=== PATIENT | female | born 1970 | race Caucasian/White ===

== ENCOUNTER → 2016-12-22 | Emergency (ER) | payer MEDICAID ==
[~2016-12-22] VITALS: Ht 165.1 cm; Wt 140.6 kg
[~2016-12-22] MED LIST: ACYC800T PO; ADDERALL; ALBU2.5V52 INH; AMOX-358 PO; AMPH30TA2 PO; ATRV10T PO; BLAC80CA PO; CETI10CA PO; CYCL10TA45 PO; DIAZ10TA PO; ESCT10T PO; FLUC100T PO; FURO40TA4 PO; HYDR-3583 PO; IBP600T1 PO; KCL; LAMO100T69; LAMO100T69 PO; LEVE500T PO; LEVE500T6; LEVO500T2 PO; LNS30CCR; MNTL10T; MULT-974 PO; NITR-65 PO; NRT25C PO; NYST1000 PO; ONDAN4ODT PO; ONDANSETRON 4 MG/2 ML (SDV) Z0FRAN IVP ONE; POLY17PO6 PO; POTA10TA PO; QTP25T; SIMV40TA2; TIAG4TAB; TOPI50TA20; TRAM-21 PO; ZLP10T PO; fentaNYL INJECTION 100 MCG/2 ML AMP IVP STA
--- NOTE | 2016-12-22 15:17 | ED GI ---
General Stated Complaint: STOMACH PAIN Source of Information: Patient, Family Exam Limitations: No Limitations History of Present Illness Time Seen By Provider: 15:17 Initial Comments The patient presents with her boyfriend to the ER with a one week progressive intermittent history of pain in her right upper quadrant that has now traveled more to be in her left upper quadrant coinciding with obstipation and occasional sharp chest pains, shortness of breath mildly above baseline for her COPD and nausea without vomiting. The patient has only had a small bowel movement yesterday and one small one this morning. She took a Dulcolax that she was afraid she was constipated the past week but has had no results. Her appetite as been okay. She denies fever or chills or recent sick contacts or travel outside the [facility]. Patient takes her meds on time. Her meds include Reading prescribed by her PCP for osteoarthritis of her back. She is not on a routine bowel regimenq Allergies and Home Medications Allergies Coded Allergies: Sulfa (Sulfonamide Antibiotics) (Unverified Allergy, Unknown, RASH, ) esomeprazole mag (Unverified Adverse Reaction, Intermediate, 06/10/13) Diarrhea Home Medications Acyclovir 800 Mg Tablet, 800 MG PO Q6H for 7 Days Prescribed by: RUY EVANS on 06/11/13 0055 Albuterol Sulfate 2.5 Mg/3 Ml Nebu, 2.5 MG INH Q6H PRN, (Reported) Amphet Asp/Amphet/D-Amphet 30 Mg Tablet, 30 MG PO BID, (Reported) Atorvastatin Calcium 10 Mg Tablet, 10 MG PO HS, (Reported) Black Cohosh Root Extract 80 Mg Capsule, 80 MG PO DAILY, (Reported) Cetirizine Hcl 10 Mg Capsule, 10 MG PO DAILY, (Reported) Cyclobenzaprine Hcl 10 Mg Tablet, 10 MG PO TID PRN, (Reported) Diazepam 10 Mg Tablet, 10 MG PO Q8H PRN, (Reported) Escitalopram Oxalate 10 Mg Tablet, 10 MG PO DAILY, (Reported) Furosemide 40 Mg Tablet, 40 MG PO BID, (Reported) Hydrocodone Bit/Acetaminophen 1 Tab Tab, 1 EA PO Q4HR PRN, (Reported) Ibuprofen 600 Mg Tab, 600 MG PO Q6H PRN, (Reported) Lamotrigine 100 Mg Tablet, 50 MG PO BID, (Reported) Levetiracetam 500 Mg Tab, 500 MG PO BID, (Reported) Multivitamin 1 Each Tablet, 1 TAB PO DAILY, (Reported) Nortriptyline Hcl 25 Mg Cap, 25 MG PO HS, (Reported) Ondansetron Hcl 4 Mg Tab, 4 MG PO Q8H PRN, (Reported) Potassium Chloride 10 Meq Tablet.sa, 20 MEQ PO BID, (Reported) Zolpidem Tartrate 10 Mg Tab, 10 MG PO HS, (Reported) Review of Systems Constitutional: No chills, No diaphoresis, No dizziness, No fever, malaise, No weight gain, No weight loss EENTM: No Ear Pain, No Nose Congestion, No Throat Pain Respiratory: Denies Cough, SOA With Exertion, Denies SOA at Rest Cardiovascular: See HPI, Chest Pain, Denies Edema, Denies Palpitations Gastrointestinal: Abdomen Distended, Abdominal Pain, Constipated, Denies Diarrhea, Denies Difficulty Swallowing, Nausea, Denies Poor Appetite, Denies Poor Fluid Intake, Denies Vomiting Genitourinary: Denies Burning, Denies Discharge, Denies Incontinence, Denies Pain Musculoskeletal: back pain, joint pain, No joint swelling Skin: No pruritus, No rash Psychiatric/Neurological: Denies Headache, Denies Numbness Hematologic/Lymphatic: Denies Easy Bleeding, Denies Easy Bruising Past Lpsupoe-Drfqub-Ylmouv Hx Patient Social History Alcohol Use: Denies Use Recreational Drug Use: No Smoking Status: Current Everyday Smoker Type Used: Cigarettes Recent Foreign Travel: No Contact w/Someone Who Travel: No Immunizations Up To Date Tetanus Booster (TDap): Unknown Date of Pneumonia Vaccine: Dec 14, 2012 Seasonal Allergies Seasonal Allergies: No Surgeries HX Surgeries: Yes (carpal tunnel sx) Surgeries: Hysterectomy Respiratory Hx Respiratory Disorders: Yes Respiratory Disorders: Chronic Bronchitis Cardiovascular Hx Cardiac Disorders: No Neurological Hx Neurological Disorders: Yes Neurological Disorders: Seizure Disorder 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 System Hx 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 Disorders: No Sexually Transmitted Disease: No HIV/AIDS: No 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 History: Hysterectomy Genitourinary Hx Genitourinary Disorders: No Gastrointestinal Hx Gastrointestinal Disorders: Yes Gastrointestinal Disorders: Gastroesophageal Reflux Musculoskeletal Hx Musculoskeletal Disorders: Yes Musculoskeletal Disorders: Arthritis, Fibromyalgia Endocrine Hx Endocrine Disorders: No HEENT HX ENT Disorders: No Cancer Hx Cancer: No Psychosocial Hx Psychiatric Problems: Yes Behavioral Health Disorders: ADD/ADHD, Anxiety, PTSD, Depression Integumentary HX Skin/Integumentary Disorder: No Blood Transfusions Hx Blood Disorders: No Family Medical History Significant Family History: No Pertinent Family Hx Physical Exam Vital Signs VS - Last 72 Hours, by Label 12/22/16 12/22/16 15:15 15:42 Temp 98.1 98.1 Pulse 72 Resp 30 B/P (MAP) 132/84 Pulse Ox 95 O2 Delivery Room Air Capillary Refill : General Appearance: WD/WN, no apparent distress, obese HEENT: PERRL/EOMI, pharynx normal Neck: non-tender, full range of motion, supple, normal inspection Respiratory: chest non-tender, lungs clear, normal breath sounds, no respiratory distress, no accessory muscle use Cardiovascular: normal peripheral pulses, regular rate, rhythm, no JVD Peripheral Pulses: 3+ Radial Pulses (R), 3+ Radial Pulses (L) Gastrointestinal: normal bowel sounds, no organomegaly, distended, tenderness ( RUQ, LUQ and LLQ) Extremities: non-tender, normal inspection Back: normal inspection, no CVA tenderness Neurologic/Psychiatric: alert, oriented x 3 Skin: normal color, warm/dry Progress/Results/Core Measures Results/Orders Lab Results Laboratory Tests Test 12/22/16 15:35 Range/Units White Blood Count 13.6 H 4.3-11.0 10^3/uL Red Blood Count 4.33 L 4.35-5.85 10^6/uL Hemoglobin 13.2 11.5-16.0 G/DL Hematocrit 40 35-52 % Mean Corpuscular Volume 91 80-99 FL Mean Corpuscular Hemoglobin 31 25-34 PG Mean Corpuscular Hemoglobin Concent 33 32-36 G/DL Red Cell Distribution Width 12.7 10.0-14.5 % Platelet Count 232 130-400 10^3/uL Mean Platelet Volume 11.1 H 7.4-10.4 FL Neutrophils (%) (Auto) 68 42-75 % Lymphocytes (%) (Auto) 23 12-44 % Monocytes (%) (Auto) 8 0-12 % Eosinophils (%) (Auto) 1 0-10 % Basophils (%) (Auto) 0 0-10 % Neutrophils # (Auto) 9.3 H 1.8-7.8 X 10^3 Lymphocytes # (Auto) 3.2 1.0-4.0 X 10^3 Monocytes # (Auto) 1.1 H 0.0-1.0 X 10^3 Eosinophils # (Auto) 0.1 0.0-0.3 10^3/uL Basophils # (Auto) 0.0 0.0-0.1 10^3/uL Sodium Level 141 135-145 MMOL/L Potassium Level 3.8 3.6-5.0 MMOL/L Chloride Level 112 H 98-107 MMOL/L Carbon Dioxide Level 20 L 21-32 MMOL/L Anion Gap 9 5-14 MMOL/L Blood Urea Nitrogen 20 H 7-18 MG/DL Creatinine 0.85 0.60-1.30 MG/DL Estimat Glomerular Filtration Rate > 60 BUN/Creatinine Ratio 24 Glucose Level 103 70-105 MG/DL Calcium Level 8.8 8.5-10.1 MG/DL Total Bilirubin 0.2 0.1-1.0 MG/DL Aspartate Amino Transf (AST/SGOT) 11 5-34 U/L Alanine Aminotransferase (ALT/SGPT) 12 0-55 U/L Alkaline Phosphatase 68 40-136 U/L Troponin I < 0.30 <0.30 NG/ML Total Protein 5.9 L 6.4-8.2 G/DL Albumin 3.5 3.2-4.5 G/DL Amylase Level 82 25-125 U/L Thyroid Stimulating Hormone (TSH) 1.06 0.35-4.94 UIU/ML My Orders Orders - ZAHRA ORNELAS Saline Lock/Iv-Start (12/22/16 15:28) Ekg Tracing (12/22/16 15:28) Amylase (12/22/16 15:28) Cbc With Automated Diff (12/22/16 15:28) Comprehensive Metabolic Panel (12/22/16 15:28) Thyroid Stimulating Hormone (12/22/16 15:28) Troponin I (12/22/16 15:28) Chest Pa/Lat (2 View) (12/22/16 15:28) Abdomen/Kub 1view (12/22/16 15:28) Fentanyl Injection (Sublimaze Injection (12/22/16 15:28) Ondansetron Injection (Zofran Injectio (12/22/16 15:45) Medications Given in ED Current Medications Medications Dose Ordered Sig/Daysi Route Start Time Stop Time Status Last Admin Dose Admin Ondansetron HCl 4 mg ONCE ONCE IVP 12/22/16 15:45 12/22/16 15:46 DC 12/22/16 15:42 4 MG Vital Signs/I&O Vital Sign - Last 12Hours 12/22/16 12/22/16 15:15 15:42 Temp 98.1 98.1 Pulse 72 Resp 30 B/P (MAP) 132/84 Pulse Ox 95 O2 Delivery Room Air Progress Note : Time: 15:39 Progress Note Patient is with a nonacute appearance but a long history of opiates and now constipation and abdominal pain tracking along the length of the colon. She is aleady had her appendix and gallbladder out as well as hysterectomy. Her Chest pain will be worked up with Trop and Normal EKg and CXR. No SOB or hypoxia on RA despite Hx of COPD so PE less likely. No GERD, but distended colon might explain her discomfort. Imaging lab reviewed and appears patient is constipated secondary to her chronic opiate use. She is been counseled on how to use MiraLAX daily. For Jose her home on a twice a day or 3 times a day cleanout as well as given enema. Patient states she does not take anything for her constipation routinely. She should follow-up with her primary care in the next few weeks. She states she's had 2 small bowel movements since getting here secondary to the Dulcolax she took this afternoon and is already feeling better. ECG EKG : EKG Time: 15:26 Rate: 63 Rhythm: Normal Sinus Intervals: Normal, QT (410) ECG Comparisson: No Previous ECG Available ECG Impression: Normal Diagnostic Imaging Diagonstic Imaging: Xray Plain Films/CT/US/NM/MRI: chest Comments No acute cardio occult pulmonary abnormalities. Calcified granuloma left lung VIA [facility]. [place], [place] NAME: LANETTE CARO [facility] REC#: [id number] PT STATUS: REG ER : 1970 PHYSICIAN: ZAHRA ORNELAS MD ADMIT DATE: 12/22/16/ER Draft Date of Exam:12/22/16 CHEST PA/LAT (2 VIEW) INDICATION: Chest pain. FINDINGS: There is no focal pulmonary infiltrate or consolidation. There is no effusion or evidence of pneumothorax. There is a stable density demonstrated within the left chest most compatible with a granuloma. This has been present dating back to at least the office associate tomogram of a CT abdomen/pelvis from July 2015. The heart size is normal. There is no evidence of failure. There is no acute osseous abnormality. IMPRESSION: No radiographic evidence of an acute cardiopulmonary process. Dictated on workstation # [id number] Dict: 12/22/16 1603 Trans: 12/22/16 1618 [facility] [id number] Interpreted by: MARIA WHITE MD Electronically signed by: Reviewed: Reviewed by Me Diagonstic Imaging: Xray Plain Films/CT/US/NM/MRI: other (KUB) Comments Distended bowel gas transverse and ascending colon descending and sigmoid and rectum not seen. [facility]. [place], [place] NAME: LANETTE CARO [facility] REC#: [id number] PT STATUS: REG ER : 1970 PHYSICIAN: ZAHRA ORNELAS MD ADMIT DATE: 12/22/16/ER Draft Date of Exam:12/22/16 ABDOMEN/KUB 1VIEW INDICATION: Constipation and abdominal pain. FINDINGS: There is gas demonstrated within the ascending colon and within the transverse colon. There does appear to be some stool within the region of the rectum. There is no colonic dilatation. There is no abnormal small bowel dilatation. There are surgical clips in the right upper quadrant. Lung bases clear. No acute osseous abnormality demonstrated. IMPRESSION: 1. There are no obstructive features demonstrated. There is formed stool demonstrated within the rectum but no significant stool evident within the transverse colon or right colon. There is no small bowel dilation. Dictated on workstation # [id number] Dict: 12/22/16 1607 Trans: 12/22/16 1612 [facility] [id number] Interpreted by: MARIA WHITE MD Electronically signed by: Reviewed: Reviewed by Me Departure Impression Impression: Primary Impression: Constipation due to pain medication Disposition: HOME, SELF-CARE Condition: Stable Departure-Patient Inst. Decision time for Depature: 17:01 Referrals: KUSHAL FLOR MD (PCP/Family) Primary Care Physician Patient Instructions: Constipation, Adult (DC) Add. Discharge Instructions: You have constipation secondary to your opiate pain medicine. Every daily to take pain medicine he should take at least 1 dose of MiraLAX. For now would like to take 2-3 times a day MiraLAX as well as an enema a day until you have frequent loose watery stools and fever cleaned out. If you're having abdominal pain and take pain medicine may take away the pain temporarily but it is only further worsening the constipation and the root of your problem. Follow up with your primary care physician to reassess her medicines in the next 2-3 weeks. If you're not getting better or having new symptoms such as fever or nausea and vomiting and you should return to the ER or your primary care physician as appropriate. Scripts Polyethylene Glycol 3350 (Miralax) 17 Gm Powd.pack 17 GM PO BID PRN for Constipation for 7 Days, #1 EACH 0 Refills Prov: ZAHRA ORNELAS 12/22/16 Copy Copies To 1: KUSHAL FLOR MD, TITUS J Dec 22, 2016 15:17
[2016-12-22 15:43] LABS: BASOPHILS % (AUTO) 0 % (0-10); EOSINOPHILS # (AUTO) 0.1 10^3/uL (0.0-0.3); EOSINOPHILS % (AUTO) 1 % (0-10); LYMPHOCYTES # (AUTO) 3.2 X 10^3 (1.0-4.0); LYMPHOCYTES % (AUTO) 23 % (12-44); MEAN CORPUSCULAR HEMOGLOBIN 31 PG (25-34); MEAN CORPUSCULAR HGB CONC 33 G/DL (32-36); MEAN CORPUSCULAR VOLUME 91 FL (80-99); MEAN PLATELET VOLUME 11.1 FL (7.4-10.4); MONOCYTES # (AUTO) 1.1 X 10^3 (0.0-1.0); MONOCYTES % (AUTO) 8 % (0-12); NEUTROPHILS # (AUTO) 9.3 X 10^3 (1.8-7.8); NEUTROPHILS % (AUTO) 68 % (42-75); PLATELET COUNT 232 10^3/uL (130-400); RED BLOOD COUNT 4.33 10^6/uL (4.35-5.85); RED CELL DISTRIBUTION WIDTH 12.7 % (10.0-14.5); WHITE BLOOD COUNT 13.6 10^3/uL (4.3-11.0)
[2016-12-22 16:09] LABS: ALANINE AMINOTRANSFERASE 12 U/L (0-55); ALBUMIN 3.5 G/DL (3.2-4.5); AMYLASE 82 U/L (25-125); ANION GAP 9 MMOL/L (5-14); ASPARTATE AMINO TRANSFERASE 11 U/L (5-34); BILIRUBIN,TOTAL 0.2 MG/DL (0.1-1.0); BLOOD UREA NITROGEN 20 MG/DL (7-18); BUN/CREATININE RATIO 24; CALCIUM 8.8 MG/DL (8.5-10.1); CARBON DIOXIDE 20 MMOL/L (21-32); CHLORIDE 112 MMOL/L (98-107); CREATININE SERUM 0.85 MG/DL (0.60-1.30); GFR ESTIMATED > 60; GLUCOSE 103 MG/DL (70-105); POTASSIUM 3.8 MMOL/L (3.6-5.0); SODIUM 141 MMOL/L (135-145); TOTAL PROTEIN 5.9 G/DL (6.4-8.2)
--- NOTE | 2016-12-22 16:13 | Diagnostic Imaging Report ---
INDICATION: Constipation and abdominal pain. FINDINGS: There is gas demonstrated within the ascending colon and within the transverse colon. There does appear to be some stool within the region of the rectum. There is no colonic dilatation. There is no abnormal small bowel dilatation. There are surgical clips in the right upper quadrant. Lung bases clear. No acute osseous abnormality demonstrated. IMPRESSION: 1. There are no obstructive features demonstrated. There is formed stool demonstrated within the rectum but no significant stool evident within the transverse colon or right colon. There is no small bowel dilation. Dictated by: Dictated on workstation # [id number]
--- NOTE | 2016-12-22 16:19 | Diagnostic Imaging Report ---
INDICATION: Chest pain. FINDINGS: There is no focal pulmonary infiltrate or consolidation. There is no effusion or evidence of pneumothorax. There is a stable density demonstrated within the left chest most compatible with a granuloma. This has been present dating back to at least the ear specialist tomogram of a CT abdomen/pelvis from July 2015. The heart size is normal. There is no evidence of failure. There is no acute osseous abnormality. IMPRESSION: No radiographic evidence of an acute cardiopulmonary process. Dictated by: Dictated on workstation # [id number]
[2016-12-22 16:28] LABS: THYROID STIMULATING HORMONE 1.06 UIU/ML (0.35-4.94); TROPONIN I < 0.30 NG/ML (<0.30)
[2016-12-22 17:27] VITALS: BP 120/75
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
--- OUTSIDE RECORDS SUMMARY | 2017-01-26 06:01 | XMS REPORT | Continuity of Care Document ---
Author Author [facility] Organization [facility] Address Unknown Phone Unavailable Care Team Providers Care Scientific Recruiter Name Role Phone OLY MCMULLEN MD PP Insurance Providers Payer Name Policy Number Subscriber Name Relationship [facility] [id number] [place] Caro 01 Self / Same As Patient Advance Directives Directive Response Recorded Date Advance Directives N 06/10/13 10:46pm Problems No Known Problems or Medical conditions. Social History History Response Recorded Date/Time Alcohol Use Denies Use 06/10/13 10:46pm Recreational Drug Use N 06/10/13 10:46pm Hospitalization with Isolation Denies 10:46pm Sexually Transmitted Disease N 06/10/13 10:46pm HIV/AIDS N 06/10/13 10:46pm Allergies, Adverse Reactions, Alerts Allergen Type Severity Reaction Last Updated esomeprazole mag Adverse Reaction Intermediate 06/10/13 [id number] (SULFA (SULFONAMIDE ANTIBIOTICS)) Allergy Mild 08/06/09 Medications Medication Dose Units Route Sig Qty Days Acyclovir 800 Mg PO Q6H 7 Lamotrigine (Lamictal) 50 Mg PO BID Zolpidem Tartrate (Ambien 10 Mg) 10 Mg PO HS Amphet Asp/Amphet/D-Amphet (Adderall 30 Mg Tablet) 30 Mg PO BID Levetiracetam (Keppra Tab) 500 Mg PO BID Diazepam (Valium 10 Mg Tab) 10 Mg PO Q8H PRN Albuterol Sulfate (Proventil Pre-Mix Nebs (Rt)) 2.5 Mg INH Q6H PRN Ibuprofen (Motrin) 600 Mg PO Q6H PRN Black Cohosh Root Extract (Black Cohosh Extract) 80 Mg PO DAILY Potassium Chloride (K-Tab) 20 Meq PO BID Cetirizine Hcl (Zyrtec) 10 Mg PO DAILY Atorvastatin Calcium (Lipitor 10 Mg) 10 Mg PO HS Nortriptyline HCl (Pamelor) 25 Mg PO HS Acetaminophen/Hydrocodone Bitart (Lortab 5 Mg) 1 Ea PO Q4HR PRN Ondansetron HCl (Zofran Oral Dissolve) 4 Mg PO Q8H PRN Escitalopram Oxalate (Lexapro) 10 Mg PO DAILY Cyclobenzaprine Hcl (Flexeril Tablet) 10 Mg PO TID PRN Multivitamin (Multi Vitamin Daily) 1 Tab PO DAILY Furosemide 40 Mg PO BID Tramadol Hcl (Ultram) 50 Mg PO Q4H PRN 20 [Adderall] Quetiapine Fumarate (Seroquel) Simvastatin (Zocor) Montelukast Sodium (Singulair) Lamotrigine (Lamictal) Lansoprazole (Prevacid) [Kcl] Tiagabine Hcl (Gabitril) Topiramate (Topamax) Levetiracetam Immunizations Name Given Type Date of Pneumonia Vaccine 12/14/12 H Response Recorded Date/Time Status not known Unknown Results No Known Relevant Diagnostic Tests, Laboratory Data and/or Discharge Summary. Encounters Encounter Location Date/Time Departed Emergency Room [facility] 10:01pm
--- OUTSIDE RECORDS SUMMARY | 2017-01-26 06:01 | XMS REPORT | Continuity of Care Document ---
Author Author [facility] Organization [facility] Address Unknown Phone Unavailable Allergies Active Description Code Type Severity Reaction Onset Reported/Identified Relationship to Patient Clinical Status Yes [id number] (SULFA (SULFONAMIDE ANTIBIOTICS)) [id number] (SULFA (SULFONAMIDE ANTIBIOTICS)) Mild N/A 08/06/2009 Yes esomeprazole mag [id number] Drug Allergy Moderate N/A 06/10/2013 Yes Sulfa (Sulfonamide Antibiotics) [id number] Drug Allergy Unknown RASH 07/30/2015 Medications Problems Date Dx Coded Attending Type Code Diagnosis Diagnosed By 06/11/2013 SVITLANA BORGES, RUY Rushing Ot 053.9 HERPES ZOSTER NOS 06/11/2013 RUY SHANE MD Ot 300.00 ANXIETY STATE NOS 06/11/2013 RUY SHANE MD Ot 305.1 TOBACCO USE DISORDER 06/11/2013 RUY SHANE MD Ot 311 DEPRESSIVE DISORDER NEC 06/11/2013 RUY SHANE MD Ot 314.01 ATTN DEFICIT W HYPERACT 06/11/2013 RUY SHANE MD Ot 345.90 EPILEPSY UNSPEC W/O MENTION INTRACTABLE 06/11/2013 RUY SHANE MD Ot 530.81 ESOPHAGEAL REFLUX 06/11/2013 RUY SHANE MD Ot 535.50 UNSP GASTRITIS GASTRODUODENITIS W/ O ME 06/11/2013 RUY SHANE MD Ot 553.3 DIAPHRAGMATIC HERNIA 06/11/2013 RUY SHANE MD Ot 729.1 MYALGIA AND MYOSITIS NOS 07/31/2015 GEETA CASTELLON Ot B37.0 CANDIDAL STOMATITIS 07/31/2015 GEETA CASTELLON Ot F17.210 NICOTINE DEPENDENCE, CIGARETTES, UNCOMPL 07/31/2015 GEETA CASTELLON Ot K76.0 FATTY (CHANGE OF) LIVER, NOT ELSEWHERE C 07/31/2015 GEETA CASTELLON Ot N39.0 URINARY TRACT INFECTION, SITE NOT SPECIF 07/31/2015 GEETA CASTELLON Ot R19.7 DIARRHEA, UNSPECIFIED 07/31/2015 GEETA CASTELLON Ot Z79.899 OTHER STRUCTURES ASSEMBLER (CURRENT) DRUG THERAPY 02/11/2016 KHAI JOAQUIN APRN Ot F17.210 NICOTINE DEPENDENCE, CIGARETTES, UNCOMPL 02/11/2016 KHAI JOAQUIN APRN Ot H66.93 OTITIS MEDIA, UNSPECIFIED, BILATERAL 02/11/2016 KHAI JOAQUIN APRN Ot J06.9 ACUTE UPPER RESPIRATORY INFECTION, UNSPE 02/11/2016 KHAI JOAQUIN APRN Ot R91.1 SOLITARY PULMONARY NODULE 02/13/2016 KHAI JOAQUIN APRN Ot F17.210 NICOTINE DEPENDENCE, CIGARETTES, UNCOMPL 02/13/2016 KHAI JOAQUIN APRN Ot H66.93 OTITIS MEDIA, UNSPECIFIED, BILATERAL 02/13/2016 KHAI JOAQUIN APRN Ot J06.9 ACUTE UPPER RESPIRATORY INFECTION, UNSPE 02/13/2016 KHAI JOAQUIN APRN Ot R91.1 SOLITARY PULMONARY NODULE 12/24/2016 ZAHRA ORNELAS MD Ot F17.210 NICOTINE DEPENDENCE, CIGARETTES, UNCOMPL 12/24/2016 ZAHRA ORNELAS MD Ot J44.9 CHRONIC OBSTRUCTIVE PULMONARY DISEASE, U 12/24/2016 ZAHRA ORNELAS MD Ot K59.03 DRUG INDUCED CONSTIPATION 12/24/2016 ZAHRA ORNELAS MD Ot R10.11 RIGHT UPPER QUADRANT PAIN 12/24/2016 ZAHRA ORNELAS MD Ot Z79.891 SNF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 OPIATE ANALGE 12/24/2016 ZAHRA ORNELAS MD Ot Z79.899 OTHER SNF (CURRENT) DRUG THERAPY 12/24/2016 ZAHRA ORNELAS MD Ot Z90.49 ACQUIRED ABSENCE OF OTHER SPECIFIED PART 12/24/2016 ZAHRA ORNELAS MD Ot Z90.710 ACQUIRED ABSENCE OF BOTH CERVIX AND UTER 12/27/2016 ZAHRA ORNELAS MD Ot F17.210 NICOTINE DEPENDENCE, CIGARETTES, UNCOMPL 12/27/2016 ZAHRA ORNELAS MD Ot J44.9 CHRONIC OBSTRUCTIVE PULMONARY DISEASE, U 12/27/2016 ZAHRA ORNELAS MD Ot K59.03 DRUG INDUCED CONSTIPATION 12/27/2016 ZAHRA ORNELAS MD Ot R10.11 RIGHT UPPER QUADRANT PAIN 12/27/2016 ZAHRA ORNELAS MD Ot Z79.891 SNF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 OPIATE ANALGE 12/27/2016 ZAHRA ORNELAS MD Ot Z79.899 OTHER SNF (CURRENT) DRUG THERAPY 12/27/2016 ZAHRA ORNELAS MD Ot Z90.49 ACQUIRED ABSENCE OF OTHER SPECIFIED PART 12/27/2016 ZAHRA ORNELAS MD Ot Z90.710 ACQUIRED ABSENCE OF BOTH CERVIX AND UTER 01/03/2017 ZAHRA ORNELAS MD Ot F17.210 NICOTINE DEPENDENCE, CIGARETTES, UNCOMPL 01/03/2017 ZAHRA ORNELAS MD Ot J44.9 CHRONIC OBSTRUCTIVE PULMONARY DISEASE, U 01/03/2017 ZAHRA ORNELAS MD Ot K59.03 DRUG INDUCED CONSTIPATION 01/03/2017 ZAHRA ORNELAS MD Ot R10.11 RIGHT UPPER QUADRANT PAIN 01/03/2017 ZAHRA ORNELAS MD Ot Z79.891 STRUCTURES ASSEMBLER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 OPIATE ANALGE 01/03/2017 ZAHRA ORNELAS MD Ot Z79.899 OTHER STRUCTURES ASSEMBLER (CURRENT) DRUG THERAPY 01/03/2017 ZAHRA ORNELAS MD Ot Z90.49 ACQUIRED ABSENCE OF OTHER SPECIFIED PART 01/03/2017 ZAHRA ORNELAS MD Ot Z90.710 ACQUIRED ABSENCE OF BOTH CERVIX AND UTER Procedures Results Test Result Range Complete blood count (CBC) with automated white blood cell (WBC) differential - 12/22/16 15:35 Blood leukocytes automated count (number/volume) 13.6 10*3/ uL 4.3-11.0 Blood erythrocytes automated count (number/volume) 4.33 10*6 /uL 4.35-5.85 Venous blood hemoglobin measurement (mass/volume) 13.2 g/dL 11.5-16.0 Blood hematocrit (volume fraction) 40 % 35-52 Automated erythrocyte mean corpuscular volume 91 [foz_us] 80-99 Automated erythrocyte mean corpuscular hemoglobin (mass per erythrocyte) 31 pg 25-34 Automated erythrocyte mean corpuscular hemoglobin concentration measurement ( mass/volume) 33 g/dL 32-36 Automated erythrocyte distribution width ratio 12.7 % 10.0-14.5 Automated blood platelet count (count/volume) 232 10*3/uL 130-400 Automated blood platelet mean volume measurement 11.1 [foz_ us] 7.4-10.4 Automated blood neutrophils/100 leukocytes 68 % 42-75 Automated blood lymphocytes/100 leukocytes 23 % 12-44 Blood monocytes/100 leukocytes 8 % 0-12 Automated blood eosinophils/100 leukocytes 1 % 0-10 Automated blood basophils/100 leukocytes 0 % 0-10 Blood neutrophils automated count (number/volume) 9.3 10*3 1.8-7.8 Blood lymphocytes automated count (number/volume) 3.2 10*3 1.0-4.0 Blood monocytes automated count (number/volume) 1.1 10*3 0.0-1.0 Automated eosinophil count 0.1 10*3/uL 0.0-0.3 Automated blood basophil count (count/volume) 0.0 10*3/uL 0.0-0.1 Comprehensive metabolic panel - 12/22/16 15:35 Serum or plasma sodium measurement (moles/volume) 141 mmol/ L 135-145 Serum or plasma potassium measurement (moles/volume) 3.8 mmol/L 3.6-5.0 Serum or plasma chloride measurement (moles/volume) 112 mmol /L 98-107 Carbon dioxide 20 mmol/L 21-32 Serum or plasma anion gap determination (moles/volume) 9 mmol/L 5-14 Serum or plasma urea nitrogen measurement (mass/volume) 20 mg/dL 7-18 Serum or plasma creatinine measurement (mass/volume) 0.85 mg /dL 0.60-1.30 Serum or plasma urea nitrogen/creatinine mass ratio 24 NRG Serum or plasma creatinine measurement with calculation of estimated glomerular filtration rate > NRG Serum or plasma glucose measurement (mass/volume) 103 mg/dL 70-105 Serum or plasma calcium measurement (mass/volume) 8.8 mg/dL 8.5-10.1 Serum or plasma total bilirubin measurement (mass/volume) 0.2 mg/dL 0.1-1.0 Serum or plasma alkaline phosphatase measurement (enzymatic activity/volume) 68 U/L 40-136 Serum or plasma aspartate aminotransferase measurement (enzymatic activity/ volume) 11 U/L 5-34 Serum or plasma alanine aminotransferase measurement (enzymatic activity/volume ) 12 U/L 0-55 Serum or plasma protein measurement (mass/volume) 5.9 g/dL 6.4-8.2 Serum or plasma albumin measurement (mass/volume) 3.5 g/dL 3.2-4.5 Serum or plasma troponin i.cardiac measurement (mass/volume) - 12/22/16 15:35 Serum or plasma troponin i.cardiac measurement (mass/volume) < ng/mL <0.30 Serum or plasma amylase measurement (enzymatic activity/volume) - 12/22/16 15: 35 Serum or plasma amylase measurement (enzymatic activity/volume) 82 U/L 25-125 THYROID STIMULATING HORMONE - 12/22/16 15:35 THYROID STIMULATING HORMONE 1.06 u[iU]/mL 0.35-4.94 Encounters ACCT No. Visit Date/Time Discharge Status Pt. Type Provider Facility Loc./Unit Complaint [id number] 02/11/2016 17:46:00 2015 19:12:00 DIS Emergency KHAI JOAQUIN APRN [facility] ER EAR INFECTION/CONGESTION/COUGH [id number] 07/30/2015 21:33:00 2014 00:30:00 DIS Emergency GEETA CASTELLON [facility] ER DIARRHEA/NAUSEATED [id number] 07/28/2014 14:09:00 2013 23:59:59 CLS Outpatient RIDINGS DONNAMARA Vidal APRN [facility] QUICK [id number] 06/10/2013 22:01:00 2012 01:10:00 DIS Emergency RUY SHANE MD [facility] ER RASH [id number] 05/01/2013 11:18:00 2012 23:59:59 CLS Outpatient [id number] 12/22/2016 15:10:00 ACT Emergency ZAHRA ORNELAS MD [facility] ER STOMACH PAIN
== END | disposition home or self-care (01) ==
LOC: EDUNIT# 15:09 → ER 15:10
DX: K59.03 Drug induced constipation (principal); Z79.891 Long term (current) use of opiate analgesic; J44.9 Chronic obstructive pulmonary disease, unspecified; F17.210 Nicotine dependence, cigarettes, uncomplicated; Z79.899 Other long term (current) drug therapy; Z90.49 Acquired absence of other specified parts of digestive tract; Z90.710 Acquired absence of both cervix and uterus
CPT/HCPCS: 36415; 71020; 74000; 80053; 82150; 84443; 84484; 85025; 93005; 96374; 96375

== ENCOUNTER 2017-03-23 09:47 | Emergency (ER) | payer MEDICAID ==
[~2017-03-23] VITALS: Ht 160 cm; Wt 139.3 kg
[~2017-03-23 09:47] MED LIST changes: -ONDANSETRON 4 MG/2 ML (SDV) Z0FRAN IVP ONE; -fentaNYL INJECTION 100 MCG/2 ML AMP IVP STA
[2017-03-23] MEDS ORDERED: HYDROcodone/APAP 10 MG/325 MG (LORTAB) TAB PO STA (10:12)
--- NOTE | 2017-03-23 10:19 | ED Back Pain ---
General Chief Complaint: Back Problems Stated Complaint: BACK PAIN/POSS SINUS INFECTION Nursing Triage Note: ARRIVED VIA AMB TO ROOM 06 WITHOUT DIFFICULTY. COMPLAINS OF LOW BACK PAIN STARTING YESTERDAY WITH NO INURY. STATES SHE HAS BEEN TAKING "HYDROS" WHICH DOES NOT HELP. ALSO COMPLAINS OF SINUS PROBLMES. Nursing Sepsis Screen: No Definite Risk Source of Information: Patient Exam Limitations: No Limitations History of Present Illness Time Seen by Provider: 10:05 Initial Comments Here with report of low back pain that started yesterday and is worse despite taking her hydrocodone and doing her back exercises. She actually has chronic back pain and is prescribed pain medicines for this but states it's worse today. She is also complaining of sore throat, runny nose and sinus tenderness and congestion. That has been going on for a few days and is not getting better as well. Timing/Duration: 1-2 Days Severity: Moderate Pain/Injury Location: Back Radiation: Buttocks Method of Injury: Unknown Associated Symptoms: muscle spasms, No fever, No numbness in legs/feet, No tingling in legs/feet, No sensory/motor loss, lower back pain, No loss of bladder control, No loss of bowel control Allergies and Home Medications Allergies Coded Allergies: Sulfa (Sulfonamide Antibiotics) (Unverified Allergy, Unknown, RASH, ) esomeprazole mag (Unverified Adverse Reaction, Intermediate, 06/10/13) Diarrhea Home Medications Acyclovir 800 Mg Tablet, 800 MG PO Q6H for 7 Days Prescribed by: RUY EVANS on 06/11/13 0055 Albuterol Sulfate 2.5 Mg/3 Ml Nebu, 2.5 MG INH Q6H PRN, (Reported) Amphet Asp/Amphet/D-Amphet 30 Mg Tablet, 30 MG PO BID, (Reported) Atorvastatin Calcium 10 Mg Tablet, 10 MG PO HS, (Reported) Black Cohosh Root Extract 80 Mg Capsule, 80 MG PO DAILY, (Reported) Cetirizine Hcl 10 Mg Capsule, 10 MG PO DAILY, (Reported) Cyclobenzaprine Hcl 10 Mg Tablet, 10 MG PO TID PRN, (Reported) Diazepam 10 Mg Tablet, 10 MG PO Q8H PRN, (Reported) Escitalopram Oxalate 10 Mg Tablet, 10 MG PO DAILY, (Reported) Furosemide 40 Mg Tablet, 40 MG PO BID, (Reported) Hydrocodone Bit/Acetaminophen 1 Tab Tab, 1 EA PO Q4HR PRN, (Reported) Ibuprofen 600 Mg Tab, 600 MG PO Q6H PRN, (Reported) Lamotrigine 100 Mg Tablet, 50 MG PO BID, (Reported) Levetiracetam 500 Mg Tab, 500 MG PO BID, (Reported) Multivitamin 1 Each Tablet, 1 TAB PO DAILY, (Reported) Nortriptyline Hcl 25 Mg Cap, 25 MG PO HS, (Reported) Ondansetron Hcl 4 Mg Tab, 4 MG PO Q8H PRN, (Reported) Polyethylene Glycol 3350 17 Gm Powd.pack, 17 GM PO BID PRN for 7 Days, #1 Ref 0 Prescribed by: ZAHRA ORNELAS on 12/22/16 1704 Potassium Chloride 10 Meq Tablet.sa, 20 MEQ PO BID, (Reported) Zolpidem Tartrate 10 Mg Tab, 10 MG PO HS, (Reported) Constitutional: see HPI, No chills, No fever EENTM: nose congestion, see HPI, throat pain Respiratory: no symptoms reported Cardiovascular: no symptoms reported Gastrointestinal: no symptoms reported Genitourinary: no symptoms reported Musculoskeletal: see HPI, back pain Skin: no symptoms reported Psychiatric/Neurological: No Symptoms Reported Past Hpmoicv-Vodreu-Wwpzwh Hx Patient Social History Alcohol Use: Denies Use Recreational Drug Use: No Smoking Status: Current Everyday Smoker Type Used: Cigarettes 2nd Hand Smoke Exposure: No Recent Foreign Travel: No Contact w/Someone Who Travel: No Recent Infectious Disease Expo: No Recent Hopitalizations: No Immunizations Up To Date Tetanus Booster (TDap): Unknown Date of Pneumonia Vaccine: Dec 14, 2012 Seasonal Allergies Seasonal Allergies: No Surgeries HX Surgeries: Yes (carpal tunnel sx) Surgeries: Hysterectomy Respiratory Hx Respiratory Disorders: Yes Respiratory Disorders: Chronic Bronchitis Cardiovascular Hx Cardiac Disorders: No Neurological Hx Neurological Disorders: Yes Neurological Disorders: Seizure Disorder 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 System Hx 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 Disorders: No Sexually Transmitted Disease: No HIV/AIDS: No 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 READER 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: Hysterectomy Genitourinary Hx Genitourinary Disorders: No Gastrointestinal Hx Gastrointestinal Disorders: Yes Gastrointestinal Disorders: Gastroesophageal Reflux Musculoskeletal Hx Musculoskeletal Disorders: Yes Musculoskeletal Disorders: Arthritis, Fibromyalgia Endocrine Hx Endocrine Disorders: No HEENT HX ENT Disorders: No Cancer Hx Cancer: No Psychosocial Hx Psychiatric Problems: Yes Behavioral Health Disorders: ADD/ADHD, Anxiety, PTSD, Depression Integumentary HX Skin/Integumentary Disorder: No Blood Transfusions Hx Blood Disorders: No Reviewed Nursing Assessment Reviewed/Agree w Nursing PMH: Yes Family Medical History Significant Family History: No Pertinent Family Hx Physical Exam Vital Signs Vital Sign - Last 12Hours 03/23/17 09:58 Temp 98.0 Pulse 83 Resp 16 B/P (MAP) 132/81 Pulse Ox 98 Capillary Refill : Less Than 3 Seconds General Appearance: No Apparent Distress, WD/WN HEENT: PERRL/EOMI, Pharyngeal Erythema, Other (moderate bilateral frontal sinus tenderness to palpation.) Neck: Normal Inspection, Non Tender Cardiovascular: Regular Rate, Rhythm, No Murmur Respiratory: Lungs Clear, Normal Breath Sounds Gastrointestinal: Non Tender, Soft Back: Normal Inspection, No CVA Tenderness, No Vertebral Tenderness, Muscle Spasm, Other (bilateral lower back tenderness with left greater than right.) Extremity: Non Tender, No Calf Tenderness Neurologic/Psychiatric: Alert, Oriented x3 Skin: Normal Color, Warm/Dry Progress/Results/Core Measures Results/Orders My Orders Orders - JOHNSON REESE MD Hydrocodone/Apap 10/325 Tablet (Lortab 1 (03/23/17 10:12) Vital Signs/I&O Vital Sign - Last 12Hours 03/23/17 09:58 Temp 98.0 Pulse 83 Resp 16 B/P (MAP) 132/81 Pulse Ox 98 Blood Pressure Mean: 98 Progress Note : Progress Note Seen and evaluated. Hydrocodone 10/325 one tab by mouth given. Discharged home with return precautions. Patient verbalize understanding instructions and agreement with plan. Departure Impression Impression: Primary Impression: Back pain Qualified Codes: M54.5 - Low back pain Additional Impression: Acute sinusitis Qualified Codes: J01.10 - Acute frontal sinusitis, unspecified Disposition: HOME, SELF-CARE Condition: Improved Departure-Patient Inst. Decision time for Depature: 10:18 Referrals: KUSHAL FLOR MD (PCP/Family) Primary Care Physician Patient Instructions: Low Back Pain (DC), Sinusitis, Adult (DC) Add. Discharge Instructions: All discharge instructions reviewed with patient and/or family. Voiced understanding. Take medications as directed. Follow-up with your doctor for recheck and further evaluation. Return for worse pain, fever, vomiting, weakness, breathing problems or other concerns as needed. Drink plenty of fluids. Scripts Prednisone (Prednisone) 20 Mg Tab 40 MG PO DAILY, #14 TAB 0 Refills Prov: JOHNSON REESE MD 03/23/17 Amoxicillin/Potassium Clav (Augmentin 875-125 Tablet) 1 Each Tablet 1 EACH PO BID, #14 TAB 0 Refills Prov: JOHNSON REESE MD 03/23/17 JOHNSON REESE MD Mar 23, 2017 10:19
[2017-03-23] MEDS ORDERED: AMOX-358 PO (10:20)
[2017-03-23] MEDS ORDERED: PRD20T PO (10:20)
[2017-03-23 10:37] VITALS: BP 130/83
--- OUTSIDE RECORDS SUMMARY | 2017-03-25 11:06 | XMS REPORT | Continuity of Care Document ---
Author Author [facility] Organization [facility] Address Unknown Phone Unavailable Care Team Providers Care Polyethylene Combiner Name Role Phone Jeremy Geovani Grissom PCP [phone] Source Comments Some departments are not documenting in the electronic medical record. If you do not see the information that you expected, contact Release of Information in the Health Information Management department at [phone] for further assistance in locating additional records.[facility] Active Allergies and Adverse Reactions Allergen Noted [...] Reiterated need to get back on CPAP. [facility] pays for CPAP. She will check with [...] 11/29/2012 Overview: 11/27/2012: Requesting a referral to drill sharpener for shots: Has been getting shots for 1 yr and has had notiecable improvement in her sx of runny, itchy nose and eyes. Referral placed for Allergy. Anxiety and depression 11/29/2012 Overview: 11/27/2012: concerned about polypharmacy: Insomnia - Ambien and doxepin. Depression/anxiety - Participating in therapy at [facility] and [facility]. Treated with adderall, lamotrigine, oxcarbazepine and [...] Smoking cessation and wt loss encouraged. Epilepsy ([facility]) 10/26/2007 Overview: 11/27/2012: Since childhood. First seizure [...] Plan: Transient alteration of awareness 05/07/2010 11/29/2012 Immunizations Name Dates Previously Given Next Due [...] Taken Blood Pressure 113/73 11/16/2015 11:53 AM FACTORY HAND Pulse 71 11/16/2015 11:44 AM FA[facility]ORY [facility] Temperature 36.9 C (98.4 F) 12/21/2012 8:52 AM CDT Respiratory Rate 22 11/10/2013 12:54 PM FA[facility]ORY HAND Height 0.71 m (2' 3.95") 11/16/2015 11:44 AM FACTORY HAND Weight 146.421 kg (322 lb 12.8 11/16/2015 11:44 AM FACTORY HAND oz) Body Mass Index 290.46 11/16/2015 11:44 AM FACTORY HAND Oxygen Saturation 99% 05/07/2010 4:14 PM CDT Plan of Care Health Maintenance Due Date Last Done Comments Physical (Comprehensive) 02/25/1976 Exam Pertussis Vaccine 02/25/1980 Cervical Cancer Screening 1990 Breast Cancer Screening 2009 Tetanus Vaccine 09/15/2009 09/15/1999 Influenza Vaccine 05/16/2017 07/27/2008 Results from Last 3 Months Not on file
--- OUTSIDE RECORDS SUMMARY | 2017-03-25 11:07 | XMS REPORT | Continuity of Care Document ---
Author Author [facility] Organization [facility] Address Unknown Phone Unavailable Allergies Active Description Code Type Severity Reaction Onset Reported/Identified Relationship to Patient Clinical Status Yes [id number] (SULFA (SULFONAMIDE ANTIBIOTICS)) [id number] (SULFA (SULFONAMIDE ANTIBIOTICS)) Mild N/A 08/06/2009 Yes esomeprazole mag [id number] Drug Allergy Moderate N/A 06/10/2013 Yes Sulfa (Sulfonamide Antibiotics) [id number] Drug Allergy Unknown RASH 07/30/2015 Medications Problems [...] UNSPECIFIED 07/31/2015 GEETA CASTELLON Ot Z79.899 OTHER BOAT CAPTAIN (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) DRUG THERAPY 02/11/2016 KHAI JOAQUIN APRN [...] PAIN 12/24/2016 ZAHRA ORNELAS MD Ot Z79.891 ASSISTED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 OPIATE ANALGE 12/24/2016 ZAHRA ORNELAS MD Ot Z79.899 OTHER ASSISTED (CURRENT) DRUG THERAPY 12/24/2016 ZAHRA ORNELAS MD [...] PAIN 12/27/2016 ZAHRA ORNELAS MD Ot Z79.891 ASSISTED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 OPIATE ANALGE 12/27/2016 ZAHRA ORNELAS MD Ot Z79.899 OTHER ASSISTED (CURRENT) DRUG THERAPY 12/27/2016 ZAHRA ORNELAS MD [...] PAIN 01/03/2017 ZAHRA ORNELAS MD Ot Z79.891 BOAT CAPTAIN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 OPIATE ANALGE 01/03/2017 ZAHRA ORNELAS MD Ot Z79.899 OTHER BOAT CAPTAIN (CURRENT) DRUG THERAPY 01/03/2017 ZAHRA ORNELAS MD [...] Status Pt. Type Provider Facility Loc./Unit Complaint [id number] 02/11/2016 17:46:00 2015 19:12:00 DIS Emergency KHAI JOAQUIN APRN [facility] ER EAR INFECTION/CONGESTION/COUGH [id number] 07/30/2015 21:33:00 2014 00:30:00 DIS Emergency GEETA CASTELLON [facility] ER DIARRHEA/NAUSEATED [id number] 07/28/2014 14:09:00 2013 23:59:59 CLS Outpatient RIDINGS DONNAMARA Vidal APRN [facility] QUICK [id number] 06/10/2013 22:01:00 2012 01:10:00 DIS Emergency RUY SHANE MD [facility] ER RASH [id number] 05/01/2013 11:18:00 2012 23:59:59 CLS Outpatient [id number] 12/22/2016 15:10:00 ACT Emergency ZAHRA ORNELAS MD [facility] ER STOMACH PAIN
== END 2017-03-23 10:37 | disposition home or self-care (01) ==
LOC: EDUNIT# 09:47 → ER 09:49
DX: K21.9 Gastro-esophageal reflux disease without esophagitis; F91.9 Conduct disorder, unspecified; F41.9 Anxiety disorder, unspecified; G40.909 Epilepsy, unspecified, not intractable, without status epilepticus; F90.9 Attention-deficit hyperactivity disorder, unspecified type; M19.90 Unspecified osteoarthritis, unspecified site; J42 Unspecified chronic bronchitis; J01.90 Acute sinusitis, unspecified; M54.5 Low back pain; F43.10 Post-traumatic stress disorder, unspecified; F32.9 Major depressive disorder, single episode, unspecified; F17.210 Nicotine dependence, cigarettes, uncomplicated; Z90.711 Acquired absence of uterus with remaining cervical stump
CPT/HCPCS: 99283

== ENCOUNTER 2017-06-10 15:14 | Outpatient (RCR) | payer MEDICAID ==
[~2017-06-10 15:14] MED LIST changes: +PRD20T PO
[2017-06-15] MEDS ORDERED: DEXL60CA PO (02:50)
[2017-06-15] MEDS ORDERED: NALO25TA PO (02:50)
== END 2017-06-14 | disposition home or self-care (01) ==
PROVIDERS: ATTEND Nurse Practitioner
DX: M25.531 Pain in right wrist; Z47.89 Encounter for other orthopedic aftercare

== ENCOUNTER 2017-06-15 02:26 | Emergency (ER) | payer MEDICAID ==
[~2017-06-15] VITALS: Ht 165.1 cm; Wt 139.3 kg
[2017-06-15] MEDS ORDERED: RT-ALBUTEROL/IPRATROPIUM 3 ML (DUONEB) VIAL INH ONE (02:45)
[2017-06-15] MEDS ORDERED: NALO25TA PO (02:50)
[2017-06-15] MEDS ORDERED: DEXL60CA PO (02:50)
--- NOTE | 2017-06-15 03:32 | ED General ---
General Chief Complaint: Respiratory Problems Stated Complaint: SOA,LIGHTHEADED Nursing Triage Note: PT TO ED W/ C/O SOB ONSET UPON WAKING THIS AM. PT REPORTS SHE FELL ASLEEP LAST NOC W/O HER CPAP ON. DOES HAVE A HX OF COPD ET ALSO SMOKES 1PPD. NO AUDIBLE WHEEZES NOTED Nursing Sepsis Screen: No Definite Risk Source of Information: Patient Exam Limitations: No Limitations History of Present Illness Time Seen by Provider: 02:33 Initial Comments This 47-year-old woman presents to the emergency room stating that she woke feeling very short of breath. The shortness of breath improved but she now feels a little lightheaded. She also describes a heavy dyspnea without any chest pain. She reports accidentally falling asleep without her CPAP on. She also has history of COPD has not taken any breathing treatments recently. She has wheezing and delayed expiration on exam. She reports increased cough above baseline recently. Allergies and Home Medications Allergies Coded Allergies: Sulfa (Sulfonamide Antibiotics) (Unverified Allergy, Unknown, RASH, ) esomeprazole mag (Unverified Adverse Reaction, Intermediate, 06/10/13) Diarrhea Home Medications Albuterol Sulfate 2.5 Mg/3 Ml Nebu, 2.5 MG INH Q6H PRN, (Reported) Amoxicillin/Potassium Clav 1 Each Tablet, 1 EACH PO BID, #14 Ref 0 Prescribed by: JOHNSON REESE on 03/23/17 1020 Amphet Asp/Amphet/D-Amphet 30 Mg Tablet, 30 MG PO BID, (Reported) Atorvastatin Calcium 10 Mg Tablet, 10 MG PO HS, (Reported) Black Cohosh Root Extract 80 Mg Capsule, 80 MG PO DAILY, (Reported) Cetirizine Hcl 10 Mg Capsule, 10 MG PO DAILY, (Reported) Cyclobenzaprine Hcl 10 Mg Tablet, 10 MG PO TID PRN, (Reported) Dexlansoprazole 60 Mg , 60 MG PO, (Reported) Diazepam 10 Mg Tablet, 10 MG PO Q8H PRN, (Reported) Escitalopram Oxalate 10 Mg Tablet, 10 MG PO DAILY, (Reported) Furosemide 40 Mg Tablet, 40 MG PO BID, (Reported) Hydrocodone Bit/Acetaminophen 1 Tab Tab, 1 EA PO Q4HR PRN, (Reported) Ibuprofen 600 Mg Tab, 600 MG PO Q6H PRN, (Reported) Lamotrigine 100 Mg Tablet, 50 MG PO BID, (Reported) Levetiracetam 500 Mg Tab, 500 MG PO BID, (Reported) Multivitamin 1 Each Tablet, 1 TAB PO DAILY, (Reported) Naloxegol Oxalate 25 Mg Tablet, 25 MG PO, (Reported) Nortriptyline Hcl 25 Mg Cap, 25 MG PO HS, (Reported) Ondansetron Hcl 4 Mg Tab, 4 MG PO Q8H PRN, (Reported) Polyethylene Glycol 3350 17 Gm Powd.pack, 17 GM PO BID PRN for 7 Days, #1 Ref 0 Prescribed by: ZAHRA ORNELAS on 12/22/16 1704 Potassium Chloride 10 Meq Tablet.sa, 20 MEQ PO BID, (Reported) Prednisone 20 Mg Tab, 40 MG PO DAILY, #14 Ref 0 Prescribed by: JOHNSON REESE on 03/23/17 1020 Zolpidem Tartrate 10 Mg Tab, 10 MG PO HS, (Reported) Constitutional: no symptoms reported EENTM: no symptoms reported Respiratory: see HPI Cardiovascular: no symptoms reported Gastrointestinal: no symptoms reported Genitourinary: no symptoms reported Musculoskeletal: no symptoms reported Skin: no symptoms reported Psychiatric/Neurological: No Symptoms Reported Hematologic/Lymphatic: No Symptoms Reported Immunological/Allergic: no symptoms reported Past Pafsifl-Tefahh-Buneuf Hx Patient Social History Alcohol Use: Denies Use Recreational Drug Use: No Type Used: Cigarettes 2nd Hand Smoke Exposure: No Recent Foreign Travel: No Contact w/Someone Who Travel: No Recent Infectious Disease Expo: No Recent Hopitalizations: No Physical Abuse: No Sexual Abuse: No Mistreated: No Fear: No Immunizations Up To Date Tetanus Booster (TDap): Unknown Date of Pneumonia Vaccine: Dec 14, 2012 Seasonal Allergies Seasonal Allergies: No Surgeries History of Surgeries: Yes (carpal tunnel sx) Surgeries: Hysterectomy Respiratory History of Respiratory Disorde: Yes Respiratory Disorders: Chronic Bronchitis, Sleep Apnea, COPD Cardiovascular History of Cardiac Disorders: No Neurological History of Neurological Disord: Yes Neurological Disorders: Seizure Disorder 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 System Hx 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 Disorders: No Sexually Transmitted Disease: No HIV/AIDS: No [employer]ING [employer]ER History: Hysterectomy Genitourinary History of Genitourinary Disor: No Gastrointestinal History of Gastrointestinal Di: Yes Gastrointestinal Disorders: Gastroesophageal Reflux Musculoskeletal History of Musculoskeletal Dis: Yes Musculoskeletal Disorders: Arthritis, Fibromyalgia Endocrine History of Endocrine Disorders: Yes (morbid obesity) HEENT History of HEENT Disorders: No Cancer History of Cancer: No Psychosocial History of Psychiatric Problem: Yes Behavioral Health Disorders: ADD/ADHD, Anxiety, PTSD, Depression Suicide Risk Score: 0 Integumentary History of Skin or Integumenta: No Blood Transfusions History of Blood Disorders: No Family Medical History Significant Family History: No Pertinent Family Hx Physical Exam Vital Signs Vital Sign - Last 12Hours 06/15/17 02:29 Temp 96.8 Pulse 102 Resp 24 B/P (MAP) 122/89 Pulse Ox 96 O2 Delivery Room Air Capillary Refill : Less Than 3 Seconds General Appearance: No Apparent Distress, WD/WN, Obese HEENT: PERRL/EOMI, Normal ENT Inspection, Pharynx Normal Neck: Normal Inspection Respiratory: No Accessory Muscle Use, No Respiratory Distress, Wheezing (with delayed expiratory phase) Cardiovascular: Regular Rate, Rhythm, No Murmur Neurologic/Psychiatric: Alert, Oriented x3, No Motor/Sensory Deficits, Normal Mood/Affect, professional services consultant II-XII Norm as Tested Skin: Normal Color, Warm/Dry Progress/Results/Core Measures Results/Orders My Orders Orders - RUY SHANE MD Chest Pa/Lat (2 View) (06/15/17 02:37) Albuterol/Ipra Inhalation Soln (Duoneb I (06/15/17 02:45) Svn Sm Volume Nebulizer Rt-Rfs (06/15/17 02:37) Medications Given in ED Current Medications Medications Dose Ordered Sig/Daysi Route Start Time Stop Time Status Last Admin Dose Admin Albuterol/ Ipratropium 3 ml ONCE ONCE INH 06/15/17 02:45 06/15/17 02:46 DC 06/15/17 02:47 3 ML Vital Signs/I&O Vital Sign - Last 12Hours 06/15/17 06/15/17 06/15/17 02:29 02:47 03:34 Temp 96.8 Pulse 102 98 Resp 24 20 B/P (MAP) 122/89 Pulse Ox 96 97 96 O2 Delivery Room Air Room Air Room Air Blood Pressure Mean: 100 Progress Note : Progress Note Patient received a DuoNeb treatment which resolved her symptoms. Chest x-ray was obtained which showed no acute abnormalities. She was dismissed home and encouraged to use her CPAP when asleep and her nebulizer treatments when feeling short of breath. Diagnostic Imaging Diagonstic Imaging: Xray Plain Films/CT/US/NM/MRI: chest Comments Two-view chest x-ray viewed by me. Report not available. Compared with prior. No acute abnormalities appreciated. Departure Impression Impression: Primary Impression: COPD exacerbation Additional Impression: Sleep apnea Qualified Codes: G47.33 - Obstructive sleep apnea (adult) (pediatric) Disposition: HOME, SELF-CARE Condition: Improved Departure-Patient Inst. Decision time for Depature: 03:30 Referrals: KUSHAL FLOR MD (PCP/Family) Primary Care Physician Patient Instructions: Chronic Obstructive Pulmonary Disease (COPD), Including Emphysema Add. Discharge Instructions: Be careful to always wear your CPAP machine when sleeping. Use your nebulizer machine as prescribed. Return to care if symptoms worsen. Otherwise follow-up with your primary care provider in the near future. Work toward quitting smoking. Seek assistance from your doctor if needed. All discharge instructions reviewed with patient and/or family. Voiced understanding. RUY SHANE MD Jun 15, 2017 03:32
[2017-06-15 03:34] VITALS: BP 131/82
--- NOTE | 2017-06-15 07:05 | Diagnostic Imaging Report ---
Clinical indication: Patient with shortness air onset yesterday morning. Exam: Chest x-ray PA and lateral views. Comparisons: Chest x-ray dated 12/22/2016. Findings: Lungs/pleura: Stable calcified granuloma in the left upper lobe. Otherwise, lungs are clear. There is no pneumothorax. There is no pleural effusion. Mediastinum: Unremarkable. Pulmonary vasculature: Unremarkable. Heart: Unremarkable. Bones/extrathoracic soft tissue: There are degenerative spurs involving the thoracic spine. Impression: 1: Stable chest x-ray exam with no interval radiographic evidence of acute cardiopulmonary process. 2: Stable left upper lobe calcified granuloma. Dictated by: Dictated on workstation # [id number]
== END 2017-06-15 03:34 | disposition home or self-care (01) ==
LOC: EDUNIT# 02:26 → ER 02:28
DX: J44.1 Chronic obstructive pulmonary disease with (acute) exacerbation (principal); G47.30 Sleep apnea, unspecified; G40.909 Epilepsy, unspecified, not intractable, without status epilepticus; K21.9 Gastro-esophageal reflux disease without esophagitis; E66.01 Morbid (severe) obesity due to excess calories; F90.9 Attention-deficit hyperactivity disorder, unspecified type; F41.9 Anxiety disorder, unspecified; F32.9 Major depressive disorder, single episode, unspecified; F43.10 Post-traumatic stress disorder, unspecified; M19.90 Unspecified osteoarthritis, unspecified site; Z90.710 Acquired absence of both cervix and uterus; Z68.43 Body mass index [BMI] 50.0-59.9, adult
CPT/HCPCS: 71020; 94640; 99282

== ENCOUNTER 2017-06-18 12:45 | Outpatient (RCR) | payer MEDICAID ==
[~2017-06-18 12:45] MED LIST changes: +DEXL60CA PO; +NALO25TA PO
[2017-06-20] MEDS ORDERED: HYDR-3812 PO (14:28)
[2017-06-20] MEDS ORDERED: CYCL10TA9 PO (14:28)
== END 2017-07-16 12:50 | disposition home or self-care (01) ==
PROVIDERS: ATTEND Nurse Practitioner
DX: Z47.89 Encounter for other orthopedic aftercare (principal); M25.531 Pain in right wrist

== ENCOUNTER 2017-06-20 13:38 | Emergency (ER) | payer MEDICAID ==
[~2017-06-20] VITALS: Ht 165.1 cm; Wt 113.4 kg
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
--- OUTSIDE RECORDS SUMMARY | 2017-06-20 13:44 | XMS REPORT | Encounter Summary ---
Author Author [facility] Organization [facility] Address Unknown Phone Unavailable Care Team Providers Care Shadow Graph Weight Operator Name Role Phone PCP Unavailable Reason for Visit * Reason Comments Medication Refill Encounter Details Date Type Department Care Team Description 05/16/2017 Refill [facility] Carolina Cross MD Physicians - Neurology [address] [facility] [address] [place] [address] [place], [place] [phone] [id number] [phone] Social History Tobacco Use Types Packs/Day Years Used Date Light Tobacco Smoker Cigarettes 1 Smokeless Tobacco: Former Quit: User 06/16/2012 Comments: in process of quitting Alcohol Use Drinks/Week oz/Week Comments Yes 1 Shots of 0.6 Social liquor Sex Assigned at Date Recorded Not on file as of this encounter Functional Status Functional Status Response Date of Assessment Does the patient have a hearing impairment: No 11/16/2015 Does the patient have a visual impairment: Yes 11/16/2015 Does the patient have impaired ambulation: Yes 11/16/2015 Does the patient have an activity of daily living No 11/16/2015 (ADL) impairment: Does the patient have an instrumental activity of No 11/16/2015 daily living (IADL) impairment: Cognitive Status Response Date of Assessment Does the patient have a cognitive impairment: No 11/16/2015 as of this encounter Miscellaneous Notes * Telephone Encounter - Saadia Hartamn LINUS - 05/28/2017 3:05 PM CDT Recieved Keppra refill request for Liberty. NORMAN 05/26/17, medication included in plan of care set forth by Dr. Cross. Ziggy escribed to pharmacy. Dr. Cross to cosign. * Telephone Encounter - Saadia Hartman, LINUS - 05/21/2017 4:20 PM CDT Patient not established in epilepsy clinic at this time. NORMAN with Dr. Cross on 11/16/2015. Next office visit with Dr. Cross scheduled for 05/26/2017. KEPPRA refill routed to Dr. Cross for approval/denial. in this encounter Plan of Treatment Not on fileas of this encounter Visit Diagnoses Not on filein this encounter
--- OUTSIDE RECORDS SUMMARY | 2017-06-20 13:44 | XMS REPORT | Continuity of Care Document ---
Author Author [facility] Address Unknown Phone Unavailable Care Team Providers Care Servomechanism Designer Name Role Phone [employer] Unavailable Unavailable Problems Medications Allergies, Adverse Reactions, Alerts Immunizations Results Vital Signs Encounters Location Location Details Encounter Type Encounter Number Reason For Visit Attending Provider ADM Date DC Date Status Source OUTPATIENT [id number] ARIANE MARQUEZ 03/11/2016 03/11/[address] [facility] OUTPATIENT [id number] JAZMIN VALENTINE 06/09/[address] [facility] O JAZMIN VALENTINE 06/27/[address] [facility] Procedures Plan of Care Social History Assessment and Plan Family History Value Date Source Advance Directives Order Name Results Value Date Source
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
--- OUTSIDE RECORDS SUMMARY | 2017-06-20 13:44 | XMS REPORT | Encounter Summary ---
Author Author [facility] Organization [facility] Address Unknown Phone Unavailable Care Team Providers Care Natural Fabricator Name Role Phone PCP Unavailable Reason for Visit * Reason Comments Medication Refill Encounter Details Date Type Department Care Team Description 04/14/2017 [facility]ill [facility] Carolina Cross MD - Neurology [address] [facility] [address] [place] [address] [place] [address] [phone] Social History Tobacco Use Types Packs/Day Years [...] Miscellaneous Notes * Telephone Encounter - Saadia Hartman LPN - 04/16/2017 10:45 AM CDT Received Keppra refill request for [place]. Medication not included in plan of care set forth by Dr. Cross during [place] on 11/16/15. Next appointment scheduled 05/26/2017. Scheduled with Epilepsy for first visit on 05/06/2017. Request pended to Dr. Cross for approval/ denial. in this encounter Plan of Treatment Not on fileas of this encounter Visit Diagnoses Not on filein this encounter
--- OUTSIDE RECORDS SUMMARY | 2017-06-20 13:44 | XMS REPORT | Encounter Summary ---
Author Author [facility] Organization [facility] Address Unknown Phone Unavailable Care Team Providers Care Creative Intern Name Role Phone PCP Unavailable Reason for Visit * Reason Comments Medication Refill Encounter Details Date Type Department Care Team Description 04/02/2017 Refill [facility] Carolina Cross MD - Neurology [address] [facility] [address] [facility] [address] [place] [address] [place] [address] [phone] Social History Tobacco Use Types Packs/Day Years [...] Telephone Encounter - Saadia Hartman LPN - 04/03/2017 12:48 PM CDT Topamax refill request pended to Dr. Cross for approval. Patient not seen since 11/16/2015. Next office visit scheduled with Dr. Cross on 05/26/2017. in this encounter Plan of Treatment Not on fileas of this encounter Visit Diagnoses Not on filein this encounter
--- OUTSIDE RECORDS SUMMARY | 2017-06-20 13:44 | XMS REPORT | Clinical Summary ---
Author Author [facility] Organization [facility] Address Unknown Phone Unavailable Care Team Providers Care Acid Changer Name Role Phone PCP Unavailable Source Comments Some departments are not documenting in the electronic medical record. If you do not see the information that you expected, contact Release of Information in the Health Information Management department at [phone] for further assistance in locating additional records.[facility] Allergies Active Allergy Reactions Severity Noted Date Comments Esomeprazole Magnesium DIARRHEA 11/10/2013 Sulfa (Sulfonamide RASH 03/23/2008 Antibiotics) Current Medications Prescription Sig. Disp. Refills [...] RINSE) Pack as directed twice daily. 13 kitIndications: Acute sinusitis other Compression stockings 1 Each 6 11/28/19 Active medicationIndications: 30-40 mm HgKnee high 13 Peripheral edema other BP machine 1 Each 0 11/28/19 Active medicationIndications: 13 HTN (hypertension) atorvastatin (LIPITOR) 20 Take 20 mg by mouth Active mg tablet daily. other medication 1 Dose. Allergy shot Active HYDROcodone/acetaminophen Take 1 Tab by mouth daily 30 Tab 0 01/19/20 Active (NORCO; VICODIN) 5-325 mg as needed. 13 tabletIndications: Fibromyalgia, OA (osteoarthritis) cetirizine (ZYRTEC) 10 mg Take 10 mg by mouth Active tablet daily. albuterol 0.5% Inhale 2.5 mg solution as Active (PROVENTIL; VENTOLIN) 2.5 directed every 6 hours as mg/0.5 mL Nebu nebulizer needed. solution ranitidine(+) (ZANTAC) Take 150 mg by mouth Active 150 mg tablet twice daily. ARIPiprazole (ABILIFY) 10 Take 10 mg by mouth Active mg tablet daily. PRAZOSIN HCL (PRAZOSIN Take by mouth. Active PO) PHENTERMINE HCL Take by mouth. Active (PHENTERMINE PO) HYDROXYZINE HCL PO Take by mouth. Active TIOTROPIUM BROMIDE Inhale by mouth. Active (SPIRIVA RESPIMAT IN) topiramate (TOPAMAX) 50 TAKE 3 TABLETS BY MOUTH 180 Tab 3 04/03/20 Active mg tablet TWICE A DAY 17 levETIRAcetam (KEPPRA) Take 2 tabs PO in the 150 tablet 4 05/28/20 Active 500 mg tablet morning and take 3 tabs 17 PO at bedtime daily diclofenac sodium DR Take 75 mg by mouth twice Active (VOLTAREN) 75 mg tablet daily. Take with food. dexlansoprazole (+) Take 60 mg by mouth Active (DEXILANT) 60 mg capsule daily. estradiol (ESTRACE) 0.01 Insert or Apply to Active % (0.1 mg/g) vaginal vaginal area at bedtime cream daily. naloxegol (MOVANTIK) 25 Take by mouth once. Active mg tablet mirabegron(+) ER Take 25 mg by mouth Active (MYRBETRIQ) 25 mg tablet daily. desvenlafaxine(+) Take 50 mg by mouth Active (PRISTIQ) 50 mg tablet daily. clotrimazole-betamethason Apply to affected area 05/26/20 Discontin e (LOTRISONE) 1-0.05 % twice daily. 17 ued topical cream ibuprofen (MOTRIN) 800 mg Take 800 mg by mouth 05/26/20 Discontin tablet every 6 hours as needed. 17 ued sucralfate (CARAFATE) 1 Take 1 g by mouth four 05/26/20 Discontin gram tablet times daily. 17 ued PANTOPRAZOLE SODIUM Take by mouth. 05/26/20 Discontin (PANTOPRAZOLE PO) [address] (CYMBALTA) Take 30 mg by mouth twice 05/26/20 Discontin 30 mg capsule daily. 30mg in the am, 17 ued 60mg pm prochlorperazine TAKE ONE TABLET BY MOUTH 30 Tab 1 02/16/20 Discontin (COMPAZINE) 10 mg tablet EVERY 6 HOURS NEEDED 16 17 ued Active Problems Problem Noted Date Back pain 07/18/2014 Smoker 12/21/2012 Overview: 12/21/2012: Rxed nicoderm 21 mg patch. Abnormal thyroid blood test 12/08/2012 Overview: 12/21/2012: repeat in 4-6 weeks. MICHELLE (obstructive sleep apnea) 11/29/2012 Overview: 11/27/2012: Reiterated need to get back on CPAP. [employer] pays for CPAP. She will check with [...] 11/29/2012 Overview: 11/27/2012: Requesting a referral to tugger operator for shots: Has been getting shots for 1 yr and has had notiecable improvement in her sx of runny, itchy nose and eyes. Referral placed for Allergy. Anxiety and depression 11/29/2012 Overview: 11/27/2012: concerned about polypharmacy: Insomnia - Ambien and doxepin. Depression/anxiety - Participating in therapy at [facility] and [facility]. Treated with adderall, lamotrigine, oxcarbazepine and valium [...] Smoking cessation and wt loss encouraged. Epilepsy (HCC) 10/26/2007 Overview: 11/27/2012: Since childhood. First seizure [...] Plan: Transient alteration of awareness 05/07/2010 11/29/2012 Encounters Date Type Specialty Care Team Description 06/09/2017 Office Visit Anesthesia Pain Carolina Cross MD Bilateral occipital ShravanMohan MD neuralgia (Primary Dx);Chronic nonintractable headache, unspecified headache type;Neck pain;Myofascial pain;Spasm of muscle;Myalgia 05/26/2017 Office Visit Neurology Carolina Cross MD Bilateral occipital neuralgia (Primary Dx) 05/16/2017 Refill Neurology Carolina Cross MD 04/14/2017 Refill Neurology Carolina Cross MD 04/02/2017 Refill Neurology Carolina Cross MD from Last 3 Months Immunizations Name Dates Previously Given Next Due FLU VACCINE >3YO 07/27/2008 Pneumococcal Vaccine 12/21/2012 (23-Emily Adult) Td Vaccine 09/15/1999 Family History Medical History Relation Name Comments Alcohol abuse Mother Alcohol abuse Other siblings Relation Name Status Comments Father ALCOHOLIC; LUNG CANCER Mother Alive ALCOHOLIC Other Sister Alive ULCERS Sister Alive Social History Tobacco Use Types Packs/Day Years Used Date Light Tobacco Smoker Cigarettes 1 Smokeless Tobacco: Former Quit: User 06/16/2012 Tobacco Cessation: Ready to Quit: Yes; Counseling Given: Yes Comments: in process of quitting Alcohol Use Drinks/Week oz/Week Comments Yes 1 Shots of 0.6 Social liquor Sex Assigned at Date Recorded Not on file Last Filed Vital Signs Vital Sign Reading Time Taken Blood Pressure 128/89 06/09/2017 8:16 AM CDT Pulse 77 06/09/2017 8:16 AM CDT Temperature 36.9 C (98.4 F) 12/21/2012 8:52 AM CDT Respiratory Rate 20 06/09/2017 8:16 AM CDT Oxygen Saturation 98% 06/09/2017 8:16 AM CDT Inhaled Oxygen - - Concentration Weight 140.6 kg (310 lb) 06/09/2017 8:16 AM CDT Height 165.1 cm (5' 5") 06/09/2017 8:16 AM CDT Body Mass Index 51.59 06/09/2017 8:16 AM CDT Plan of Treatment Health Maintenance Due Date Last Done Comments PHYSICAL (COMPREHENSIVE) 02/25/1976 EXAM PERTUSSIS VACCINE 02/25/1980 CERVICAL CANCER SCREENING 1999 BREAST CANCER SCREENING 2009 TETANUS VACCINE 09/15/2009 09/15/1999 INFLUENZA VACCINE 06/15/2017 07/27/2008 Results Not on filefrom Last 3 Months
[2017-06-20 13:54] LABS: BILIRUBIN,URINE NEGATIVE (NEGATIVE); KETONES,URINE NEGATIVE (NEGATIVE); LEUKOCYTE ESTERASE ,URINE NEGATIVE (NEGATIVE); NITRITE,URINE NEGATIVE (NEGATIVE); PH,URINE 7 (5-9); PROTEIN,URINE NEGATIVE (NEGATIVE); UROBILINOGEN,URINE NORMAL (NORMAL)
[2017-06-20] MEDS ORDERED: CYCL10TA9 PO (14:28)
[2017-06-20] MEDS ORDERED: HYDR-3812 PO (14:28)
--- NOTE | 2017-06-20 14:28 | ED Back Pain ---
General Chief Complaint: Back Problems Stated Complaint: BACK PAIN,FREQ URINATION Nursing Triage Note: TO ROOM 07 VIA AMB FROM HOME. STATES FOR THE PAST WEEK HER LOWER BACK HAS HURT AFTER SHE PEES. Nursing Sepsis Screen: No Definite Risk Source of Information: Patient Exam Limitations: No Limitations History of Present Illness Time Seen by Provider: 13:43 Initial Comments This 47-year-old woman presents to the emergency room with complaints of persistent diffuse back pain and urinary frequency. The back pain has been addressed by her primary care provider with a steroid pack and hydrocodone. She also takes diclofenac twice daily. She reports these measures have been insufficient for her pain. She rates her pain as 9 out of 10. She also describes spasms in the musculature of her back and pain that radiates to her hips. Pain is worse with activity and better with rest. Her steroid therapy was started last Friday. She is presently taking hydrocodone one tablet every 4 hours. Her urinary frequency is not associated with dysuria. She is presently being medically treated for bladder control. Allergies and Home Medications Allergies Coded Allergies: Sulfa (Sulfonamide Antibiotics) (Unverified Allergy, Unknown, RASH, ) esomeprazole mag (Unverified Adverse Reaction, Intermediate, 06/10/13) Diarrhea Home Medications Albuterol Sulfate 2.5 Mg/3 Ml Nebu, 2.5 MG INH Q6H PRN, (Reported) Amoxicillin/Potassium Clav 1 Each Tablet, 1 EACH PO BID, #14 Ref 0 Prescribed by: JOHNSON REESE on 03/23/17 1020 Amphet Asp/Amphet/D-Amphet 30 Mg Tablet, 30 MG PO BID, (Reported) Atorvastatin Calcium 10 Mg Tablet, 10 MG PO HS, (Reported) Black Cohosh Root Extract 80 Mg Capsule, 80 MG PO DAILY, (Reported) Cetirizine Hcl 10 Mg Capsule, 10 MG PO DAILY, (Reported) Cyclobenzaprine HCl 10 Mg Tablet, 10 MG PO TID PRN for SPASMS, #20 Prescribed by: RUY EVANS on 06/20/17 1428 Cyclobenzaprine Hcl 10 Mg Tablet, 10 MG PO TID PRN, (Reported) Dexlansoprazole 60 Mg , 60 MG PO, (Reported) Diazepam 10 Mg Tablet, 10 MG PO Q8H PRN, (Reported) Escitalopram Oxalate 10 Mg Tablet, 10 MG PO DAILY, (Reported) Furosemide 40 Mg Tablet, 40 MG PO BID, (Reported) Hydrocodone Bit/Acetaminophen 1 Tab Tab, 1 EA PO Q4HR PRN, (Reported) Hydrocodone/Acetaminophen 1 Each Tablet, 1-2 EACH PO Q4H PRN for PAIN, #15 Prescribed by: RUY EVANS on 06/20/17 1428 Ibuprofen 600 Mg Tab, 600 MG PO Q6H PRN, (Reported) Lamotrigine 100 Mg Tablet, 50 MG PO BID, (Reported) Levetiracetam 500 Mg Tab, 500 MG PO BID, (Reported) Multivitamin 1 Each Tablet, 1 TAB PO DAILY, (Reported) Naloxegol Oxalate 25 Mg Tablet, 25 MG PO, (Reported) Nortriptyline Hcl 25 Mg Cap, 25 MG PO HS, (Reported) Ondansetron Hcl 4 Mg Tab, 4 MG PO Q8H PRN, (Reported) Polyethylene Glycol 3350 17 Gm Powd.pack, 17 GM PO BID PRN for 7 Days, #1 Ref 0 Prescribed by: ZAHRA ORNELAS on 12/22/16 1704 Potassium Chloride 10 Meq Tablet.sa, 20 MEQ PO BID, (Reported) Prednisone 20 Mg Tab, 40 MG PO DAILY, #14 Ref 0 Prescribed by: JOHNSON REESE on 03/23/17 1020 Zolpidem Tartrate 10 Mg Tab, 10 MG PO HS, (Reported) Constitutional: no symptoms reported EENTM: no symptoms reported Respiratory: no symptoms reported Cardiovascular: no symptoms reported Gastrointestinal: no symptoms reported Genitourinary: see HPI : No Musculoskeletal: see HPI Skin: no symptoms reported Psychiatric/Neurological: No Symptoms Reported Past Ykvfoyt-Bxhwgq-Axsrax Hx Patient Social History Alcohol Use: Denies Use Recreational Drug Use: No Smoking Status: Current Everyday Smoker Type Used: Cigarettes 2nd Hand Smoke Exposure: No Recent Foreign Travel: No Contact w/Someone Who Travel: No Recent Infectious Disease Expo: No Recent Hopitalizations: No Immunizations Up To Date Tetanus Booster (TDap): Unknown Date of Pneumonia Vaccine: Dec 14, 2012 Seasonal Allergies Seasonal Allergies: No Surgeries History of Surgeries: Yes (carpal tunnel sx) Surgeries: Hysterectomy Respiratory History of Respiratory Disorde: Yes Respiratory Disorders: Chronic Bronchitis, Sleep Apnea, COPD Cardiovascular History of Cardiac Disorders: No Neurological History of Neurological Disord: Yes Neurological Disorders: Seizure Disorder 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 System : No Hx 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 Disorders: No Sexually Transmitted Disease: No HIV/AIDS: 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 Genitourinary History of Genitourinary Disor: No Gastrointestinal History of Gastrointestinal Di: Yes Gastrointestinal Disorders: Gastroesophageal Reflux Musculoskeletal History of Musculoskeletal Dis: Yes Musculoskeletal Disorders: Arthritis, Fibromyalgia Endocrine History of Endocrine Disorders: Yes (morbid obesity) HEENT History of HEENT Disorders: No Cancer History of Cancer: No Psychosocial History of Psychiatric Problem: Yes Behavioral Health Disorders: ADD/ADHD, Anxiety, PTSD, Depression Integumentary History of Skin or Integumenta: No Blood Transfusions History of Blood Disorders: No Family Medical History Significant Family History: No Pertinent Family Hx Physical Exam Vital Signs Vital Sign - Last 12Hours 06/20/17 13:51 Temp 96.6 Pulse 69 B/P (MAP) 144/101 Pulse Ox 97 O2 Delivery Room Air Capillary Refill : Less Than 3 Seconds General Appearance: No Apparent Distress, WD/WN, Obese HEENT: PERRL/EOMI, Normal ENT Inspection Neck: Normal Inspection Cardiovascular: Regular Rate, Rhythm, No Murmur Respiratory: No Accessory Muscle Use, No Respiratory Distress, Wheezing (slight ) Back: Vertebral Tenderness (tenderness throughout the spine and SI joint regions) Extremity: Normal Inspection Neurologic/Psychiatric: Alert, Oriented x3, No Motor/Sensory Deficits, Normal Mood/Affect, speech therapist early intervention II-XII Norm as Tested Skin: Normal Color, Warm/Dry Progress/Results/Core Measures Results/Orders Lab Results Laboratory Tests Test 06/20/17 13:40 Range/Units Urine Color YELLOW Urine Clarity CLEAR Urine pH 7 5-9 Urine Specific [place] 1.010 L 1.016-1.022 Urine Protein NEGATIVE NEGATIVE Urine Glucose (UA) NEGATIVE NEGATIVE Urine Ketones NEGATIVE NEGATIVE Urine Nitrite NEGATIVE NEGATIVE Urine Bilirubin NEGATIVE NEGATIVE Urine Urobilinogen NORMAL NORMAL MG/DL Urine Leukocyte Esterase NEGATIVE NEGATIVE Urine RBC (Auto) 1+ H NEGATIVE Urine RBC 0-2 /HPF Urine WBC NONE /HPF Urine Squamous Epithelial Cells 5-10 /HPF Urine Crystals NONE /LPF Urine Bacteria TRACE /HPF Urine Casts NONE /LPF Urine Mucus NEGATIVE /LPF Urine Culture Indicated NO My Orders Orders - RUY SHANE MD Ua Culture If Indicated (06/20/17 13:43) Ketorolac Injection (Toradol Injection) (06/20/17 14:30) Orphenadrine Injection (Norflex Injectio (06/20/17 14:30) Medications Given in ED Current Medications Medications Dose Ordered Sig/Daysi Route Start Time Stop Time Status Last Admin Dose Admin Ketorolac Tromethamine 60 mg ONCE ONCE IM 06/20/17 14:30 06/20/17 14:31 DC 06/20/17 14:25 60 MG Orphenadrine Citrate 60 mg ONCE ONCE IM 06/20/17 14:30 06/20/17 14:31 DC 06/20/17 14:25 60 MG Vital Signs/I&O Vital Sign - Last 12Hours 06/20/17 13:51 Temp 96.6 Pulse 69 B/P (MAP) 144/101 Pulse Ox 97 O2 Delivery Room Air Blood Pressure Mean: 115 Progress Note : Progress Note Patient received injections of Norflex and Toradol for immediate treatment of her symptoms. We discussed alternative therapies such as physical therapy and weight loss. I did provide her with a short-term boost to her hydrocodone prescription so that she can increase her dose to 2 tablets every 4 hours for a few days. Her urinary frequency should be addressed by her primary care provider as her urologic medications are managed by him. UA demonstrated no evidence of urinary tract infection. Departure Impression Impression: Primary Impression: Back pain Qualified Codes: M54.9 - Dorsalgia, unspecified Additional Impressions: Urinary frequency Muscle spasm of back Disposition: 01 HOME, SELF-CARE Condition: Improved Departure-Patient Inst. Decision time for Depature: 14:20 Referrals: KUSHAL FLOR MD (PCP/Family) Primary Care Physician Patient Instructions: Muscle Spasms (DC) Add. Discharge Instructions: Finish your steroid prescription as directed. You may continue using diclofenac as your primary pain management. For pain not controlled by diclofenac, you may temporarily increase your hydrocodone to a maximum of 2 tablets every 4 hours. Continue to work toward weight loss to reduce strain on your back. Follow-up with your primary care provider as soon as possible to discuss further pain management and alternative forms of pain management such as physical therapy. All discharge instructions reviewed with patient and/or family. Voiced understanding. Scripts Cyclobenzaprine HCl (Cyclobenzaprine HCl) 10 Mg Tablet 10 MG PO TID Y for SPASMS, #20 TAB Prov: RUY SHANE MD 06/20/17 Hydrocodone/Acetaminophen (Hydrocodon -Acetaminophen 5-325) 1 Each Tablet 1-2 EACH PO Q4H Y for PAIN, #15 TAB Prov: RUY SHANE MD 06/20/17 Copy Copies To 1: KUSHAL FLOR MD, JOSHUA T MD Jun 20, 2017 14:28
[2017-06-20] MEDS ORDERED: KETOROLAC 60 MG/2 ML VIAL IM ONE (14:30)
[2017-06-20] MEDS ORDERED: ORPHENADRINE 60 MG/2 ML (NORFLEX) AMP IM ONE (14:30)
[2017-06-20 14:41] VITALS: BP 119/81
== END 2017-06-20 14:41 | disposition home or self-care (01) ==
LOC: EDUNIT# 13:38 → ER 13:40
DX: M54.5 Low back pain (principal); R35.0 Frequency of micturition; M62.830 Muscle spasm of back; J44.9 Chronic obstructive pulmonary disease, unspecified; G47.30 Sleep apnea, unspecified; G40.909 Epilepsy, unspecified, not intractable, without status epilepticus; K21.9 Gastro-esophageal reflux disease without esophagitis; F90.9 Attention-deficit hyperactivity disorder, unspecified type; F41.9 Anxiety disorder, unspecified; F43.10 Post-traumatic stress disorder, unspecified; F32.9 Major depressive disorder, single episode, unspecified; E66.01 Morbid (severe) obesity due to excess calories; F17.210 Nicotine dependence, cigarettes, uncomplicated; Z90.710 Acquired absence of both cervix and uterus
CPT/HCPCS: 81000; 96372; 99284

== ENCOUNTER 2018-01-01 10:43 | Emergency (ER) | payer MEDICAID ==
[~2018-01-01] VITALS: Ht 165.1 cm; Wt 142.9 kg
[~2018-01-01 10:43] MED LIST changes: +ACHD5005 PO; +CYCL10TA9 PO
[2018-01-01] MEDS ORDERED: KETOROLAC 60 MG/2 ML VIAL IM ONE (11:00)
[2018-01-01] MEDS ORDERED: ORPHENADRINE 60 MG/2 ML (NORFLEX) AMP IM ONE (11:00)
[2018-01-01] MEDS ORDERED: CYCL5TAB PO (11:02)
--- NOTE | 2018-01-01 11:02 | ED Back Pain ---
General Stated Complaint: LOWER BACK PAIN,RT HIP PAIN,TAILBONE PAIN Source of Information: Patient Exam Limitations: No Limitations History of Present Illness Date Seen by Provider: Jan 01, 2018 Time Seen by Provider: 10:56 Initial Comments to ER ambulatory with reports of low unilateral back and right buttock pain. Patient fell 3 days ago though she did not actually hit the floor", she stumbled.since then she's had persistent low back and right hip pain. Location: Lumbar Spine, Paraspinous Muscles Timing/Duration: 2-3 Days Severity: Moderate Pain/Injury Location: Back Radiation: Buttocks Allergies and Home Medications Allergies Coded Allergies: Sulfa (Sulfonamide Antibiotics) (Unverified Allergy, Unknown, RASH, ) esomeprazole mag (Unverified Adverse Reaction, Intermediate, 06/10/13) Diarrhea Home Medications Albuterol Sulfate 2.5 Mg/3 Ml Nebu, 2.5 MG INH Q6H PRN, (Reported) Amoxicillin/Potassium Clav 1 Each Tablet, 1 EACH PO BID Prescribed by: JOHNSON REESE on 03/23/17 1020 Amphet Asp/Amphet/D-Amphet 30 Mg Tablet, 30 MG PO BID, (Reported) Atorvastatin Calcium 10 Mg Tablet, 10 MG PO HS, (Reported) Black Cohosh Root Extract 80 Mg Capsule, 80 MG PO DAILY, (Reported) Cetirizine Hcl 10 Mg Capsule, 10 MG PO DAILY, (Reported) Cyclobenzaprine HCl 10 Mg Tablet, 10 MG PO TID PRN for SPASMS Prescribed by: RUY EVANS on 06/20/17 1428 Cyclobenzaprine HCl 5 Mg Tablet, 5 MG PO TID PRN for PAIN-MODERATE Prescribed by: KHAI JOAQUIN on 01/01/18 1102 Cyclobenzaprine Hcl 10 Mg Tablet, 10 MG PO TID PRN, (Reported) Diazepam 10 Mg Tablet, 10 MG PO Q8H PRN, (Reported) Escitalopram Oxalate 10 Mg Tablet, 10 MG PO DAILY, (Reported) Furosemide 40 Mg Tablet, 40 MG PO BID, (Reported) Hydrocodone Bit/Acetaminophen 1 Tab Tab, 1 EA PO Q4HR PRN, (Reported) Hydrocodone Bit/Acetaminophen 1 Each Tablet, 1-2 EACH PO Q4H PRN for PAIN Prescribed by: RUY EVANS on 06/20/17 1428 Ibuprofen 600 Mg Tab, 600 MG PO Q6H PRN, (Reported) Lamotrigine 100 Mg Tablet, 50 MG PO BID, (Reported) Levetiracetam 500 Mg Tab, 500 MG PO BID, (Reported) Multivitamin 1 Each Tablet, 1 TAB PO DAILY, (Reported) Nortriptyline Hcl 25 Mg Cap, 25 MG PO HS, (Reported) Ondansetron Hcl 4 Mg Tab, 4 MG PO Q8H PRN, (Reported) Polyethylene Glycol 3350 17 Gm Powd.pack, 17 GM PO BID PRN Prescribed by: ZAHRA ORNELAS on 12/22/16 1704 Potassium Chloride 10 Meq Tablet.sa, 20 MEQ PO BID, (Reported) Prednisone 20 Mg Tab, 40 MG PO DAILY Prescribed by: JOHNSON REESE on 03/23/17 1020 Zolpidem Tartrate 10 Mg Tab, 10 MG PO HS, (Reported) Patient Home Medication List Home Medication List Reviewed: Yes Constitutional: see HPI EENTM: see HPI Respiratory: no symptoms reported Cardiovascular: no symptoms reported Genitourinary: no symptoms reported Musculoskeletal: see HPI, back pain Skin: no symptoms reported Psychiatric/Neurological: No Symptoms Reported Past Zabhqqv-Zlffty-Dajroa Hx Patient Social History Type Used: Cigarettes 2nd Hand Smoke Exposure: No Recent Foreign Travel: No Contact w/Someone Who Travel: No Recent Hopitalizations: No Immunizations Up To Date Tetanus Booster (TDap): Unknown Date of Pneumonia Vaccine: Dec 14, 2012 Seasonal Allergies Seasonal Allergies: No Past Medical History Surgeries: Yes (carpal tunnel sx) Hysterectomy Respiratory: Yes Chronic Bronchitis, Sleep Apnea, COPD Cardiac: No Neurological: Yes Seizure Disorder 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 Sexually Transmitted Disease: No HIV/AIDS: No Genitourinary: No Gastrointestinal: Yes Gastroesophageal Reflux Musculoskeletal: Yes Arthritis, Fibromyalgia Endocrine: Yes (morbid obesity) HEENT: No Cancer: No Psychosocial: Yes ADD/ADHD, Anxiety, PTSD, Depression Integumentary: No Blood Disorders: No Family Medical History No Pertinent Family Hx Physical Exam Vital Signs Vital Signs - First Documented 01/01/18 01/01/18 10:48 11:58 Temp 98.4 Pulse 71 Resp 18 B/P (MAP) 105/65 (78) Pulse Ox 96 O2 Delivery Room Air Capillary Refill : General Appearance: No Apparent Distress, WD/WN, Obese, Other (ambulatory to room 6 without use of assistive device) HEENT: PERRL/EOMI, TMs Normal Neck: Full Range of Motion, Normal Inspection Respiratory: No Accessory Muscle Use, No Respiratory Distress Gastrointestinal: Non Tender, Soft Back: Normal Inspection; No Vertebral Tenderness Extremity: Normal Capillary Refill Neurologic/Psychiatric: Alert, Oriented x3, No Motor/Sensory Deficits Skin: Normal Color, Warm/Dry Progress/Results/Core Measures My Orders Orders - KHAI JOAQUIN APRN Lumbar Spine - 2-3 Views (01/01/18 10:54) Ketorolac Injection (Toradol Injection) (01/01/18 11:00) Orphenadrine Injection (Norflex Injectio (01/01/18 11:00) Vital Signs/I&O 01/01/18 01/01/18 10:48 11:58 Temp 98.4 98.6 Pulse 71 70 Resp 18 B/P (MAP) 105/65 (78) 101/69 Pulse Ox 96 O2 Delivery Room Air Room Air Departure Impression Primary Impression: Acute low back pain Disposition: 01 HOME, SELF-CARE Condition: Stable Departure-Patient Inst. Decision time for Depature: 10:59 Referrals: [facility] (PCP/Family) Primary Care Physician Patient Instructions: Low Back Pain in Adults Add. Discharge Instructions: . Tylenol and Motrin as directed 2. Return to ER for any concerns 3. Add muscle relaxers to the prescribed muscle relaxers. Follow-up with her doctor this week for recheck. Scripts Cyclobenzaprine HCl (Cyclobenzaprine HCl) 5 Mg Tablet 5 MG PO TID PRN for PAIN-MODERATE, #21 TAB Prov: KHAI JOAQUIN APRN 01/01/18 KHAI JOAQUIN APRN Jan 01, 2018 11:02
--- NOTE | 2018-01-01 11:50 | Diagnostic Imaging Report ---
INDICATION: Low back pain. TIME OF EXAM: 11:38 a.m. FINDINGS: AP and lateral views of the lumbar spine were obtained. Curvature and alignment is normal. Vertebral body heights are maintained. No acute compression fracture is seen. Minimal degenerative spurring at L2-3 and L3-4 levels is seen. IMPRESSION: Mild lumbar spondylosis. No acute bony abnormality is detected. Dictated by: Dictated on workstation # [id number]
[2018-01-01 11:58] VITALS: BP 101/69
== END 2018-01-01 11:58 | disposition home or self-care (01) ==
LOC: EDUNIT# 10:43 → ER 10:45
DX: M54.5 Low back pain (principal); G47.30 Sleep apnea, unspecified; J44.9 Chronic obstructive pulmonary disease, unspecified; G40.909 Epilepsy, unspecified, not intractable, without status epilepticus; K21.9 Gastro-esophageal reflux disease without esophagitis; E66.01 Morbid (severe) obesity due to excess calories; F90.9 Attention-deficit hyperactivity disorder, unspecified type; F41.9 Anxiety disorder, unspecified; F43.10 Post-traumatic stress disorder, unspecified; F32.9 Major depressive disorder, single episode, unspecified; Z88.2 Allergy status to sulfonamides; Z88.8 Allergy status to other drugs, medicaments and biological substances; Z79.51 Long term (current) use of inhaled steroids; Z79.52 Long term (current) use of systemic steroids; Z87.01 Personal history of pneumonia (recurrent); Z90.710 Acquired absence of both cervix and uterus
CPT/HCPCS: 72100; 96372

== ENCOUNTER 2018-02-28 16:29 | Emergency (ER) | payer MEDICAID ==
[~2018-02-28] VITALS: Ht 165.1 cm; Wt 140.6 kg
[~2018-02-28 16:29] MED LIST changes: +CYCL5TAB PO
[2018-02-28] MEDS ORDERED: HYDROcodone/APAP 5 MG/325 MG (LORTAB) TAB PO ONE (16:45)
--- NOTE | 2018-02-28 16:47 | ED Lower Extremity ---
General Chief Complaint: Lower Extremity Stated Complaint: L ANKLE PAIN Source: patient, family Exam Limitations: no limitations History of Present Illness Date Seen by Provider: Feb 28, 2018 Time Seen by Provider: 16:42 Initial Comments This 48-year-old white female presents with a complaint of left ankle pain. Patient has a history of arthritis. Patient denies trauma to the area. She is complaining of pain over the lateral malleolar area. The patient denies other joint pain or swelling. The patient has been using nonsteroidals without relief. Patient's pain is over the lateral malleolar area of the left ankle. She's had no significant erythema to the area or sending lymphedema. Allergies and Home Medications Allergies Coded Allergies: Sulfa (Sulfonamide Antibiotics) (Unverified Allergy, Unknown, RASH, ) esomeprazole mag (Unverified Adverse Reaction, Intermediate, 06/10/13) Diarrhea Home Medications Albuterol Sulfate 2.5 Mg/3 Ml Nebu, 2.5 MG INH Q6H PRN, (Reported) Amoxicillin/Potassium Clav 1 Each Tablet, 1 EACH PO BID Prescribed by: JOHNSON REESE on 03/23/17 1020 Amphet Asp/Amphet/D-Amphet 30 Mg Tablet, 30 MG PO BID, (Reported) Atorvastatin Calcium 10 Mg Tablet, 10 MG PO HS, (Reported) Black Cohosh Root Extract 80 Mg Capsule, 80 MG PO DAILY, (Reported) Cetirizine Hcl 10 Mg Capsule, 10 MG PO DAILY, (Reported) Cyclobenzaprine HCl 10 Mg Tablet, 10 MG PO TID PRN for SPASMS Prescribed by: RUY EVANS on 06/20/17 1428 Cyclobenzaprine HCl 5 Mg Tablet, 5 MG PO TID PRN for PAIN-MODERATE Prescribed by: KHAI JOAQUIN on 01/01/18 1102 Cyclobenzaprine Hcl 10 Mg Tablet, 10 MG PO TID PRN, (Reported) Diazepam 10 Mg Tablet, 10 MG PO Q8H PRN, (Reported) Escitalopram Oxalate 10 Mg Tablet, 10 MG PO DAILY, (Reported) Furosemide 40 Mg Tablet, 40 MG PO BID, (Reported) Hydrocodone Bit/Acetaminophen 1 Tab Tab, 1 EA PO Q4HR PRN, (Reported) Hydrocodone Bit/Acetaminophen 1 Each Tablet, 1-2 EACH PO Q4H PRN for PAIN Prescribed by: RUY EVANS on 06/20/17 1428 Ibuprofen 600 Mg Tab, 600 MG PO Q6H PRN, (Reported) Lamotrigine 100 Mg Tablet, 50 MG PO BID, (Reported) Levetiracetam 500 Mg Tab, 500 MG PO BID, (Reported) Multivitamin 1 Each Tablet, 1 TAB PO DAILY, (Reported) Nortriptyline Hcl 25 Mg Cap, 25 MG PO HS, (Reported) Ondansetron Hcl 4 Mg Tab, 4 MG PO Q8H PRN, (Reported) Polyethylene Glycol 3350 17 Gm Powd.pack, 17 GM PO BID PRN Prescribed by: ZAHRA ORNELAS on 12/22/16 1704 Potassium Chloride 10 Meq Tablet.sa, 20 MEQ PO BID, (Reported) Prednisone 20 Mg Tab, 40 MG PO DAILY Prescribed by: JOHNSON REESE on 03/23/17 1020 Zolpidem Tartrate 10 Mg Tab, 10 MG PO HS, (Reported) Patient Home Medication List Home Medication List Reviewed: Yes Constitutional: No chills, No fever EENTM: no symptoms reported Respiratory: no symptoms reported Cardiovascular: no symptoms reported Gastrointestinal: no symptoms reported Genitourinary: no symptoms reported : No Musculoskeletal: see HPI, back pain, joint pain (left ankle) Skin: No change in color, No rash Psychiatric/Neurological: No Symptoms Reported Past Txjlhij-Vnklfa-Eeulbw Hx Past Med/Social Hx: Reviewed Nursing Past Med/Soc Hx Patient Social History Type Used: Cigarettes 2nd Hand Smoke Exposure: No Recent Foreign Travel: No Contact w/Someone Who Travel: No Recent Hopitalizations: No Immunizations Up To Date Tetanus Booster (TDap): Unknown Date of Pneumonia Vaccine: Dec 14, 2012 Seasonal Allergies Seasonal Allergies: Yes Past Medical History Surgeries: Yes (carpal tunnel sx) Gallbladder, Hysterectomy Respiratory: Yes Chronic Bronchitis, Sleep Apnea, COPD Cardiac: No Neurological: Yes Seizure Disorder 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 Sexually Transmitted Disease: No HIV/AIDS: No Genitourinary: No Gastrointestinal: Yes Gastroesophageal Reflux Musculoskeletal: Yes Arthritis, Fibromyalgia Endocrine: Yes (morbid obesity) HEENT: No Cancer: No Psychosocial: Yes ADD/ADHD, Anxiety, PTSD, Depression Integumentary: No Blood Disorders: No Family Medical History No Pertinent Family Hx Physical Exam Vital Signs Vital Signs - First Documented 02/28/18 16:35 Temp 97.9 Pulse 93 Resp 22 B/P (MAP) 144/82 (102) Pulse Ox 95 Capillary Refill : General Appearance: WD/WN, mild distress HEENT: normal ENT inspection Neck: non-tender, full range of motion Cardiovascular: regular rate, rhythm Respiratory: lungs clear, normal breath sounds Gastrointestinal: normal bowel sounds, non tender Back: normal inspection Ankles: left ankle pain, left ankle soft tissue tenderness Neurologic/Tendon: normal sensation, normal motor functions Neurologic/Psychiatric: no motor/sensory deficits, alert, normal mood/affect Skin: normal color, warm/dry Progress/Results/Core Measures Results/Orders Lab Results Laboratory Tests Test 02/28/18 17:00 Range/Units White Blood Count 9.6 4.3-11.0 10^3/uL Red Blood Count 4.44 4.35-5.85 10^6/uL Hemoglobin 14.5 11.5-16.0 G/DL Hematocrit 41 35-52 % Mean Corpuscular Volume 91 80-99 FL Mean Corpuscular Hemoglobin 33 25-34 PG Mean Corpuscular Hemoglobin Concent 36 32-36 G/DL Red Cell Distribution Width 12.6 10.0-14.5 % Platelet Count 204 130-400 10^3/uL Mean Platelet Volume 10.8 H 7.4-10.4 FL Neutrophils (%) (Auto) 58 42-75 % Lymphocytes (%) (Auto) 32 12-44 % Monocytes (%) (Auto) 7 0-12 % Eosinophils (%) (Auto) 4 0-10 % Basophils (%) (Auto) 0 0-10 % Neutrophils # (Auto) 5.6 1.8-7.8 X 10^3 Lymphocytes # (Auto) 3.1 1.0-4.0 X 10^3 Monocytes # (Auto) 0.6 0.0-1.0 X 10^3 Eosinophils # (Auto) 0.3 0.0-0.3 10^3/uL Basophils # (Auto) 0.0 0.0-0.1 10^3/uL Erythrocyte Sedimentation Rate 15 0-20 MM/HR Sodium Level 142 135-145 MMOL/L Potassium Level 4.0 3.6-5.0 MMOL/L Chloride Level 114 H 98-107 MMOL/L Carbon Dioxide Level 19 L 21-32 MMOL/L Anion Gap 9 5-14 MMOL/L Blood Urea Nitrogen 15 7-18 MG/DL Creatinine 0.82 0.60-1.30 MG/DL Estimat Glomerular Filtration Rate > 60 BUN/Creatinine Ratio 18 Glucose Level 97 70-105 MG/DL Uric Acid 5.5 2.6-7.2 MG/DL Calcium Level 9.2 8.5-10.1 MG/DL Total Bilirubin 0.2 0.1-1.0 MG/DL Aspartate Amino Transf (AST/SGOT) 13 5-34 U/L Alanine Aminotransferase (ALT/SGPT) 13 0-55 U/L Alkaline Phosphatase 81 40-136 U/L Total Protein 6.1 L 6.4-8.2 GM/DL Albumin 3.6 3.2-4.5 GM/DL My Orders Orders - ROBERT AMAYA MD Ankle, Left, 3 Views (02/28/18 16:40) Erythrocyte Sedimentation Rate (02/28/18 16:40) Cbc With Automated Diff (02/28/18 16:40) Uric Acid (02/28/18 16:40) Comprehensive Metabolic Panel (02/28/18 16:40) Hydrocodone/Apap 5/325 Tablet (Lortab 5 (02/28/18 16:45) Medications Given in ED Current Medications Medications Dose Ordered Sig/Daysi Route Start Time Stop Time Status Last Admin Dose Admin Acetaminophen/ Hydrocodone Bitart 2 tab ONCE ONCE PO 02/28/18 16:45 02/28/18 16:46 DC 02/28/18 16:48 2 TAB Vital Signs/I&O 02/28/18 16:35 Temp 97.9 Pulse 93 Resp 22 B/P (MAP) 144/82 (102) Pulse Ox 95 Progress Progress Note : Time: 17:38 Progress Note Patient's x-rays demonstrated mild degenerative changes. Uric acid was normal. The patient's complete metabolic panel was normal. The CBC was unremarkable. Sedimentation rate is pending. Patient was given 2 hydrocodone in the emergency department with significant improvement in her pain. Patient asked for a few hydrocodone until she follow up with her primary care physician on Friday. Departure Impression Primary Impression: Ankle pain, left Qualified Codes: M25.572 - Pain in left ankle and joints of left foot; G89.29 - Other chronic pain Disposition: HOME, SELF-CARE Condition: Improved Departure-Patient Inst. Decision time for Depature: 17:40 Referrals: [facility] (PCP/Family) Primary Care Physician Patient Instructions: Osteoarthritis Add. Discharge Instructions: Hydrocodone for pain. Follow-up with your doctor on Friday. Return if any problems or questions. All discharge instructions reviewed with patient and/or family. Voiced understanding. ROBERT AMAYA MD Feb 28, 2018 16:47
[2018-02-28 17:08] LABS: BASOPHILS % (AUTO) 0 % (0-10); EOSINOPHILS # (AUTO) 0.3 10^3/uL (0.0-0.3); EOSINOPHILS % (AUTO) 4 % (0-10); HEMATOCRIT 41 % (35-52); HEMOGLOBIN 14.5 G/DL (11.5-16.0); LYMPHOCYTES # (AUTO) 3.1 X 10^3 (1.0-4.0); LYMPHOCYTES % (AUTO) 32 % (12-44); MEAN CORPUSCULAR HEMOGLOBIN 33 PG (25-34); MEAN CORPUSCULAR HGB CONC 36 G/DL (32-36); MEAN CORPUSCULAR VOLUME 91 FL (80-99); MEAN PLATELET VOLUME 10.8 FL (7.4-10.4); MONOCYTES # (AUTO) 0.6 X 10^3 (0.0-1.0); MONOCYTES % (AUTO) 7 % (0-12); NEUTROPHILS # (AUTO) 5.6 X 10^3 (1.8-7.8); NEUTROPHILS % (AUTO) 58 % (42-75); PLATELET COUNT 204 10^3/uL (130-400); RED BLOOD COUNT 4.44 10^6/uL (4.35-5.85); RED CELL DISTRIBUTION WIDTH 12.6 % (10.0-14.5); WHITE BLOOD COUNT 9.6 10^3/uL (4.3-11.0)
[2018-02-28 17:27] LABS: ERYTHROCYTE SEDIMENTATION RATE 15 MM/HR (0-20)
[2018-02-28 17:29] LABS: ALANINE AMINOTRANSFERASE 13 U/L (0-55); ALBUMIN 3.6 GM/DL (3.2-4.5); ALKALINE PHOSPHATASE 81 U/L (40-136); BILIRUBIN,TOTAL 0.2 MG/DL (0.1-1.0); BUN/CREATININE RATIO 18; CALCIUM 9.2 MG/DL (8.5-10.1); CARBON DIOXIDE 19 MMOL/L (21-32); CHLORIDE 114 MMOL/L (98-107); CREATININE SERUM 0.82 MG/DL (0.60-1.30); GFR ESTIMATED > 60; GLUCOSE 97 MG/DL (70-105); SODIUM 142 MMOL/L (135-145); TOTAL PROTEIN 6.1 GM/DL (6.4-8.2); URIC ACID 5.5 MG/DL (2.6-7.2)
--- NOTE | 2018-02-28 17:39 | Diagnostic Imaging Report ---
INDICATION: Left ankle pain. EXAMINATION: AP, oblique and lateral views of the left ankle were obtained. FINDINGS: There is a screw within the distal tibia at the level of the plafond. There is mild joint space narrowing and marginal spurring with prominent anterior talar spurring. There is also pes planus deformity. Degenerative changes are seen within other tarsal bones; however, there is no evidence of an acute fracture. 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 No definite acute abnormality is seen. Dictated by: Dictated on workstation # [id number]
[2018-02-28 17:43] VITALS: BP 144/82
== END 2018-02-28 17:49 | disposition home or self-care (01) ==
LOC: EDUNIT# 16:29 → ER 16:30
DX: M25.572 Pain in left ankle and joints of left foot (principal); G40.909 Epilepsy, unspecified, not intractable, without status epilepticus; J44.9 Chronic obstructive pulmonary disease, unspecified; K21.9 Gastro-esophageal reflux disease without esophagitis; G47.30 Sleep apnea, unspecified; E66.01 Morbid (severe) obesity due to excess calories; F41.9 Anxiety disorder, unspecified; F43.10 Post-traumatic stress disorder, unspecified; F32.9 Major depressive disorder, single episode, unspecified; F90.9 Attention-deficit hyperactivity disorder, unspecified type; Z90.710 Acquired absence of both cervix and uterus; Z79.52 Long term (current) use of systemic steroids; Z88.2 Allergy status to sulfonamides; Z88.8 Allergy status to other drugs, medicaments and biological substances; Z68.43 Body mass index [BMI] 50.0-59.9, adult
CPT/HCPCS: 36415; 73610; 80053; 84550; 85025; 85652

== ENCOUNTER → 2018-03-03 | Outpatient (CLI) | payer MEDICAID ==
--- NOTE | 2018-03-03 14:55 | Diagnostic Imaging Report ---
PROCEDURE: CT urinary tract, rule out kidney stone. TECHNIQUE: Multiple contiguous axial images were obtained through the abdomen and pelvis without the use of intravenous contrast. INDICATION: Right flank pain. Bladder pain. COMPARISON: 07/30/2015. FINDINGS: Included portions of the lung bases show benign calcified granuloma posteriorly on the left. CT abdomen: 6 mm calculus is identified at the right UVJ (image 153, series 2). As a result, there is mild proximal hydroureteronephrosis. There is also moderate asymmetric stranding of the right ureter and right kidney. Multiple additional bilateral nonobstructive renal calculi are also noted. There is no hydroureteronephrosis or other evidence of obstruction on the left. No left-sided ureteral calculi are identified. Liver is diffusely hypodense on this noncontrast exam consistent with hepatic steatosis. The spleen, adrenal glands, and pancreas have a normal CT appearance. Small bowel loops are nondistended. There are a few scattered colonic diverticuli, but no CT evidence of acute diverticulitis. Normal appendix cannot be adequately identified, but there is no pericecal inflammation. There is no loculated fluid collection, free fluid, nor free air within the abdomen. No abnormal mesenteric or retroperitoneal adenopathy is seen. There is a fat-containing umbilical hernia. Ostia measures approximately 2.6 cm in diameter. Bony structures show no acute abnormalities. CT pelvis: Urinary bladder is unopacified. No calculi are seen within the urinary bladder. Again, there is a right UVJ calculus. There is no loculated fluid collection, free fluid, nor free air within the pelvis. No abnormal adenopathy is seen. Bony structures show no acute abnormalities. IMPRESSION: 1. Mild right-sided hydroureteronephrosis secondary to 6 mm calculus at the right UVJ. 2. Multiple additional bilateral nonobstructive renal calculi. 3. Colonic diverticulosis, but no CT evidence of acute diverticulitis. 4. Hepatic steatosis. 5. Fat-containing umbilical hernia. Dictated by: Dictated on workstation # [id number]
== END ==
LOC: RAD 14:11
PROVIDERS: ATTEND Nurse Practitioner Family
DX: N13.0 Hydronephrosis with ureteropelvic junction obstruction (principal); N20.0 Calculus of kidney; K76.0 Fatty (change of) liver, not elsewhere classified; K57.30 Diverticulosis of large intestine without perforation or abscess without bleeding; K42.9 Umbilical hernia without obstruction or gangrene
CPT/HCPCS: 74176

== ENCOUNTER 2018-04-05 10:30 | Emergency (ER) | payer MEDICAID ==
[~2018-04-05] VITALS: Ht 165.1 cm; Wt 143.3 kg
--- OUTSIDE RECORDS SUMMARY | 2018-04-05 10:37 | XMS REPORT | Encounter Summary ---
Author Author [facility] Organization [facility] Address Unknown Phone Unavailable Care Team Providers Care Wood Drilling Machine Operator Name Role Phone RoloMaribel Unavailable Unavailable Carol Ann Marie PA-C Unavailable Unavailable Hailee Crook Unavailable Nadja Levy RN Unavailable Unavailable Shannen Christensen MD Unavailable Gabriela Silva MD Unavailable Africa Talamantes [facility] Unavailable Unavailable Beny Fuentes MD Unavailable Unavailable Carlin Hamilton MD Unavailable Yesenia Falcon MD Unavailable Harvey Black MD Unavailable Billie Pereyra MD Unavailable Samreen Harris MD Unavailable Mariusz Kay MD Unavailable Carolina Cross MD Unavailable Brandon Rosales PA-C PCP Unavailable Reason for Visit * Reason Comments Follow Up Encounter Details Date Type Department Care Team Description 02/05/2018 Office Visit [facility] Geovani Luna MD [facility] Physicians-Neurology [address] [place] [address] ENCOUNTER--DISREGARD [facility] [place] [address] (Primary Dx) [address] [facility] [phone] [place] [address] P [phone] Carolina hanson MD [address] [facility] [address] [place] [address] [phone] Social History Tobacco Use Types Packs/Day Years [...] the patient have a hearing impairment: No 11/23/2017 Does the patient have a visual impairment: Yes 10/31/2017 Does the patient have impaired ambulation: Yes 10/31/2017 Does the patient have an activity of daily living No 10/31/2017 (ADL) impairment: Does the patient have an instrumental activity of No 10/31/2017 daily living (IADL) impairment: Cognitive Status Response Date of Assessment Does the patient have a cognitive impairment: No 10/31/2017 as of this encounter Progress Notes * Carolina Cross MD - 02/05/2018 11:40 AM CDT Formatting of this note may be different from the original. Date of Service: 02/05/2018 Subjective: Liberty Cespedes is a 47 y.o. female. History of Present Illness Patient left before being evaluated and wanted her appointment rescheduled Review of Systems Constitutional: Positive for activity change and fatigue. HENT: Positive for sinus pressure. Eyes: Negative. Respiratory: Positive for apnea. Cardiovascular: Negative. Endocrine: Negative. Genitourinary: Negative. Musculoskeletal: Positive for arthralgias, back pain, joint swelling, myalgias, neck pain and neck stiffness. Skin: Negative. Allergic/Immunologic: Positive for environmental allergies. Neurological: Positive for dizziness, seizures and headaches. Hematological: Negative. Psychiatric/Behavioral: Positive for agitation, decreased concentration, dysphoric mood and sleep disturbance. The patient is nervous/anxious. All other systems reviewed and are negative. Objective: acetaminophen/diphenhydramine (TYLENOL PM) 500/25 mg 1 tablet Take 1 tablet by mouth at bedtime as needed (for sleep/allergies). albuterol 0.5% (PROVENTIL; VENTOLIN) 2.5 mg/0.5 mL Nebu nebulizer solution Inhale 2.5 mg solution as directed every 6 hours as needed. ARIPiprazole (ABILIFY) 5 mg tablet Take 5 mg by mouth daily. atorvastatin (LIPITOR) 10 mg tablet Take 10 mg by mouth daily. cetirizine (ZYRTEC) 10 mg tablet Take 10 mg by mouth daily. cyclobenzaprine (FLEXERIL) 10 mg tablet Take 10 mg by mouth three times daily as needed for Muscle Cramps. desvenlafaxine (+) (PRISTIQ) 100 mg tablet Take 100 mg by mouth at bedtime daily. dexlansoprazole (+) (DEXILANT) 60 mg capsule Take 60 mg by mouth daily. doxycycline (VIBRAMYCIN) 100 mg tablet Take 1 tablet by mouth twice daily. estradiol (ESTRACE) 2 mg tablet Take 2 mg by mouth at bedtime daily. fluticasone (FLONASE) 50 mcg/actuation nasal spray Apply 2 sprays to each nostril as directed daily. Shake bottle gently before using. guanFACINE (TENEX) 1 mg tablet Take 1 mg by mouth at bedtime daily. hydrOXYzine pamoate (VISTARIL) 25 mg capsule Take 25-50 mg by mouth three times daily as needed for Anxiety. ipratropium bromide (ATROVENT) 42 mcg (0.06 %) nasal spray Apply 1 spray to each nostril as directed twice daily. isosorbide mononitrate SR (IMDUR) 60 mg tablet Take 60 mg by mouth every morning. levETIRAcetam (KEPPRA) 500 mg tablet TAKE TWO TABLETS BY MOUTH EVERY MORNING AND TAKE THREE TABLETS BY MOUTH AT BEDTIME loperamide(+) (ANTI-DIARRHEAL (LOPERAMIDE)) 2 mg tablet Take 2 mg by mouth as Needed for Diarrhea. Take 2 tablets by mouth initially, followed by 1 tablet by mouth after each loose stool for up to a maximum of 8 tablets in 24 hours. mirabegron(+) ER (MYRBETRIQ) 50 mg tablet Take 50 mg by mouth every morning. montelukast (SINGULAIR) 10 mg tablet Take 10 mg by mouth at bedtime daily. nabumetone (RELAFEN) 500 mg tablet Take 500 mg by mouth twice daily. nicotine(+) (NICOTROL) 10 mg inhaler Inhale 1 puff by mouth into the lungs as Needed. olopatadine(+) (PATANOL) 0.1 % ophthalmic solution Apply 1 drop to both eyes twice daily. ondansetron (ZOFRAN ODT) 4 mg rapid dissolve tablet Dissolve 4 mg by mouth every 8 hours as needed for Nausea or Vomiting. other medication 1 Dose. Allergy shot other medication Compression stockings 30-40 mm Hg Knee high other medication BP machine ranitidine(+) (ZANTAC) 150 mg tablet Take 150 mg by mouth twice daily. solifenacin(+) (VESICARE) 5 mg tablet Take 5 mg by mouth at bedtime daily. tiotropium (SPIRIVA WITH HANDIHALER) 18 mcg capsule for inhaler Place 18 mcg into inhaler and inhale into lungs as directed daily. topiramate (TOPAMAX) 50 mg tablet Take 2 tablets by mouth twice daily. zolpidem (AMBIEN) 10 mg tablet Take 10 mg by mouth at bedtime daily. There were no vitals filed for this visit. There is no height or weight on file to calculate BMI. Physical Exam Assessment and Plan: in this encounter Plan of Treatment Date Type Specialty Care Team Description 04/07/2018 [facility] Alison Bentley MD Unspecified convulsions Encounter [id number] [facility] [address] [place] [address] [phone] as of this encounter Visit Diagnoses Diagnosis ERRONEOUS ENCOUNTER--DISREGARD - Primary
--- OUTSIDE RECORDS SUMMARY | 2018-04-05 10:37 | XMS REPORT ---
Author Author BELTRAN PEREZ [facility] Address [address] [place] [address] Care Team Providers Care Engineering Test Mechanic Name Role Phone BELTRAN PEREZ Unavailable PROBLEMS Type Condition ICD9-CM Code CIM95-QZ Code Onset Dates Condition Status SNOMED Code Problem Mixed hyperlipidemia E78.2 Active 612341098 Problem Seasonal allergic rhinitis due to other allergic trigger J30.89 Active 822793970 Problem Angina of effort I20.8 Active 288167155 Problem Pain in left shoulder M25.512 Active 69715637 Problem BMI 50.0-59.9, adult Z68.43 Active 284453732 Problem Recurrent major depressive disorder, in partial remission F33.41 Active 13862726 Problem Post-menopausal Z78.0 Active 28536608 Problem Mixed stress and urge urinary incontinence N39.46 Active 307265832 Problem Dry eyes H04.123 Active 410173203 Problem Osteoarthritis of multiple joints, unspecified osteoarthritis type M15.9 Active 876926737 Problem Migraine without aura and without status migrainosus, not intractable G43.009 Active 052905610 Problem Recurrent sinus infections J32.9 Active 725470733 Problem Gastroesophageal reflux disease with esophagitis K21.0 Active 750478964 Problem Nausea R11.0 Active 747437321 Problem 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 Active 896538901 Problem Seizure disorder G40.909 Active 735643240 Problem Other chronic pain G89.29 Active 84202044 Problem Anxiety F41.9 Active 66582091 Problem 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 Active 062743477 ALLERGIES No Information ENCOUNTERS Encounter Location Date Diagnosis [facility] [address] [facility] [id number] [address] May, [facility] [id number] [address] Apr, [facility] [address] [address] Apr, [facility] [id number] [place] [address] Mar, [facility] [id number] [place] [address] Mar, Orthostatic hypotension I95.1 and BMI 50.0-59.9, adult Z68.43 [facility] [id number] [place] [address] Feb, [facility] [id number] [place] [address] Feb, [facility] [id number] [place] [address] Feb, Right flank pain R10.9 and BMI 50.0-59.9, adult Z68.43 [facility] [id number] [place] [address] Feb, 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 [facility] [id number] [place] [address] Feb, 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 ; BMI 50.0-59.9, adult Z68.43 and Onychomycosis B35.1 [facility] [address] [place] [address] January, 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 [facility] [id number] [place] [address] January, 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 [facility] [id number] [place] [address] January, 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 [facility] [address] [address] January, [facility] [address] [place] [address] January, Pain in left shoulder M25.512 ; Seasonal allergic rhinitis due to other allergic trigger J30.89 and BMI 50.0-59.9, adult Z68.43 [place] [id number] [place] [address] Dec, Acute left ankle pain M25.572 and BMI 50.0-59.9, adult Z68.43 [place] [id number] [place] [address] Dec, Seasonal allergic rhinitis due to other allergic trigger J30.89 ; Osteoarthritis of multiple joints, unspecified osteoarthritis type M15.9 and BMI 50.0-59.9, adult Z68.43 [place] [address] [address] Dec, [place] [address] [address] Nov, Hospital discharge follow-up Z09 ; Other chronic pain G89.29 ; Pain in left shoulder M25.512 ; BMI 50.0-59.9, adult Z68.43 ; Seasonal allergic rhinitis due to other allergic trigger J30.89 ; 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 ; Osteoarthritis of multiple joints, unspecified osteoarthritis type M15.9 ; Anxiety F41.9 ; Seizure disorder G40.909 ; Mixed hyperlipidemia E78.2 ; Mixed stress and urge urinary incontinence N39.46 ; Migraine without aura and without status migrainosus, not intractable G43.009 ; Recurrent major depressive disorder, in partial remission F33.41 and 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 [facility] [id number] [place] [address] Nov, [place] [id number] [place] [address] Nov, Encounter to establish care Z76.89 [place] [address] [address] Nov, Seasonal allergic rhinitis due to other allergic trigger J30.89 ; Encounter to establish care Z76.89 ; 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 ; Gastroesophageal reflux disease with esophagitis K21.0 ; Osteoarthritis of multiple joints, unspecified osteoarthritis type M15.9 ; Post- menopausal Z78.0 ; Anxiety F41.9 ; Recurrent sinus infections J32.9 ; Mixed hyperlipidemia E78.2 ; Mixed stress and urge urinary incontinence N39.46 ; Seizure disorder G40.909 ; Recurrent major depressive disorder, in partial remission F33.41 ; Migraine without aura and without status migrainosus, not intractable G43.009 ; Nausea R11.0 ; 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 ; Dry eyes H04.123 ; Angina of effort I20.8 ; Other chronic pain G89.29 ; Low back pain M54.5 and BMI 50.0-59.9, adult Z68.43 [facility] [address] [facility] [id number] [place] [address] May, Excess exposure to sun X32.XXXA IMMUNIZATIONS No Known Immunizations SOCIAL HISTORY Never Assessed REASON FOR VISIT Lab (walk-in) PLAN OF CARE VITAL SIGNS MEDICATIONS Unknown Medications RESULTS No Results PROCEDURES Procedure Date Ordered Result Body Site [facility] November 19, 2017 INSTRUCTIONS MEDICATIONS ADMINISTERED No Known Medications MEDICAL (GENERAL) HISTORY Type Description Date Medical History Fibromyalgia Medical History Seizure Disorder Medical History Migraines Medical History Depression/Anxiety Medical History Allergies -received allergy injections through Dr. Pugh. Medical History GI problems Medical History Insomnia Medical History Menopause Medical History High Cholesterol Surgical History Right hand surgery. Carpal tunnel release & ulnar nerve february 13, 2017 Surgical History Hysterectomy Surgical History Gallbladder Removal Surgical History kidney stone removed March 2018 Hospitalization History Surgeries Hospitalization History Pnemonuia Sep 2014
--- OUTSIDE RECORDS SUMMARY | 2018-04-05 10:37 | XMS REPORT | Encounter Summary ---
Author Author [facility] Organization [facility] Address Unknown Phone Unavailable Care Team Providers Care Metal Bonder Name Role Phone RoloMaribel Unavailable Unavailable Carol Ann Marie PA-C Unavailable Unavailable Hailee Crook Unavailable Nadja Levy RN Unavailable Unavailable Shannen Christensen MD Unavailable Gabriela Silva MD Unavailable Africa Talamantes [facility] Unavailable Unavailable Beny Fuentes MD Unavailable Unavailable Carlin Hamilton MD Unavailable Yesenia Falcon MD Unavailable Harvey Black MD Unavailable Billie Pereyra MD Unavailable Samreen Harris MD Unavailable Mariusz Kay MD Unavailable Carolina Cross MD Unavailable Brandon Rosales PA-C PCP Unavailable Encounter Details Date Type Department Care Team Description 04/02/2018 Telephone Comprehensive Epilepsy Alison Bentley MD [place] [address] [facility] [address] [place] [address] [place] [address] [phone] Social History Tobacco Use Types Packs/Day Years [...] impairment: No 10/31/2017 as of this encounter Miscellaneous Notes * Telephone Encounter - Alyce Bonilla RN - 04/02/2018 4:09 PM CDT Called pt at 1610. No answer. Left message that Elisabeth would call back tomorrow. Alyce in this encounter Plan of Treatment Date Type Specialty Care Team Description 04/07/2018 [facility] Alison Bentley MD Unspecified convulsions Encounter [address] ([facility]) [address] [place] [address] [phone] as of this encounter Visit Diagnoses Not on filein this encounter
--- OUTSIDE RECORDS SUMMARY | 2018-04-05 10:37 | XMS REPORT | Encounter Summary ---
Author Author [facility] Organization [facility] Address Unknown Phone Unavailable Care Team Providers Care Disposal Man Name Role Phone PCP Unavailable Reason for Visit * Auth/Cert Status Reason Specialty Diagnoses / Referred By Referred To Procedures Contact Contact Diagnoses Unspecified convulsions (HCC) Procedures OK LOCALIZE CEREBRAL SEIZURE CABLE/RADIO EEG/VIDEO Encounter Details Date Type Department Care Team Description 04/07/2018 Hospital Pre-Admit Alison Bentley MD Unspecified convulsions Encounter [address] (HCC) [place] [address] [address] [place] [address] [phone] Social History Tobacco Use Types Packs/Day Years [...] impairment: No 10/31/2017 as of this encounter Plan of Treatment Date Type Specialty Care Team Description 04/07/2018 [facility] Alison Bentley MD Unspecified convulsions Encounter [address] [facility] (HCC) [address] [place] [address] as of this encounter Visit Diagnoses Not on filein this encounter Admitting Diagnoses Diagnosis Unspecified convulsions (HCC) - UNKNOWN Unspecified convulsions
--- OUTSIDE RECORDS SUMMARY | 2018-04-05 10:37 | XMS REPORT | Encounter Summary ---
Author Author [facility] Organization [facility] Address Unknown Phone Unavailable Care Team Providers Care Group Supervisor Yard Name Role Phone SethMaribel fonseca Unavailable Unavailable Carol Ann Marie PA-C Unavailable Unavailable Hailee Crook Unavailable Nadja Levy RN Unavailable Unavailable Shannen Christensen MD Unavailable Gabriela Silva MD Unavailable Africa Talamantes [facility] Unavailable Unavailable Beny Fuentes MD Unavailable Unavailable Carlin Hamilton MD Unavailable Yesenia Falcon MD Unavailable Harvey Black MD Unavailable Billie Pereyra MD Unavailable Samreen Harris MD Unavailable Mariusz Kay MD Unavailable Carolina Cross MD Unavailable Brandon Rosales PA-C PCP Unavailable Reason for Visit * Reason Comments Medication Refill Encounter Details Date Type Department Care Team Description 2018 Refill [facility] Carolina Cross MD Physicians-Neurology [address] [facility] [address] [place] [address] [place], [place] [phone] [address] [phone] Social History Tobacco Use Types Packs/Day Years [...] encounter Miscellaneous Notes * Telephone Encounter - Tresa Neri LPN - 02/26/2018 10:48 AM CDT Received request for topamax refill, NORMAN on 05/26/17. Medication included in POC set forth by darryl Moshercribed to pharmacy. Doctor to cosign. in this encounter Plan of Treatment Date Type Specialty Care Team Description 04/07/2018 [facility] Alison Bentley MD Unspecified convulsions Encounter [address] ([facility]) [address] [place] [address] [phone] as of this encounter Visit Diagnoses Not on filein this encounter
--- OUTSIDE RECORDS SUMMARY | 2018-04-05 10:37 | XMS REPORT | Encounter Summary ---
Author Author [facility] Organization [facility] Address Unknown Phone Unavailable Care Team Providers Care Inspector And Mender Name Role Phone RoloMaribel Unavailable Unavailable Carol Ann Marie PA-C Unavailable Unavailable Hailee Crook Unavailable Nadja Levy RN Unavailable Unavailable Shannen Christensen MD Unavailable Gabriela Silva MD Unavailable Africa Talamantes [facility] Unavailable Unavailable Beny Fuentes MD Unavailable Unavailable Carlin Hamiltno MD Unavailable Yesenia Falcon MD Unavailable Harvey Black MD Unavailable Billie Pereyra MD Unavailable Samreen Harris MD Unavailable Mariusz Kay MD Unavailable Carolina Cross MD Unavailable Brandon Rosales PA-C PCP Unavailable Reason for Visit * Reason Comments Follow-up Phone Call Encounter Details Date Type Department Care Team Description 04/03/2018 Telephone Comprehensive Epilepsy Alison Bentley MD Follow- up Phone Call Center [address] [facility] [address] [place] [address] [place] [address] [phone] Social History Tobacco Use Types Packs/Day Years [...] encounter Miscellaneous Notes * Telephone Encounter - Elisabeth Gr RN - 04/03/2018 12:57 PM CDT Spoke with pt and confirmed [facility]EEG admission for 04/07/18 at 11am. Denies any recent illnesses, hospitalization, depression or thoughts of hurting self. in this encounter Plan of Treatment Date Type Specialty Care Team Description 04/07/2018 [facility] Alison Bentley MD Unspecified convulsions Encounter [address] ([facility]) [address] [place] [address] [phone] as of this encounter Visit Diagnoses Not on filein this encounter
--- OUTSIDE RECORDS SUMMARY | 2018-04-05 10:37 | XMS REPORT | Encounter Summary ---
Author Author [facility] Organization [facility] Address Unknown Phone Unavailable Care Team Providers Care Staple Laster Name Role Phone SethMaribel fonseca Unavailable Unavailable Carol Ann Marie PA-C Unavailable Unavailable Hailee Crook Unavailable Nadja Levy RN Unavailable Unavailable Shannen Christensen MD Unavailable Gabriela Silva MD Unavailable Africa Talamantes [facility] Unavailable Unavailable Beny Fuentes MD Unavailable Unavailable Carlin Hamilton MD Unavailable Yesenia Falcon MD Unavailable Harvey Black MD Unavailable Billie Pereyra MD Unavailable Samreen Harris MD Unavailable Mariusz Kay MD Unavailable Carolina Cross MD Unavailable Brandon Rosales PA-C PCP Unavailable Reason for Visit * Reason Comments Medication Refill Encounter Details Date Type Department Care Team Description 02/02/2018 Refill [facility] Carolina Cross MD Physicians-Neurology [address] [facility] [address] [place] [address] [place], [place] [phone] [address] [phone] Social History Tobacco Use Types Packs/Day Years [...] Telephone Encounter - Tresa Neri LPN - 02/02/2018 10:48 AM CDT Recieved robina refill request for Liberty. NORMAN 05/26/2017, medication included in plan of care set forth by Dr. Cross. Robina escribed to pharmacy. Dr. Cross to cosign in this encounter Plan of Treatment Date Type Specialty Care Team Description 04/07/2018 [facility] Alison Bentley MD Unspecified convulsions Encounter [address] (HCC) [address] [place] [address] [phone] as of this encounter Visit Diagnoses Not on filein this encounter
--- OUTSIDE RECORDS SUMMARY | 2018-04-05 10:37 | XMS REPORT | Clinical Summary ---
Author Author [facility] Organization [facility] Address Unknown Phone Unavailable Care Team Providers Care Plastic Surgery Coordinator Name Role Phone SethMaribel fonseca Unavailable Unavailable Carol Ann Marie PA-C Unavailable Unavailable Hailee Crook Unavailable Nadja Levy RN Unavailable Unavailable Shannen Christensen MD Unavailable Gabriela Silva MD Unavailable [place] [facility] Unavailable Unavailable Beny Fuentes MD Unavailable Unavailable Carlin Hamilton MD Unavailable Yesenia Falcon MD Unavailable Harvey Black MD Unavailable Billie Pereyra MD Unavailable Samreen Harris MD Unavailable Mariusz Kay MD Unavailable Carolina Cross MD Unavailable Brandon Rosales PA-C PCP Unavailable Source Comments Some departments are not documenting in the electronic medical record. If you do not see the information that you expected, contact Release of Information in the Health Information Management department at [phone] for further assistance in locating additional records.[facility] Allergies Active Allergy Reactions Severity Noted Date Comments Esomeprazole Magnesium DIARRHEA 11/10/2013 Sulfa (Sulfonamide RASH 03/23/2008 Antibiotics) Current Medications Prescription Sig. Disp. Refills Start End Date Status Date montelukast (SINGULAIR) Take 10 mg by mouth at Active 10 mg tablet bedtime daily. zolpidem (AMBIEN) 10 mg Take 10 mg by mouth at Active tablet bedtime daily. ondansetron (ZOFRAN ODT) Dissolve 4 mg by mouth Active 4 mg rapid dissolve every 8 hours as needed tablet for Nausea or Vomiting. other Compression stockings 1 Each 6 11/28/19 Active medicationIndications: 30-40 mm Hg 13 Peripheral edema Knee high other BP machine 1 Each 0 11/28/19 Active medicationIndications: 13 HTN (hypertension) other medication 1 Dose. Allergy shot Active cetirizine (ZYRTEC) 10 mg Take 10 mg by mouth Active tablet daily. albuterol 0.5% Inhale 2.5 mg solution as Active (PROVENTIL; VENTOLIN) 2.5 directed every 6 hours as mg/0.5 mL Nebu nebulizer needed. solution ranitidine(+) (ZANTAC) Take 150 mg by mouth Active 150 mg tablet twice daily. dexlansoprazole (+) Take 60 mg by mouth Active (DEXILANT) 60 mg capsule daily. ARIPiprazole (ABILIFY) 5 Take 5 mg by mouth daily. Active mg tablet atorvastatin (LIPITOR) 10 Take 10 mg by mouth Active mg tablet daily. desvenlafaxine (+) Take 100 mg by mouth at Active (PRISTIQ) 100 mg tablet bedtime daily. estradiol (ESTRACE) 2 mg Take 2 mg by mouth at Active tablet bedtime daily. hydrOXYzine pamoate Take 25-50 mg by mouth Active (VISTARIL) 25 mg capsule three times daily as needed for Anxiety. olopatadine(+) (PATANOL) Apply 1 drop to both eyes Active 0.1 % ophthalmic solution twice daily. fluticasone (FLONASE) 50 Apply 2 sprays to each Active mcg/actuation nasal spray nostril as directed daily. Shake bottle gently before using. ipratropium bromide Apply 1 spray to each Active (ATROVENT) 42 mcg (0.06 nostril as directed twice %) nasal spray daily. acetaminophen/diphenhydra Take 1 tablet by mouth at Active mine (TYLENOL PM) 500/25 bedtime as needed (for mg 1 tablet sleep/allergies). solifenacin(+) (VESICARE) Take 5 mg by mouth at Active 5 mg tablet bedtime daily. isosorbide mononitrate SR Take 60 mg by mouth every Active (IMDUR) 60 mg tablet morning. mirabegron(+) ER Take 50 mg by mouth every Active (MYRBETRIQ) 50 mg tablet morning. cyclobenzaprine Take 10 mg by mouth three Active (FLEXERIL) 10 mg tablet times daily as needed for Muscle Cramps. guanFACINE (TENEX) 1 mg Take 1 mg by mouth at Active tablet bedtime daily. loperamide(+) Take 2 mg by mouth as Active (ANTI-DIARRHEAL Needed for Diarrhea. Take (LOPERAMIDE)) 2 mg tablet 2 tablets by mouth initially, followed by 1 tablet by mouth after each loose stool for up to a maximum of 8 tablets in 24 hours. tiotropium (SPIRIVA WITH Place 18 mcg into inhaler Active HANDIHALER) 18 mcg and inhale into lungs as capsule for inhaler directed daily. doxycycline (VIBRAMYCIN) Take 1 tablet by mouth 0 11/27/20 Active 100 mg tablet twice daily. 18 nicotine(+) (NICOTROL) 10 Inhale 1 puff by mouth 42 each 0 11/27/20 Active mg inhaler into the lungs as Needed. 18 levETIRAcetam (KEPPRA) TAKE TWO TABLETS BY MOUTH 150 tablet 2 Active 500 mg tablet EVERY MORNING AND TAKE 18 THREE TABLETS BY MOUTH AT BEDTIME nabumetone (RELAFEN) 500 Take 500 mg by mouth Active mg tablet twice daily. topiramate (TOPAMAX) 50 TAKE TWO TABLETS BY MOUTH 120 tablet 3 Active mg tablet TWICE A DAY (DOSE CHANGED 18 AT OFFICE VISIT ON 05/26/2017) Active Problems Problem Noted Date Seizures (HCC) 11/23/2017 Back pain 07/18/2014 Smoker 12/21/2012 Overview: 12/21/2012: Rxed nicoderm 21 mg patch. Abnormal thyroid blood test 12/08/2012 Overview: 12/21/2012: repeat in 4-6 weeks. MICHELLE (obstructive sleep apnea) 11/29/2012 Overview: 11/27/2012: Reiterated need to get back on CPAP. [facility] pays for CPAP. She will check with [...] 11/29/2012 Overview: 11/27/2012: Requesting a referral to track service person for shots: Has been getting shots for 1 yr and has had notiecable improvement in her sx of runny, itchy nose and eyes. Referral placed for Allergy. Anxiety and depression 11/29/2012 Overview: 11/27/2012: concerned about polypharmacy: Insomnia - Ambien and doxepin. Depression/anxiety - Participating in therapy at [facility] and [facility]. Treated with adderall, lamotrigine, oxcarbazepine and valium [...] ibuprofen and lyrica. DVT (deep venous thrombosis) ([facility]) 03/25/2008 Overview: 2007 - Completed 6 mos [...] Encounters Date Type Specialty Care Team Description 04/03/2018 Telephone Neurology Alison Bentley MD Follow-up Phone Call 04/02/2018 Telephone Neurology Alison Bentley MD 2018 Refill Neurology Carolina Cross MD 02/10/2018 Telephone Neurology Alisno Bentley MD Follow-up Phone Call 02/05/2018 Office Visit Neurology Geovani Luna MD ERRONEOUS Carolina Cross MD ENCOUNTER--DISREGARD (Primary Dx) 02/02/2018 Refill Neurology Carolina Cross MD from Last [...] Vital Sign Reading Time Taken Blood Pressure 105/61 11/27/2017 9:25 AM CDT Pulse 70 11/27/2017 9:25 AM CDT Temperature 36.5 C (97.7 F) 11/27/2017 9:25 AM CDT Respiratory Rate 20 06/09/2017 8:16 AM CDT Oxygen Saturation 96% 11/27/2017 9:25 AM CDT Inhaled Oxygen - - Concentration Weight 141.5 kg (311 lb 15.2 oz) 11/23/2017 4:09 PM CDT Height 165.1 cm (5' 5") 11/23/2017 4:09 PM CDT Body Mass Index 51.91 11/23/2017 4:09 PM CDT Plan of Treatment Date Type Specialty Care Team Description 04/07/2018 [facility] Alison Bentley MD Unspecified convulsions Encounter [id number] ([facility]) [address] [place] [address] [phone] Health Maintenance Due Date Last Done Comments PHYSICAL (COMPREHENSIVE) 02/25/1976 EXAM PERTUSSIS VACCINE 02/25/1980 HIV SCREENING 02/25/1984 CERVICAL CANCER SCREENING 1999 BREAST CANCER SCREENING 2009 TETANUS VACCINE 09/15/2009 09/15/1999 INFLUENZA VACCINE 06/15/2018 07/27/2008, 07/27/2008 Results Not on filefrom Last 3 Months
--- OUTSIDE RECORDS SUMMARY | 2018-04-05 10:37 | XMS REPORT | Encounter Summary ---
Author Author [facility] Organization [facility] Address Unknown Phone Unavailable Care Team Providers Care Timber Inspector Name Role Phone RoloMaribel Unavailable Unavailable Carol Ann Marie PA-C Unavailable Unavailable Hailee Crook Unavailable Nadja Levy RN Unavailable Unavailable Shannen Christensen MD Unavailable Gabriela Silva MD Unavailable [place] [facility] Unavailable Unavailable Beny Fuentes MD Unavailable Unavailable Carlin Hamilton MD Unavailable Yesenia Falcon MD Unavailable Harvey Black MD Unavailable Billie Pereyra MD Unavailable Samreen Harris MD Unavailable Mariusz Kay MD Unavailable Carolina Cross MD Unavailable Brandno Rosales PA-C PCP Unavailable Reason for Visit * Reason Comments Follow-up Phone Call Encounter Details Date Type Department Care Team Description 02/10/2018 Telephone Comprehensive Epilepsy Alison Bentley MD Follow- up Phone Call Center [address] [facility] [address] [place] [address] [place] [address] [phone] Social History Tobacco Use Types Packs/Day Years [...] Telephone Encounter - Elisabeth Gr RN - 02/13/2018 9:09 AM CDT Spoke with pt and discussed Dr. Bentley recommendation of Video EEG, pt in agreement. VEEG scheduled for 04/07/18 11am. * Telephone Encounter - Alison Bentley MD - 02/11/2018 3:54 PM CDT Since it is uncertain if these are epileptic seizures, I would not increase her AEDs at this time. However, I would recommend we try to capture these again either with inpatient or outpt video EEG monitoring. Alison Bentley MD * Telephone Encounter - Elisabeth Gr RN - 02/10/2018 5:10 PM CDT No convulsions, the ones that are twitching of the right eye and mouth with not being able to respond. Lasting 5 monutes. * Telephone Encounter - Alison Bentley MD - 02/10/2018 3:01 PM CDT Which type of seizure? Alison Bentley MD * Telephone Encounter - Elisabeth Gr RN - 02/10/2018 2:48 PM CDT Pt called and stated she has had 3 more seizures since discharge from EMU in November which occurred 01/06/18, 01/19/18 & 01/29/18. Current AED is Keppra 1000mg in am and 1500mg in pm. Denies any recent illnesses or missed medications. Will discuss with Dr. Bentley. in this encounter Plan of Treatment Date Type Specialty Care Team Description 04/07/2018 [facility] Alison Bentley MD Unspecified convulsions Encounter [id number] [facility] [address] [place], [place] [id number] as of this encounter Visit Diagnoses Not on filein this encounter
--- OUTSIDE RECORDS SUMMARY | 2018-04-05 10:39 | XMS REPORT | Continuity of Care Document ---
Author Author [facility] Organization [facility] Address Unknown Phone Unavailable Allergies Active Description Code Type Severity Reaction Onset Reported/Identified Relationship to Patient Clinical Status Yes NEXIUM MILD GI PROBLEMS - DIARRH Yes SULFA (SULFONAMIDE ANTIBIOTICS) MILD DERMATOLOGICAL - YULIYA Yes [id number] (SULFA (SULFONAMIDE ANTIBIOTICS)) [id number] (SULFA (SULFONAMIDE ANTIBIOTICS)) Mild N/A 08/06/2009 Yes esomeprazole mag [id number] Drug Allergy Moderate N/A 06/10/2013 Yes Sulfa (Sulfonamide Antibiotics) [id number] Drug Allergy Unknown RASH 2014 Medications Medication Packaging Start Date Stop Date Route Dosage Sig LACTATED RINGERS 1000CC IV BAG INJ ml 03/13/2018 03/20/2018 CONTINUOUSEVERY 0 Hour ALBUTEROL SVN 2.5MG/3CC LIQ 2.5 MG (PROVENTIL DEIRDRE 2.5MG/3CC) MG 03/16/2018 03/16/2018 [id number] Problems Date Dx Coded Attending Type Code Diagnosis Diagnosed By 06/11/2013 SVITLANA BORGES, RUY Rushing Ot 053.9 HERPES ZOSTER NOS 06/11/2013 SVITLANA BORGES, RUY Rushing Ot 300.00 ANXIETY STATE NOS 06/11/2013 SVITLANA BORGES, RUY Rushing Ot 305.1 TOBACCO USE DISORDER 06/11/2013 RUY SHANE MD Ot 311 DEPRESSIVE DISORDER NEC 06/11/2013 RUY SHANE MD Ot 314.01 ATTN DEFICIT W HYPERACT 06/11/2013 SVITLANA BORGES, RUY Rushing Ot 345.90 EPILEPSY UNSPEC W/O MENTION INTRACTABLE 06/11/2013 RUY SHANE MD Ot 530.81 ESOPHAGEAL REFLUX 06/11/2013 RUY SHANE MD Ot 535.50 UNSP GASTRITIS GASTRODUODENITIS W/O ME 06/11/2013 SVITLANA BORGES, RUY Rushing Ot 553.3 DIAPHRAGMATIC HERNIA 06/11/2013 SVITLANA BORGES, RUY Rushing Ot 729.1 MYALGIA AND MYOSITIS NOS 07/31/2015 GEETA CASTELLON Ot B37.0 CANDIDAL STOMATITIS 07/31/2015 GEETA CASTELLON Ot F17.210 NICOTINE DEPENDENCE, CIGARETTES, UNCOMPL 07/31/2015 GEETA CASTELLON Ot K76.0 FATTY (CHANGE OF) LIVER, NOT ELSEWHERE C 07/31/2015 GEETA CASTELLON Ot N39.0 URINARY TRACT INFECTION, SITE NOT SPECIF 07/31/2015 GEETA CASTELLON Ot R19.7 DIARRHEA, UNSPECIFIED 07/31/2015 GEETA CASTELLON Ot Z79.899 OTHER SUPERVISOR [employer] (CURRENT) DRUG THERAPY 02/11/2016 KHAI JOAQUIN APRN [...] APRN Ot R91.1 SOLITARY PULMONARY NODULE 12/24/2016 JOHNSON BORGES, ZAHRA Allen Ot F17.210 NICOTINE DEPENDENCE, CIGARETTES, UNCOMPL 12/24/2016 ZAHRA ORNELAS MD Ot J44.9 CHRONIC OBSTRUCTIVE PULMONARY DISEASE, U 12/24/2016 ZAHRA ORNELAS MD Ot K59.03 DRUG INDUCED CONSTIPATION 12/24/2016 ZAHRA ORNELAS MD Ot R10.11 RIGHT UPPER QUADRANT PAIN 12/24/2016 ZAHRA ORNELAS MD Ot Z79.891 SUPER[employer]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 OPIATE ANALGE 12/24/2016 ZAHRA ORNELAS MD J Ot Z79.899 OTHER DETENTION (CURRENT) DRUG THERAPY 12/24/2016 ZAHRA ORNELAS MD J Ot Z90.49 ACQUIRED ABSENCE OF OTHER SPECIFIED PART 12/24/2016 ZAHRA ORNELAS MD J Ot Z90.710 ACQUIRED ABSENCE OF BOTH CERVIX AND UTER 12/27/2016 ZAHRA ORNELAS MD J Ot F17.210 NICOTINE DEPENDENCE, CIGARETTES, UNCOMPL 12/27/2016 ZAHRA ORNELAS MD J Ot J44.9 CHRONIC OBSTRUCTIVE PULMONARY DISEASE, U 12/27/2016 ZAHRA ORNELAS MD J Ot K59.03 DRUG INDUCED CONSTIPATION 12/27/2016 ZAHRA ORNELAS MD J Ot R10.11 RIGHT UPPER QUADRANT PAIN 12/27/2016 ZAHRA ORNELAS MD J Ot Z79.891 DETENTION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 OPIATE ANALGE 12/27/2016 ZAHRA ORNELAS MD J Ot Z79.899 OTHER SUPERVISOR [employer] (CURRENT) DRUG THERAPY 12/27/2016 ZAHRA ORNELAS MD J Ot Z90.49 ACQUIRED ABSENCE OF OTHER SPECIFIED PART 12/27/2016 ZAHRA ORNELAS MD J Ot Z90.710 ACQUIRED ABSENCE OF BOTH CERVIX AND UTER 01/03/2017 ZAHRA ORNELAS MD J Ot F17.210 NICOTINE DEPENDENCE, CIGARETTES, UNCOMPL 01/03/2017 ZAHRA ORNELAS MD Ot J44.9 CHRONIC OBSTRUCTIVE PULMONARY DISEASE, U 01/03/2017 ZAHRA ORNELAS MD Ot K59.03 DRUG INDUCED CONSTIPATION 01/03/2017 ZAHRA RONELAS MD Ot R10.11 RIGHT UPPER QUADRANT PAIN 01/03/2017 ZAHRA ORNELAS MD J Ot Z79.891 SUPER[employer]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 OPIATE ANALGE 01/03/2017 ZAHRA ORNELAS MD J Ot Z79.899 OTHER DETENTION (CURRENT) DRUG THERAPY 01/03/2017 ZAHRA ORNELAS MD J Ot Z90.49 ACQUIRED ABSENCE OF OTHER SPECIFIED PART 01/03/2017 ZAHRA ORNELAS MD J Ot Z90.710 ACQUIRED ABSENCE OF BOTH CERVIX AND UTER 03/23/2017 ZAHRA ORNELAS MD J Ot F17.210 NICOTINE DEPENDENCE, CIGARETTES, UNCOMPL 03/23/2017 ZAHRA ORNELAS MD J Ot J44.9 CHRONIC OBSTRUCTIVE PULMONARY DISEASE, U 03/23/2017 ZAHRA ORNELAS MD Ot K59.03 DRUG INDUCED CONSTIPATION 03/23/2017 ZAHRA ORNELAS MD Ot R10.11 RIGHT UPPER QUADRANT PAIN 03/23/2017 ZAHRA ORNELAS MD Ot Z79.891 DETENTION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 OPIATE ANALGE 03/23/2017 ZAHRA ORNELAS MD Ot Z79.899 OTHER SUPERVISOR [employer] (CURRENT) DRUG THERAPY 03/23/2017 ZAHRA ORNELAS MD Ot Z90.49 ACQUIRED ABSENCE OF OTHER SPECIFIED PART 03/23/2017 ZAHRA ORNELAS MD Ot Z90.710 ACQUIRED ABSENCE OF BOTH CERVIX AND UTER 03/23/2017 JOHNSON REESE MD Ot F17.210 NICOTINE DEPENDENCE, CIGARETTES, UNCOMPL 03/23/2017 JOHNSON REESE MD Ot F32.9 MAJOR DEPRESSIVE DISORDER, SINGLE EPISOD 03/23/2017 JOHNSON REESE MD Ot F41.9 ANXIETY DISORDER, UNSPECIFIED 03/23/2017 JOHNSON REESE MD Ot F43.10 POST-TRAUMATIC STRESS DISORDER, UNSPECIF 03/23/2017 JOHNSON REESE MD Ot F90.9 ATTENTION-DEFICIT HYPERACTIVITY DISORDER 03/23/2017 JOHNSON REESE MD Ot F91.9 CONDUCT DISORDER, UNSPECIFIED 03/23/2017 JOHNSON REESE MD Ot G40.909 EPILEPSY, UNSP, NOT INTRACTABLE, WITHOUT 03/23/2017 JOHNSON REESE MD Ot J01.90 ACUTE SINUSITIS, UNSPECIFIED 03/23/2017 JOHNSON REESE MD Ot J42 UNSPECIFIED CHRONIC BRONCHITIS 03/23/2017 JOHNSON REESE MD Ot K21.9 GASTRO-ESOPHAGEAL REFLUX DISEASE WITHOUT 03/23/2017 JOHNSON REESE MD Ot M19.90 UNSPECIFIED OSTEOARTHRITIS, UNSPECIFIED 03/23/2017 JOHNSON REESE MD Ot M54.5 LOW BACK PAIN 03/23/2017 JOHNSON REESE MD Ot Z90.711 ACQUIRED ABSENCE OF UTERUS WITH REMAININ 03/29/2017 JOHNSON REESE MD Ot F17.210 NICOTINE DEPENDENCE, CIGARETTES, UNCOMPL 03/29/2017 JOHNSON REESE MD Ot F32.9 MAJOR DEPRESSIVE DISORDER, SINGLE EPISOD 03/29/2017 JOHNSON REESE MD Ot F41.9 ANXIETY DISORDER, UNSPECIFIED 03/29/2017 JOHNSON REESE MD Ot F43.10 POST-TRAUMATIC STRESS DISORDER, UNSPECIF 03/29/2017 JOHNSON REESE MD Ot F90.9 ATTENTION-DEFICIT HYPERACTIVITY DISORDER 03/29/2017 JOHNSON REESE MD Ot F91.9 CONDUCT DISORDER, UNSPECIFIED 03/29/2017 JOHNSON REESE MD Ot G40.909 EPILEPSY, UNSP, NOT INTRACTABLE, WITHOUT 03/29/2017 JOHNSON REESE MD Ot J01.90 ACUTE SINUSITIS, UNSPECIFIED 03/29/2017 JOHNSON REESE MD Ot J42 UNSPECIFIED CHRONIC BRONCHITIS 03/29/2017 JOHNSON REESE MD Ot K21.9 GASTRO-ESOPHAGEAL REFLUX DISEASE WITHOUT 03/29/2017 JOHNSON REESE MD Ot M19.90 UNSPECIFIED OSTEOARTHRITIS, UNSPECIFIED 03/29/2017 JOHNSON REESE MD Ot M54.5 LOW BACK PAIN 03/29/2017 JOHNSON REESE MD Ot Z90.711 ACQUIRED ABSENCE OF UTERUS WITH REMAININ 05/26/2017 RAUL YOUNG NIGHT NURSE-C Ot M25.531 PAIN IN RIGHT WRIST 05/26/2017 RAUL YOUNG NIGHT NURSE-C Ot Z47.89 ENCOUNTER FOR OTHER ORTHOPEDIC AFTERCARE 06/05/2017 RAUL YOUNG NIGHT NURSE-C Ot M25.531 PAIN IN RIGHT WRIST 06/05/2017 RAUL YOUNG NIGHT NURSE-C Ot Z47.89 ENCOUNTER FOR OTHER ORTHOPEDIC AFTERCARE 06/10/2017 RAUL YOUNG NIGHT NURSE-C Ot M25.531 PAIN IN RIGHT WRIST 06/10/2017 RAUL YOUNG NIGHT NURSE-C Ot Z47.89 ENCOUNTER FOR OTHER ORTHOPEDIC AFTERCARE 06/14/2017 RAUL YOUNG NIGHT NURSE-C Ot M25.531 PAIN IN RIGHT WRIST 06/14/2017 RAUL YOUNG NIGHT NURSE-C Ot Z47.89 ENCOUNTER FOR OTHER ORTHOPEDIC AFTERCARE 06/15/2017 RUY SHANE MD Ot E66.01 MORBID (SEVERE) OBESITY DUE TO EXCESS CA 06/15/2017 RUY SHANE MD Ot F32.9 MAJOR DEPRESSIVE DISORDER, SINGLE EPISOD 06/15/2017 RUY SHANE MD, Ot F41.9 ANXIETY DISORDER, UNSPECIFIED 06/15/2017 RUY SHANE MD Ot F43.10 POST-TRAUMATIC STRESS DISORDER, UNSPECIF 06/15/2017 RUY SHANE MD Ot F90.9 ATTENTION-DEFICIT HYPERACTIVITY DISORDER 06/15/2017 RUY SHANE MD Ot G40.909 EPILEPSY, UNSP, NOT INTRACTABLE, WITHOUT 06/15/2017 RUY SHANE MD Ot G47.30 SLEEP APNEA, UNSPECIFIED 06/15/2017 RUY SHANE MD, Ot J44.1 CHRONIC OBSTRUCTIVE PULMONARY DISEASE W 06/15/2017 RUY SHANE MD Ot K21.9 GASTRO-ESOPHAGEAL REFLUX DISEASE WITHOUT 06/15/2017 RUY SHANE MD Ot M19.90 UNSPECIFIED OSTEOARTHRITIS, UNSPECIFIED 06/15/2017 RUY SHANE MD Ot R06.02 SHORTNESS OF BREATH 06/15/2017 RUY SHANE MD Ot Z68.43 BODY MASS INDEX (BMI) 50-59.9 , ADULT 06/15/2017 RUY SHANE MD Ot Z90.710 ACQUIRED ABSENCE OF BOTH CERVIX AND UTER 06/16/2017 RAUL YOUNG NIGHT NURSE-C Ot M25.531 PAIN IN RIGHT WRIST 06/16/2017 RAUL YOUNG NIGHT NURSE-C Ot Z47.89 ENCOUNTER FOR OTHER ORTHOPEDIC AFTERCARE 06/17/2017 RUY SHANE MD Ot E66.01 MORBID (SEVERE) OBESITY DUE TO EXCESS CA 06/17/2017 RUY SHANE MD Ot G40.909 EPILEPSY, UNSP, NOT INTRACTABLE, WITHOUT 06/17/2017 RUY SHANE MD Ot G47.30 SLEEP APNEA, UNSPECIFIED 06/17/2017 RUY SHANE MD, Ot J44.9 CHRONIC OBSTRUCTIVE PULMONARY DISEASE, U 06/17/2017 RUY SHANE MD Ot K21.9 GASTRO-ESOPHAGEAL REFLUX DISEASE WITHOUT 06/17/2017 RUY SHANE MD Ot M19.90 UNSPECIFIED OSTEOARTHRITIS, UNSPECIFIED 06/17/2017 RUY SHANE MD Ot R06.02 SHORTNESS OF BREATH 06/17/2017 RUY SHANE MD Ot Z90.710 ACQUIRED ABSENCE OF BOTH CERVIX AND UTER 06/17/2017 RUY SHANE MD Ot E66.01 MORBID (SEVERE) OBESITY DUE TO EXCESS CA 06/17/2017 RUY SHANE MD Ot F32.9 MAJOR DEPRESSIVE DISORDER, SINGLE EPISOD 06/17/2017 RUY SHANE MD Ot F41.9 ANXIETY DISORDER, UNSPECIFIED 06/17/2017 RUY SHANE MD Ot F43.10 POST-TRAUMATIC STRESS DISORDER, UNSPECIF 06/17/2017 RUY SHANE MD Ot F90.9 ATTENTION-DEFICIT HYPERACTIVITY DISORDER 06/17/2017 RUY SHANE MD Ot G40.909 EPILEPSY, UNSP, NOT INTRACTABLE, WITHOUT 06/17/2017 RUY SHANE MD Ot G47.30 SLEEP APNEA, UNSPECIFIED 06/17/2017 RUY SHANE MD Ot J44.1 CHRONIC OBSTRUCTIVE PULMONARY DISEASE W 06/17/2017 RUY SHANE MD Ot K21.9 GASTRO-ESOPHAGEAL REFLUX DISEASE WITHOUT 06/17/2017 RUY SHANE MD Ot M19.90 UNSPECIFIED OSTEOARTHRITIS, UNSPECIFIED 06/17/2017 RUY SHANE MD Ot R06.02 SHORTNESS OF BREATH 06/17/2017 RUY SHANE MD Ot Z90.710 ACQUIRED ABSENCE OF BOTH CERVIX AND UTER 06/18/2017 RAUL YOUNG NIGHT NURSE-C Ot M25.531 PAIN IN RIGHT WRIST 06/18/2017 RAUL YOUNG NIGHT NURSE-C Ot Z47.89 ENCOUNTER FOR OTHER ORTHOPEDIC AFTERCARE 06/19/2017 RAUL YOUNG NIGHT NURSE-C Ot M25.531 PAIN IN RIGHT WRIST 06/19/2017 RAUL YOUNG NIGHT NURSE-C Ot Z47.89 ENCOUNTER FOR OTHER ORTHOPEDIC AFTERCARE 06/20/2017 RUY SHANE MD Ot E66.01 MORBID (SEVERE) OBESITY DUE TO EXCESS CA 06/20/2017 RUY SHANE MD Ot F17.210 NICOTINE DEPENDENCE, CIGARETTES, UNCOMPL 06/20/2017 RUY SHANE MD Ot F32.9 MAJOR DEPRESSIVE DISORDER, SINGLE EPISOD 06/20/2017 RUY SHANE MD Ot F41.9 ANXIETY DISORDER, UNSPECIFIED 06/20/2017 RUY SHANE MD Ot F43.10 POST-TRAUMATIC STRESS DISORDER, UNSPECIF 06/20/2017 RUY SHANE MD Ot F90.9 ATTENTION-DEFICIT HYPERACTIVITY DISORDER 06/20/2017 RUY SHANE MD Ot G40.909 EPILEPSY, UNSP, NOT INTRACTABLE, WITHOUT 06/20/2017 RUY SHANE MD Ot G47.30 SLEEP APNEA, UNSPECIFIED 06/20/2017 RUY SHANE MD Ot J44.9 CHRONIC OBSTRUCTIVE PULMONARY DISEASE, U 06/20/2017 RUY SHANE MD Ot K21.9 GASTRO-ESOPHAGEAL REFLUX DISEASE WITHOUT 06/20/2017 RUY SHANE MD Ot M54.5 LOW BACK PAIN 06/20/2017 RUY SHANE MD Ot M62.830 MUSCLE SPASM OF BACK 06/20/2017 RUY SHANE MD Ot R35.0 FREQUENCY OF MICTURITION 06/20/2017 RUY SHANE MD Ot Z90.710 ACQUIRED ABSENCE OF BOTH CERVIX AND UTER 06/23/2017 RUY SHANE MD Ot E66.01 MORBID (SEVERE) OBESITY DUE TO EXCESS CA 06/23/2017 RUY SHANE MD Ot F17.210 NICOTINE DEPENDENCE, CIGARETTES, UNCOMPL 06/23/2017 RUY SHANE MD Ot F32.9 MAJOR DEPRESSIVE DISORDER, SINGLE EPISOD 06/23/2017 RUY SHANE MD Ot F41.9 ANXIETY DISORDER, UNSPECIFIED 06/23/2017 RUY SHANE MD Ot F43.10 POST-TRAUMATIC STRESS DISORDER, UNSPECIF 06/23/2017 RUY SHANE MD Ot F90.9 ATTENTION-DEFICIT HYPERACTIVITY DISORDER 06/23/2017 RUY SHANE MD Ot G40.909 EPILEPSY, UNSP, NOT INTRACTABLE, WITHOUT 06/23/2017 RUY SHANE MD Ot G47.30 SLEEP APNEA, UNSPECIFIED 06/23/2017 RUY SHANE MD, Ot J44.9 CHRONIC OBSTRUCTIVE PULMONARY DISEASE, U 06/23/2017 RUY SHANE MD Ot K21.9 GASTRO-ESOPHAGEAL REFLUX DISEASE WITHOUT 06/23/2017 RUY SHANE MD Ot M54.5 LOW BACK PAIN 06/23/2017 RUY SHANE MD, Ot M62.830 MUSCLE SPASM OF BACK 06/23/2017 RUY SHANE MD Ot R35.0 FREQUENCY OF MICTURITION 06/23/2017 RUY SHANE MD Ot Z90.710 ACQUIRED ABSENCE OF BOTH CERVIX AND UTER 07/08/2017 RAUL YOUNG NIGHT NURSE-C Ot M25.531 PAIN IN RIGHT WRIST 07/08/2017 RAUL YOUNG NIGHT NURSE-C Ot Z47.89 ENCOUNTER FOR OTHER ORTHOPEDIC AFTERCARE 07/16/2017 RAUL YOUNG NIGHT NURSE-C Ot M25.531 PAIN IN RIGHT WRIST 07/16/2017 RAUL YOUNG NIGHT NURSE-C Ot Z47.89 ENCOUNTER FOR OTHER ORTHOPEDIC AFTERCARE 01/01/2018 ZAHRA ORNELAS MD Ot F17.210 NICOTINE DEPENDENCE, CIGARETTES, UNCOMPL 01/01/2018 ZAHRA ORNELAS MD Ot J44.9 CHRONIC OBSTRUCTIVE PULMONARY DISEASE, U 01/01/2018 ZAHRA ORNELAS MD Ot K59.03 DRUG INDUCED CONSTIPATION 01/01/2018 ZAHRA ORNELAS MD Ot R10.11 RIGHT UPPER QUADRANT PAIN 01/01/2018 ZAHRA ORNELAS MD Ot Z79.891 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 [employer]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 OPIATE ANALGE 01/01/2018 ZAHRA ORNELAS MD Ot Z79.899 OTHER DETENTION (CURRENT) DRUG THERAPY 01/01/2018 ZAHRA ORNELAS MD Ot Z90.49 ACQUIRED ABSENCE OF OTHER SPECIFIED PART 01/01/2018 ZAHRA ORNELAS MD Ot Z90.710 ACQUIRED ABSENCE OF BOTH CERVIX AND UTER 01/01/2018 KHAI JOAQUIN APRN Ot E66.01 MORBID (SEVERE) OBESITY DUE TO EXCESS CA 01/01/2018 KHAI JOAQUIN APRN Ot F32.9 MAJOR DEPRESSIVE DISORDER, SINGLE EPISOD 01/01/2018 KHAI JOAQUIN APRN Ot F41.9 ANXIETY DISORDER, UNSPECIFIED 01/01/2018 KHAI JOAQUIN APRN Ot F43.10 POST-TRAUMATIC STRESS DISORDER, UNSPECIF 01/01/2018 KHAI JOAQUIN APRN Ot F90.9 ATTENTION-DEFICIT HYPERACTIVITY DISORDER 01/01/2018 KHAI JOAQUIN APRN Ot G40.909 EPILEPSY, UNSP, NOT INTRACTABLE, WITHOUT 01/01/2018 KHAI JOAQUIN APRN Ot G47.30 SLEEP APNEA, UNSPECIFIED 01/01/2018 KHAI JOAQUIN APRN Ot J44.9 CHRONIC OBSTRUCTIVE PULMONARY DISEASE, U 01/01/2018 KHAI JOAQUIN APRN Ot K21.9 GASTRO-ESOPHAGEAL REFLUX DISEASE WITHOUT 01/01/2018 KHAI JOAQUIN APRN Ot M54.5 LOW BACK PAIN 01/01/2018 KHAI JOAQUIN APRN Ot Z79.51 DETENTION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 INHALED STERO 01/01/2018 KHAI JOAQUIN APRN Ot Z79.52 DETENTION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 SYSTEMIC STER 01/01/2018 KHAI JOAQUIN APRN Ot Z87.01 PERSONAL HISTORY OF PNEUMONIA (RECURRENT 01/01/2018 KHAI JOAQUIN APRN Ot Z88.2 ALLERGY STATUS TO SULFONAMIDES STATUS 01/01/2018 KHAI JOAQUIN APRN Ot Z88.8 ALLERGY STATUS TO OTH DRUG/MEDS/BIOL SUB 01/01/2018 KHAI JOAQUIN APRN Ot Z90.710 ACQUIRED ABSENCE OF BOTH CERVIX AND UTER 01/05/2018 KHAI JOAQUIN APRN Ot E66.01 MORBID (SEVERE) OBESITY DUE TO EXCESS CA 01/05/2018 KHAI JOAQUIN APRN Ot F32.9 MAJOR DEPRESSIVE DISORDER, SINGLE EPISOD 01/05/2018 KHAI JOAQUIN APRN Ot F41.9 ANXIETY DISORDER, UNSPECIFIED 01/05/2018 KHAI JOAQUIN APRN Ot F43.10 POST-TRAUMATIC STRESS DISORDER, UNSPECIF 01/05/2018 KHAI JOAQUIN APRN Ot F90.9 ATTENTION-DEFICIT HYPERACTIVITY DISORDER 01/05/2018 KHAI JOAQUIN APRN Ot G40.909 EPILEPSY, UNSP, NOT INTRACTABLE, WITHOUT 01/05/2018 KHAI JOAQUIN APRN Ot G47.30 SLEEP APNEA, UNSPECIFIED 01/05/2018 KHAI JOAQUIN APRN Ot J44.9 CHRONIC OBSTRUCTIVE PULMONARY DISEASE, U 01/05/2018 KHAI JOAQUIN APRN Ot K21.9 GASTRO-ESOPHAGEAL REFLUX DISEASE WITHOUT 01/05/2018 KHAI JOAQUIN APRN Ot M54.5 LOW BACK PAIN 01/05/2018 KHAI JOAQUIN APRN Ot Z79.51 DETENTION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 INHALED STERO 01/05/2018 KHIA JOAQUIN APRN Ot Z79.52 DETENTION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 SYSTEMIC STER 01/05/2018 KHAI JOAQUIN APRN Ot Z87.01 PERSONAL HISTORY OF PNEUMONIA (RECURRENT 01/05/2018 KHAI JOAQUIN APRN Ot Z88.2 ALLERGY STATUS TO SULFONAMIDES STATUS 01/05/2018 KHAI JOAQUIN APRN Ot Z88.8 ALLERGY STATUS TO OTH DRUG/MEDS/BIOL SUB 01/05/2018 KHAI JOAQUIN APRN Ot Z90.710 ACQUIRED ABSENCE OF BOTH CERVIX AND UTER 02/28/2018 MONIQUE BORGES, ROBERT Lew Ot E66.01 MORBID (SEVERE) OBESITY DUE TO EXCESS CA 02/28/2018 MONIQUE BORGES, ROBERT Lew Ot F32.9 MAJOR DEPRESSIVE DISORDER, SINGLE EPISOD 02/28/2018 MONIQUE BORGES, ROBERT Lew Ot F41.9 ANXIETY DISORDER, UNSPECIFIED 02/28/2018 MONIQUE BORGES, ROBERT Lew Ot F43.10 POST-TRAUMATIC STRESS DISORDER, UNSPECIF 02/28/2018 MONIQUE BORGES, ROBERT Lew Ot F90.9 ATTENTION-DEFICIT HYPERACTIVITY DISORDER 02/28/2018 MONIQUE BORGES, ROBERT Lew Ot G40.909 EPILEPSY, UNSP, NOT INTRACTABLE, WITHOUT 02/28/2018 MONIQUE BORGES, ROBERT Lew Ot G47.30 SLEEP APNEA, UNSPECIFIED 02/28/2018 MONIQUE BORGES, ROBERT Lew Ot J44.9 CHRONIC OBSTRUCTIVE PULMONARY DISEASE, U 02/28/2018 MONIQUE BORGES, ROBERT Lew Ot K21.9 GASTRO-ESOPHAGEAL REFLUX DISEASE WITHOUT 02/28/2018 MONIQUE BORGES, ROBERT Lew Ot M25.572 PAIN IN LEFT ANKLE AND JOINTS OF LEFT FO 02/28/2018 MONIQUE BORGES, ROBERT Lew Ot Z68.43 BODY MASS INDEX (BMI) 50-59.9 , ADULT 02/28/2018 MONIQUE BORGES, ROBERT Lew Ot Z79.52 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 [employer]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 SYSTEMIC STER 02/28/2018 MONIQUE BORGES, ROBERT Lew Ot Z88.2 ALLERGY STATUS TO SULFONAMIDES STATUS 02/28/2018 ROBERT AMAYA MD Ot Z88.8 ALLERGY STATUS TO OTH DRUG/MEDS/BIOL SUB 02/28/2018 MONIQUE BORGES, ROBERT Lew Ot Z90.710 ACQUIRED ABSENCE OF BOTH CERVIX AND UTER 03/02/2018 MONIQUE BORGES, ROBERT Lew Ot E66.01 MORBID (SEVERE) OBESITY DUE TO EXCESS CA 03/02/2018 MONIQUE BORGES, ROBERT Lew Ot F32.9 MAJOR DEPRESSIVE DISORDER, SINGLE EPISOD 03/02/2018 MONIQUE BORGES, ROBERT Lew Ot F41.9 ANXIETY DISORDER, UNSPECIFIED 03/02/2018 ROBERT AMAYA MD Ot F43.10 POST-TRAUMATIC STRESS DISORDER, UNSPECIF 03/02/2018 MONIQUE BORGES, ROBERT Lew Ot F90.9 ATTENTION-DEFICIT HYPERACTIVITY DISORDER 03/02/2018 MONIQUE BORGES, ROBERT Lew Ot G40.909 EPILEPSY, UNSP, NOT INTRACTABLE, WITHOUT 03/02/2018 MONIQUE BORGES, ROBERT Lew Ot G47.30 SLEEP APNEA, UNSPECIFIED 03/02/2018 MONIQUE BORGES, ROBERT Lew Ot J44.9 CHRONIC OBSTRUCTIVE PULMONARY DISEASE, U 03/02/2018 ROBERT AMAYA MD Ot K21.9 GASTRO-ESOPHAGEAL REFLUX DISEASE WITHOUT 03/02/2018 ROBERT AMAYA MD Ot M25.572 PAIN IN LEFT ANKLE AND JOINTS OF LEFT FO 03/02/2018 ROBERT AMAYA MD Ot Z68.43 BODY MASS INDEX (BMI) 50-59.9 , ADULT 03/02/2018 MONIQUE BORGES, ROBERT Lew Ot Z79.52 DETENTION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 SYSTEMIC STER 03/02/2018 ROBERT AMAYA MD Ot Z88.2 ALLERGY STATUS TO SULFONAMIDES STATUS 03/02/2018 MONIQUE BORGES, ROBERT Lew Ot Z88.8 ALLERGY STATUS TO OTH DRUG/MEDS/BIOL SUB 03/02/2018 ROBERT AMAYA MD Ot Z90.710 ACQUIRED ABSENCE OF BOTH CERVIX AND UTER 03/04/2018 PINA, WILFRED R RETAIL STORE CLERK Ot K42.9 UMBILICAL HERNIA WITHOUT OBSTRUCTION OR 03/04/2018 PINA, WILFRED R RETAIL STORE CLERK Ot K57.30 DVRTCLOS OF LG INT W/O PERFORATION OR AB 03/04/2018 PINA, WILFRED R RETAIL STORE CLERK Ot K76.0 FATTY (CHANGE OF) LIVER, NOT ELSEWHERE C 03/04/2018 PINA, WILFRED R RETAIL STORE CLERK Ot N13.0 HYDRONEPHROSIS WITH URETEROPELVIC JUNCTI 03/04/2018 PINA, WILFRED R RETAIL STORE CLERK Ot N20.0 CALCULUS OF KIDNEY 03/04/2018 PINA, WILFRED R RETAIL STORE CLERK Ot K42.9 UMBILICAL HERNIA WITHOUT OBSTRUCTION OR 03/04/2018 PINA, WILFRED R RETAIL STORE CLERK Ot K57.30 DVRTCLOS OF LG INT W/O PERFORATION OR AB 03/04/2018 PINA, WILFRED R RETAIL STORE CLERK Ot K76.0 FATTY (CHANGE OF) LIVER, NOT ELSEWHERE C 03/04/2018 PINAWILFRED R RETAIL STORE CLERK Ot N13.0 HYDRONEPHROSIS WITH URETEROPELVIC JUNCTI 03/04/2018 PINA, WILFRED R RETAIL STORE CLERK Ot N20.0 CALCULUS OF KIDNEY 03/09/2018 PINAWILFRED R RETAIL STORE CLERK Ot K42.9 UMBILICAL HERNIA WITHOUT OBSTRUCTION OR 03/09/2018 PINA, WILFRED R RETAIL STORE CLERK Ot K57.30 DVRTCLOS OF LG INT W/O PERFORATION OR AB 03/09/2018 PINA, WILFRED R RETAIL STORE CLERK Ot K76.0 FATTY (CHANGE OF) LIVER, NOT ELSEWHERE C 03/09/2018 PINA, WILFRED R RETAIL STORE CLERK Ot N13.0 HYDRONEPHROSIS WITH URETEROPELVIC JUNCTI 03/09/2018 PINA, WILFRED R RETAIL STORE CLERK Ot N20.0 CALCULUS OF KIDNEY 03/13/2018 ALBERTO BORGES, AMIRA Mcwilliams Ot N20.2 CALCULUS OF KIDNEY WITH CALCULUS OF URET 03/13/2018 PINAWILFRED R RETAIL STORE CLERK Ot K42.9 UMBILICAL HERNIA WITHOUT OBSTRUCTION OR 03/13/2018 PINA, WILFRED R RETAIL STORE CLERK Ot K57.30 DVRTCLOS OF LG INT W/O PERFORATION OR AB 03/13/2018 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 Results Test Result Range Complete blood count (CBC) with automated white blood cell (WBC) differential - 12/22/16 15:35 Blood leukocytes automated count (number/volume) 13.6 10*3/uL 4.3-11.0 Blood erythrocytes automated count (number/volume) 4.33 10*6/uL 4.35-5.85 Venous blood hemoglobin measurement (mass/volume) 13.2 [...] Automated blood platelet mean volume measurement 11.1 [foz_us] 7.4-10.4 Automated blood neutrophils/100 leukocytes 68 % [...] Serum or plasma sodium measurement (moles/volume) 141 mmol/L 135-145 Serum or plasma potassium measurement (moles/volume) 3.8 mmol/L 3.6-5.0 Serum or plasma chloride measurement (moles/volume) 112 mmol/L 98-107 Carbon dioxide 20 mmol/L 21-32 Serum or plasma anion gap determination (moles/volume) 9 mmol/L 5-14 Serum or plasma urea nitrogen measurement (mass/volume) 20 mg/dL 7-18 Serum or plasma creatinine measurement (mass/volume) 0.85 mg/dL 0.60-1.30 Serum or plasma urea nitrogen/creatinine mass [...] or plasma troponin i.cardiac measurement (mass/volume) < ng/ mL <0.30 Serum or plasma amylase measurement (enzymatic activity/volume) - 12/22/16 15: 35 Serum or plasma amylase measurement (enzymatic activity/volume) 82 U /L 25-125 THYROID STIMULATING HORMONE - 12/22/16 15:35 THYROID STIMULATING HORMONE 1.06 u[iU]/mL 0.35-4.94 Complete urinalysis with reflex to culture - 06/20/17 13:40 Urine color determination YELLOW NRG Urine clarity determination CLEAR NRG Urine pH measurement by test strip 7 5-9 Specific gravity of urine by test strip 1.010 1.016- 1.022 Urine protein assay by test strip, semi-quantitative NEGATIVE NEGATIVE Urine glucose detection by automated test strip NEGATIVE NEGATIVE Erythrocytes detection in urine sediment by light microscopy 1+ NEGATIVE Urine ketones detection by automated test strip NEGATIVE NEGATIVE Urine nitrite detection by test strip NEGATIVE NEGATIVE Urine total bilirubin detection by test strip NEGATIVE NEGATIVE Urine urobilinogen measurement by automated test strip (mass/volume) NORMAL NORMAL Urine leukocyte esterase detection by dipstick NEGATIVE NEGATIVE Automated urine sediment erythrocyte count by microscopy (number/high power field) [HPF] NRG Automated urine sediment leukocyte count by microscopy (number/high power field ) NONE NRG Bacteria detection in urine sediment by light microscopy TRACE NRG Squamous epithelial cells detection in urine sediment by light microscopy 5-10 NRG Crystals detection in urine sediment by light microscopy NONE NRG Casts detection in urine sediment by light microscopy NONE NRG Mucus detection in urine sediment by light microscopy NEGATIVE NRG Complete urinalysis with reflex to culture NO NRG CMP - 11/19/17 09:05 GLUCOSE 101 mg/dL 65-99 UREA NITROGEN (BUN) 16 mg/dL 7-25 CREATININE 0.85 mg/dL 0.50-1.10 eGFR NON-AFR. ALGERIAN 81 mL/min/1.73m2 > OR=60 eGFR 94 mL/min/1.73m2 > OR=60 BUN/CREATININE RATIO NOT APPLICABLE (calc) 6-22 SODIUM 141 mmol/L 135-146 POTASSIUM 4.5 mmol/L 3.5-5.3 CHLORIDE 108 mmol/L 98-110 CARBON DIOXIDE 19 mmol/L 20-31 CALCIUM 9.0 mg/dL 8.6-10.2 PROTEIN, TOTAL 5.9 g/dL 6.1-8.1 ALBUMIN 3.7 g/dL 3.6-5.1 GLOBULIN 2.2 g/dL (calc) 1.9-3.7 ALBUMIN/GLOBULIN RATIO 1.7 (calc) 1.0-2.5 BILIRUBIN, TOTAL 0.3 mg/dL 0.2-1.2 ALKALINE PHOSPHATASE 66 U/L 33-115 AST 13 U/L 10-35 ALT 12 U/L 6-29 CBC - 11/19/17 09:05 WHITE BLOOD CELL COUNT 8.5 Thousand/uL 3.8-10.8 RED BLOOD CELL COUNT 4.84 Million/uL 3.80-5.10 HEMOGLOBIN 15.3 g/dL 11.7-15.5 HEMATOCRIT 45.5 % 35.0-45.0 MCV 94.0 fL 80.0-100.0 MCH 31.6 pg 27.0-33.0 MCHC 33.6 g/dL 32.0-36.0 RDW 12.8 % 11.0-15.0 PLATELET COUNT 225 Thousand/uL 140-400 MPV 11.7 fL 7.5-12.5 ABSOLUTE NEUTROPHILS 5083 cells/uL 6125-8346 ABSOLUTE LYMPHOCYTES 2431 cells/uL 850-3900 ABSOLUTE MONOCYTES 536 cells/uL 200-950 ABSOLUTE EOSINOPHILS 391 cells/uL 15-500 ABSOLUTE BASOPHILS 60 cells/uL 0-200 NEUTROPHILS 59.8 % NRG LYMPHOCYTES 28.6 % NRG MONOCYTES 6.3 % NRG EOSINOPHILS 4.6 % NRG BASOPHILS 0.7 % NRG THYROID ANALYZER - 11/19/17 09:05 TSH 2.93 mIU/L NRG PDM - PAIN MGMT (PROFILE 3 WITH CONFIRMATION) - 02/04/18 09:00 Creatinine 90.2 mg/dL > or=20.0 pH 7.95 4.5 - 9.0 Oxidant NEGATIVE mcg/mL <200 Amphetamines NEGATIVE ng/mL <500 medMATCH Amphetamines CONSISTENT NRG Benzodiazepines NEGATIVE CONFIRMED ng/mL <100 Marijuana Metabolite NEGATIVE ng/mL <20 medMATCH Marijuana Metab CONSISTENT NRG Cocaine Metabolite NEGATIVE ng/mL <150 medMATCH Cocaine Metab CONSISTENT NRG Opiates NEGATIVE ng/mL <100 medMATCH Opiates CONSISTENT NRG Oxycodone NEGATIVE ng/mL <100 medMATCH Oxycodone CONSISTENT NRG COMMENT NRG Alphahydroxyalprazolam NEGATIVE ng/mL <25 medMATCH aOH alprazolam CONSISTENT NRG Alphahydroxymidazolam NEGATIVE ng/mL <50 medMATCH aOH midazolam CONSISTENT NRG Alphahydroxytriazolam NEGATIVE ng/mL <50 medMATCH aOH triazolam CONSISTENT NRG Aminoclonazepam NEGATIVE ng/mL <25 medMATCH Aminoclonazepam CONSISTENT NRG Hydroxyethylflurazepam NEGATIVE ng/mL <50 medMATCH OH,Et flurazepam CONSISTENT NRG Lorazepam NEGATIVE ng/mL <50 medMATCH Lorazepam CONSISTENT NRG Nordiazepam NEGATIVE ng/mL <50 medMATCH Nordiazepam CONSISTENT NRG Oxazepam NEGATIVE ng/mL <50 medMATCH Oxazepam CONSISTENT NRG Temazepam NEGATIVE ng/mL <50 medMATCH Temazepam CONSISTENT NRG Complete blood count (CBC) with automated white blood cell (WBC) differential - 02/28/18 17:00 Blood leukocytes automated count (number/volume) 9.6 10*3/uL 4.3-11.0 Blood erythrocytes automated count (number/volume) 4.44 10*6/uL 4.35-5.85 Venous blood hemoglobin measurement (mass/volume) 14.5 g/dL 11.5-16.0 Blood hematocrit (volume fraction) 41 % 35-52 Automated erythrocyte mean corpuscular volume 91 [foz_us] 80-99 Automated erythrocyte mean corpuscular hemoglobin (mass per erythrocyte) 33 pg 25-34 Automated erythrocyte mean corpuscular hemoglobin concentration measurement ( mass/volume) 36 g/dL 32-36 Automated erythrocyte distribution width ratio 12.6 % 10.0-14.5 Automated blood platelet count (count/volume) 204 10*3/uL 130-400 Automated blood platelet mean volume measurement 10.8 [foz_us] 7.4-10.4 Automated blood neutrophils/100 leukocytes 58 % 42-75 Automated blood lymphocytes/100 leukocytes 32 % 12-44 Blood monocytes/100 leukocytes 7 % 0-12 Automated blood eosinophils/100 leukocytes 4 % 0-10 Automated blood basophils/100 leukocytes 0 % 0-10 Blood neutrophils automated count (number/volume) 5.6 10*3 1.8-7.8 Blood lymphocytes automated count (number/volume) 3.1 10*3 1.0-4.0 Blood monocytes automated count (number/volume) 0.6 10*3 0.0-1.0 Automated eosinophil count 0.3 10*3/uL 0.0-0.3 Automated blood basophil count (count/volume) 0.0 10*3/uL 0.0-0.1 Erythrocyte sedimentation rate by westergren method - 02/28/18 17:00 Erythrocyte sedimentation rate by westergren method 15 mm 0-20 Comprehensive metabolic panel - 02/28/18 17:00 Serum or plasma sodium measurement (moles/volume) 142 mmol/L 135-145 Serum or plasma potassium measurement (moles/volume) 4.0 mmol/L 3.6-5.0 Serum or plasma chloride measurement (moles/volume) 114 mmol/L 98-107 Carbon dioxide 19 mmol/L 21-32 Serum or plasma anion gap determination (moles/volume) 9 mmol/L 5-14 Serum or plasma urea nitrogen measurement (mass/volume) 15 mg/dL 7-18 Serum or plasma creatinine measurement (mass/volume) 0.82 mg/dL 0.60-1.30 Serum or plasma urea nitrogen/creatinine mass ratio 18 NRG Serum or plasma creatinine measurement with calculation of estimated glomerular filtration rate > NRG Serum or plasma glucose measurement (mass/volume) 97 mg/dL 70-105 Serum or plasma calcium measurement (mass/volume) 9.2 mg/dL 8.5-10.1 Serum or plasma total bilirubin measurement (mass/volume) 0.2 mg/dL 0.1-1.0 Serum or plasma alkaline phosphatase measurement (enzymatic activity/volume) 81 U/L 40-136 Serum or plasma aspartate aminotransferase measurement (enzymatic activity/ volume) 13 U/L 5-34 Serum or plasma alanine aminotransferase measurement (enzymatic activity/volume ) 13 U/L 0-55 Serum or plasma protein measurement (mass/volume) 6.1 g/dL 6.4-8.2 Serum or plasma albumin measurement (mass/volume) 3.6 g/dL 3.2-4.5 Serum or plasma uric acid measurement (mass/volume) - 02/28/18 17:00 Serum or plasma uric acid measurement (mass/volume) 5.5 mg/dL 2.6-7.2 BMP - 03/12/18 14:21 Anion Gap 15 6-14 BUN 19 mg/dL 5-25 Calcium 9.3 mg/dL 8.3-10.4 Chloride 110 mmol/L 95-114 CO2 21 mEq/L 22-33 Creat 0.94 mg/dL 0.50-1.50 eGFR 63 mL/min/1.73m2 >59 Glucose 99 mg/dL 70-110 Osmo 295 280-295 Potassium 4.4 mmol/L 3.5-5.3 Sodium 142 mmol/L 134-148 Encounters ACCT No. Visit Date/Time Discharge Status Pt. 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 [facility] ER LOWER BACK PAIN,RT HIP PAIN,TAILBONE PAIN [id number] 06/18/2017 12:45:00 07/16/2017 12:50:00 DIS Outpatient RAUL YOUNG NIGHT NURSE-C [facility] REHAB S/P GUYONS RELEASE R WRIST [id number] 06/20/2017 13:40:00 06/20/2017 14:41:00 DIS Emergency SVITLANA BORGES, RUY Rushing [facility] ER BACK PAIN,FREQ URINATION [id number] 06/15/2017 02:28:00 06/15/2017 03:34:00 DIS Emergency SVITLANA BORGES, RUY Rushing [facility] ER SOA,LIGHTHEADED [id number] 06/10/2017 15:14:00 06/14/2017 00:01:00 DIS Outpatient RAUL YOUNG NIGHT NURSE-C [facility] REHAB S/P GUYONS RELEASE R WRIST [id number] 03/23/2017 09:49:00 03/23/2017 10:37:00 DIS Emergency JOHNSON REESE MD [facility] ER BACK PAIN/POSS SINUS INFECTION [id number] 12/22/2016 15:10:00 12/22/2016 23:59:59 CLS Emergency ZAHRA ORNELAS MD [facility] ER STOMACH PAIN [id number] 02/11/2016 17:46:00 02/11/2016 19:12:00 DIS Emergency KHAI JOAQUIN RETAIL STORE CLERK [facility] ER EAR INFECTION/CONGESTION/ COUGH [id number] 07/30/2015 21:33:00 07/31/2015 00:30:00 DIS Emergency GEETA CASTELLON [facility] ER DIARRHEA/NAUSEATED [id number] 07/28/2014 14:09:00 07/28/2014 23:59:59 CLS Outpatient DONNA BROWN APRN [facility] QUICK [id number] 06/10/2013 22:01:00 06/11/2013 01:10:00 DIS Emergency RUY SHANE MD [facility] ER RASH [id number] 05/01/2013 11:18:00 05/01/2013 23:59:59 CLS Outpatient [id number] 07/28/2014 14:10:03 ACT Document Registration [id number] 03/16/2018 00:00:00 03/16/2018 09:47:00 DIS Outpatient Amira Dhaliwal [id number] 03/12/2018 14:02:00 03/12/2018 23:59:00 DIS Outpatient Amira Dhaliwal [id number] 03/13/2018 11:44:46 Document Registration [id number] 03/12/2018 14:02:00 Document Registration [id number] 03/03/2018 12:00:00 03/03/2018 23:59:59 CLS Outpatient BELTRAN PEREZ [facility] [id number] 02/04/2018 09:20:00 Document Registration [id number] 11/19/2017 09:00:00 Document Registration
--- NOTE | 2018-04-05 10:54 | ED General ---
General Chief Complaint: General Problems/Pain Stated Complaint: BLOOK PRESSURE PROBLEMS, LEFT KNEE HURTING Nursing Triage Note: ARRIVED VIA AMB TO ROOM 06 WITH OUT DIFFICULTY. COMPLAINS OF TAKING HER BP THIS AM AND IT WAS REASING HIGH. RECENT CHANGES IN BP MEDS. ALSO STATES THE OTHER DAY SHE FELT HER RIGHT KNEE POP AND WOULD LIKE IT CHECKED OUT TOO. STATES THIS JUST SEEMS LIKE A GOOD DAY TO CHECK INTO THE ER. Nursing Sepsis Screen: No Definite Risk Source of Information: Patient, Other Exam Limitations: No Limitations History of Present Illness Date Seen by Provider: Apr 05, 2018 Time Seen by Provider: 10:41 Initial Comments Patient presents to the ER by private conveyance with her significant other and a chief complaint that she has been for the past couple weeks having some problems lightheadedness and her doctor has been titrating down her Imdur and her Keppra. However this morning she said she checked her blood pressure like she was told to do by her primary care physician and it was high so she decided to come get checked out. She's not having any chest pain shortness of breath numbness weakness nausea cough or wheezing. She does have a history of COPD and has pro-air but she does not use more than a couple times a week as needed. Her blood pressure this morning was 128/103. She does not have a history of diabetes , hypothyroidism, coronary artery disease. Last week she had her left knee injected with steroids at [facility]. Allergies and Home Medications Allergies Coded Allergies: Sulfa (Sulfonamide Antibiotics) (Unverified Allergy, Unknown, RASH, ) esomeprazole mag (Unverified Adverse Reaction, Intermediate, 06/10/13) Diarrhea Home Medications Albuterol Sulfate 2.5 Mg/3 Ml Nebu, 2.5 MG INH Q6H PRN, (Reported) Amoxicillin/Potassium Clav 1 Each Tablet, 1 EACH PO BID Prescribed by: JOHNSON REESE on 03/23/17 1020 Amphet Asp/Amphet/D-Amphet 30 Mg Tablet, 30 MG PO BID, (Reported) Atorvastatin Calcium 10 Mg Tablet, 10 MG PO HS, (Reported) Black Cohosh Root Extract 80 Mg Capsule, 80 MG PO DAILY, (Reported) Cetirizine Hcl 10 Mg Capsule, 10 MG PO DAILY, (Reported) Cyclobenzaprine HCl 10 Mg Tablet, 10 MG PO TID PRN for SPASMS Prescribed by: RUY EVANS on 06/20/17 1428 Cyclobenzaprine HCl 5 Mg Tablet, 5 MG PO TID PRN for PAIN-MODERATE Prescribed by: KHAI JOAQUIN on 01/01/18 1102 Cyclobenzaprine Hcl 10 Mg Tablet, 10 MG PO TID PRN, (Reported) Diazepam 10 Mg Tablet, 10 MG PO Q8H PRN, (Reported) Escitalopram Oxalate 10 Mg Tablet, 10 MG PO DAILY, (Reported) Furosemide 40 Mg Tablet, 40 MG PO BID, (Reported) Hydrocodone Bit/Acetaminophen 1 Tab Tab, 1 EA PO Q4HR PRN, (Reported) Hydrocodone Bit/Acetaminophen 1 Each Tablet, 1-2 EACH PO Q4H PRN for PAIN Prescribed by: RUY EVANS on 06/20/17 1428 Ibuprofen 600 Mg Tab, 600 MG PO Q6H PRN, (Reported) Lamotrigine 100 Mg Tablet, 50 MG PO BID, (Reported) Levetiracetam 500 Mg Tab, 500 MG PO BID, (Reported) Multivitamin 1 Each Tablet, 1 TAB PO DAILY, (Reported) Nortriptyline Hcl 25 Mg Cap, 25 MG PO HS, (Reported) Ondansetron Hcl 4 Mg Tab, 4 MG PO Q8H PRN, (Reported) Polyethylene Glycol 3350 17 Gm Powd.pack, 17 GM PO BID PRN Prescribed by: ZAHRA ORNELAS on 12/22/16 1704 Potassium Chloride 10 Meq Tablet.sa, 20 MEQ PO BID, (Reported) Prednisone 20 Mg Tab, 40 MG PO DAILY Prescribed by: JOHNSON REESE on 03/23/17 1020 Zolpidem Tartrate 10 Mg Tab, 10 MG PO HS, (Reported) Patient Home Medication List Home Medication List Reviewed: Yes Review of Systems Constitutional: No chills, No diaphoresis, No fever, No malaise, No weakness EENTM: No ear discharge, No ear pain Respiratory: No cough, No short of breath Cardiovascular: No chest pain, No edema, No Hx of Intervention, No palpitations , No syncope, No vascular heart diseas Gastrointestinal: No abdominal pain, No constipation, No diarrhea, No nausea, No vomiting Genitourinary: No discharge, No dysuria Past Soeakmj-Qxqoso-Pagudj Hx Patient Social History Alcohol Use: Denies Use Smoking Status: Former Smoker Type Used: Cigarettes Former Smoker, Quit: Feb 27, 2018 2nd Hand Smoke Exposure: No Recent Foreign Travel: No Contact w/Someone Who Travel: No Recent Infectious Disease Expo: No Recent Hopitalizations: No Immunizations Up To Date Tetanus Booster (TDap): Unknown Date of Pneumonia Vaccine: Dec 14, 2012 Seasonal Allergies Seasonal Allergies: Yes Past Medical History Surgeries: Yes (carpal tunnel sx) Gallbladder, Hysterectomy Respiratory: Yes Chronic Bronchitis, Sleep Apnea, COPD Cardiac: No Neurological: Yes Seizure Disorder 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 Disorders: No [employer] History: Hysterectomy Sexually Transmitted Disease: No HIV/AIDS: No Genitourinary: No Gastrointestinal: Yes Gastroesophageal Reflux Musculoskeletal: Yes Arthritis, Fibromyalgia Endocrine: Yes (morbid obesity) HEENT: No Cancer: No Psychosocial: Yes ADD/ADHD, Anxiety, PTSD, Depression Integumentary: No Blood Disorders: No Family Medical History No Pertinent Family Hx Physical Exam Vital Signs Vital Signs - First Documented 04/05/18 10:43 Temp 98.0 Pulse 83 Resp 18 B/P (MAP) 130/91 (104) Pulse Ox 98 O2 Delivery Room Air Capillary Refill : Less Than 3 Seconds Height, Weight, BMI Height: 5'5.00" Weight: 316lbs. 0oz. 143.634066aq; 54.24 BMI Method:Stated General Appearance: No Apparent Distress, Obese Eyes: Bilateral Eye Normal Inspection, Bilateral Eye PERRL, Bilateral Eye EOMI HEENT: PERRL/EOMI, Pharynx Normal, Moist Mucous Membranes Respiratory: Chest Non Tender, Lungs Clear, Normal Breath Sounds, No Accessory Muscle Use, No Respiratory Distress Cardiovascular: Regular Rate, Rhythm, Normal Peripheral Pulses Neurologic/Psychiatric: Alert, Oriented x3, No Motor/Sensory Deficits Progress/Results/Core Measures Suspected Sepsis Recent Fever Within 48 Hours: No Infection Criteria Present: None New/Unexplained Altered Menta: No Sepsis Screen: No Definite Risk SIRS Temperature:98.0 Pulse: 83 Respiratory Rate: 18 Blood Pressure 130 /91 Mean: 104 Results/Orders Vital Signs/I&O 04/05/18 10:43 Temp 98.0 Pulse 83 Resp 18 B/P (MAP) 130/91 (104) Pulse Ox 98 O2 Delivery Room Air Capillary Refill : Less Than 3 Seconds Blood Pressure Mean: 104 Progress Note : Time: 10:52 Progress Note We did some counseling on appropriate blood pressure. Discussed her lightheadedness which doesn't sound presyncopal or vertigo. She is on some antiseizure medicines for history of epilepsy and Imdur apparently for her blood pressure and these have both been recently reduced by her primary care doctor just last week. Give encourage her to continue taking her blood pressure and report any high blood pressure is to her doctor. We have encouraged her to return to the ER if she begins to have chest pain shortness of breath or other symptoms that are concerning. Departure Impression Primary Impression: General medical exam Disposition: HOME, SELF-CARE Condition: Stable Departure-Patient Inst. Decision time for Depature: 10:53 Referrals: [facility] (PCP/Family) Primary Care Physician Patient Instructions: NO INSTRUCTIONS GIVEN Add. Discharge Instructions: Keep your follow-up appointment with your primary care doctor. All discharge instructions reviewed with patient and/or family. Voiced understanding. Copy Copies To 1: ANGLE ABRAMS TITUS J Apr 05, 2018 10:54
[2018-04-05 11:16] VITALS: BP 121/84
== END 2018-04-05 11:16 | disposition home or self-care (01) ==
LOC: EDUNIT# 10:30 → ER 10:32
DX: R42 Dizziness and giddiness (principal); J44.9 Chronic obstructive pulmonary disease, unspecified; G47.30 Sleep apnea, unspecified; G40.909 Epilepsy, unspecified, not intractable, without status epilepticus; K21.9 Gastro-esophageal reflux disease without esophagitis; E66.01 Morbid (severe) obesity due to excess calories; F90.9 Attention-deficit hyperactivity disorder, unspecified type; F41.9 Anxiety disorder, unspecified; F32.9 Major depressive disorder, single episode, unspecified; F43.10 Post-traumatic stress disorder, unspecified; Z79.52 Long term (current) use of systemic steroids; Z87.891 Personal history of nicotine dependence; Z68.43 Body mass index [BMI] 50.0-59.9, adult; Z90.710 Acquired absence of both cervix and uterus; Z79.51 Long term (current) use of inhaled steroids; Z88.2 Allergy status to sulfonamides; Z88.8 Allergy status to other drugs, medicaments and biological substances
CPT/HCPCS: 99281

== ENCOUNTER 2018-04-26 09:36 | Emergency (ER) | payer MEDICAID ==
[~2018-04-26] VITALS: Ht 165.1 cm; Wt 145.1 kg
--- OUTSIDE RECORDS SUMMARY | 2018-04-26 09:44 | XMS REPORT | Clinical Summary ---
Author Author [facility] Organization [facility] Address Unknown Phone Unavailable Care Team Providers Care Global Supply Chain Vice President Name Role Phone SethMaribel fonseca Unavailable Unavailable Carol Ann Marie PA-C Unavailable Unavailable Hailee Crook Unavailable Nadja Levy RN Unavailable Unavailable Shannen Christensen MD Unavailable Gabriela Silva MD Unavailable Africa Talamantes [facility] Unavailable Unavailable Beny Fuentes MD Unavailable Unavailable [...] in the Health Information Management department at [phone] for further assistance in locating additional records.[facility] Allergies Active Allergy Reactions Severity Noted Date Comments Esomeprazole Magnesium DIARRHEA 11/10/2013 Sulfa (Sulfonamide RASH 03/23/2008 Antibiotics) Current Medications Prescription Sig. Disp. Refills Start End Date Status Date zolpidem (AMBIEN) 10 mg Take 10 mg by mouth at Active tablet bedtime daily. other Compression stockings 1 Each 6 11/28/19 [...] mouth Active 150 mg tablet twice daily. atorvastatin (LIPITOR) 10 Take 10 mg by mouth at Active mg tablet bedtime daily. desvenlafaxine (+) Take 100 mg by [...] solution twice daily. fluticasone (FLONASE) 50 Apply 1 spray to each Active mcg/actuation nasal spray nostril as directed daily. Shake bottle gently before using. acetaminophen/diphenhydra Take 1 tablet by mouth at Active mine (TYLENOL PM) 500/25 bedtime as needed (for mg 1 tablet sleep/allergies). solifenacin(+) (VESICARE) Take 5 mg by mouth at Active 5 mg tablet bedtime daily. isosorbide mononitrate SR Take 30 mg by mouth every Active (IMDUR) 60 [...] maximum of 8 tablets in 24 hours. levETIRAcetam (KEPPRA) TAKE TWO TABLETS BY MOUTH 150 tablet 2 Active 500 mg tablet EVERY MORNING AND TAKE 18 THREE TABLETS BY MOUTH AT BEDTIME nabumetone (RELAFEN) 500 Take 500 mg by mouth Active mg tablet twice daily. topiramate (TOPAMAX) 50 TAKE TWO TABLETS BY MOUTH 120 tablet 3 Active mg tablet TWICE A DAY (DOSE CHANGED 18 AT OFFICE VISIT ON 05/26/2017) varenicline (CHANTIX Take 1 mg by mouth twice Active CONTINUING MONTH BOX) 1 daily. mg tablet umeclidinium-vilanterol Inhale 1 puff by mouth Active (ANORO ELLIPTA) 62.5-25 into the lungs daily. mcg/actuation inhaler pantoprazole DR Take 40 mg by mouth Active (PROTONIX) 40 mg tablet daily. ARIPiprazole (ABILIFY) 10 Take 10 mg by mouth Active mg tablet daily. Glycopyrrolate 2 mg tab Take 1 tablet by mouth Active twice daily. ondansetron (ZOFRAN) 4 mg Take 4 mg by mouth every Active tablet 8 hours as needed for Nausea or Vomiting. albuterol (PROAIR HFA, Inhale 2 puffs by mouth Active VENTOLIN HFA, OR into the lungs every 6 PROVENTIL HFA) 90 hours as needed for mcg/actuation inhaler Wheezing or Shortness of Breath. Shake well before use. acetaminophen (TYLENOL) Take 1,000 mg by mouth at Active 500 mg tablet bedtime daily. Max of 4,000 mg of acetaminophen in 24 hours. montelukast (SINGULAIR) Take 10 mg by mouth at 04/07/20 Discontin 10 mg tablet bedtime daily. 18 ued ondansetron (ZOFRAN ODT) Dissolve 4 mg by mouth 04/07/20 Discontin 4 mg rapid dissolve every 8 hours as needed 18 ued tablet for Nausea or Vomiting. dexlansoprazole (+) Take 60 mg by mouth 04/07/20 Discontin (DEXILANT) 60 mg capsule daily. 18 ued ARIPiprazole (ABILIFY) 5 Take 5 mg by mouth daily. 04/07/20 Discontin mg tablet 18 ued ipratropium bromide Apply 1 spray to each 04/07/20 Discontin (ATROVENT) 42 mcg (0.06 nostril as directed twice 18 ued %) nasal spray daily. tiotropium (SPIRIVA WITH Place 18 mcg into inhaler 04/07/20 Discontin HANDIHALER) 18 mcg and inhale into lungs as 18 ued capsule for inhaler directed daily. doxycycline (VIBRAMYCIN) Take 1 tablet by mouth 0 11/28/19 04/07/20 Discontin 100 mg tablet twice daily. 18 18 ued nicotine(+) (NICOTROL) 10 Inhale 1 puff by mouth 42 each 0 11/28/19 04/07/20 Discontin mg inhaler into the lungs as Needed. 18 18 ued Active Problems Problem Noted Date Seizures (HCC) 11/23/2017 Back pain 07/18/2014 Smoker 12/21/2012 Overview: 12/21/2012: Rxed nicoderm 21 mg patch. Abnormal thyroid blood test 12/08/2012 Overview: 12/21/2012: repeat in 4-6 weeks. MICHELLE (obstructive sleep apnea) 11/29/2012 Overview: 11/27/2012: Reiterated need to get back on CPAP. [employer] pays for CPAP. She will check with [...] 11/29/2012 Overview: 11/27/2012: Requesting a referral to director of reimbursement for shots: Has been getting shots for 1 yr and has had notiecable improvement in her sx of runny, itchy nose and eyes. Referral placed for Allergy. Anxiety and depression 11/29/2012 Overview: 11/27/2012: concerned about polypharmacy: Insomnia - Ambien and doxepin. Depression/anxiety - Participating in therapy at [facility] and [facility]. Treated with adderall, lamotrigine, oxcarbazepine and [...] [address] Falcon. Treated with Keppra. GERD (gastroesophageal reflux disease) Anxiety Morbid obesity with BMI of 50.0-59.9, adult (HCC) Convulsions (HCC) Resolved Problems Problem Noted Date Resolved Date [...] Encounters Date Type Specialty Care Team Description 04/07/2018 [facility] Alison Bentley MD GERD (gastroesophageal - Encounter reflux disease) 04/10/2018 04/06/2018 Procedure visit Anesthesia Pain Mhoan Cheney MD Myalgia 04/03/2018 Telephone Neurology Alison Bentley MD Follow-up Phone Call 04/02/2018 Telephone Neurology Alison Bentley MD Follow-up Phone Call 2018 Refill Neurology Carolina Cross MD 02/10/2018 Telephone Neurology Alison Bentley MD Follow-up Phone Call 02/05/2018 Office Visit Neurology Geovani Luna MD ERRONEOUS Carolina Cross MD ENCOUNTER--DISREGARD (Primary Dx) 02/02/2018 Refill Neurology Carolina Cross MD from Last 3 Months Immunizations Name Dates Previously Given Next Due FLU VACCINE >3YO 07/27/2008 Pneumococcal Vaccine 12/21/2012 (23-Emily Adult) Td Vaccine 09/15/1999 Family History Medical History Relation Name Comments Epilepsy Daughter Cancer-Lung Father Heart Disease Father Alcohol abuse Mother Dementia Mother Relation Name Status Comments Daughter Father ALCOHOLIC; LUNG CANCER Mother Alive ALCOHOLIC Sister Alive ULCERS Sister Alive Social History Tobacco Use Types Packs/Day Years Used Date Former Smoker Cigarettes 1 Quit: 03/2018 Smokeless Tobacco: Former Quit: User 06/16/2012 Tobacco Cessation: Ready to Quit: Yes; Counseling Given: Yes Comments: in process of quitting Alcohol Use Drinks/Week oz/Week Comments No 1 Shots of 0.6 Social liquor Sex Assigned at Date Recorded Not on file Last Filed Vital Signs Vital Sign Reading Time Taken Blood Pressure 112/67 04/10/2018 9:05 AM CDT Pulse 84 04/10/2018 9:05 AM CDT Temperature 37.2 C (98.9 F) 04/10/2018 9:05 AM CDT Respiratory Rate 15 04/06/2018 11:44 AM CDT Oxygen Saturation 99% 04/10/2018 9:05 AM CDT Inhaled Oxygen - - Concentration Weight 137.8 kg (303 lb 14.4 oz) 04/07/2018 10:31 AM CDT Height 165.1 cm (5' 5") 04/07/2018 10:31 AM CDT Body Mass Index 50.57 04/07/2018 10:31 AM CDT Plan of Treatment Health Maintenance Due Date Last Done Comments PHYSICAL (COMPREHENSIVE) 02/25/1976 EXAM PERTUSSIS VACCINE 02/25/1980 HIV SCREENING 02/25/1984 CERVICAL CANCER SCREENING 1999 BREAST CANCER SCREENING 2009 TETANUS VACCINE 09/15/2009 09/15/1999 INFLUENZA VACCINE 06/15/2018 07/27/2008, 07/27/2008 Procedures Procedure Name Priority Date/Time Associated Diagnosis Comments TELEMETRY STRIPS-SCAN 04/12/2018 Results for this 10:19 AM CDT procedure are in the results section. WA INJECTION SINGLE/ELECTROFORMER Routine 04/06/2018 Myalgia Results for this TRIGGER POINT 3/> MUSCLES 11:45 AM CDT procedure are in the results section. from Last 3 Months Results * TELEMETRY STRIPS-SCAN (04/12/2018 10:19 AM) Narrative Performed At Ordered by an unspecified provider. * EEG DEPARTMENT ORDER (04/08/2018 10:41 AM) Narrative Performed At Alison Bentley MD 04/08/2018 10:43 AM VIDEO EEG REPORT Liberty Cespedes [id number] Date of service: 04/07-04/08/2018 History: 48 y.o. female with childhood onset epilepsy by history with reported unwitnessed nocturnal convulsions. Her current seizure type is right mouth and eye twitching with decreased responsiveness. Medications: topiramate, levetiracetam (decreased) Introduction: This study was performed using digital electroencephalographic recording equipment. International 10-20 electrode placement was used along with FT9 and FT10 electrodes. The record was obtained with the patient in the awake and asleep state. Description: There is an alpha rhythm of 9 Hz with an amplitude of 30-40 uV measured in the referential montage. Anteriorly, there is low voltage beta activity. Drowsiness results in attenuation of the background and increased theta activity. Stage II of sleep results in symmetric sleep spindles, vertex waves, K complexes. Events: Did not occur. Interpretation: This 14 hour video EEG study is normal. No events occurred. Clinical correlation: Awaiting typical events. Alison Bentley MD 04/08/18 * CBC (04/07/2018 11:30 AM) White Blood Cells 12.9 (H) 4.5 - 11.0 K/UL [facility] RBC 3.87 (L) 4.0 - 5.0 M/UL [facility] Hemoglobin 12.2 12.0 - 15.0 GM/DL [facility] Hematocrit 36.4 36 - 45 % [facility] MCV 94.1 80 - 100 FL [facility] MCH 31.5 26 - 34 PG [facility] MCHC 33.5 32.0 - 36.0 G/DL [facility] RDW 13.7 11 - 15 % [facility] Platelet Count 188 150 - 400 K/UL [facility] MPV 8.8 7 - 11 FL [facility] Specimen Blood Performing Organization Address City/[facility] Phone Number [facility] [address] [place] [address] * COMPREHENSIVE METABOLIC PANEL (04/07/2018 11:30 AM) Sodium 136 (L) 137 - 147 MMOL/L [facility] Potassium 4.1 3.5 - 5.1 MMOL/L [facility] Chloride 107 98 - 110 MMOL/L [facility] Glucose 109 (H) 70 - 100 MG/DL [facility] Blood Urea Nitrogen 23 7 - 25 MG/DL [facility] Creatinine 0.92 0.4 - 1.00 MG/DL [facility] Calcium 8.8 8.5 - 10.6 MG/DL [facility] Total Protein 5.8 (L) 6.0 - 8.0 G/DL [facility] Total Bilirubin 0.4 0.3 - 1.2 MG/DL [facility] Albumin 3.3 (L) 3.5 - 5.0 G/DL [facility] Alk Phosphatase 56 25 - 110 U/L [facility] AST (SGOT) 11 7 - 40 U/L [facility] CO2 23 21 - 30 MMOL/L [facility] ALT (SGPT) 11 7 - 56 U/L [facility] Anion Gap 6 3 - 12 [facility] eGFR Non >60 >60 mL/min [facility] Comment: The eGFR is not validated for use in drug dosing adjustments.Continue to use estimated creatinine clearance per dosing reference text.Please contact the Clinical Pharmacist for questions. eGFR >60 >60 mL/min [facility] Comment: The eGFR is not validated for use in drug dosing adjustments.Continue to use estimated creatinine clearance per dosing reference text.Please contact the Clinical Pharmacist for questions. Specimen Blood Performing Organization Address City/[facility]/Zipcode Phone Number [facility] [address] [place] [address] * [facility] SPINE TRIGGER POINT INJECTION (04/06/2018 11:45 AM) Narrative Performed At Mohan Cheney MD 04/06/20186:31 PM OTHER OUTSIDE LAB [facility] AM[facility] SPINE TRIGGER POINT INJECTION Locations: L upper trapezius, R upper trapezius, R cervical, L cervical, R occipital ridge and L occipital ridge Consent: Consent obtained: written Consent given by: patient Alternatives discussed: alternative treatment, delayed treatment and no treatment Discussed with patient the purpose of the treatment/procedure, other ways of treating my condition, including no treatment/ procedure and the risks and benefits of the alternatives. Patient has decided to proceed with treatment/procedure. [place] Protocol: Relevant documents: relevant documents present and verified Site marked: the operative site was marked Patient identity confirmed: Patient identify confirmed verbally with patient. Time out: Immediately prior to procedure a "time out" was called to verify the correct patient, procedure, equipment, network support technician and site/side marked as required Procedures Details: Indications: muscle spasm, myalgia and painPrep: alcohol Needle size: 27 G Number of muscles: 3 or more Approach: posterior Medications administered: 5 mL bupivacaine PF 0.25 %; 5 mL lidocaine PF 1% (10 mg/mL) Patient tolerance: Patient tolerated the procedure well with no immediate complications. Pressure was applied, and hemostasis was accomplished. Comments: PROCEDURE: Trigger Point Injections Pre-Procedure Diagnoses: 1. Myalgia 2. Myofascial pain 3. Muscle spasm Post-Procedure Diagnoses: Same Physician: Mohan Cheney MD ANESTHESIA: 50:50 solution of Bupivacaine 0.25% and lidocaine 2% COMPLICATIONS: None. Location(s) of pain: As noted above Presence of point tenderness in a tight band of muscle in above area: Yes Restricted range of motion: Yes Conservative therapy attempted for at least 6 weeks: active exercises, activity modification, pharmacotherapy Other components of comprehensive management: Active exercises, pharmacotherapy, activity modification DESCRIPTION OF PROCEDURE: The procedure risks, hazards and alternatives were discussed with the patient and a proper consent was obtained. The area over each trigger point was prepped with alcohol utilizing sterile technique. After isolating it between two palpating fingertips a 27-gauge 1.5" needle was placed in the center of the myofascial spasms and a negative aspiration was performed. Then 0.5cc of the solution above was injected into each trigger point. Trigger points in each of the muscle groups noted above were injected. A total of 4 ml of the local anesthetic solution was utilized. The patient tolerated the procedure well without any apparent difficulties or complications. Performing Organization Address City/State/Zipcode Phone Number OTHER OUTSIDE LAB from Last 3 Months
--- OUTSIDE RECORDS SUMMARY | 2018-04-26 09:45 | XMS REPORT | Encounter Summary ---
Author Author [facility] Organization [facility] Address Unknown Phone Unavailable Care Team Providers Care Physician Coder Name Role Phone RoloMaribel Unavailable Unavailable Carol Ann Marie PA-C Unavailable Unavailable Hailee Crook Unavailable Nadja Levy RN Unavailable Unavailable Shannen Christensen MD Unavailable Gabriela Silva MD Unavailable Africa Talamantes [facility] Unavailable Unavailable Beny Fuentes MD Unavailable Unavailable Carlin Hamilton MD Unavailable Yesenia Falcon MD Unavailable Harvey Black MD Unavailable Billie Pereyra MD Unavailable Samreen Harris MD Unavailable Mariusz Kay MD Unavailable Carolina Cross MD Unavailable Brandon Rosales PA-C PCP Unavailable Reason for Visit * Reason Comments Follow Up Encounter Details Date Type Department Care Team Description 02/05/2018 Office Visit [facility] Geovani Luna MD [facility] Physicians-Neurology [address] [place] [address] ENCOUNTER--DISREGARD [facility] [place] [address] (Primary Dx) [address] [facility] [phone] [place] [address] P [phone] Carolina hanson MD [address] [facility] [address] [place] [address] [phone] Social History Tobacco Use Types Packs/Day Years [...] Plan: in this encounter Plan of Treatment Not on fileas of this encounter Visit Diagnoses Diagnosis ERRONEOUS ENCOUNTER--DISREGARD - Primary
--- OUTSIDE RECORDS SUMMARY | 2018-04-26 09:45 | XMS REPORT | Encounter Summary ---
Author Author [facility] Organization [facility] Address Unknown Phone Unavailable Care Team Providers Care Electrician Elevator Maintenance Name Role Phone RoloMaribel Unavailable Unavailable Carol Ann Marie PA-C Unavailable Unavailable Hailee Crook Unavailable Nadja Levy RN Unavailable Unavailable Shannen Christensen MD Unavailable Gabriela Silva MD Unavailable Africa Talamantes [facility] Unavailable Unavailable Beny Fuentes MD [...] MD Follow- up Phone Call Center [address] [facility] [address] [place] [address] [place] [address] [phone] Social History Tobacco Use Types Packs/Day Years [...] self. in this encounter Plan of Treatment Not on fileas of this encounter Visit Diagnoses Not on filein this encounter
--- OUTSIDE RECORDS SUMMARY | 2018-04-26 09:45 | XMS REPORT | Encounter Summary ---
Author Author [facility] Organization [facility] Address Unknown Phone Unavailable Care Team Providers Care Software Quality Assurance Specialist Name Role Phone RoloMaribel Unavailable Unavailable Carol Ann Marie PA-C Unavailable Unavailable Hailee Crook Unavailable Nadja Levy RN Unavailable Unavailable Shannen Christensen MD Unavailable Gabriela Silva MD Unavailable Africa Talamantes [facility] Unavailable Unavailable Beny Fuentes MD [...] 04/02/2018 Telephone Comprehensive Epilepsy Alison Bentley MD Follow- up Phone Call Center [address] [facility] [address] [place] [address] [place] [address] [phone] Social History Tobacco Use Types Packs/Day Years [...] Alyce in this encounter Plan of Treatment Not on fileas of this encounter Visit Diagnoses Not on filein this encounter
--- OUTSIDE RECORDS SUMMARY | 2018-04-26 09:45 | XMS REPORT | Encounter Summary ---
Author Author [facility] Organization [facility] Address Unknown Phone Unavailable Care Team Providers Care Long Term Name Role Phone Rolo Maribel Unavailable Unavailable Carol Ann Marie PA-C Unavailable Unavailable Hailee Crook Unavailable Nadja Levy RN Unavailable Unavailable Shannen Christensen MD Unavailable Gabriela Silva MD Unavailable [facility] [place] Unavailable Unavailable Beny Fuentes MD Unavailable Unavailable Carlin Hamilton MD Unavailable Yesenia Falcon MD Unavailable Harvey Black MD Unavailable Billie Pereyra MD Unavailable Samreen Harris MD Unavailable Mariusz Kay MD Unavailable Carolina Cross MD Unavailable Brandon Rosales PA-C PCP Unavailable Reason for Referral * Pain Authorization Status Reason Specialty Diagnoses / Referred By Referred To Procedures Contact Contact New Request Diagnoses Mohan Cheney MD Myalgia [address] rocedures [place] [address] [facility] [place] [address] INJECTION * Pain Authorization Status Reason Specialty Diagnoses / Referred By Referred To Procedures Contact Contact No Auth Needed Anesthesia Pain Diagnoses Mohan Cheney MD Bhg Spn Anes Pain Myalgia [address] Kimberlee Gunter MD rocedures [place] [address] [facility] [place] [address] [place] [address] [place], [place] INJECTION Phone: [phone] Phone: Reason for Visit * Reason Comments Pain * Auth/Cert Status Reason Specialty Diagnoses / Referred By Referred To Procedures Contact Contact Diagnoses Unspecified convulsions (HCC) Procedures SC LOCALIZE CEREBRAL SEIZURE CABLE/RADIO EEG/VIDEO Encounter Details Date Type Department Care Team Description 04/06/2018 Procedure visit [facility] Anesthesia Mohan Cheney MD [facility] [address] John Gunter MD Comp [place] [address] [place] [address] [phone] [place] [address] [phone] Social History Tobacco Use Types Packs/Day Years Used Date Light Tobacco Smoker Cigarettes 1 Smokeless Tobacco: Former Quit: User 06/16/2012 Comments: in process of quitting Alcohol Use Drinks/Week oz/Week Comments Yes 1 Shots of 0.6 Social liquor Sex Assigned at Date Recorded Not on file as of this encounter Last Filed Vital Signs Vital Sign Reading Time Taken Blood Pressure 130/80 04/06/2018 11:44 AM CDT Pulse 82 04/06/2018 11:44 AM CDT Temperature - - Respiratory Rate 15 04/06/2018 11:44 AM CDT Oxygen Saturation 98% 04/06/2018 11:44 AM CDT Inhaled Oxygen - - Concentration Weight 141.5 kg (312 lb) 04/06/2018 11:44 AM CDT Height 165.1 cm (5' 5") 04/06/2018 11:44 AM CDT Body Mass Index 51.92 04/06/2018 11:44 AM CDT in this encounter Functional Status Functional Status Response Date of Assessment Does the patient have a hearing impairment: No 04/06/2018 Does the patient have a visual impairment: Yes 04/06/2018 Does the patient have impaired ambulation: Yes 04/06/2018 Does the patient have an activity of daily living No 04/06/2018 (ADL) impairment: Does the patient have an instrumental activity of No 04/06/2018 daily living (IADL) impairment: Cognitive Status Response Date of Assessment Does the patient have a cognitive impairment: No 10/31/2017 as of this encounter Instructions * Patient Instructions - Malinda Lynn - 04/06/2018 11:45 AM CDT General Instructions: How to reach me: Please send a [facility] [employer] message to the [facility] or leave a voicemail for my nurse Paul at [phone]. Scheduling: Our scheduling phone number is [phone]. How to get a medication refill: Five business days before refill needed, please use the [employer] Refill request or contact your pharmacy directly to request medication refills. How to receive your test results: If you have signed up for [employer], you will receive your test results and messages from me this way. Otherwise, you will get a phone call or letter. If you are expecting results and have not heard from my office within 2 weeks of your testing, please send a [employer] message or call my office. Support for many chronic illnesses is available through [facility]: [email or web address] or [phone]. For questions on nights, weekends or holidays, call the air support operations operator at , and ask for the doctor child protection specialist for Anesthesia Pain Management. in this encounter Procedure Notes * Mohan Cheney MD - 04/06/2018 11:45 AM CDT Associated Order(s): [facility] [place] INJE[place] Pre-Procedure Diagnose(s): Myalgia Post-Procedure Diagnose(s): Myalgia Formatting of this note may be different from the original. Attending Surgeon: Mohan Cheney MD Anesthesia: Local Pre-Procedure Diagnosis: 1. Myalgia Post-Procedure Diagnosis: 1. Myalgia [facility] [place] Locations: [...] alternatives. Patient has decided to proceed with treatment/ procedure. Ralph Protocol: Relevant documents: relevant documents present and verified Site marked: the operative site was marked Patient identity confirmed: Patient identify confirmed verbally with patient. Time out: Immediately prior to procedure a "time out" was called to verify the correct patient, procedure, equipment, shipping support clerk and site/side marked as required Procedures Details: [...] Other components of comprehensive management: Active exercises, pharmacotherapy , activity modification DESCRIPTION OF PROCEDURE: The procedure [...] well without any apparent difficulties or complications. Estimated blood loss: none or minimal Specimens: none Patient tolerated the procedure well with no immediate complications. Pressure was applied, and hemostasis was accomplished. in this encounter Miscellaneous Notes * Addendum Note - Paul Patino RN - 04/06/2018 11:45 AM CDT Addended by: PAUL PATINO on: 04/21/2018 09:57 AM Modules accepted: Orders in this encounter Plan of Treatment Name Priority Associated Diagnoses Order Schedule [facility] [place]JE[place] Routine Myalgia Expected: 2017, Expires: 04/21/2019 as of this encounter Procedures Procedure Name Priority Date/Time Associated Diagnosis Comments SC INJECTION SINGLE/CAR RUNNER Routine 04/06/2018 Myalgia Results for this [place] 3/> MUSCLES 11:45 AM CDT procedure are in the results section. in this encounter Results * [facility] [place]JECTION [...] Patient has decided to proceed with treatment/procedure. Ralph Protocol: Relevant documents: relevant documents present and verified Site marked: the operative site was marked Patient identity confirmed: Patient identify confirmed verbally with patient. Time out: Immediately prior to procedure a "time out" was called to verify the correct patient, procedure, equipment, shipping support clerk and site/side marked as required Procedures Details: [...] Address City/State/Zipcode Phone Number OTHER OUTSIDE LAB in this encounter Visit Diagnoses Diagnosis Myalgia Mylagia and myositis, unspecified Administered Medications Medication Order MAR Action Action Date Dose Rate Site bupivacaine PF (MARCAINE) 0.25 % Given 04/06/2018 5 mL injection 5 mL 18:31 CDT 5 mL, Injection, ONCE PRN, 1 dose, Starting Fri04/06/18 at 1831, Until Fri04/06/18 at 1831 lidocaine PF 1% (10 mg/mL) injection 5 Given 04/06/2018 5 mL mL 18:31 CDT 5 mL, Injection, ONCE PRN, 1 dose, Starting 04/06/18 at 1831, Until Fri04/06/18 at 1831 in this encounter
--- OUTSIDE RECORDS SUMMARY | 2018-04-26 09:45 | XMS REPORT | Encounter Summary ---
Author Author [facility] Organization [facility] Address Unknown Phone Unavailable Care Team Providers Care International Student Advisor Name Role Phone RoloMaribel Unavailable Unavailable Carol Ann Marie PA-C Unavailable Unavailable Hailee Crook Unavailable Nadja Levy RN Unavailable Unavailable Shannen Christensen MD Unavailable Gabriela Silva MD Unavailable [place] [facility] Unavailable Unavailable Beny Fuentes [...] up Phone Call Center [address] [facility] [address] [place] [address] [place] [address] [phone] Social History Tobacco Use Types Packs/Day Years [...] Bentley. in this encounter Plan of Treatment Not on fileas of this encounter Visit Diagnoses Not on filein this encounter
--- OUTSIDE RECORDS SUMMARY | 2018-04-26 09:45 | XMS REPORT | Encounter Summary ---
Author Author [facility] Organization [facility] Address Unknown Phone Unavailable Care Team Providers Care Correctional Supervising Cook Name Role Phone SethMaribel fonseca Unavailable Unavailable Carol Ann Marie PA-C Unavailable Unavailable Hailee Crook Unavailable Nadja Levy RN Unavailable Unavailable Shannen Christensen MD Unavailable Gabriela Silva MD Unavailable [place] [facility] Unavailable Unavailable Beny Fuentes MD Unavailable Unavailable Carlin Hamilton MD Unavailable Yesenia Falcon MD Unavailable Harvey Black MD Unavailable Billie Pereyra MD Unavailable Samreen Harris MD Unavailable Mariusz Kay MD Unavailable Carolina Cross MD Unavailable Brandon Rosales PA-C PCP Unavailable Reason for Visit * Reason Comments Medication Refill Encounter Details Date Type Department Care Team Description 02/02/2018 Refill [facility] Carolina Cross MD Physicians-Neurology [address] [facility] on Aging [place] [address] [place] [address] [place], [place] [phone] Social History Tobacco Use Types Packs/Day Years [...] cosign in this encounter Plan of Treatment Not on fileas of this encounter Visit Diagnoses Not on filein this encounter
--- OUTSIDE RECORDS SUMMARY | 2018-04-26 09:45 | XMS REPORT | Encounter Summary ---
Author Author [facility] Organization [facility] Address Unknown Phone Unavailable Care Team Providers Care Brand Engineer Name Role Phone SethMaribel fonseca Unavailable Unavailable Carol Ann Marie PA-C Unavailable Unavailable Hailee Crook Unavailable Nadja Levy RN Unavailable Unavailable Shannen Christensen MD Unavailable Gabriela Silva MD Unavailable [place] [facility] Unavailable Unavailable Beny Fuentes MD Unavailable Unavailable Carlin Hamilton MD Unavailable Yesenia Falcon MD Unavailable Harvey Black MD Unavailable Billie Pereyra MD Unavailable Samreen Harris MD Unavailable Mariusz Kay MD Unavailable Carolina Cross MD Unavailable Brandon Rosales PA-C PCP Unavailable Reason for Visit * Auth/Cert Status Reason Specialty Diagnoses / Referred By Referred To Procedures Contact Contact Diagnoses Unspecified convulsions (HCC) Procedures RI LOCALIZE CEREBRAL SEIZURE CABLE/RADIO EEG/VIDEO Encounter Details Date Type Department Care Team Description 04/07/2018 Hospital [facility] Ariane Marquez MD GERD (gastroesophageal - Encounter [address] reflux disease) 04/10/2018 [place] [address] [address] [place] [address] [phone] Social History Tobacco Use Types Packs/Day Years Used Date Former Smoker Cigarettes 1 Quit: 03/2018 Smokeless Tobacco: Former Quit: User 06/16/2012 Comments: [...] F) 04/10/2018 9:05 AM CDT Respiratory Rate - - Oxygen Saturation 99% 04/10/2018 9:05 AM CDT Inhaled Oxygen - - Concentration Weight 137.8 kg (303 lb 14.4 oz) 04/07/2018 10:31 AM CDT Height 165.1 cm (5' 5") 04/07/2018 10:31 AM CDT Body Mass Index 50.57 04/07/2018 10:31 AM CDT in this encounter Functional Status Functional Status Response Date of Assessment Does the patient have a hearing impairment: No 04/07/2018 Does the patient have a visual impairment: Yes 10/31/2017 Does the patient have impaired ambulation: Yes 10/31/2017 Does the patient have an activity of daily living No 10/31/2017 (ADL) impairment: Does the patient have an instrumental activity of No 10/31/2017 daily living (IADL) impairment: Cognitive Status Response Date of Assessment Does the patient have a cognitive impairment: No 10/31/2017 as of this encounter Discharge Summaries * Elisabeth Aguilera APRN-URIAH - 04/10/2018 1:00 PM CDT Formatting of this note may be different from the original. Physician Discharge Summary Name: Liberty Cespedes Date Of : 1970 Age: 48 years Admit date: 04/07/2018 Discharge date: 04/10/2018 Attending Physician: Dr. Ariane Marquez Service: Neurology Physician Summary completed by: Elisabeth Aguilera, INSIDE TECHNICAL SALES REPRESENTATIVE- Reason for hospitalization: VEEG to classify convulsions. Significant PMH: Past Medical History: Diagnosis Date Anxiety Convulsions ([facility]) Depression DVT (deep venous thrombosis) ([facility]) 03/22 right calf 2007 Fibromyalgia GERD (gastroesophageal reflux disease) HTN (hypertension) 10/26/2007 Intentional weight loss Migraine 10/26/2007 Morbid obesity with BMI of 50.0-59.9, adult ([facility]) OA (osteoarthritis) 10/26/2007 KNEES, ANKLES Psychiatric illness depression/anxiety. Denies suicidal ideations. RLS (restless legs syndrome) Sleep apnea Allergies: Nexium [esomeprazole magnesium] and Sulfa (sulfonamide antibiotics) Admission Physical Exam notable for: General physical exam: Gen: Alert and cooperative. Neck: Supple without bruit. CV: Normal rate and regular rhythm. No murmur. Pulm: Clear breath sounds bilaterally. No crackles or wheezes. Neurologic exam: MSE: Alert and cooperative. Oriented to person, place, time, and situation. Answers questions appropriately. Speech: No aphasia or dysarthria. CN: Normal Abnormal II Pupils reactive, 4mm, visual wray normal III, IV, EOMI, no nystagmus V Sensation nml V1-V3 VII Normal facial symmetry VIII Normal to finger rub IX, X Palate elevates symmetrically XI Equal shoulder shrug XII Tongue midline Motor: Normal bulk and tone. No pronator drift. No abnormal movements. Strength: Left Right Shoulder Abduction 5 5 Elbow flexion 5 5 Elbow extension 5 5 Wrist Extension 5 5 Wrist Flexion 5 5 Finger Extension 5 5 Finger Flexion 5 5 Hand Interossei 5 5 Hip Flexion 5 4 Knee Extension 5 4 Knee Flexion 5 4 Foot Dorsiflexion 5 4 Foot Plantar Flexion 5 4 Reflexes: Right Left Triceps 2 2 Biceps 2 2 Brachioradialis 2 2 Patella 2 2 Ankle 2 2 Plantar down down Cerebellar: Finger-nose testing and heel to patricio without without dysmetria or ataxia. Sensory: Sensation intact to light touch in all extremities. Gait: Not assessed, VEEG. Admission Lab/Radiology studies notable for: Results for LIBERTY CESPEDES ( ) as of 04/13/2018 21:08 Ref. Range 04/07/2018 11:30 Hemoglobin Latest Ref Range: 12.0 - 15.0 GM/DL 12.2 Hematocrit Latest Ref Range: 36 - 45 % 36.4 Platelet Count Latest Ref Range: 150 - 400 K/UL 188 White Blood Cells Latest Ref Range: 4.5 - 11.0 K/UL 12.9 (H) RBC Latest Ref Range: 4.0 - 5.0 M/UL 3.87 (L) MCV Latest Ref Range: 80 - 100 FL 94.1 MCH Latest Ref Range: 26 - 34 PG 31.5 MCHC Latest Ref Range: 32.0 - 36.0 G/DL 33.5 MPV Latest Ref Range: 7 - 11 FL 8.8 RDW Latest Ref Range: 11 - 15 % 13.7 Sodium Latest Ref Range: 137 - 147 MMOL/L 136 (L) Potassium Latest Ref Range: 3.5 - 5.1 MMOL/L 4.1 Chloride Latest Ref Range: 98 - 110 MMOL/L 107 CO2 Latest Ref Range: 21 - 30 MMOL/L 23 Anion Gap Latest Ref Range: 3 - 12 6 Blood Urea Nitrogen Latest Ref Range: 7 - 25 MG/DL 23 Creatinine Latest Ref Range: 0.4 - 1.00 MG/DL 0.92 eGFR Non Latest Ref Range: >60 mL/min >60 eGFR Latest Ref Range: >60 mL/min >60 Glucose Latest Ref Range: 70 - 100 MG/DL 109 (H) Albumin Latest Ref Range: 3.5 - 5.0 G/DL 3.3 (L) Calcium Latest Ref Range: 8.5 - 10.6 MG/DL 8.8 Total Bilirubin Latest Ref Range: 0.3 - 1.2 MG/DL 0.4 Total Protein Latest Ref Range: 6.0 - 8.0 G/DL 5.8 (L) AST (SGOT) Latest Ref Range: 7 - 40 U/L 11 ALT (SGPT) Latest Ref Range: 7 - 56 U/L 11 Alk Phosphatase Latest Ref Range: 25 - 110 U/L 56 Brief Hospital Course: Patient was admitted for VEEG to classify convulsions for epilepsy versus nonepileptic events. Patient was placed on VEEG and cardiac telemetry. Seizure/Fall precautions were implemented. Hyperventilation and photic stimulation was performed once. No seizures occurred. EEG was normal throughout study per Dr. Marquez. Antiepileptic medication was restarted at previous dosages. Patient will f/u with Dr. Marquez in 2 months. Condition at Discharge: Stable Discharge Diagnoses: Hospital Problems Active Problems Migraine HTN (hypertension) Fibromyalgia MICHELLE (obstructive sleep apnea) Anxiety and depression GERD (gastroesophageal reflux disease) Morbid obesity with BMI of 50.0-59.9, adult (HCC) Convulsions (HCC) Surgical Procedures: None Significant Diagnostic Studies and Procedures:VEEG Consults: None Patient Disposition: Home Patient instructions/medications: Activity as Tolerated It is important to keep increasing your activity level after you leave the hospital. Moving around can help prevent blood clots, lung infection (pneumonia ) and other problems. Gradually increasing the number of times you are up moving around will help you return to your normal activity level more quickly. Continue to increase the number of times you are up to the chair and walking daily to return to your normal activity level. Begin to work toward your normal activity level at discharge Other Activity Restrictions No driving, no swimming, no tub baths, no climbing of ladders, no cooking at the stove, no activity which could cause injury if seizure occurs. Report These Signs and Symptoms Call Dr. Marquez's office for increase in frequency or duration of events. [phone] or [phone]. Questions About Your Stay For questions or concerns regarding your hospital stay. Call [phone] Discharging attending physician: ARIANE MARQUEZ [[id number]] Regular Diet You have no dietary restriction. Please continue with a healthy balanced diet. Current Discharge Medication List CONTINUE these medications which have NOT CHANGED Details acetaminophen (TYLENOL) 500 mg tablet Take 1,000 mg by mouth at bedtime daily. Max of 4,000 mg of acetaminophen in 24 hours. PRESCRIPTION TYPE: Historical Med acetaminophen/diphenhydramine (TYLENOL PM) 500/25 mg 1 tablet Take 1 tablet by mouth at bedtime as needed (for sleep/allergies). PRESCRIPTION TYPE: Historical Med albuterol (PROAIR HFA, VENTOLIN HFA, OR PROVENTIL HFA) 90 mcg/actuation inhaler Inhale 2 puffs by mouth into the lungs every 6 hours as needed for Wheezing or Shortness of Breath. Shake well before use. PRESCRIPTION TYPE: Historical Med albuterol 0.5% (PROVENTIL; VENTOLIN) 2.5 mg/0.5 mL Nebu nebulizer solution Inhale 2.5 mg solution as directed every 6 hours as needed. PRESCRIPTION TYPE: Historical Med ARIPiprazole (ABILIFY) 10 mg tablet Take 10 mg by mouth daily. PRESCRIPTION TYPE: Historical Med atorvastatin (LIPITOR) 10 mg tablet Take 10 mg by mouth at bedtime daily. PRESCRIPTION TYPE: Historical Med cetirizine (ZYRTEC) 10 mg tablet Take 10 mg by mouth daily. PRESCRIPTION TYPE: Historical Med cyclobenzaprine (FLEXERIL) 10 mg tablet Take 10 mg by mouth three times daily as needed for Muscle Cramps. PRESCRIPTION TYPE: Historical Med desvenlafaxine (+) (PRISTIQ) 100 mg tablet Take 100 mg by mouth at bedtime daily. PRESCRIPTION TYPE: Historical Med estradiol (ESTRACE) 2 mg tablet Take 2 mg by mouth at bedtime daily. PRESCRIPTION TYPE: Historical Med fluticasone (FLONASE) 50 mcg/actuation nasal spray Apply 1 spray to each nostril as directed daily. Shake bottle gently before using. PRESCRIPTION TYPE: Historical Med Glycopyrrolate 2 mg tab Take 1 tablet by mouth twice daily. PRESCRIPTION TYPE: Historical Med guanFACINE (TENEX) 1 mg tablet Take 1 mg by mouth at bedtime daily. PRESCRIPTION TYPE: Historical Med hydrOXYzine pamoate (VISTARIL) 25 mg capsule Take 25-50 mg by mouth three times daily as needed for Anxiety. PRESCRIPTION TYPE: Historical Med isosorbide mononitrate SR (IMDUR) 60 mg tablet Take 30 mg by mouth every morning. PRESCRIPTION TYPE: Historical Med levETIRAcetam (KEPPRA) 500 mg tablet TAKE TWO TABLETS BY MOUTH EVERY MORNING AND TAKE THREE TABLETS BY MOUTH AT BEDTIME Qty: 150 tablet, Refills: 2 PRESCRIPTION TYPE: Normal loperamide(+) (ANTI-DIARRHEAL (LOPERAMIDE)) 2 mg tablet Take 2 mg by mouth as Needed for Diarrhea. Take 2 tablets by mouth initially, followed by 1 tablet by mouth after each loose stool for up to a maximum of 8 tablets in 24 hours. PRESCRIPTION TYPE: Historical Med mirabegron(+) ER (MYRBETRIQ) 50 mg tablet Take 50 mg by mouth every morning. PRESCRIPTION TYPE: Historical Med nabumetone (RELAFEN) 500 mg tablet Take 500 mg by mouth twice daily. PRESCRIPTION TYPE: Historical Med olopatadine(+) (PATANOL) 0.1 % ophthalmic solution Apply 1 drop to both eyes twice daily. PRESCRIPTION TYPE: Historical Med ondansetron (ZOFRAN) 4 mg tablet Take 4 mg by mouth every 8 hours as needed for Nausea or Vomiting. PRESCRIPTION TYPE: Historical Med !! other medication 1 Dose. Allergy shot PRESCRIPTION TYPE: Historical Med !! other medication Compression stockings 30-40 mm Hg Knee high Qty: 1 Each, Refills: 6 PRESCRIPTION TYPE: Print Associated Diagnoses: Peripheral edema !! other medication BP machine Qty: 1 Each, Refills: 0 PRESCRIPTION TYPE: Print Associated Diagnoses: HTN (hypertension) pantoprazole DR (PROTONIX) 40 mg tablet Take 40 mg by mouth daily. PRESCRIPTION TYPE: Historical Med ranitidine(+) (ZANTAC) 150 mg tablet Take 150 mg by mouth twice daily. PRESCRIPTION TYPE: Historical Med solifenacin(+) (VESICARE) 5 mg tablet Take 5 mg by mouth at bedtime daily. PRESCRIPTION TYPE: Historical Med topiramate (TOPAMAX) 50 mg tablet TAKE TWO TABLETS BY MOUTH TWICE A DAY (DOSE CHANGED AT OFFICE VISIT ON 05/26/2017) Qty: 120 tablet, Refills: 3 PRESCRIPTION TYPE: Normal umeclidinium-vilanterol (ANORO ELLIPTA) 62.5-25 mcg/actuation inhaler Inhale 1 puff by mouth into the lungs daily. PRESCRIPTION TYPE: Historical Med varenicline (CHANTIX CONTINUING MONTH BOX) 1 mg tablet Take 1 mg by mouth twice daily. PRESCRIPTION TYPE: Historical Med zolpidem (AMBIEN) 10 mg tablet Take 10 mg by mouth at bedtime daily. PRESCRIPTION TYPE: Historical Med !! - Potential duplicate medications found. Please discuss with provider. The following medications were removed from your list. This list includes medications discontinued this stay and those removed from your prior med list in our system dexlansoprazole (+) (DEXILANT) 60 mg capsule doxycycline (VIBRAMYCIN) 100 mg tablet ipratropium bromide (ATROVENT) 42 mcg (0.06 %) nasal spray montelukast (SINGULAIR) 10 mg tablet nicotine(+) (NICOTROL) 10 mg inhaler ondansetron (ZOFRAN ODT) 4 mg rapid dissolve tablet tiotropium (SPIRIVA WITH HANDIHALER) 18 mcg capsule for inhaler Scheduled appointments: Jun 02, 2018 11:00 AM CDT Return Patient with Ariane Marquez MD [facility] (Ep[facility]psy) Jessica Andrew [address] [facility] [address] Jun 04, 2018 11:00 AM CDT Return Patient with Carolina Cross MD [facility] ([facility]) [facility] [address] [facility] [id number] Jul 10, 2018 11:15 AM CDT PROCEDURE 15 with Mohan Cheney MD [facility] ([facility] [place] [facility]) John Gunter Md [facility] [address] [facility] [address] Additional appointment instructions: Pending items needing follow up: Signed: ROSEY Brar 04/13/2018 cc: Primary Care Physician: Brandon Rosales Verified Referring physicians: Brandon Rosales PA-C Additional provider(s): in this encounter Discharge Instructions * Discharge Instr - Appointments - Elisabeth Aguilera APRN- - 04/10/2018 11: 08 AM CDT in this encounter Medications at Time of Discharge Medication Sig. Disp. Refills Start Date End Date acetaminophen (TYLENOL) Take 1,000 mg by mouth at 500 mg tablet bedtime daily. Max of 4,000 mg of acetaminophen in 24 hours. acetaminophen/diphenhydra Take 1 tablet by mouth at mine (TYLENOL PM) 500/25 bedtime as needed (for mg 1 tablet sleep/allergies). albuterol (PROAIR HFA, Inhale 2 puffs by mouth VENTOLIN HFA, OR into the lungs every 6 PROVENTIL HFA) 90 hours as needed for mcg/actuation inhaler Wheezing or Shortness of Breath. Shake well before use. albuterol 0.5% Inhale 2.5 mg solution as (PROVENTIL; VENTOLIN) 2.5 directed every 6 hours as mg/0.5 mL Nebu nebulizer needed. solution ARIPiprazole (ABILIFY) 10 Take 10 mg by mouth mg tablet daily. atorvastatin (LIPITOR) 10 Take 10 mg by mouth at mg tablet bedtime daily. cetirizine (ZYRTEC) 10 mg Take 10 mg by mouth tablet daily. cyclobenzaprine Take 10 mg by mouth three (FLEXERIL) 10 mg tablet times daily as needed for Muscle Cramps. desvenlafaxine (+) Take 100 mg by mouth at (PRISTIQ) 100 mg tablet bedtime daily. estradiol (ESTRACE) 2 mg Take 2 mg by mouth at tablet bedtime daily. fluticasone (FLONASE) 50 Apply 1 spray to each mcg/actuation nasal spray nostril as directed daily. Shake bottle gently before using. Glycopyrrolate 2 mg tab Take 1 tablet by mouth twice daily. guanFACINE (TENEX) 1 mg Take 1 mg by mouth at tablet bedtime daily. hydrOXYzine pamoate Take 25-50 mg by mouth (VISTARIL) 25 mg capsule three times daily as needed for Anxiety. isosorbide mononitrate SR Take 30 mg by mouth every (IMDUR) 60 mg tablet morning. levETIRAcetam (KEPPRA) TAKE TWO TABLETS BY MOUTH 150 tablet 2 2017 500 mg tablet EVERY MORNING AND TAKE THREE TABLETS BY MOUTH AT BEDTIME loperamide(+) Take 2 mg by mouth as (ANTI-DIARRHEAL Needed for Diarrhea. Take (LOPERAMIDE)) 2 mg tablet 2 tablets by mouth initially, followed by 1 tablet by mouth after each loose stool for up to a maximum of 8 tablets in 24 hours. mirabegron(+) ER Take 50 mg by mouth every (MYRBETRIQ) 50 mg tablet morning. nabumetone (RELAFEN) 500 Take 500 mg by mouth mg tablet twice daily. olopatadine(+) (PATANOL) Apply 1 drop to both eyes 0.1 % ophthalmic solution twice daily. ondansetron (ZOFRAN) 4 mg Take 4 mg by mouth every tablet 8 hours as needed for Nausea or Vomiting. other medication 1 Dose. Allergy shot other Compression stockings 1 Each 6 11/27/2012 medicationIndications: 30-40 mm Hg Peripheral edema Knee high other BP machine 1 Each 0 11/27/2012 medicationIndications: HTN (hypertension) pantoprazole DR Take 40 mg by mouth (PROTONIX) 40 mg tablet daily. ranitidine(+) (ZANTAC) Take 150 mg by mouth 150 mg tablet twice daily. solifenacin(+) (VESICARE) Take 5 mg by mouth at 5 mg tablet bedtime daily. topiramate (TOPAMAX) 50 TAKE TWO TABLETS BY MOUTH 120 tablet 3 2017 mg tablet TWICE A DAY (DOSE CHANGED AT OFFICE VISIT ON 05/26/2017) umeclidinium-vilanterol Inhale 1 puff by mouth (ANORO ELLIPTA) 62.5-25 into the lungs daily. mcg/actuation inhaler varenicline (CHANTIX Take 1 mg by mouth twice CONTINUING MONTH BOX) 1 daily. mg tablet zolpidem (AMBIEN) 10 mg Take 10 mg by mouth at tablet bedtime daily. as of this encounter Progress Notes * Josue Amado RN - 04/10/2018 1:00 PM CDT Patient left the unit per WC with all her belongings accompany by staff to waiting Med van outside the hospital front lobby at 1300 hours. * Ariane Marquez MD - 04/10/2018 1:00 PM CDT Formatting of this note may be different from the original. Epilepsy Progress Note Today's Date: 04/10/2018 Name: Liberty Cespedes Admission Date: 04/07/2018 LOS: 3 days Assessment/Plan: Active Problems: Migraine HTN (hypertension) Fibromyalgia MICHELLE (obstructive sleep apnea) Anxiety and depression GERD (gastroesophageal reflux disease) Intractable seizures (HCC) Morbid obesity with BMI of 50.0-59.9, adult (HCC) Liberty Cespedesis a 48 y.o. female with intractable seizures, MICHELLE, fibromyalgia, depression, anxiety, migraines, previous DVT, RLS, is admitted for VEEG to classify seizures. Plan: VEEG.No seizures to date. Normal EEG per Dr. Marquez. Awaiting seizures. Cardiac telemetry: sinus rhythm Seizure precautions Vital signs and Neurochecks q 8 hours unless seizure occurrence then q 1 hour till baseline mental status returns. Keppra 1000 mg -1500 dc'd on 04/07. Restarted on 04/09. Seizure protocol: Assess patient then Give 2mg IV ativan for the following parameters: Convulsion >4 minutes. 2 convulsions in 24 hours. 3 Complex Partial seizures in 24 hours. IF ATIVAN GIVEN ONCE AND SEIZURE DOESN'T STOP OR IF ANOTHER SEIZURE OCCURS DURING YOUR SHIFT, CALL Dr. Will [phone]. FEN Regular diet IV heplock CBC, CMP Prophylaxis IS q 1 hour w/a SCD's lower extremities. Lovenox 40mg SQ bid due to previous DVT. 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 Anxiety and Depression Vistaril 25-50mg tid prn anxiety Abilitfy 10mg daily. Pristiq 100mg qhs. COPD Continue current MANUFACTURING WORKER inhalers. MIgraine Topamax 100mg bid Zofran 4mg q 8 hour prn N/V Sleep apnea RT to provide cpap machine and mask with auto titration. Full Code Status Disposition: DC VEEG. Discharge to home. Unclassified convulsions and spells of right facial twitching. Keppra 1000 mg -1500 Topamax 100mg bid for migraine. F/u with Dr. Marquez in 2 months. Discussed exam and plan of care with Dr. Marquez Patient was seen by Dr. Marquez. ATTESTATION I personally performed the cm portions of the E/M visit, discussed case with Nurse Practitioner and concur with documentation of history, physical exam, assessment, and treatment plan unless otherwise noted. Low suspicion that facial movements are epileptic; however, these were not captured. Discussed with pt. Staff name: Ariane Marquez MD Date: 04/10/2018 Subjective: Liberty Cespedes is a 48 y.o. female. No new events noted. Patient and I discussed discharge in detail. Review of Systems: Patient denies pain, shortness of breath, N/V Objective: Scheduled Meds:Continuous Infusions: PRN and Respiratory Meds: Vital Signs: Last Filed Vital Signs: 24 Hour Range BP: 112/67 (04/10 905) Temp: 37.2 C (98.9 F) (04/10 905) Pulse: 84 (04/10 905) Respirations: 20 PER MINUTE (04/10 905) SpO2: 99 % (04/10 905) O2 Delivery: None (Room Air) (04/10 905) BP: (105-129)/(51-71) Temp: [36.7 C (98.1 F)-37.6 C (99.7 F)] Pulse: [69-88] Respirations: [18 PER MINUTE-20 PER MINUTE] SpO2: [97 %-99 %] O2 Delivery: None (Room Air) Intensity Pain Scale 0-10 (Pain 1): (not recorded) ICP Monitoring: Intake/Output Summary: (Last 24 hours) Intake/Output Summary (Last 24 hours) at 04/10/18 1538 Last data filed at 04/09/182025 Gross per 24 hour Intake 222 ml Output 0 ml Net 222 ml Physical Exam: Lungs: clear to auscultation bilaterally Heart: regular rate and rhythm, S1, S2 normal, no murmur, click, rub or gallop Mental Status: Alert and oriented x3 cooperative with questions and answers Cranial Nerves:: III, IV, : EOEMI without nystagmus VII: face is symmetrical IX/X: palate elevates symmetrically XI: shoulder lane is normal XII: tongue is midline. Motor: No pronator drift. Motor 5/5 Laboratory Review: 24-hour labs: No results found for this visit on 04/07/18 (from the past 24 hour(s)). Point of Care Testing: (Last 24 hours): Radiology and Other Diagnostics Review: No pertinent radiology. Elisabeth Aguilera, [facility] Pager [phone] * Carol Ann Gordillo - 04/10/2018 1:00 PM CDT Patient disconnected from VEEG Monitoring. Patient received hair washing instructions for removal of glue residue. * Josue Amado, EDWARD - 04/10/2018 12:47 PM CDT Patient discharged to home with discharge instructions. Peripheral IV removed without problem. All questions answered. Patient's own medications returned to patient. Belongings packed and ready to go. All questions answered. Awaiting transportation. * Jennifer Olmedo M.Div, [facility] - 04/10/2018 10:54 AM CDT Process Laboratory Specialist Note: Admit Date: 04/07/2018 Process Laboratory Specialist checked in briefly with the patient, who is excited to be going home today. The spiritual care team is available as needed, 07/04, through the [place] switchboard ([phone]). For immediate response, please page [phone]. For a response within 24 hours, please submit an order in O2 for a disk grinder consult or call the administrative voicemail at [phone]. Date/Time: User: Pager: [phone] 04/10/2018 10:55 AM Jennifer Olmedo M.Div, [facility] * Agustin Vital - 04/10/2018 8:22 AM CDT EEG signals are clean of artifact and visible. Video was visualized and recording. Audio recording was checked and functioning. The VEEG system is on- line. Central monitoring station is functioning appropriately. The event button is operational and within reach of the patient and/or patient' s family. All impedances were below 10,000 Ohms. * Carol Ann Gordillo - 04/09/2018 5:32 PM CDT Hyperventilation and Photic Stimulation was performed. No events to report. * Ariane Marquez MD - 04/09/2018 10:39 AM CDT Formatting of this note may be different from the original. Epilepsy Progress Note Today's Date: 04/09/2018 Name: Liberty Cespedes Admission Date: 04/07/2018 LOS: 2 days Assessment/Plan: Active Problems: Migraine HTN (hypertension) Fibromyalgia MICHELLE (obstructive sleep apnea) Anxiety and depression GERD (gastroesophageal reflux disease) Intractable seizures (HCC) Morbid obesity with BMI of 50.0-59.9, adult (HCC) Liberty Cespedesis a 48 y.o. female with intractable seizures, MICHELLE, fibromyalgia, depression, anxiety, migraines, previous DVT, RLS, is admitted for VEEG to classify seizures. Plan: VEEG.No seizures to date. Normal EEG per Dr. Marquez. Awaiting seizures. Cardiac telemetry: sinus rhythm Seizure precautions Vital signs and Neurochecks q 8 hours unless seizure occurrence then q 1 hour till baseline mental status returns. Keppra 1000 mg -1500 dc'd on 04/07. Restarted on 04/09. HV and photic stimulation x1 today. Seizure protocol: Assess patient then Give 2mg IV ativan for the following parameters: Convulsion >4 minutes. 2 convulsions in 24 hours. 3 Complex Partial seizures in 24 hours. IF ATIVAN GIVEN ONCE AND SEIZURE DOESN'T STOP OR IF ANOTHER SEIZURE OCCURS DURING YOUR SHIFT, CALL Dr. Will [phone]. FEN Regular diet IV heplock CBC, CMP Prophylaxis IS q 1 hour w/a SCD's lower extremities. Lovenox 40mg SQ bid due to previous DVT. 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 Anxiety and Depression Vistaril 25-50mg tid prn anxiety Abilitfy 10mg daily. Pristiq 100mg qhs. COPD Continue current MANUFACTURING WORKER inhalers. MIgraine Topamax 100mg bid Zofran 4mg q 8 hour prn N/V Sleep apnea RT to provide cpap machine and mask with auto titration. Full Code Status Disposition: Continue inpatient VEEG to capture typical spells. Restart Keppra. Tentative discharge on Friday. Discussed exam and plan of care with Dr. Marquez Patient was seen by Dr. Marquez. ATTESTATION I personally performed the cm portions of the E/M visit, discussed case with Nurse Practitioner and concur with documentation of history, physical exam, assessment, and treatment plan unless otherwise noted. EEG normal. Awaiting events. Staff name: Ariane Marquez MD Date: 04/10/2018 Subjective: Liberty Cespedes is a 48 y.o. female. No new events noted. Patient without issues or concerns. Discussed discharge on friday and social services will arrange transport Review of Systems: Patient denies pain, chills, fever, headache, shortness of breath, N/V, diarrhea , constipation. Objective: Scheduled Meds: ARIPiprazole (ABILIFY) tablet 10 mg 10 mg Oral QDAY atorvastatin (LIPITOR) tablet 10 mg 10 mg Oral QHS cetirizine (ZYRTEC) tablet 10 mg 10 mg Oral QDAY desvenlafaxine(+) (PRISTIQ) tablet 100 mg 100 mg Oral QHS enoxaparin (LOVENOX) syringe 40 mg 40 mg Subcutaneous BID estradiol (ESTRACE) tablet 2 mg 2 mg Oral QHS famotidine (PEPCID) tablet 20 mg 20 mg Oral BID fluticasone (FLONASE) nasal spray 1 spray 1 spray Each Nostril QDAY glycopyrrolate (ROBINUL) tablet 2 mg 2 mg Oral BID guanFACINE (TENEX) tablet 1 mg 1 mg Oral QHS isosorbide mononitrate SR (IMDUR) tablet 30 mg 30 mg Oral QDAY mirabegron(+) ER (MYRBETRIQ ER) tablet 50 mg 50 mg Oral QDAY nabumetone (RELAFEN) tablet 500 mg 500 mg Oral BID olopatadine(+) (PATANOL) 0.1 % ophthalmic solution 1 drop (POM) 1 drop Both Eyes BID(-17) oxybutynin XL (DITROPAN XL) tablet 5 mg 5 mg Oral QHS pantoprazole DR (PROTONIX) tablet 40 mg 40 mg Oral QDAY topiramate (TOPAMAX) tablet 100 mg 100 mg Oral BID umeclidinium-vilanterol (ANORO ELLIPTA) 62.5-25 mcg/actuation inhaler 1 puff 1 puff Inhalation QDAY varenicline (CHANTIX) tablet 1 mg 1 mg Oral BID w/meals Continuous Infusions: PRN and Respiratory Meds:acetaminophen Q6H PRN, albuterol Q4H PRN, cyclobenzaprine TID PRN, hydrOXYzine TID PRN, ondansetron Q8H PRN, zolpidem QHS PRN Vital Signs: Last Filed Vital Signs: 24 Hour Range BP: 121/84 (04/09 900) Temp: 36.9 C (98.4 F) (04/09 900) Pulse: 72 (04/09 900) Respirations: 18 PER MINUTE (04/09 900) SpO2: 98 % (04/09 900) O2 Delivery: None (Room Air) (04/09 900) BP: (92-121)/(59-84) Temp: [36.6 C (97.9 F)-37.3 C (99.2 F)] Pulse: [55-72] Respirations: [16 PER MINUTE-18 PER MINUTE] SpO2: [94 %-100 %] O2 Delivery: None (Room Air) Intensity Pain Scale 0-10 (Pain 1): (not recorded) ICP Monitoring: Intake/Output Summary: (Last 24 hours) Intake/Output Summary (Last 24 hours) at 04/09/18 1039 Last data filed at 04/09/18 0410 Gross per 24 hour Intake 400 ml Output 0 ml Net 400 ml Physical Exam: Lungs: clear to auscultation bilaterally Heart: regular rate and rhythm, S1, S2 normal, no murmur, click, rub or gallop Mental Status: Alert and oriented x3 cooperative with questions and answers Cranial Nerves:: III, IV, : EOEMI without nystagmus VII: face is symmetrical IX/X: palate elevates symmetrically XI: shoulder lane is normal XII: tongue is midline. Motor: No pronator drift. Motor 5/5 Laboratory Review: 24-hour labs: No results found for this visit on 04/07/18 (from the past 24 hour(s)). Point of Care Testing: (Last 24 hours): Radiology and Other Diagnostics Review: No pertinent radiology. 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 She believes that God is with her now. Source of Purpose/Meaning: She finds purpose in spending time with her loved ones. Worries/Concerns/Struggles: Currently, her nephew, his girlfriend, and their two year old son live with her. They will have to leave soon because her apartment complex does not allow her to have guests for a long period of time. This causes her stress. She was a single parent for 25 years before her daughter in 2012. She had a "breakdown" after she and ended up staying at [place] for a while. Next week would have been her daughter's birthday (April 16). She said she always has difficulty with grief on her daughter's birthday. She was tearful as she talked with the disk grinder about her daughter. Method(s) of Coping: She is aware of many ways to cope when times get hard. Currently, she is enrolled in online classes and hopes to get a lot of homework done while she is here. She also appreciates prayer and using her adult coloring book. Support System: She does not have a large support system. She loves her evangelical. She is close to her boyfriend of ten years. He is also her ex-. Her nephew and his girlfriend and two year old son live with her. Interventions/Plan: The disk grinder guided the patient in talking about her alisa and concerns. She looked at pictures of the patient's family, including her daughter. Since she plans to discharge before next week, there is no plan for follow up. The spiritual care team is available as needed, 07/04, through the campus switchboard ([phone]). For immediate response, please page [phone]. For a response within 24 hours, please submit an order in O2 for a disk grinder consult or call the administrative voicemail at [phone]. * Elisabeth Aguilera, INSIDE TECHNICAL SALES REPRESENTATIVE-BC - 04/08/2018 10:28 AM CDT Formatting of this note may be different from the original. Epilepsy Progress Note Today's Date: 04/08/2018 Name: Liberty Cespedes Admission Date: 04/07/2018 LOS: 1 day Assessment/Plan: Active Problems: Migraine HTN (hypertension) Fibromyalgia MICHELLE (obstructive sleep apnea) Anxiety and depression GERD (gastroesophageal reflux disease) Intractable seizures (HCC) Morbid obesity with BMI of 50.0-59.9, adult (HCC) Liberty Cespedes is a 48 y.o. female with intractable seizures, MICHELLE, fibromyalgia, depression, anxiety, migraines, previous DVT, RLS, is admitted for VEEG to classify seizures. Plan: VEEG.No seizures to date. Normal EEG per Dr. Marquez. Awaiting seizures. Cardiac telemetry: sinus rhythm Seizure precautions Vital signs and Neurochecks q 8 hours unless seizure occurrence then q 1 hour till baseline mental status returns. Keppra 1000 mg -1500 dc'd on 04/07. Seizure protocol: Assess patient then Give 2mg IV ativan for the following parameters: Convulsion >4 minutes. 2 convulsions in 24 hours. 3 Complex Partial seizures in 24 hours. IF ATIVAN GIVEN ONCE AND SEIZURE DOESN'T STOP OR IF ANOTHER SEIZURE OCCURS DURING YOUR SHIFT, CALL Dr. Will [phone]. FEN Regular diet IV heplock CBC, CMP Prophylaxis IS q 1 hour w/a SCD's lower extremities. Lovenox 40mg SQ daily due to previous DVT. 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 Anxiety and Depression Vistaril 25-50mg tid prn anxiety Abilitfy 10mg daily. Pristiq 100mg qhs. COPD Continue current MANUFACTURING WORKER inhalers. MIgraine Topamax 100mg bid Zofran 4mg q 8 hour prn N/V Sleep apnea RT to provide cpap machine and mask with auto titration. Full Code Status Disposition: Continue inpatient VEEG to capture typical spells. Ziggy martinez Discussed exam and plan of care with Dr. Marquez Patient was seen by Dr. Marquez. Subjective: Liberty Cespedes is a 48 y.o. female. No new events noted. Patient without issues or concerns. Instructed to patient to sleep deprive and sit up in chair during the day. Review of Systems: Patient denies pain, N/V, chills, fever, shortness of breath. Objective: Scheduled Meds: ARIPiprazole (ABILIFY) tablet 10 mg 10 mg Oral QDAY atorvastatin (LIPITOR) tablet 10 mg 10 mg Oral QHS cetirizine (ZYRTEC) tablet 10 mg 10 mg Oral QDAY desvenlafaxine(+) (PRISTIQ) tablet 100 mg 100 mg Oral QHS enoxaparin (LOVENOX) syringe 40 mg 40 mg Subcutaneous BID estradiol (ESTRACE) tablet 2 mg 2 mg Oral QHS famotidine (PEPCID) tablet 20 mg 20 mg Oral BID fluticasone (FLONASE) nasal spray 1 spray 1 spray Each Nostril QDAY glycopyrrolate (ROBINUL) tablet 2 mg 2 mg Oral BID guanFACINE (TENEX) tablet 1 mg 1 mg Oral QHS isosorbide mononitrate SR (IMDUR) tablet 30 mg 30 mg Oral QDAY mirabegron(+) ER (MYRBETRIQ ER) tablet 50 mg 50 mg Oral QDAY nabumetone (RELAFEN) tablet 500 mg 500 mg Oral BID olopatadine(+) (PATANOL) 0.1 % ophthalmic solution 1 drop (POM) 1 drop Both Eyes BID(-) oxybutynin XL (DITROPAN XL) tablet 5 mg 5 mg Oral QHS pantoprazole DR (PROTONIX) tablet 40 mg 40 mg Oral QDAY topiramate (TOPAMAX) tablet 100 mg 100 mg Oral BID umeclidinium-vilanterol (ANORO ELLIPTA) 62.5-25 mcg/actuation inhaler 1 puff 1 puff Inhalation QDAY varenicline (CHANTIX) tablet 1 mg 1 mg Oral BID w/meals Continuous Infusions: PRN and Respiratory Meds:acetaminophen Q6H PRN, albuterol Q4H PRN, cyclobenzaprine TID PRN, hydrOXYzine TID PRN, ondansetron Q8H PRN, zolpidem QHS PRN Vital Signs: Last Filed Vital Signs: 24 Hour Range BP: 120/74 (04/08 955) Temp: 36.4 C (97.6 F) (04/08 955) Pulse: 63 (04/08 955) Respirations: 17 PER MINUTE (04/08 955) SpO2: 96 % (04/08 955) O2 Delivery: None (Room Air) (04/08 955) Height: 165.1 cm (65") (04/07 1031) BP: (104-132)/(56-84) Temp: [36.4 C (97.6 F)-36.9 C (98.5 F)] Pulse: [60-81] Respirations: [12 PER MINUTE-18 PER MINUTE] SpO2: [95 %-97 %] O2 Delivery: None (Room Air) Intensity Pain Scale 0-10 (Pain 1): (not recorded) ICP Monitoring: Intake/Output Summary: (Last 24 hours) Intake/Output Summary (Last 24 hours) at 04/08/18 1029 Last data filed at 04/08/18 0816 Gross per 24 hour Intake 666 ml Output 0 ml Net 666 ml Physical Exam: Lungs: clear to auscultation bilaterally Heart: regular rate and rhythm, S1, S2 normal, no murmur, click, rub or gallop Mental Status: Alert and oriented x3 cooperative with questions and answers Cranial Nerves:: III, IV, : EOEMI without nystagmus VII: face is symmetrical IX/X: palate elevates symmetrically XI: shoulder lane is normal XII: tongue is midline. Motor: No pronator drift. Motor 5/5 Laboratory Review: 24-hour labs: Results for orders placed or performed during the hospital encounter of (from the past 24 hour(s)) CBC Collection Time: 04/07/18 11:30 AM Result Value Ref Range White Blood Cells 12.9 (H) 4.5 - 11.0 K/UL RBC 3.87 (L) 4.0 - 5.0 M/UL Hemoglobin 12.2 12.0 - 15.0 GM/DL Hematocrit 36.4 36 - 45 % MCV 94.1 80 - 100 FL MCH 31.5 26 - 34 PG MCHC 33.5 32.0 - 36.0 G/DL RDW 13.7 11 - 15 % Platelet Count 188 150 - 400 K/UL MPV 8.8 7 - 11 FL COMPREHENSIVE METABOLIC PANEL Collection Time: 04/07/18 11:30 AM Result Value Ref Range Sodium 136 (L) 137 - 147 MMOL/L Potassium 4.1 3.5 - 5.1 MMOL/L Chloride 107 98 - 110 MMOL/L Glucose 109 (H) 70 - 100 MG/DL Blood Urea Nitrogen 23 7 - 25 MG/DL Creatinine 0.92 0.4 - 1.00 MG/DL Calcium 8.8 8.5 - 10.6 MG/DL Total Protein 5.8 (L) 6.0 - 8.0 G/DL Total Bilirubin 0.4 0.3 - 1.2 MG/DL Albumin 3.3 (L) 3.5 - 5.0 G/DL Alk Phosphatase 56 25 - 110 U/L AST (SGOT) 11 7 - 40 U/L CO2 23 21 - 30 MMOL/L ALT (SGPT) 11 7 - 56 U/L Anion Gap 6 3 - 12 eGFR Non >60 >60 mL/min eGFR >60 >60 mL/min Point of Care Testing: (Last 24 hours): Glucose: (!) 109 (04/07/18 1130) Radiology and Other Diagnostics Review: No pertinent radiology. Elisabeth Aguilera, [facility] Pager [phone] * Jonatan Chase - 04/08/2018 8:35 AM CDT Tech performed electrode check at 8:05 without complications. * Tyler Hubbard - 04/07/2018 2:02 PM CDT Pt connected wit V-EEG without complications. Pt does have a sensitive scalp, irritation occurs if cleaning skin with medium pressure. Pt does have scarring from Fz to reference lead. Bed alarm on, bed lowered, bed rails up, nurse call light next to pt, and event button next to pt as well. Pt was explained to push event button if she feels an event may happenor if she is currently having one. * Juliette Orozco PHARMD - 04/07/2018 1:42 PM CDT Pharmacy Note: Patients Own Med The following medications have been identified by pharmacy and placed in the locked medication box for storage: Olopatadine 0.1% eye drops [employer] [id number] R# [id number] Exp 07/2019 The patient may use their own supply of these medications during this admission. All doses should be administered and documented per hospital policy. * Suni Chopra - 04/07/2018 10:30 AM CDT Patient arrived to room # (1572) via ambulation accompanied by self. Patient transferred to the bed without assistance. Bedside safety checks completed. Initial patient assessment completed, refer to flowsheet for details. Admission skin assessment completed by: EDWARD Granado Pressure Injury Present on Hospital Admission (within 24 hours): No 1. Occiput: No 2. Ear: No 3. Scapula: No 4. Spinous Process: No 5. Shoulder: No 6. Elbow: No 7. Iliac Crest: No 8. Sacrum/Coccyx: No 9. Ischial Tuberosity: No 10. Trochanter: No 11. Knee: No 12. Malleolus: No 13. Heel: No 14. Toes: No 15. Assessed for device associated injury Yes 16. Nursing Nutrition Assessment Completed Yes See Doc Flowsheet for additional wound details. Callous found on both big toes bilaterally. Bruising on lower left arm from a previous iv insertion during a recent hospital stay. INTERVENTIONS: in this encounter H&P Notes * Ariane Marquez MD - 04/07/2018 10:23 AM CDT Formatting of this note may be different from the original. Epilepsy Admission History and Physical Examination Name: Liberty Cespedes Admission Date: 04/07/2018 Assessment: Active Problems: Migraine HTN (hypertension) Fibromyalgia MICHELLE (obstructive sleep apnea) Anxiety and depression GERD (gastroesophageal reflux disease) Intractable seizures (HCC) Morbid obesity with BMI of 50.0-59.9, adult ([facility]) Liberty Cespedes is a 48 y.o. female with intractable seizures, MICHELLE, fibromyalgia, depression, anxiety, migraines, previous DVT, RLS, is admitted for VEEG to classify seizures. Plan: VEEG.No seizures. Awaiting seizures. Cardiac telemetry: sinus rhythm Seizure precautions Vital signs and Neurochecks q 8 hours unless seizure occurrence then q 1 hour till baseline mental status returns. Keppra 1000 mg -1500 dc'd on 04/07. Seizure protocol: Assess patient then Give 2mg IV ativan for the following parameters: Convulsion >4 minutes. 2 convulsions in 24 hours. 3 Complex Partial seizures in 24 hours. IF ATIVAN GIVEN ONCE AND SEIZURE DOESN'T STOP OR IF ANOTHER SEIZURE OCCURS DURING YOUR SHIFT, CALL Dr. Will [phone]. FEN Regular diet IV heplock CBC, CMP Prophylaxis IS q 1 hour w/a SCD's lower extremities. Lovenox 40mg SQ daily due to previous DVT. 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 Anxiety and Depression Vistaril 25-50mg tid prn anxiety Abilitfy 10mg daily. Pristiq 100mg qhs. COPD Continue current MANUFACTURING WORKER inhalers. MIgraine Topamax 100mg bid Zofran 4mg q 8 hour prn N/V Sleep apnea RT to provide cpap machine and mask with auto titration. Full Code Status Disposition: Inpatient VEEG to capture typical seizures for classification. Admit to Epilepsy Service: Dr. Marquez. Discussed exam and plan of care with Dr. Marquez ATTESTATION I personally interviewed and examined the patient. I have reviewed the history , physical, impression and plan outlined by the Nurse Practitioner. The patient presents with (HPI) episodes of right face twitching, On examination there is no focality EEG is normal thus far, My impression is epileptic vs non-epileptic events in the setting of history of epilepsy in childhood, My plan is video EEG monitoring . Staff name: Ariane Marquez MD Date: 04/08/2018 __ Primary Care Physician: Brandon Rosales Verified Chief Complaint: Seizure evaluation. History of Present Illness: Liberty Cespedes is a 48 y.o. female with intractable seizures, MICHELLE, fibromyalgia, depression, anxiety, migraines, previous DVT, RLS, is admitted for VEEG to classify seizures. Patient reports having seizures since age 3. Age 15 seizures resolved and then recurred at age 29. She has 2 types of seizures. 1. Patient states she would have generalized tonic clonic seizures during sleep with urinary incontience. These occurred during sleep. They occurred when she was younger but doesn't know if they still occur since she sleeps alone. 2.She will have a sudden Twitching of right eye and/or right mouth. She says she 's confused during and after the seizure for 1-2 minutes. Duration 3-4 seconds up to 10 minutes. The last event was March 28, 2018 Past AED's tried: valproate, phenobarbital Current AED's: keppra, topamax Triggers or associated factors: stress, lack of sleep, Patient denies complicated periods, febrile seizures, head injury, encephalitis, meningitis, stroke. As a baby she fell down a flight of stairs. Unknown if consciousness lost. Special needs daughter during sleep. Age 21. Daughter had epilepsy 11-24-17 Neuropsychology: The patient's performance was notable for mild generalized cognitive dysfunction with no clear localizing or lateralizing pattern and could be consistent with mild encephalopathy due to seizure activity. Clinical correlation with EEG is recommended. Another potential etiology is medication side effects - specifically the large number of medications she's currently taking with known anticholinergic side effects. MICHELLE and excessive daytime drowsiness are also likely contributing to some degree. : 11-23-17 [facility] VEEG: normal study. No events occurred. Study ended prematurely per patient request. 2007 MRI brain: The diagnostic quality of the study is markedly compromised due to extensive patient motion. [facility] Video EE--This is an 8-day seizure monitoring study, which is terminated prematurely because of the patient request due to family problems. Nothing can be said about the nocturnal shaking spells since none occurred. There is no evidence that the staring or eyes twitching spells are epileptic and most likely they are non-epileptic. Past Medical History: Diagnosis Date Anxiety Depression DVT (deep venous thrombosis) ([facility]) 03/22 right calf 2007 Fibromyalgia GERD (gastroesophageal reflux disease) HTN (hypertension) 10/26/2007 Intentional weight loss Intractable seizures ([facility]) Migraine 10/26/2007 Morbid obesity with BMI of 50.0-59.9, adult ([facility]) OA (osteoarthritis) 10/26/2007 KNEES, ANKLES Psychiatric illness depression/anxiety. Denies suicidal ideations. RLS (restless legs syndrome) Sleep apnea Past Surgical History: Procedure Laterality Date APPENDECTOMY HX LITHOTRIPSY HX IBRAHIMA AND BSO for menorrhagia RI OPTX ANKLE DISLOCATION W/REPAIR/INT/XTRNL FIXJ Family History Problem Relation Age of Onset Cancer-Lung Father Heart Disease Father Alcohol abuse Mother Dementia Mother Epilepsy Daughter Social History Social History Marital status: Spouse name: N/A Number of children: 1 Years of education: N/A Occupational History Disabled Social History Main Topics Smoking status: Former Smoker Packs/day: 1.00 Types: Cigarettes Quit date: 03/2018 Smokeless tobacco: Former User Quit date: 06/16/2012 Comment: in process of quitting Alcohol use No Comment: Social Drug use: No Sexual activity: Not Currently Other Topics Concern Not on file Social History Narrative Some college . One daughter at age 21 from unknown etiology during sleep. Disabled due to seizures Lives alone Immunizations (includes history and patient reported): Immunization History Administered Date(s) Administered FLU VACCINE >3YO 07/27/2008 Pneumococcal Vaccine (23-Emily Adult) 12/21/2012 Td Vaccine 09/15/1999 Allergies: Nexium [esomeprazole magnesium] and Sulfa (sulfonamide antibiotics) Medications: Prescriptions Prior to Admission Medication Sig acetaminophen (TYLENOL) 500 mg tablet Take 1,000 mg by mouth at bedtime daily. Max of 4,000 mg of acetaminophen in 24 hours. acetaminophen/diphenhydramine (TYLENOL PM) 500/25 mg 1 tablet Take 1 tablet by mouth at bedtime as needed (for sleep/allergies). albuterol (PROAIR HFA, VENTOLIN HFA, OR PROVENTIL HFA) 90 mcg/actuation inhaler Inhale 2 puffs by mouth into the lungs every 6 hours as needed for Wheezing or Shortness of Breath. Shake well before use. albuterol 0.5% (PROVENTIL; VENTOLIN) 2.5 mg/0.5 mL Nebu nebulizer solution Inhale 2.5 mg solution as directed every 6 hours as needed. ARIPiprazole (ABILIFY) 10 mg tablet Take 10 mg by mouth daily. [DISCONTINUED] ARIPiprazole (ABILIFY) 5 mg tablet Take 5 mg by mouth daily. atorvastatin (LIPITOR) 10 mg tablet Take 10 mg by mouth at bedtime daily. cetirizine (ZYRTEC) 10 mg tablet Take 10 mg by mouth daily. cyclobenzaprine (FLEXERIL) 10 mg tablet Take 10 mg by mouth three times daily as needed for Muscle Cramps. desvenlafaxine (+) (PRISTIQ) 100 mg tablet Take 100 mg by mouth at bedtime daily. [DISCONTINUED] dexlansoprazole (+) (DEXILANT) 60 mg capsule Take 60 mg by mouth daily. [DISCONTINUED] doxycycline (VIBRAMYCIN) 100 mg tablet Take 1 tablet by mouth twice daily. estradiol (ESTRACE) 2 mg tablet Take 2 mg by mouth at bedtime daily. fluticasone (FLONASE) 50 mcg/actuation nasal spray Apply 1 spray to each nostril as directed daily. Shake bottle gently before using. Glycopyrrolate 2 mg tab Take 1 tablet by mouth twice daily. guanFACINE (TENEX) 1 mg tablet Take 1 mg by mouth at bedtime daily. hydrOXYzine pamoate (VISTARIL) 25 mg capsule Take 25-50 mg by mouth three times daily as needed for Anxiety. isosorbide mononitrate SR (IMDUR) 60 mg tablet Take 30 mg by mouth every morning. levETIRAcetam (KEPPRA) [...] Take 50 mg by mouth every morning. nabumetone (RELAFEN) 500 mg tablet Take 500 mg by mouth twice daily. [DISCONTINUED] nicotine(+) (NICOTROL) 10 mg inhaler Inhale 1 puff by mouth into the lungs as Needed. olopatadine(+) (PATANOL) 0.1 % ophthalmic solution Apply 1 drop to both eyes twice daily. ondansetron (ZOFRAN) 4 mg tablet Take 4 mg by mouth every 8 hours as needed for Nausea or Vomiting. other medication 1 Dose. Allergy shot other medication Compression stockings 30-40 mm Hg Knee high other medication BP machine pantoprazole DR (PROTONIX) 40 mg tablet Take 40 mg by mouth daily. ranitidine(+) (ZANTAC) 150 mg tablet Take 150 mg by mouth twice daily. solifenacin(+) (VESICARE) 5 mg tablet Take 5 mg by mouth at bedtime daily. topiramate (TOPAMAX) 50 mg tablet TAKE TWO TABLETS BY MOUTH TWICE A DAY ( DOSE CHANGED AT OFFICE VISIT ON 05/26/2017) umeclidinium-vilanterol (ANORO ELLIPTA) 62.5-25 mcg/actuation inhaler Inhale 1 puff by mouth into the lungs daily. varenicline (CHANTIX CONTINUING MONTH BOX) 1 mg tablet Take 1 mg by mouth twice daily. zolpidem (AMBIEN) 10 mg tablet Take 10 mg by mouth at bedtime daily. Review of Systems: Constitutional: No fever/chills/sweat, weight loss, tiredness/fatigue, or poor appetite Eyes: No reduced vision or blurriness, double vision, or droopy eyelids ENT: No hearing loss, ringing in the ears, vertigo, or hoarseness Cardiovascular: No chest pain/angina or palpitations Respiratory: No shortness of breath or cough Gastrointestinal: No abdominal pain, nausea and/or vomiting, diarrhea, or constipation Genitourinary: No pain with urination, excessive urination, or incontinence Musculoskeletal: No back pain, neck pain, joint pain/redness/swelling, or myalgia Neurological: negative for headaches, dizziness, vertigo, memory problems, speech problems, paresthesia, coordination problems, gait problems, tremor and weakness Skin: No jaundice, rash, or change in sweating Hematologic/ Lymphatic: No anemia, easy bruising, bleeding, or enlarged lymph nodes Endocrine: No temperature intolerance, polyuria, or polydipsia Allergic/ Immunological: No severe allergic reaction Psychiatric: depression and anxiety stable. Denies suicidal ideations. Physical Exam: Vital Signs: Last Filed Vital Signs: 24 Hour Range BP: 107/56 (04/07 143) Temp: 36.8 C (98.3 F) (04/07 143) Pulse: 62 (04/07 1600) Respirations: 18 PER MINUTE (04/07 143) SpO2: 96 % (04/07 143) O2 Delivery: None (Room Air) (04/07 143) Height: 165.1 cm (65") (04/07 1031) BP: (107-123)/(56-84) Temp: [36.8 C (98.3 F)-36.9 C (98.4 F)] Pulse: [62-81] Respirations: [16 PER MINUTE-18 PER MINUTE] SpO2: [95 %-96 %] O2 Delivery: None (Room Air) Intensity Pain Scale 0-10 (Pain 1): 0 (04/07/18 1554) General physical exam: Gen: Alert and cooperative. Neck: Supple without bruit. CV: Normal rate and regular rhythm. No murmur. Pulm: Clear breath sounds bilaterally. No crackles or wheezes. Neurologic exam: MSE: Alert and cooperative. Oriented to person, place, time, and situation. Answers questions appropriately. Speech: No aphasia or dysarthria. CN: Normal Abnormal II Pupils reactive, 4mm, visual wray normal III, IV, EOMI, no nystagmus V Sensation nml V1-V3 VII Normal facial symmetry VIII Normal to finger rub IX, X Palate elevates symmetrically XI Equal shoulder shrug XII Tongue midline Motor: Normal bulk and tone. No pronator drift. No abnormal movements. Strength: Left Right Shoulder Abduction 5 5 Elbow flexion 5 5 Elbow extension 5 5 Wrist Extension 5 5 Wrist Flexion 5 5 Finger Extension 5 5 Finger Flexion 5 5 Hand Interossei 5 5 Hip Flexion 5 4 Knee Extension 5 4 Knee Flexion 5 4 Foot Dorsiflexion 5 4 Foot Plantar Flexion 5 4 Reflexes: Right Left Triceps 2 2 Biceps 2 2 Brachioradialis 2 2 Patella 2 2 Ankle 2 2 Plantar down down Cerebellar: Finger-nose testing and heel to patricio without without dysmetria or ataxia. Sensory: Sensation intact to light touch in all extremities. Gait: Not assessed, VEEG. Lab/Radiology/Other Diagnostic Tests: 24-hour labs: Results for orders placed or performed during the hospital encounter of (from the past 24 hour(s)) CBC Collection Time: 04/07/18 11:30 AM Result Value Ref Range White Blood Cells 12.9 (H) 4.5 - 11.0 K/UL RBC 3.87 (L) 4.0 - 5.0 M/UL Hemoglobin 12.2 12.0 - 15.0 GM/DL Hematocrit 36.4 36 - 45 % MCV 94.1 80 - 100 FL MCH 31.5 26 - 34 PG MCHC 33.5 32.0 - 36.0 G/DL RDW 13.7 11 - 15 % Platelet Count 188 150 - 400 K/UL MPV 8.8 7 - 11 FL COMPREHENSIVE METABOLIC PANEL Collection Time: 04/07/18 11:30 AM Result Value Ref Range Sodium 136 (L) 137 - 147 MMOL/L Potassium 4.1 3.5 - 5.1 MMOL/L Chloride 107 98 - 110 MMOL/L Glucose 109 (H) 70 - 100 MG/DL Blood Urea Nitrogen 23 7 - 25 MG/DL Creatinine 0.92 0.4 - 1.00 MG/DL Calcium 8.8 8.5 - 10.6 MG/DL Total Protein 5.8 (L) 6.0 - 8.0 G/DL Total Bilirubin 0.4 0.3 - 1.2 MG/DL Albumin 3.3 (L) 3.5 - 5.0 G/DL Alk Phosphatase 56 25 - 110 U/L AST (SGOT) 11 7 - 40 U/L CO2 23 21 - 30 MMOL/L ALT (SGPT) 11 7 - 56 U/L Anion Gap 6 3 - 12 eGFR Non >60 >60 mL/min eGFR >60 >60 mL/min Glucose: (!) 109 (04/07/18 1130) No pertinent radiology. Elisabeth Aguilera APRN- Pager [phone] in this encounter Procedure Notes * Ariane Marquez MD - 04/10/2018 10:09 AM CDT Procedure(s): RI LOCALIZE CEREBRAL SEIZURE CABLE/RADIO EEG/VIDEO VIDEO EEG REPORT Final Day and Summary Liberty Cespedes 1970 [id number] Date of service: 04/09-04/10/2018 History: 48 y.o. female with childhood onset epilepsy by history with reported unwitnessed nocturnal convulsions. Her current seizure type is right mouth and eye twitching with decreased responsiveness. Medications: topiramate, levetiracetam Introduction: This study was performed using digital [...] complexes. Events: Did not occur. Interpretation: This completes three days of 24 hour video EEG monitoring. This study was normal. No events occurred. Ariane Marquez MD 04/10/18 * Ariane Marquez MD - 04/09/2018 9:43 AM CDT Procedure(s): RI LOCALIZE CEREBRAL SEIZURE CABLE/RADIO EEG/VIDEO VIDEO EEG REPORT Liberty Cespedes 1970 [id number] Date of service: 04/08-04/09/2018 History: 48 y.o. female with childhood onset epilepsy by history with reported unwitnessed nocturnal convulsions. Her current seizure type is right mouth and eye twitching with decreased responsiveness. Medications: topiramate, levetiracetam (off) Introduction: This study was performed using digital [...] K complexes. Events: Did not occur. Interpretation: Day two of 24 hour video EEG monitoring is normal. No events occurred. Clinical correlation: Awaiting typical events. Ariane Marquez MD 04/09/18 * Ariane Marquez MD - 04/08/2018 10:41 AM CDT Associated Order(s): EEG DEPARTMENT ORDER Procedure(s): RI LOCALIZE CEREBRAL SEIZURE CABLE/RADIO EEG/VIDEO VIDEO EEG REPORT Liberty Cespedes 1970 [id number] Date of service: 04/07-04/08/2018 History: 48 y.o. [...] events occurred. Clinical correlation: Awaiting typical events. Ariane Marquez MD 04/08/18 in this encounter Miscellaneous Notes * Case Mgmt DC Dilcia Limon - 04/10/2018 11:29 AM CDT Request to Arrange Patient Transportation Received request from Jenny Orozco [facility] to arrange transportation for pt to d/ c home to [address] [place] [id number]. Date and time of transport: 04/10/18 between [id number] Transport company: [email or web address] [phone] Confirmation # : [id number] Instructions for superintendent drivers: Job Honer will call [phone] prior to arrival so pt will be ready for d/c. To check the status of this ride please call [phone] and use confirmation number [id number]. Dilcia Monroe Weight Shifter For further assistance please contact [facility] *[phone] * Case Mgmt DC Plan - Jenny Orozco - 04/10/2018 10:56 AM CDT Social Work Note Plan: Anticipate d/c home with assistance upon completion of VEEG monitoring. PT/OT not consulted. Intervention: SW reviewed EMR and met with Neuro team. Pt admitted for VEEG for classification and localization of events. Seizure precautions and tele monitor. SW visited pt at bedside to update. Pt expressing need for transportation upon d /c and agreeable to Medicaid transportation arrangements. SW reviewed arrangement of such and confirmed home address. SW also assisted with completed and acted as notary for pt's DPOA-HC. SW provided several copies to pt and emailed copy to Document Mgmt to be scanned into EMR. Agent 1: Wendy Cespedes (sister) [phone] SW will continue to follow. Jenny Orozco [facility] [place]: [phone] Pager: [phone] * Care Plan - Josue Amado RN - 04/10/2018 9:43 AM CDT Problem: Falls, High Risk of Goal: Absence of falls-Adult Patient Outcome: Goal Ongoing Fall bundles in place. No falls this shift. Problem: Neurological Status, Impaired/Altered Goal: Progress toward maximizing functional outcomes Outcome: Goal Ongoing Patient A&Ox4. Makes needs known. Problem: Discharge Planning Goal: Participation in plan of care Outcome: Goal Ongoing Participating in plan of care. Looking forward to being discharged today. Problem: VTE, Risk of Goal: Absence of venous thrombosis Outcome: Goal Ongoing No s/s of DVT noted. SCDs in place bilateral legs. * Care Plan - Angelic Bowser RN - 04/09/2018 11:39 PM CDT Problem: Falls, High Risk of Goal: Absence of falls-Adult Patient Outcome: Goal Ongoing High fall risk bundle in place. Problem: Neurological Status, Impaired/Altered Goal: Progress toward maximizing functional outcomes Outcome: Goal Ongoing Pt is alert and oriented x 4. PERRLA. Problem: Discharge Planning Goal: Participation in plan of care Outcome: Goal Ongoing Pt. participates in POC. Goal: Knowledge regarding plan of care Outcome: Goal Ongoing Pt. provided POC. Problem: VTE, Risk of Goal: Absence of venous thrombosis Outcome: Goal Ongoing SCDs in place. * Case Mgmt DC Plan - Jenny Orozco - 04/07/2018 3:10 PM CDT Social Work Note Plan: Anticipate d/c home with assistance upon completion of VEEG monitoring. PT/OT not consulted. Intervention: SW reviewed EMR and met with Neuro team. Pt admitted for VEEG for classification and localization of events. Seizure precautions and tele monitor. Onset of seizures at age 3 with resolution between age 16-30 and resumption at age 29. Hx of migraine, HTN, Fibromyalgia, MICHELLE, anxiety, GERD, and seizures. PT/OT not consulted. Regular diet, Pt lives alone in [place], [place]. Prior to admission, pt was independent with ADLs. Pt not currently working and on disability. Pt insured through [email or web address] [place] Medicaid. PCP Brandon Rosales. Rx filled at [facility] in [place]. Pt is a former smoker, approximately 1 PPD. Hx of anxiety/depression, currently takes Abilify. Case Mgmt will continue to follow. Jenny Orozco [facility] [place]: [phone] Pager: [phone] in this encounter Plan of Treatment Not on fileas of this encounter Procedures Procedure Name Priority Date/Time Associated Diagnosis Comments TELEMETRY STRIPS-SCAN 04/12/2018 Results for this 10:19 AM CDT procedure are in the results section. in this encounter Results * TELEMETRY STRIPS-SCAN (04/12/2018 10:19 AM) Narrative Performed At Ordered by an unspecified provider. * EEG DEPARTMENT ORDER (04/08/2018 10:41 AM) Narrative Performed At Ariane aMrquez MD 04/08/2018 10:43 AM VIDEO EEG REPORT Liberty Cespedes 1970 [id number] Date of service: 04/07-04/08/2018 History: 48 y.o. [...] events occurred. Clinical correlation: Awaiting typical events. Ariane Marquez MD 04/08/18 * COMPREHENSIVE METABOLIC PANEL (04/07/2018 11:30 AM) [...] for questions. Specimen Blood Performing Organization Address City/State/Zipcode Phone Number [facility] [address] [place] [address] * CBC (04/07/2018 11:30 AM) White Blood [...] LAB MCHC 33.5 32.0 - 36.0 G/DL [facility] RDW 13.7 11 - 15 % [facility] Platelet Count 188 150 - 400 K/UL [facility] MPV 8.8 7 - 11 FL [facility] Specimen Blood Performing Organization Address City/State/Zipcode Phone Number [facility] [address] [place] [address] in this encounter Visit Diagnoses Diagnosis Convulsions, unspecified convulsion type (HCC) - Primary Facial twitching Other facial nerve disorders GERD (gastroesophageal reflux disease) Esophageal reflux Migraine Migraine, unspecified, without mention of intractable migraine without mention of status migrainosus HTN (hypertension) Unspecified essential hypertension Fibromyalgia Mylagia and myositis, unspecified MICHELLE (obstructive sleep apnea) Obstructive sleep apnea (adult) (pediatric) Anxiety and depression Dysthymic disorder Morbid obesity with BMI of 50.0-59.9, adult (HCC) Morbid obesity Admitting Diagnoses Diagnosis Unspecified convulsions (HCC) - UNKNOWN Unspecified convulsions Intractable seizures (HCC) Administered Medications Medication Order MAR Action Action Date Dose Rate Site acetaminophen (TYLENOL) tablet 1,000 mg Given 04/08/2018 1,000 mg 1,000 mg, Oral, EVERY 6 HOURS PRN, 04:32 CDT Starting Fri04/07/18 at 1159, Until Fri04/10/18 at 1503, Pain non-opioid: may be used alone or in combination with opioid analgesia, TOTAL ACETAMINOPHEN DOSE NOT TO EXCEED 4GM DAILY Given 04/08/2018 1,000 mg 14:37 CDT Given 04/09/2018 1,000 mg 14:39 CDT ARIPiprazole (ABILIFY) tablet 10 mg Given 04/08/2018 10 mg 10 mg, Oral, DAILY, First dose on Fri 09:40 CDT 04/08/18 at 0900, Until Discontinued Given 04/09/2018 10 mg 08:34 CDT Given 04/10/2018 10 mg 08:13 CDT atorvastatin (LIPITOR) tablet 10 mg Given 04/07/2018 10 mg 10 mg, Oral, AT BEDTIME DAILY, First 21:11 CDT dose on Fri04/07/18 at 2100, Until Discontinued Given 04/08/2018 10 mg 21:23 CDT Given 04/09/2018 10 mg 20:28 CDT cetirizine (ZYRTEC) tablet 10 mg Given 04/08/2018 10 mg 10 mg, Oral, DAILY, First dose on Fri 09:40 CDT 04/08/18 at 0900, Until Discontinued Given 04/09/2018 10 mg 08:40 CDT Given 04/10/2018 10 mg 08:13 CDT desvenlafaxine(+) (PRISTIQ) tablet 100 Given 04/07/2018 100 mg mg 21:13 CDT 100 mg, Oral, AT BEDTIME DAILY, First dose on Fri04/07/18 at 2100, Until Discontinued Given 04/08/2018 100 mg 21:24 CDT Given 04/09/2018 100 mg 20:29 CDT enoxaparin (LOVENOX) syringe 40 mg Given 04/07/2018 40 mg Abdomen:LLQ 40 mg, Subcutaneous, DAILY, First dose 21:11 CDT on Fri04/07/18 at 2100, Until Discontinued, For patients undergoing surgery: Consult physician in advance -- enoxaparin is an anticoagulant and may need to be held for 12hr prior to surgery or invasive procedures. NOTE: This is a HIGH ALERT Medication. enoxaparin (LOVENOX) syringe 40 mg Given 04/09/2018 40 mg Abdomen:LLQ 40 mg, Subcutaneous, TWICE DAILY, First 08:35 CDT dose on Fri04/08/18 at 1000, Until Discontinued, For patients undergoing surgery: Consult physician in advance -- enoxaparin is an anticoagulant and may need to be held for 12hr prior to surgery or invasive procedures. NOTE: This is a HIGH ALERT Medication. Given 04/09/2018 40 mg Abdomen:LLQ 20:28 CDT Given 04/10/2018 40 mg Abdominal 08:15 CDT Tissue estradiol (ESTRACE) tablet 2 mg Given 04/07/2018 2 mg 2 mg, Oral, AT BEDTIME DAILY, First dose 21:12 CDT on Fri04/07/18 at 2100, Until Discontinued Given 04/08/2018 2 mg 21:24 CDT Given 04/09/2018 2 mg 20:29 CDT famotidine (PEPCID) tablet 20 mg Given 04/09/2018 20 mg 20 mg, Oral, TWICE DAILY, First dose on 08:34 CDT Fri04/07/18 at 2100, Until Discontinued Given 04/09/2018 20 mg 20:28 CDT Given 04/10/2018 20 mg 08:13 CDT fluticasone (FLONASE) nasal spray 1 Given 04/08/2018 1 spray spray 09:40 CDT 1 spray, Each Nostril, DAILY, First dose on Fri04/07/18 at 1245, Until Discontinued Given 04/09/2018 1 spray 08:41 CDT Given 04/10/2018 1 spray 08:16 CDT glycopyrrolate (ROBINUL) tablet 2 mg Given 04/09/2018 2 mg 2 mg, Oral, TWICE DAILY, First dose on 08:34 CDT Fri04/07/18 at 2100, Until Discontinued Given 04/09/2018 2 mg 20:28 CDT Given 04/10/2018 2 mg 08:22 CDT guanFACINE (TENEX) tablet 1 mg Given 04/07/2018 1 mg 1 mg, Oral, AT BEDTIME DAILY, First dose 21:13 CDT on Fri04/07/18 at 2100, Until Discontinued, Hold for heart rate < 60 bpm, systolic BP < 100 or diastolic BP < 60 Given 04/08/2018 1 mg 21:24 CDT Given 04/09/2018 1 mg 20:29 CDT hydrOXYzine (ATARAX) tablet 25-50 mg Given 04/09/2018 50 mg 25-50 mg, Oral, THREE TIMES DAILY PRN, 18:33 CDT Starting Fri04/07/18 at 1159, Until Fri04/10/18 at 1503, Anxiety PO isosorbide mononitrate SR (IMDUR) tablet Given 04/08/2018 30 mg 30 mg 09:39 CDT 30 mg, Oral, DAILY, First dose on Fri04/08/18 at 0900, Until Discontinued, DO NOT Crush tablets (May be cut in half) Given 04/09/2018 30 mg 08:34 CDT Given 04/10/2018 30 mg 08:23 CDT levETIRAcetam (KEPPRA) tablet 1,000 mg Given 04/10/2018 1,000 mg 1,000 mg, Oral, DAILY, First dose on Fri 08:22 CDT 04/10/18 at 0900, Until Discontinued levETIRAcetam (KEPPRA) tablet 1,000 mg Given 04/09/2018 1,000 mg 1,000 mg, Oral, ONCE, 1 dose, Fri 16:09 CDT 04/09/18 at 1500 levETIRAcetam (KEPPRA) tablet 1,500 mg Given 04/09/2018 1,500 mg 1,500 mg, Oral, AT BEDTIME DAILY, First 20:33 CDT dose on Fri04/09/18 at 2100, Until Discontinued mirabegron(+) ER (MYRBETRIQ ER) tablet Given 04/08/2018 50 mg 50 mg 09:40 CDT 50 mg, Oral, DAILY, First dose on Fri04/08/18 at 0900, Until Discontinued, Tablet should be swallowed whole. Do not cut, crush or chew. Given 04/09/2018 50 mg 08:34 CDT Given 04/10/2018 50 mg 08:23 CDT nabumetone (RELAFEN) tablet 500 mg Given 04/09/2018 500 mg 500 mg, Oral, TWICE DAILY, First dose on 08:34 CDT Fri04/07/18 at 2100, Until Discontinued Given 04/09/2018 500 mg 20:29 CDT Given 04/10/2018 500 mg 08:24 CDT olopatadine(+) (PATANOL) 0.1 % Given 04/09/2018 1 drop ophthalmic solution 1 drop (POM) 08:41 CDT 1 drop, Both Eyes, TWICE DAILY, First dose on Fri04/07/18 at 1430, Until Discontinued, PATIENT'S OWN MED Given 04/09/2018 1 drop 20:34 CDT Given 04/10/2018 1 drop 08:17 CDT oxybutynin XL (DITROPAN XL) tablet 5 mg Given 04/07/2018 5 mg 5 mg, Oral, AT BEDTIME DAILY, First dose 21:13 CDT on Fri04/07/18 at 2100, Until Discontinued Given 04/08/2018 5 mg 21:24 CDT Given 04/09/2018 5 mg 20:[address] (PROTONIX) tablet 40 mg Given 04/08/2018 40 mg 40 mg, Oral, DAILY, First dose on Wed 09:40 CDT 04/08/18 at 0900, Until Discontinued, Do not crush or chew tablet. Given 04/09/2018 40 mg 08:34 CDT Given 04/10/2018 40 mg 08:13 CDT topiramate (TOPAMAX) tablet 100 mg Given 04/09/2018 100 mg 100 mg, Oral, TWICE DAILY, First dose on 09:39 CDT Fri04/07/18 at 2100, Until Discontinued Given 04/09/2018 100 mg 20:29 CDT Given 04/10/2018 100 mg 08:13 CDT umeclidinium-vilanterol (ANORO ELLIPTA) Given 04/08/2018 1 puff 62.5-25 mcg/actuation inhaler 1 puff 06:07 CDT 1 puff, Inhalation, RT DAILY, First dose on Fri04/07/18 at 1245, Until Discontinued, When administered by RT, will be per RT policy. Given 04/09/2018 1 puff 05:09 CDT Given 04/10/2018 1 puff 05:30 CDT varenicline (CHANTIX) tablet 1 mg Given 04/09/2018 1 mg 1 mg, Oral, TWICE DAILY WITH MEALS, 08:34 CDT First dose on Fri04/07/18 at 1700, Until Discontinued, This medication should be taken after eating. Given 04/09/2018 1 mg 20:30 CDT Given 04/10/2018 1 mg 08:24 CDT zolpidem (AMBIEN) tablet 10 mg Given 04/07/2018 10 mg 10 mg, Oral, AT BEDTIME PRN, Starting 21:19 CDT Fri04/07/18 at 1159, Until Fri04/10/18 at 1503, Insomnia Given 04/09/2018 10 mg 20:33 CDT in this encounter
--- OUTSIDE RECORDS SUMMARY | 2018-04-26 09:45 | XMS REPORT | Encounter Summary ---
Author Author [facility] Organization [facility] Address Unknown Phone Unavailable Care Team Providers Care Family Resource Coordinator Name Role Phone SethMaribel fonseca Unavailable Unavailable Carol Ann Marie PA-C Unavailable Unavailable Hailee Crook Unavailable Nadja Levy RN Unavailable Unavailable Shannen Christensen MD Unavailable Gabriela Silva MD Unavailable [place] [facility] Unavailable Unavailable Beny Fuentes MD Unavailable Unavailable Carlin Hamilton MD Unavailable Yesenia Falcon MD Unavailable Harvey Black MD Unavailable Billie Pereyra MD Unavailable Samreen Harris MD Unavailable Mariusz Kay MD Unavailable Carolina Cross MD Unavailable Brandon Rosales PA-C PCP Unavailable Reason for Visit * Reason Comments Medication Refill Encounter Details Date Type Department Care Team Description 2018 Refill [facility] Carolina Cross MD Physicians-Neurology [address] [facility] [place] 2011 [address] [place] [address] [place], [place] [phone] [phone] Social History Tobacco Use Types Packs/Day Years [...] cosign. in this encounter Plan of Treatment Not on fileas of this encounter Visit Diagnoses Not on filein this encounter
--- OUTSIDE RECORDS SUMMARY | 2018-04-26 09:46 | XMS REPORT ---
Author Author BELTRAN PEREZ [facility] IN [facility] Address [address] [place] [address] Care Team Providers Care Testing Lead Name Role Phone BELTRAN PEREZ Unavailable PROBLEMS Type Condition ICD9-CM Code XEF80-TM Code Onset Dates Condition Status SNOMED Code Problem Mixed hyperlipidemia E78.2 Active 333121768 Problem Seasonal allergic rhinitis due to other allergic trigger J30.89 Active 426941170 Problem Angina of effort I20.8 Active 153008030 Problem Pain in left shoulder M25.512 Active 85217603 Problem BMI 50.0-59.9, adult Z68.43 Active 998697697 Problem Recurrent major depressive disorder, in partial remission F33.41 Active 75518028 Problem Post-menopausal Z78.0 Active 45890810 Problem Mixed stress and urge urinary incontinence N39.46 Active 480889118 Problem Dry eyes H04.123 Active 330698417 Problem Osteoarthritis of multiple joints, unspecified osteoarthritis type M15.9 Active 040574974 Problem Migraine without aura and without status migrainosus, not intractable G43.009 Active 923526444 Problem Recurrent sinus infections J32.9 Active 512554059 Problem Gastroesophageal reflux disease with esophagitis K21.0 Active 504227003 Problem Nausea R11.0 Active 721626635 Problem 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 Active 144557499 Problem Seizure disorder G40.909 Active 971979831 Problem Other chronic pain G89.29 Active 83951418 Problem Anxiety F41.9 Active 77652774 Problem 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 Active 660616520 ALLERGIES Substance Reaction Event Type Date Status Sulfacetamide Sodium Unknown Drug Allergy Nov, Active Nexium Unknown Drug Allergy Nov, Active ENCOUNTERS Encounter Location Date Diagnosis [facility] [place] [id number], [place] [address] May, [facility] [place] [id number] [address] Apr, [facility] [place] [id number] [place] [address] Apr, [facility] [place] [id number] [place] [address] Mar, 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 [facility] [place] [id number] [place] [address] 41336- 9513 Feb, 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 ; BMI 50.0-59.9, adult Z68.43 and Onychomycosis B35.1 [facility] [place] [id number] [place] [address] 84760- 9004 January, 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 [facility] [place] [id number] [place] [address] 92055- 0509 January, 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 [facility] [place] [id number] [place] [address] 48340- 0433 January, 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 [place] [address] [address] January, [place] [address] [address] January, Pain in left shoulder M25.512 ; Seasonal allergic rhinitis due to other allergic trigger J30.89 and BMI 50.0-59.9, adult Z68.43 [place] [address] [address]83[address] Dec, Acute left ankle pain M25.572 and BMI 50.0-59.9, adult Z68.43 [place] [address] [address]38[address] Dec, Seasonal allergic rhinitis due to other allergic trigger J30.89 ; Osteoarthritis of multiple joints, unspecified osteoarthritis type M15.9 and BMI 50.0-59.9, adult Z68.43 [place] [address] 284[address] Dec, [place] [address] 17289- 39[address] Nov, Hospital discharge follow-up Z09 ; Other [...] partial remission F33.41 and 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 [facility] [id number] [place] [address] 0[address]10 [address] Nov, [facility] [place] [address] [facility] [id number] [address] Nov, Encounter to establish care Z76.89 [facility] [place] [address] [facility] [id number] Nov, Seasonal allergic rhinitis due to other [...] pain M54.5 and BMI 50.0-59.9, adult Z68.43 [facility] [address] [facility] [id number] [address] May, Excess exposure to sun X32.XXXA IMMUNIZATIONS No Known Immunizations SOCIAL HISTORY Never Assessed REASON FOR VISIT left shoulder pain JStrasserRN PLAN OF CARE VITAL SIGNS Height 65 in 2017-12-07 Weight 311.6 lbs 2017-12-07 Temperature 97.4 degrees Fahrenheit 2017-12-07 Heart Rate 80 bpm 2017-12-07 Respiratory Rate 20 2017-12-07 BMI 51.85 kg/m2 2017-12-07 Blood pressure systolic 120 mmHg 2017-12-07 Blood pressure diastolic 62 mmHg 2017-12-07 MEDICATIONS Medication Instructions Dosage Frequency Start Date End Date Duration Status Diclofenac Sodium 100 mg Orally Once a day 1 tablet with food or milk 24h Active Pristiq 100 MG Orally Once a day 1 tablet 24h Active Zyrtec Allergy 10 MG Orally Once a day 1 tablet 24h Active Myrbetriq 50 MG Orally Once a day 1 tablet 24h Active Estradiol 2 MG Orally Once a day 1 tablet 24h Active VESIcare 5 MG Orally Once a day 1 tablet 24h Active Aripiprazole 5 MG Orally Once a day 1 tablet 24h Active Patanol 0.1 % Ophthalmic Twice a day 1 drop into affected eye 12h Active Fluticasone Propionate 50 MCG/ACT Nasally Once a day 1 spray in each nostril 24h Active ProAir HFA 108 (90 Base) MCG/ACT Inhalation every 4 hrs 2 puffs as needed 4h Active Dexilant 60 MG Orally Once a day 1 capsule 24h Active Ambien 10 MG Orally Once a day 1 tablet at bedtime as needed 24h Active Anoro Ellipta 62.5-25 MCG/INH Inhalation Once a day 1 puff 24h Active Cyclobenzaprine HCl 10 MG Orally Three times a day 1 tablet as needed 8h Active Guanfacine HCl 1 MG Orally Once a day 1 tablet at bedtime 24h Active Keppra 500 mg 2 tablet in AM and 3 tablets at HS Active HydrOXYzine HCl 25 MG Orally every 8 hrs 1 tablet as needed 8h Active Atrovent Active Topamax 50 MG Orally Twice a day 2 tablet 12h Active Isosorbide Mononitrate ER 60 MG Orally Once a day 1 tablet in the morning 24h Active Ranitidine HCl 150 MG Orally twice a day 1 capsule 12h Active Albuterol Active Ipratropium [place] 0.06 % Nasally Three times a day 2 sprays in each nostril as needed 8h Active Lipitor 10 MG Orally Once a day 1 tablet 24h Active Zofran 4 MG Orally 4 times a day prn 1 tablet Active RESULTS No Results PROCEDURES No Known procedures INSTRUCTIONS MEDICATIONS ADMINISTERED No Known Medications MEDICAL [...]
--- OUTSIDE RECORDS SUMMARY | 2018-04-26 09:46 | XMS REPORT ---
Author Author BELTRAN PEREZ [facility] IN [facility] Address [address] [place] [address] Care Team Providers Care Armored Truck Driver Name Role Phone BELTRAN PEREZ Unavailable PROBLEMS Type Condition ICD9-CM Code EDX42-TA Code Onset Dates Condition Status SNOMED Code Problem Mixed hyperlipidemia E78.2 Active 220635563 Problem Seasonal allergic rhinitis due to other allergic trigger J30.89 Active 697312682 Problem Angina of effort I20.8 Active 679132360 Problem Pain in left shoulder M25.512 Active 05626196 Problem BMI 50.0-59.9, adult Z68.43 Active 206007767 Problem Recurrent major depressive disorder, in partial remission F33.41 Active 24210992 Problem Post-menopausal Z78.0 Active 28442500 Problem Mixed stress and urge urinary incontinence N39.46 Active 974717276 Problem Dry eyes H04.123 Active 533185648 Problem Osteoarthritis of multiple joints, unspecified osteoarthritis type M15.9 Active 878466619 Problem Migraine without aura and without status migrainosus, not intractable G43.009 Active 851347695 Problem Recurrent sinus infections J32.9 Active 840059904 Problem Gastroesophageal reflux disease with esophagitis K21.0 Active 447860938 Problem Nausea R11.0 Active 899620027 Problem 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 Active 913475970 Problem Seizure disorder G40.909 Active 578384353 Problem Other chronic pain G89.29 Active 88566789 Problem Anxiety F41.9 Active 38695967 Problem 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 Active 229970427 ALLERGIES Substance Reaction Event Type Date Status Sulfacetamide Sodium Unknown Drug Allergy Nov, Active Nexium Unknown Drug Allergy Nov, Active ENCOUNTERS Encounter Location Date Diagnosis [facility] [id number] [address] May, [facility] [address] [id number], [place] [address] Apr, [facility] [id number] [place] [address]80- [address]208 Apr, [facility] [id number] [place] [address] 16856- 8780 Mar, 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 [facility] [id number] [place] [address] 43197- 9290 Mar, [facility] [id number] [place] [address] 28553- 5543 Mar, Orthostatic hypotension I95.1 and BMI 50.0-59.9, adult Z68.43 [facility] [id number] [place] [address] 62761- 9229 Feb, [facility] [id number] [place] [address] 79543- 2045 Feb, [facility] [id number] [place] [address]5875 [address] Feb, Right flank pain R10.9 and BMI 50.0-59.9, adult Z68.43 [facility] [id number] [place] [address] 05378- 6093 Feb, 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 [facility] [id number] [place] [address] 50840- 1483 Feb, 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 ; BMI 50.0-59.9, adult Z68.43 and Onychomycosis B35.1 [facility] [id number] [place] [address] 95014- 9958 January, 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572 and BMI 50.0-59.9, adult Z68.43 [place] [address] 62849- 8414 Dec, Seasonal allergic rhinitis due to other allergic trigger J30.89 ; Osteoarthritis of multiple joints, unspecified osteoarthritis type M15.9 and BMI 50.0-59.9, adult Z68.43 [place] [address] [address]64- [address] Dec, [place] [address] 86298- 3970 Nov, Hospital discharge follow-up Z09 ; Other [...] partial remission F33.41 and 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 [facility] [id number] [place] [address]45 [address] Nov, [facility] [address] [facility] [id number] [address] Nov, Encounter to establish care Z76.89 [facility] [address] [facility] [id number] Nov, Seasonal allergic rhinitis due to other [...] pain M54.5 and BMI 50.0-59.9, adult Z68.43 [facility] [address] [facility] [id number] [address] May, Excess exposure to sun X32.XXXA IMMUNIZATIONS No Known Immunizations SOCIAL HISTORY Never Assessed REASON FOR VISIT [facility] f/u -- jaime cooper PLAN OF CARE Activity Details Follow Up 4 Weeks, prn Reason:left shoulder pain VITAL SIGNS Height 65 in 2017-12-08 Weight 312 lbs 2017-12-08 Temperature 98.3 degrees Fahrenheit 2017-12-08 Heart Rate 105 bpm 2017-12-08 Respiratory Rate 24 2017-12-08 BMI 51.91 kg/m2 2017-12-08 Blood pressure systolic 136 mmHg 2017-12-08 Blood pressure diastolic 86 mmHg 2017-12-08 MEDICATIONS Medication Instructions Dosage Frequency Start Date End Date Duration Status Cyclobenzaprine HCl 5 mg Orally Three times a day 1 tablet as needed 8h Nov, Dec, 30 days Active Patanol 0.1 % Ophthalmic Twice a day 1 drop into affected eye 12h Active Lipitor 10 MG Orally Once a day 1 tablet 24h Active Ipratropium [place] 0.06 % Nasally Three times a day 2 sprays in each nostril as needed 8h Active HydrOXYzine HCl 25 MG Orally every 8 hrs 1 tablet as needed 8h Active Anoro Ellipta 62.5-25 MCG/INH Inhalation Once a day 1 puff 24h Active Albuterol Active Ambien 10 MG Orally Once a day 1 tablet at bedtime as needed 24h Active Dexilant 60 MG Orally Once a day 1 capsule 24h Active Guanfacine HCl 1 MG Orally Once a day 1 tablet at bedtime 24h Active Pristiq 100 MG Orally Once a day 1 tablet 24h Active ProAir HFA 108 (90 Base) MCG/ACT Inhalation every 4 hrs 2 puffs as needed 4h Active Keppra 500 mg 2 tablet in AM and 3 tablets at HS Active Zyrtec Allergy 10 MG Orally Once a day 1 tablet 24h Active Fluticasone Propionate 50 MCG/ACT Nasally Once a day 1 spray in each nostril 24h Active Zofran 4 MG Orally 4 times a day prn 1 tablet Active Isosorbide Mononitrate ER 60 MG Orally Once a day 1 tablet in the morning 24h Active Ranitidine HCl 150 MG Orally twice a day 1 capsule 12h Active Indomethacin 50 mg Orally 3 times a day as needed 1 capsule with food or milk Nov, Dec, 30 day(s) Active Atrovent Active Aripiprazole 5 MG Orally Once a day 1 tablet 24h Active Myrbetriq 50 MG Orally Once a day 1 tablet 24h Active VESIcare 5 MG Orally Once a day 1 tablet 24h Active Topamax 50 MG Orally Twice a day 2 tablet 12h Active Estradiol 2 MG Orally Once a day 1 tablet 24h Active RESULTS Name Result Date Reference Range Xray : Shoulder, Left 2 view (IN HOUSE) 2017-12-08 PROCEDURES Procedure Date Ordered Result Body Site X-RAY EXAM OF SHOULDER December 08, 2017 INSTRUCTIONS MEDICATIONS ADMINISTERED No Known Medications [...]
--- OUTSIDE RECORDS SUMMARY | 2018-04-26 09:46 | XMS REPORT ---
Author Author BELTRAN PEREZ [facility] IN [facility] Address [address] [place] [address] Care Team Providers Care Car Shunter Name Role Phone BELTRAN PEREZ Unavailable PROBLEMS Type Condition ICD9-CM Code SLQ25-YJ Code Onset Dates Condition Status SNOMED Code Problem Mixed hyperlipidemia E78.2 Active 641639378 Problem Seasonal allergic rhinitis due to other allergic trigger J30.89 Active 784186886 Problem Angina of effort I20.8 Active 809273351 Problem Pain in left shoulder M25.512 Active 21532796 Problem BMI 50.0-59.9, adult Z68.43 Active 659008660 Problem Recurrent major depressive disorder, in partial remission F33.41 Active 20189697 Problem Post-menopausal Z78.0 Active 91308669 Problem Mixed stress and urge urinary incontinence N39.46 Active 087799885 Problem Dry eyes H04.123 Active 086047373 Problem Osteoarthritis of multiple joints, unspecified osteoarthritis type M15.9 Active 520305685 Problem Migraine without aura and without status migrainosus, not intractable G43.009 Active 295641172 Problem Recurrent sinus infections J32.9 Active 235324366 Problem Gastroesophageal reflux disease with esophagitis K21.0 Active 588279655 Problem Nausea R11.0 Active 874820935 Problem 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 Active 000994634 Problem Seizure disorder G40.909 Active 523340460 Problem Other chronic pain G89.29 Active 22343836 Problem Anxiety F41.9 Active 27027304 Problem 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 Active 845355171 ALLERGIES Substance Reaction Event Type Date Status Sulfacetamide Sodium Unknown Drug Allergy Dec, Active Nexium Unknown Drug Allergy Dec, Active ENCOUNTERS Encounter Location Date Diagnosis [facility] [id number] [address] May, [facility] [address] [id number] [address] Apr, [facility] [id number] [place] [address] 87447- [address]95 Apr, [facility] [id number] [place] [address] 81820- [address]687 Mar, 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 [facility] [id number] [place] [address] 00193- 9323 Mar, [facility] [id number] [place] [address] 26955- 7850 Mar, Orthostatic hypotension I95.1 and BMI 50.0-59.9, adult Z68.43 [facility] [id number] [place] [address] 33152- 6778 Feb, [facility] [id number] [place] [address] 05680- 9665 Feb, [facility] [id number] [place] [address]4028 [address] Feb, Right flank pain R10.9 and BMI 50.0-59.9, adult Z68.43 [facility] [id number] [place] [address] 79766- 5189 Feb, 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 [facility] [id number] [place] [address] 88122- 2368 Feb, 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 ; BMI 50.0-59.9, adult Z68.43 and Onychomycosis B35.1 [facility] [id number] [place] [address] 57348- 5437 January, 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 [facility] [id number] [place] [address] 97732- 8419 January, 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 [facility] [id number] [place] [address] 89928- 3743 January, 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 [place] [address] [address]- [address] January, [place] [address] [address]- [address] January, Pain in left shoulder M25.512 ; Seasonal allergic rhinitis due to other allergic trigger J30.89 and BMI 50.0-59.9, adult Z68.43 [place] [address] [address]- [address] Dec, Acute left ankle pain M25.572 and BMI 50.0-59.9, adult Z68.43 [place] [address] 96888- 0592 Dec, Seasonal allergic rhinitis due to other allergic trigger J30.89 ; Osteoarthritis of multiple joints, unspecified osteoarthritis type M15.9 and BMI 50.0-59.9, adult Z68.43 [place] [address] [address]161- [address] Dec, [place] [address] 71372- 7593 Nov, Hospital discharge follow-up Z09 ; Other [...] partial remission F33.41 and 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 [facility] [id number] [place] [address]3 [address] Nov, [facility] [address] [facility] [id number] [address] Nov, Encounter to establish care Z76.89 [facility] [address] [facility] [id number] Nov, Seasonal allergic rhinitis due to other [...] pain M54.5 and BMI 50.0-59.9, adult Z68.43 [facility] [address] [facility] [id number] [address] May, Excess exposure to sun X32.XXXA IMMUNIZATIONS No Known Immunizations SOCIAL HISTORY Never Assessed REASON FOR VISIT swollen ankles, Lt ankle pain and swelling x1 week. States she tripped over a rug last week but doesn't remember hurting it. -EDWARD Tran PLAN OF CARE Activity Details Follow Up 3 Months, prn Reason:ankle pain VITAL SIGNS Height 65 in 2018-01-06 Weight 310 lbs 2018-01-06 Temperature 98.2 degrees Fahrenheit 2018-01-06 Heart Rate 90 bpm 2018-01-06 Respiratory Rate 22 2018-01-06 BMI 51.58 kg/m2 2018-01-06 Blood pressure systolic 122 mmHg 2018-01-06 Blood pressure diastolic 80 mmHg 2018-01-06 MEDICATIONS Medication Instructions Dosage Frequency Start Date End Date Duration Status Topamax 50 MG Orally Twice a day 2 tablet 12h Active HydrOXYzine HCl 25 MG Orally every 8 hrs 1 tablet as needed 8h Active Guanfacine HCl 1 MG Orally Once a day 1 tablet at bedtime 24h Active ProAir HFA 108 (90 Base) MCG/ACT Inhalation every 4 hrs 2 puffs as needed 4h Active Ambien 10 MG Orally Once a day 1 tablet at bedtime as needed 24h Active Ranitidine HCl 150 MG Orally twice a day 1 capsule 12h Active Estradiol 2 MG Orally Once a day 1 tablet 24h Active Myrbetriq 50 MG Orally Once a day 1 tablet 24h Active Zyrtec Allergy 10 mg Orally Once a day 1 tablet 24h 9 Jul, 2018 30 days Active Anoro Ellipta 62.5-25 MCG/INH Inhalation Once a day 1 puff 24h Active Fluticasone Propionate 50 MCG/ACT Nasally twice a day 1 spray in each nostril 12h 30 days Active Aripiprazole 5 MG Orally Once a day 1 tablet 24h Active Zofran 4 MG Orally 4 times a day prn 1 tablet Active VESIcare 5 MG Orally Once a day 1 tablet 24h Active Lipitor 10 MG Orally Once a day 1 tablet 24h Active Nabumetone 500 MG Orally Twice a day 1 tablet 12h Active Pristiq 100 MG Orally Once a day 1 tablet 24h Active Isosorbide Mononitrate ER 60 MG Orally Once a day 1 tablet in the morning 24h Active Albuterol Sulfate (2.5 MG/3ML) 0.083% Inhalation Three times a day 3 ml as needed 8h Active Dexilant 60 MG Orally Once a day 1 capsule 24h Active Keppra 500 mg 2 tablet in AM and 3 tablets at HS Active Cyclobenzaprine HCl 5 mg Orally Three times a day 1 tablet as needed 8h Nov, January, 30 days Active RESULTS Name Result Date Reference Range Xray : Ankle, Left, 3 views (IN HOUSE) 2018-01-06 PROCEDURES Procedure Date Ordered Result Body Site X-RAY EXAM OF ANKLE January 06, 2018 INSTRUCTIONS MEDICATIONS ADMINISTERED No Known Medications MEDICAL [...]
--- OUTSIDE RECORDS SUMMARY | 2018-04-26 09:46 | XMS REPORT ---
Author Author BELTRAN PEREZ [facility] Address [address] [place] [address] Care Team Providers Care Asp Net C Developer Name Role Phone BELTRAN PEREZ Unavailable PROBLEMS Type Condition ICD9-CM Code [id number] Code Onset Dates Condition Status SNOMED Code Problem Mixed hyperlipidemia E78.2 Active 745606732 Problem Seasonal allergic rhinitis due to other allergic trigger J30.89 Active 391956353 Problem Angina of effort I20.8 Active 484935871 Problem Pain in left shoulder M25.512 Active 70262337 Problem BMI 50.0-59.9, adult Z68.43 Active 741050981 Problem Recurrent major depressive disorder, in partial remission F33.41 Active 28588347 Problem Post-menopausal Z78.0 Active 86764614 Problem Mixed stress and urge urinary incontinence N39.46 Active 425233414 Problem Dry eyes H04.123 Active 893618105 Problem Osteoarthritis of multiple joints, unspecified osteoarthritis type M15.9 Active 281433117 Problem Migraine without aura and without status migrainosus, not intractable G43.009 Active 164015433 Problem Recurrent sinus infections J32.9 Active 876420081 Problem Gastroesophageal reflux disease with esophagitis K21.0 Active 147991233 Problem Nausea R11.0 Active 003253740 Problem 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 Active 578468420 Problem Seizure disorder G40.909 Active 013303055 Problem Other chronic pain G89.29 Active 44618444 Problem Anxiety F41.9 Active 02862695 Problem 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 Active 253854072 ALLERGIES No Information ENCOUNTERS Encounter Location Date Diagnosis [facility] [address] [facility] [id number] [address] May, [facility] [address] [id number] [address] Apr, [facility] [id number] [place] [address] Apr, [facility] [id number] [place] [address] Mar, 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 [facility] [id number] [place] [address] Mar, [facility] [address] [address] Mar, Orthostatic hypotension I95.1 and BMI 50.0-59.9, adult Z68.43 [place] [address] [address] Feb, [facility] [id number] [place] [address] Feb, [facility] [id number] [place] [address] Feb, Right flank pain R10.9 and BMI 50.0-59.9, adult Z68.43 [place] [id number] [place] [address] Feb, 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 [facility] [id number] [place] [address] Feb, 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 ; BMI 50.0-59.9, adult Z68.43 and Onychomycosis B35.1 [facility] [id number] [place] [address]84[address] January, 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 [facility] [id number] [place] [address] January, 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 [facility] [id number] [place] [address]60- [address] January, 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 [place] [id number] [place] [address] January, [place] [address] [address] January, Pain in left shoulder M25.512 ; Seasonal allergic rhinitis due to other allergic trigger J30.89 and BMI 50.0-59.9, adult Z68.43 [place] [address] [address] Dec, Acute left ankle pain M25.572 and BMI 50.0-59.9, adult Z68.43 [place] [address] [address] Dec, Seasonal allergic rhinitis due to other allergic trigger J30.89 ; Osteoarthritis of multiple joints, unspecified osteoarthritis type M15.9 and BMI 50.0-59.9, adult Z68.43 [place] [address] [address] Dec, [place] [address] [address] Nov, Hospital discharge follow-up Z09 ; Other [...] partial remission F33.41 and 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 [facility] [id number] [place] [address] Nov, [facility] [address] [address] Nov, Encounter to establish care Z76.89 [facility] [address] [facility] [id number] [address] Nov, Seasonal allergic rhinitis due to other [...] pain M54.5 and BMI 50.0-59.9, adult Z68.43 [facility] [address] [facility] [id number] [place] [address] May, Excess exposure to sun X32.XXXA IMMUNIZATIONS No Known Immunizations SOCIAL HISTORY Never Assessed REASON FOR VISIT Refill request PLAN OF CARE VITAL SIGNS MEDICATIONS Unknown Medications RESULTS No Results PROCEDURES No Known procedures [...]
--- OUTSIDE RECORDS SUMMARY | 2018-04-26 09:46 | XMS REPORT ---
Author Author BELTRAN PEREZ [facility] Address [address] [place] [address] Care Team Providers Care Transverse Abdominal Muscle Nurse Name Role Phone BELTRAN PEREZ Unavailable PROBLEMS Type Condition ICD9-CM Code MRE55-YQ Code Onset Dates Condition Status SNOMED Code Problem Mixed hyperlipidemia E78.2 Active 661699668 Problem Seasonal allergic rhinitis due to other allergic trigger J30.89 Active 553408140 Problem Angina of effort I20.8 Active 731259245 Problem Pain in left shoulder M25.512 Active 55698445 Problem BMI 50.0-59.9, adult Z68.43 Active 702897739 Problem Recurrent major depressive disorder, in partial remission F33.41 Active 91539996 Problem Post-menopausal Z78.0 Active 97565003 Problem Mixed stress and urge urinary incontinence N39.46 Active 873921250 Problem Dry eyes H04.123 Active 607166667 Problem Osteoarthritis of multiple joints, unspecified osteoarthritis type M15.9 Active 287235225 Problem Migraine without aura and without status migrainosus, not intractable G43.009 Active 103988513 Problem Recurrent sinus infections J32.9 Active 424040330 Problem Gastroesophageal reflux disease with esophagitis K21.0 Active 171893975 Problem Nausea R11.0 Active 022212570 Problem 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 Active 590697240 Problem Seizure disorder G40.909 Active 272328198 Problem Other chronic pain G89.29 Active 44730346 Problem Anxiety F41.9 Active 92080602 Problem 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 [id number] [address] May, [facility] [address] [id number] [address] Apr, [facility] [id number] [place] [address] Apr, 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 [id number] [place] [address] Mar, [facility] [id number] [place] [address] Mar, Orthostatic hypotension I95.1 and BMI 50.0-59.9, adult Z68.43 [facility] [id number] [place] [address]- [address] Feb, [facility] [id number] [place] [address]- [address] Feb, [facility] [id number] [place] [address] Feb, Right flank pain R10.9 and BMI 50.0-59.9, adult Z68.43 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 [id number] [place] [address]- [address] Feb, 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 ; BMI 50.0-59.9, adult Z68.[address] 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 [place] [address] [address] January, [place] [address] [address] January, Pain in left shoulder M25.512 ; Seasonal allergic rhinitis due to other allergic trigger J30.89 and BMI 50.0-59.9, adult Z68.43 [place] [address] [address] Dec, Acute left ankle pain M25.572 and BMI 50.0-59.9, adult Z68.43 [place] [address] [address] Dec, Seasonal allergic rhinitis due to other allergic trigger J30.89 ; Osteoarthritis of multiple joints, unspecified osteoarthritis type M15.9 and BMI 50.0-59.9, adult Z68.43 [place] [address] [address] Dec, [place] [address] [address] Nov, Hospital discharge follow-up Z09 ; Other [...] partial remission F33.41 and 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 [address] [facility] [id number] [address] Nov, Encounter to establish care Z76.89 [facility] [address] [facility] [id number] [address] Nov, Seasonal allergic rhinitis due to other [...] pain M54.5 and BMI 50.0-59.9, adult Z68.43 [facility] [address] [facility] [id number] [address] May, Excess exposure to sun X32.XXXA IMMUNIZATIONS No Known Immunizations SOCIAL HISTORY Never Assessed REASON FOR VISIT Med F/u --tcuppettRN PLAN OF CARE Activity Details Follow Up 3 Months, prn Reason:chronic issues VITAL SIGNS Height 65 in 2017-12-26 Weight 315.8 lbs 2017-12-26 Temperature 98.0 degrees Fahrenheit 2017-12-26 Heart Rate 92 bpm 2017-12-26 Respiratory Rate 24 2017-12-26 BMI 52.55 kg/m2 2017-12-26 Blood pressure systolic 124 mmHg 2017-12-26 Blood pressure diastolic 88 mmHg 2017-12-26 MEDICATIONS Medication Instructions Dosage Frequency Start Date End Date Duration Status Atrovent Not-Taking HydrOXYzine HCl 25 MG Orally every 8 hrs 1 tablet as needed 8h Active Zyrtec Allergy 10 mg Orally Once a day 1 tablet 24h Jul, 30 days Active Dexilant 60 MG Orally Once a day 1 capsule 24h Active Aripiprazole 5 MG Orally Once a day 1 tablet 24h Active Guanfacine HCl 1 MG Orally Once a day 1 tablet at bedtime 24h Active ProAir HFA 108 (90 Base) MCG/ACT Inhalation every 4 hrs 2 puffs as needed 4h Active Isosorbide Mononitrate ER 60 MG Orally Once a day 1 tablet in the morning 24h Active Zofran 4 MG Orally 4 times a day prn 1 tablet Active Topamax 50 MG Orally Twice a day 2 tablet 12h Active Ambien 10 MG Orally Once a day 1 tablet at bedtime as needed 24h Active Albuterol Not-Taking VESIcare 5 MG Orally Once a day 1 tablet 24h Active Fluticasone Propionate 50 MCG/ACT Nasally twice a day 1 spray in each nostril 12h 30 days Active Ipratropium Concan 0.06 % Nasally Three times a day 2 sprays in each nostril as needed 8h Active Ranitidine HCl 150 MG Orally twice a day 1 capsule 12h Active Cyclobenzaprine HCl 5 mg Orally Three times a day 1 tablet as needed 8h Nov, January, 30 days Active Albuterol Sulfate (2.5 MG/3ML) 0.083% Inhalation Three times a day 3 ml as needed 8h Active Patanol 0.1 % Ophthalmic Twice a day 1 drop into affected eye 12h Not-Taking Keppra 500 mg 2 tablet in AM and 3 tablets at HS Active Lipitor 10 MG Orally Once a day 1 tablet 24h Active Anoro Ellipta 62.5-25 MCG/INH Inhalation Once a day 1 puff 24h Active Estradiol 2 MG Orally Once a day 1 tablet 24h Active Pristiq 100 MG Orally Once a day 1 tablet 24h Active Indomethacin 50 mg Orally 4 times a day 1 capsule with food or milk 6h Nov, January, 30 day(s) Active Myrbetriq 50 MG Orally Once a day 1 tablet 24h Active RESULTS No Results PROCEDURES No Known [...]
--- OUTSIDE RECORDS SUMMARY | 2018-04-26 09:48 | XMS REPORT | Continuity of Care Document ---
Author Author [facility] Organization [facility] Address Unknown Phone Unavailable Allergies Active Description Code Type Severity Reaction Onset Reported/Identified Relationship to Patient Clinical Status Yes NEXIUM MILD GI PROBLEMS - DIARRH Yes SULFA (SULFONAMIDE ANTIBIOTICS) MILD DERMATOLOGICAL - YULIYA Yes [id number] (SULFA (SULFONAMIDE ANTIBIOTICS)) [id number] (SULFA (SULFONAMIDE ANTIBIOTICS)) Mild N/A 08/06/2009 Yes esomeprazole mag [id number] Drug Allergy Moderate N/A 06/10/2013 Yes Sulfa (Sulfonamide Antibiotics) [id number] Drug Allergy Unknown RASH 2014 Medications Medication [...] UNSP GASTRITIS GASTRODUODENITIS W/O ME 06/11/2013 SVITLANA BOREGS, RUY Rushing Ot 553.3 DIAPHRAGMATIC HERNIA 06/11/2013 [...] UNSPECIFIED 07/31/2015 GEETA CASTELLON Ot Z79.899 OTHER INSTRUMENT ENGINEER (CURRENT) DRUG THERAPY 02/11/2016 KHAI JOAQUIN APRN [...] PAIN 12/24/2016 ZAHRA ORNELAS MD Ot Z79.891 INSTRUMENT ENGINEER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 OPIATE ANALGE 12/24/2016 ZAHRA [...] ZAHRA ORNELAS MD J Ot Z79.899 OTHER INSTRUMENT ENGINEER (CURRENT) DRUG THERAPY 12/27/2016 ZAHRA ORNELAS MD [...] 01/03/2017 ZAHRA ORNELAS MD J Ot Z79.891 INSTRUMENT ENGINEER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 OPIATE ANALGE 01/03/2017 ZAHRA ORNELAS MD J Ot Z79.899 OTHER DETENTION (CURRENT) DRUG THERAPY 01/03/2017 ZAHRA ORNELAS MD J Ot Z90.49 ACQUIRED ABSENCE OF OTHER SPECIFIED PART 01/03/2017 ZAHRA ORNELAS MD J Ot Z90.710 ACQUIRED ABSENCE OF BOTH CERVIX AND UTER 03/23/2017 ZAHRA ORENLAS MD J Ot F17.210 NICOTINE DEPENDENCE, CIGARETTES, UNCOMPL 03/23/2017 ZAHRA ORNELAS MD J Ot J44.9 CHRONIC OBSTRUCTIVE PULMONARY DISEASE, U 03/23/2017 ZAHRA ORNELAS MD Ot K59.03 DRUG INDUCED CONSTIPATION 03/23/2017 ZAHRA ORNELAS MD Ot R10.11 RIGHT UPPER QUADRANT PAIN 03/23/2017 ZAHRA ORNELAS MD Ot Z79.891 DETENTION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 OPIATE ANALGE 03/23/2017 ZAHRA ORNELAS MD Ot Z79.899 OTHER INSTRUMENT ENGINEER (CURRENT) DRUG THERAPY 03/23/2017 ZAHRA ORNELAS MD [...] OF UTERUS WITH REMAININ 05/26/2017 RAUL YOUNG TRACER BULLET SECTION SUPERVISOR-C Ot M25.531 PAIN IN RIGHT WRIST 05/26/2017 RAUL YOUNG TRACER BULLET SECTION SUPERVISOR-C Ot Z47.89 ENCOUNTER FOR OTHER ORTHOPEDIC AFTERCARE 06/05/2017 RAUL YOUNG TRACER BULLET SECTION SUPERVISOR-C Ot M25.531 PAIN IN RIGHT WRIST 06/05/2017 RAUL YOUNG TRACER BULLET SECTION SUPERVISOR-C Ot Z47.89 ENCOUNTER FOR OTHER ORTHOPEDIC AFTERCARE 06/10/2017 RAUL YOUNG TRACER BULLET SECTION SUPERVISOR-C Ot M25.531 PAIN IN RIGHT WRIST 06/10/2017 RAUL YOUNG TRACER BULLET SECTION SUPERVISOR-C Ot Z47.89 ENCOUNTER FOR OTHER ORTHOPEDIC AFTERCARE 06/14/2017 RAUL YOUNG TRACER BULLET SECTION SUPERVISOR-C Ot M25.531 PAIN IN RIGHT WRIST 06/14/2017 RAUL YOUNG TRACER BULLET SECTION SUPERVISOR-C Ot Z47.89 ENCOUNTER FOR OTHER ORTHOPEDIC AFTERCARE [...] BOTH CERVIX AND UTER 06/16/2017 RAUL YOUNG TRACER BULLET SECTION SUPERVISOR-C Ot M25.531 PAIN IN RIGHT WRIST 06/16/2017 RAUL YOUNG TRACER BULLET SECTION SUPERVISOR-C Ot Z47.89 ENCOUNTER FOR OTHER ORTHOPEDIC AFTERCARE [...] BOTH CERVIX AND UTER 06/18/2017 RAUL YOUNG TRACER BULLET SECTION SUPERVISOR-C Ot M25.531 PAIN IN RIGHT WRIST 06/18/2017 RAUL YOUNG TRACER BULLET SECTION SUPERVISOR-C Ot Z47.89 ENCOUNTER FOR OTHER ORTHOPEDIC AFTERCARE 06/19/2017 RAUL YOUNG TRACER BULLET SECTION SUPERVISOR-C Ot M25.531 PAIN IN RIGHT WRIST 06/19/2017 RAUL YOUNG TRACER BULLET SECTION SUPERVISOR-C Ot Z47.89 ENCOUNTER FOR OTHER ORTHOPEDIC AFTERCARE [...] BOTH CERVIX AND UTER 07/08/2017 RAUL YOUNG TRACER BULLET SECTION SUPERVISOR-C Ot M25.531 PAIN IN RIGHT WRIST 07/08/2017 RAUL YOUNG TRACER BULLET SECTION SUPERVISOR-C Ot Z47.89 ENCOUNTER FOR OTHER ORTHOPEDIC AFTERCARE 07/16/2017 RAUL YOUNG TRACER BULLET SECTION SUPERVISOR-C Ot M25.531 PAIN IN RIGHT WRIST 07/16/2017 RAUL YOUNG TRACER BULLET SECTION SUPERVISOR-C Ot Z47.89 ENCOUNTER FOR OTHER ORTHOPEDIC AFTERCARE 01/01/2018 ZAHRA ORNEALS MD Ot F17.210 NICOTINE DEPENDENCE, CIGARETTES, UNCOMPL 01/01/2018 ZAHRA ORNELAS MD Ot J44.9 CHRONIC OBSTRUCTIVE PULMONARY DISEASE, U 01/01/2018 ZAHRA ORNELAS MD Ot K59.03 DRUG INDUCED CONSTIPATION 01/01/2018 ZAHRA ORNELAS MD Ot R10.11 RIGHT UPPER QUADRANT PAIN 01/01/2018 ZAHRA ORNELAS MD Ot Z79.891 INSTRUMENT ENGINEER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 OPIATE ANALGE 01/01/2018 ZAHRA [...] DETENTION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 INHALED STERO 01/05/2018 KHAI JOAQUIN APRN Ot Z79.52 DETENTION (CURRENT) [...] 02/28/2018 MONIQUE BORGES, ROBERT Lew Ot Z79.52 INSTRUMENT ENGINEER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 SYSTEMIC STER 02/28/2018 MONIQUE [...] CERVIX AND UTER 03/04/2018 PINA, WILFRED R ENGINEERING PATTERNMAKER Ot K42.9 UMBILICAL HERNIA WITHOUT OBSTRUCTION OR 03/04/2018 PINA, WILFRED R ENGINEERING PATTERNMAKER Ot K57.30 DVRTCLOS OF LG INT W/O PERFORATION OR AB 03/04/2018 PINA, WILFRED R ENGINEERING PATTERNMAKER Ot K76.0 FATTY (CHANGE OF) LIVER, NOT ELSEWHERE C 03/04/2018 PINA, WILFRED R ENGINEERING PATTERNMAKER Ot N13.0 HYDRONEPHROSIS WITH URETEROPELVIC JUNCTI 03/04/2018 PINA, WILFRED R ENGINEERING PATTERNMAKER Ot N20.0 CALCULUS OF KIDNEY 03/04/2018 PINA, WILFRED R ENGINEERING PATTERNMAKER Ot K42.9 UMBILICAL HERNIA WITHOUT OBSTRUCTION OR 03/04/2018 PINA, WILFRED R ENGINEERING PATTERNMAKER Ot K57.30 DVRTCLOS OF LG INT W/O PERFORATION OR AB 03/04/2018 PINA, WILFRED R ENGINEERING PATTERNMAKER Ot K76.0 FATTY (CHANGE OF) LIVER, NOT ELSEWHERE C 03/04/2018 PINAWILFRED R ENGINEERING PATTERNMAKER Ot N13.0 HYDRONEPHROSIS WITH URETEROPELVIC JUNCTI 03/04/2018 PINA, WILFRED R ENGINEERING PATTERNMAKER Ot N20.0 CALCULUS OF KIDNEY 03/09/2018 PINAWILFRED R ENGINEERING PATTERNMAKER Ot K42.9 UMBILICAL HERNIA WITHOUT OBSTRUCTION OR 03/09/2018 PINA, WILFRED R ENGINEERING PATTERNMAKER Ot K57.30 DVRTCLOS OF LG INT W/O PERFORATION OR AB 03/09/2018 PINA, WILFRED R ENGINEERING PATTERNMAKER Ot K76.0 FATTY (CHANGE OF) LIVER, NOT ELSEWHERE C 03/09/2018 PINA, WILFRED R ENGINEERING PATTERNMAKER Ot N13.0 HYDRONEPHROSIS WITH URETEROPELVIC JUNCTI 03/09/2018 PINA, WILFRED R ENGINEERING PATTERNMAKER Ot N20.0 CALCULUS OF KIDNEY 03/13/2018 ALBERTO BORGES, AMIRA Mcwilliams Ot N20.2 CALCULUS OF KIDNEY WITH CALCULUS OF URET 03/13/2018 PINAWILFRED R ENGINEERING PATTERNMAKER Ot K42.9 UMBILICAL HERNIA WITHOUT OBSTRUCTION OR 03/13/2018 PINA, WILFRED R ENGINEERING PATTERNMAKER Ot K57.30 DVRTCLOS OF LG INT W/O PERFORATION OR AB 03/13/2018 PINA, WILFRED R ENGINEERING PATTERNMAKER Ot K76.0 FATTY (CHANGE OF) LIVER, NOT ELSEWHERE C 03/13/2018 WILFRED PINA APRN Ot N13.0 HYDRONEPHROSIS WITH URETEROPELVIC JUNCTI 03/13/2018 WILFRED PINA APRN Ot N20.0 CALCULUS OF KIDNEY 03/24/2018 ALBERTO BORGES, AMIRA Mcwilliams Ot N20.2 CALCULUS OF KIDNEY WITH CALCULUS OF URET 04/05/2018 ZAHRA ORNELAS MD Ot E66.01 MORBID (SEVERE) OBESITY DUE TO EXCESS CA 04/05/2018 ZAHRA ORNELAS MD Ot F32.9 MAJOR DEPRESSIVE DISORDER, SINGLE EPISOD 04/05/2018 ZAHRA ORNELAS MD Ot F41.9 ANXIETY DISORDER, UNSPECIFIED 04/05/2018 ZAHRA ORNLEAS MD Ot F43.10 POST-TRAUMATIC STRESS DISORDER, UNSPECIF 04/05/2018 ZAHRA ORNELAS MD Ot F90.9 ATTENTION-DEFICIT HYPERACTIVITY DISORDER 04/05/2018 ZAHRA ORNELAS MD Ot G40.909 EPILEPSY, UNSP, NOT INTRACTABLE, WITHOUT 04/05/2018 ZAHRA ORNELAS MD Ot G47.30 SLEEP APNEA, UNSPECIFIED 04/05/2018 ZAHRA ORNELAS MD Ot J44.9 CHRONIC OBSTRUCTIVE PULMONARY DISEASE, U 04/05/2018 ZAHRA ORNELAS MD Ot K21.9 GASTRO-ESOPHAGEAL REFLUX DISEASE WITHOUT 04/05/2018 ZAHRA ORNELAS MD Ot R42 DIZZINESS AND GIDDINESS 04/05/2018 ZAHRA ORNELAS MD Ot Z68.43 BODY MASS INDEX (BMI) 50-59.9 , ADULT 04/05/2018 ZAHRA ORNELAS MD Ot Z79.51 INSTRUMENT ENGINEER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 INHALED STERO 04/05/2018 ZAHRA ORNELAS MD Ot Z79.52 INSTRUMENT ENGINEER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 SYSTEMIC STER 04/05/2018 ZAHRA ORNELAS MD Ot Z87.891 PERSONAL HISTORY OF NICOTINE DEPENDENCE 04/05/2018 ZAHRA ORNELAS MD, Ot Z88.2 ALLERGY STATUS TO SULFONAMIDES STATUS 04/05/2018 ZAHRA ORNELAS MD Ot Z88.8 ALLERGY STATUS TO OTH DRUG/MEDS/BIOL SUB 04/05/2018 ZAHRA ORNELAS MD Ot Z90.710 ACQUIRED ABSENCE OF BOTH CERVIX AND UTER 04/07/2018 ZARHA ORNELAS MD Ot E66.01 MORBID (SEVERE) OBESITY DUE TO EXCESS CA 04/07/2018 ZAHRA ORNELAS MD Ot F32.9 MAJOR DEPRESSIVE DISORDER, SINGLE EPISOD 04/07/2018 ZAHRA ORNELAS MD Ot F41.9 ANXIETY DISORDER, UNSPECIFIED 04/07/2018 ZAHRA ORNELAS MD Ot F43.10 POST-TRAUMATIC STRESS DISORDER, UNSPECIF 04/07/2018 ZAHRA ORNELAS MD Ot F90.9 ATTENTION-DEFICIT HYPERACTIVITY DISORDER 04/07/2018 ZAHRA ORNELAS MD Ot G40.909 EPILEPSY, UNSP, NOT INTRACTABLE, WITHOUT 04/07/2018 ZAHRA ORNELAS MD Ot G47.30 SLEEP APNEA, UNSPECIFIED 04/07/2018 ZAHRA ORNELAS MD, Ot J44.9 CHRONIC OBSTRUCTIVE PULMONARY DISEASE, U 04/07/2018 ZAHRA ORNELAS MD Ot K21.9 GASTRO-ESOPHAGEAL REFLUX DISEASE WITHOUT 04/07/2018 ZAHRA ORNELAS MD Ot R42 DIZZINESS AND GIDDINESS 04/07/2018 ZAHRA ORNELAS MD Ot Z68.43 BODY MASS INDEX (BMI) 50-59.9 , ADULT 04/07/2018 ZAHRA ORNELAS MD, Ot Z79.51 INSTRUMENT ENGINEER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 INHALED STERO 04/07/2018 ZAHRA ORNELAS MD, Ot Z79.52 INSTRUMENT ENGINEER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 SYSTEMIC STER 04/07/2018 ZAHRA ORNELAS MD Ot Z87.891 PERSONAL HISTORY OF NICOTINE DEPENDENCE 04/07/2018 ZAHRA ORNELAS MD, Ot Z88.2 ALLERGY STATUS TO SULFONAMIDES STATUS 04/07/2018 ZAHRA ORNELAS MD, Ot Z88.8 ALLERGY STATUS TO OTH DRUG/MEDS/BIOL SUB 04/07/2018 ZAHRA ORNELAS MD Ot Z90.710 ACQUIRED ABSENCE OF BOTH CERVIX AND UTER Procedures There is no data. Results Test [...] 7-25 CREATININE 0.85 mg/dL 0.50-1.10 eGFR NON-AFR. MOLDOVAN 81 mL/min/1.73m2 > OR=60 eGFR 94 mL/min/1.73m2 [...] 11.7 fL 7.5-12.5 ABSOLUTE NEUTROPHILS 5083 cells/uL [id number] ABSOLUTE LYMPHOCYTES 2431 cells/uL [phone] ABSOLUTE MONOCYTES [...] Status Pt. Type Provider Facility Loc./Unit Complaint [id number] 04/05/2018 10:32:00 04/05/2018 11:16:00 DIS Emergency JOHNSON BORGES, ZAHRA Allen [facility] ER BLOOK PRESSURE PROBLEMS, LEFT KNEE HURTING [id number] 03/12/2018 12:26:00 03/12/2018 23:59:59 CLS Outpatient ALBERTO BORGES, AMIRA Mcwilliams [facility] RAD RT RENAL STONE [id number] 03/03/2018 14:11:00 03/03/2018 23:59:59 CLS Outpatient WILFRED PINA APRN [facility] RAD RIGHT FLANK PAIN [id number] 02/28/2018 16:30:00 02/28/2018 17:49:00 DIS Emergency MONIQUE BORGES, ROBERT Lew [facility] ER L ANKLE PAIN [id number] 01/01/2018 10:45:00 01/01/2018 11:58:00 DIS Emergency KHAI JOAQUIN APRN [facility] ER LOWER BACK PAIN,RT HIP PAIN,TAILBONE PAIN [id number] 06/18/2017 12:45:00 07/16/2017 12:50:00 DIS Outpatient RAUL YOUNG TRACER BULLET SECTION SUPERVISOR-C [facility] REHAB S/P GUYONS RELEASE R WRIST [id number] 06/20/2017 13:40:00 06/20/2017 14:41:00 DIS Emergency SVITLANA BORGES, RUY Rushing [facility] ER BACK PAIN,FREQ URINATION [id number] 06/15/2017 02:28:00 06/15/2017 03:34:00 DIS Emergency RUY SHANE MD [facility] ER SOA,LIGHTHEADED [id number] 06/10/2017 15:14:00 06/14/2017 00:01:00 DIS Outpatient RAUL YOUNG TRACER BULLET SECTION SUPERVISOR-C [facility] REHAB S/P GUYONS RELEASE R WRIST [id number] 03/23/2017 09:49:00 03/23/2017 10:37:00 DIS Emergency JOHNSON REESE MD [facility] ER BACK PAIN/POSS SINUS INFECTION [id number] 12/22/2016 15:10:00 12/22/2016 23:59:59 CLS Emergency ZAHRA ORNELAS MD [facility] ER STOMACH PAIN [id number] 02/11/2016 17:46:00 02/11/2016 19:12:00 DIS Emergency KHAI JOAQUIN ENGINEERING PATTERNMAKER [facility] ER EAR INFECTION/CONGESTION/ COUGH [id number] 07/30/2015 21:33:00 07/31/2015 00:30:00 DIS Emergency GEETA CASTELLON [facility] ER DIARRHEA/NAUSEATED [id number] 07/28/2014 14:09:00 07/28/2014 23:59:59 CLS Outpatient DONNA BROWN ENGINEERING PATTERNMAKER [facility] QUICK [id number] 06/10/2013 22:01:00 06/11/2013 01:10:00 DIS Emergency RUY SHANE MD [facility] ER RASH [id number] 05/01/2013 11:18:00 05/01/2013 23:59:59 CLS Outpatient [id number] 07/28/2014 14:10:03 ACT Document Registration [id number] 03/16/2018 00:00:00 03/16/2018 09:47:00 DIS Outpatient Amira Dhaliwal [id number] 03/12/2018 14:02:00 03/12/2018 23:59:00 DIS Outpatient Amira Dhaliwal [id number] 03/13/2018 11:44:46 Document Registration [id number] 03/12/2018 14:02:00 Document Registration [id number] 03/03/2018 12:00:00 03/03/2018 23:59:59 CLS Out[facility] [id number] 02/04/2018 09:20:00 Document Registration [id number] 11/19/2017 09:00:00 Document Registration
--- NOTE | 2018-04-26 10:41 | Diagnostic Imaging Report ---
Indication: Left knee pain COMPARISON: None. FINDINGS: 3 views of the left knee demonstrate moderate severe tricompartment degenerative joint disease. Marginal joint space osteophytosis is present. There is no fracture or dislocation. There is no joint effusion. Impression: Moderately severe tricompartment degenerative joint disease. Dictated by: Dictated on workstation # [id number]
[2018-04-26] MEDS ORDERED: TRAM50TA2 PO (10:56)
--- NOTE | 2018-04-26 10:56 | ED Lower Extremity ---
General Chief Complaint: Lower Extremity Stated Complaint: LT KNEE PAIN Nursing Triage Note: ARRIVED VIA AMB TO ROOM 03 USING HER WALKER. LEFT KNEE PAIN STARTING YESTERDAY. AMY INJURY. Nursing Sepsis Screen: No Definite Risk Source: patient Exam Limitations: no limitations History of Present Illness Date Seen by Provider: Apr 26, 2018 Time Seen by Provider: 10:00 Initial Comments Here with report of pain. Has been hurting yesterday. Initially denied injury but then states that she did trip and twist her knee and that may be part of this. She states that the pain may have started somewhat before that those well as the twisting injury was 2 days ago. Denies other injury. Does have chronic knee pain. Did try a tramadol and some Tylenol and states that didn't really help her pain much although she does not have a tramadol prescription. Onset: yesterday Severity: moderate Pain/Injury Location: left knee Method of Injury: twisted Modifying Factors: Improves With Immobilization; Worse With Movement Allergies and Home Medications Allergies Coded Allergies: Sulfa (Sulfonamide Antibiotics) (Unverified Allergy, Unknown, RASH, ) esomeprazole mag (Unverified Adverse Reaction, Intermediate, 06/10/13) Diarrhea Home Medications Albuterol Sulfate 2.5 Mg/3 Ml Nebu, 2.5 MG INH Q6H PRN, (Reported) Amoxicillin/Potassium Clav 1 Each Tablet, 1 EACH PO BID Prescribed by: JOHNSON REESE on 03/23/17 1020 Amphet Asp/Amphet/D-Amphet 30 Mg Tablet, 30 MG PO BID, (Reported) Atorvastatin Calcium 10 Mg Tablet, 10 MG PO HS, (Reported) Black Cohosh Root Extract 80 Mg Capsule, 80 MG PO DAILY, (Reported) Cetirizine Hcl 10 Mg Capsule, 10 MG PO DAILY, (Reported) Cyclobenzaprine HCl 10 Mg Tablet, 10 MG PO TID PRN for SPASMS Prescribed by: RUY EVANS on 06/20/17 1428 Cyclobenzaprine HCl 5 Mg Tablet, 5 MG PO TID PRN for PAIN-MODERATE Prescribed by: KHAI JOAQUIN on 01/01/18 1102 Cyclobenzaprine Hcl 10 Mg Tablet, 10 MG PO TID PRN, (Reported) Diazepam 10 Mg Tablet, 10 MG PO Q8H PRN, (Reported) Escitalopram Oxalate 10 Mg Tablet, 10 MG PO DAILY, (Reported) Furosemide 40 Mg Tablet, 40 MG PO BID, (Reported) Hydrocodone Bit/Acetaminophen 1 Tab Tab, 1 EA PO Q4HR PRN, (Reported) Hydrocodone Bit/Acetaminophen 1 Each Tablet, 1-2 EACH PO Q4H PRN for PAIN Prescribed by: RUY EVANS on 06/20/17 1428 Ibuprofen 600 Mg Tab, 600 MG PO Q6H PRN, (Reported) Lamotrigine 100 Mg Tablet, 50 MG PO BID, (Reported) Levetiracetam 500 Mg Tab, 500 MG PO BID, (Reported) Multivitamin 1 Each Tablet, 1 TAB PO DAILY, (Reported) Nortriptyline Hcl 25 Mg Cap, 25 MG PO HS, (Reported) Ondansetron Hcl 4 Mg Tab, 4 MG PO Q8H PRN, (Reported) Polyethylene Glycol 3350 17 Gm Powd.pack, 17 GM PO BID PRN Prescribed by: ZAHRA ORNELAS on 12/22/16 1704 Potassium Chloride 10 Meq Tablet.sa, 20 MEQ PO BID, (Reported) Prednisone 20 Mg Tab, 40 MG PO DAILY Prescribed by: JOHNSON REESE on 03/23/17 1020 Zolpidem Tartrate 10 Mg Tab, 10 MG PO HS, (Reported) Patient Home Medication List Home Medication List Reviewed: Yes Constitutional: see HPI; No chills, No fever Respiratory: no symptoms reported Cardiovascular: no symptoms reported Musculoskeletal: see HPI, joint pain; No joint swelling Skin: no symptoms reported Past Gojwxos-Xdkkwe-Enpdra Hx Past Med/Social Hx: Reviewed Nursing Past Med/Soc Hx Patient Social History Alcohol Use: Denies Use Recreational Drug Use: No Smoking Status: Former Smoker Type Used: Cigarettes Former Smoker, Quit: Feb 27, 2018 2nd Hand Smoke Exposure: No Recent Foreign Travel: No Contact w/Someone Who Travel: No Recent Infectious Disease Expo: No Recent Hopitalizations: No Immunizations Up To Date Tetanus Booster (TDap): Unknown Date of Pneumonia Vaccine: Dec 14, 2012 Seasonal Allergies Seasonal Allergies: Yes Past Medical History Surgeries: Yes (carpal tunnel sx) Gallbladder, Hysterectomy Respiratory: Yes Chronic Bronchitis, Sleep Apnea, COPD Cardiac: No Neurological: Yes Seizure Disorder 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 Disorders: No WELDER EXPERIMENTAL History: Hysterectomy Sexually Transmitted Disease: No HIV/AIDS: No Genitourinary: No Gastrointestinal: Yes Gastroesophageal Reflux Musculoskeletal: Yes Arthritis, Fibromyalgia Endocrine: Yes (morbid obesity) HEENT: No Cancer: No Psychosocial: Yes ADD/ADHD, Anxiety, PTSD, Depression Integumentary: No Blood Disorders: No Family Medical History Reviewed Nursing Family Hx No Pertinent Family Hx Physical Exam Vital Signs Vital Signs - First Documented 04/26/18 09:37 Temp 98.0 Pulse 63 Resp 16 B/P (MAP) 117/81 (93) Pulse Ox 95 O2 Delivery Room Air Capillary Refill : Less Than 3 Seconds Height, Weight, BMI Height: 5'5.00" Weight: 320lbs. 0oz. 145.137316ew; 54.24 BMI Method:Stated General Appearance: WD/WN, no apparent distress Cardiovascular: regular rate, rhythm, no murmur Respiratory: lungs clear, normal breath sounds Knees: left knee other (tenderness noted about the knee. No significant swelling noted when compared to the other. Pain with range of motion.) Neurologic/Psychiatric: alert, oriented x 3 Progress/Results/Core Measures Results/Orders My Orders Orders - JOHNSON REESE MD Knee, Left, 3 Views (04/26/18 10:04) Vital Signs/I&O 04/26/18 09:37 Temp 98.0 Pulse 63 Resp 16 B/P (MAP) 117/81 (93) Pulse Ox 95 O2 Delivery Room Air Blood Pressure Mean: 93 Progress Progress Note : Progress Note Seen and evaluated. Patient has history of significant degeneration of the knee. She has had injections previously but none recently. Shka-sqe-qibrhwz medicines are not helping. Unsure of injury so x-ray was ordered. This does not show any acute fracture but does have tricompartmental degeneration. Discharged home with return precautions. Patient verbalize understanding instructions and agreement with plan. Departure Impression Primary Impression: Internal derangement of left knee Disposition: HOME, SELF-CARE Condition: Stable Departure-Patient Inst. Decision time for Depature: 10:54 Referrals: [facility] (PCP/Family) Primary Care Physician Patient Instructions: Chronic Knee Pain (DC) Add. Discharge Instructions: All discharge instructions reviewed with patient and/or family. Voiced understanding. It is important that you follow up with your doctor and orthopedist of your choice for recheck and further evaluation. You have chronic knee pain and need further evaluation related to this. Return for worse pain, fever, swelling, weakness or other concerns as needed. You may take Tylenol/acetaminophen 1000 mg every 8 hours as needed for pain. Take other medicines as directed. Scripts Tramadol HCl (Tramadol HCl) 50 Mg Tablet 50 MG PO Q6H PRN for PAIN, #20 TAB 0 Refills Prov: JOHNSON REESE MD 04/26/18 JOHNSON REESE MD Apr 26, 2018 10:56
[2018-04-26 11:00] VITALS: BP 117/81
== END 2018-04-26 11:00 | disposition home or self-care (01) ==
LOC: EDUNIT# 09:36 → ER 09:38
DX: M23.92 Unspecified internal derangement of left knee (principal); G47.30 Sleep apnea, unspecified; J44.9 Chronic obstructive pulmonary disease, unspecified; G40.909 Epilepsy, unspecified, not intractable, without status epilepticus; K21.9 Gastro-esophageal reflux disease without esophagitis; E66.01 Morbid (severe) obesity due to excess calories; F90.9 Attention-deficit hyperactivity disorder, unspecified type; F41.9 Anxiety disorder, unspecified; F43.10 Post-traumatic stress disorder, unspecified; F32.9 Major depressive disorder, single episode, unspecified; Z88.2 Allergy status to sulfonamides; Z88.8 Allergy status to other drugs, medicaments and biological substances; Z79.51 Long term (current) use of inhaled steroids; Z79.52 Long term (current) use of systemic steroids; Z68.43 Body mass index [BMI] 50.0-59.9, adult; Z87.891 Personal history of nicotine dependence; Z90.710 Acquired absence of both cervix and uterus; X50.0XXA Overexertion from strenuous movement or load, initial encounter
CPT/HCPCS: 73562

== ENCOUNTER 2019-01-25 10:45 | Outpatient (RCR) | payer MEDICAID ==
[~2019-01-25 10:45] MED LIST changes: +TRAM50TA2 PO
== END 2019-03-21 | disposition home or self-care (01) ==
PROVIDERS: ATTEND Psychiatry & Neurology Neurology
DX: R26.89 Other abnormalities of gait and mobility (principal)

== ENCOUNTER → 2019-02-16 | Outpatient (CLI) | payer MEDICAID ==
--- NOTE | 2019-02-16 10:43 | Diagnostic Imaging Report ---
PROCEDURE: CT sinuses without contrast TECHNIQUE: Multiple contiguous axial images were obtained through the sinuses without the use of intravenous contrast. Coronal and sagittal reformations were then performed. Auto Exposure Controls were utilized during the CT exam to meet ALARA standards for radiation dose reduction. INDICATION: Chronic sinusitis. COMPARISON: None. FINDINGS: Contraction of the left maxillary sinus consistent with chronic inflammatory changes. There is no mucosal thickening or air-fluid levels in the left maxillary sinus at this time. The remaining paranasal sinuses are clear. The ostiomeatal units and frontal recesses are patent. No large laureen bullosa. Moderate rightward bowing of the nasal septum with spur. The visualized mastoids and middle ears are clear. Normal alignment of the temporomandibular joints. Skull base is intact. IMPRESSION: Contraction of left maxillary sinus consistent with chronic inflammatory change. The paranasal sinuses are clear at this time. Dictated by: Dictated on workstation # [id number]
== END ==
LOC: RAD 09:33
PROVIDERS: ATTEND Otolaryngology Otolaryngology/Facial Plastic Surgery
DX: J32.9 Chronic sinusitis, unspecified (principal)
CPT/HCPCS: 70486

== ENCOUNTER 2019-05-02 03:42 | Emergency (ER) | payer MEDICAID ==
[~2019-05-02] VITALS: Ht 165.1 cm; Wt 139.3 kg
[2019-05-02] MEDS ORDERED: morphine INJ 10 MG/ML 1ML (SYR OR VIAL) IVP STA (03:57)
[2019-05-02] MEDS ORDERED: FAMOTIDINE 20MG/2ML IV (PEPCID) IVP ONE (04:00)
[2019-05-02] MEDS ORDERED: NS IV 1000 ML 1,000 ML IV SCH (04:00)
[2019-05-02] MEDS ORDERED: ONDANSETRON 4 MG/2 ML (SDV) Z0FRAN IVP ONE (04:00)
--- NOTE | 2019-05-02 04:05 | ED Abdominal Pain ---
General Chief Complaint: Abdominal/GI Problems Stated Complaint: NAUSEA; DIARRHEA Nursing Triage Note: Patient states that she began having stomach pain, nausea and diarrhea at 23:00 05/01/19. Patient states that the diarrhea has gotten progressively worse throughout the night. Patient rates stomach painat a 7. Sepsis Screen: No Definite Risk History of Present Illness Date Seen by Provider: May 02, 2019 Time Seen by Provider: 04:01 Initial Comments Patient is a 49-year-old female who comes to the emergency department today complaining of diffuse abdominal pain. She had onset of symptoms around 10 PM last night. She also had multiple episodes of watery brown diarrhea overnight. She estimates about 5-7 episodes. She complains of lower abdominal cramping. She has had some nausea which was not relieved with Zofran at home. Patient's family members in the room and also states his stomach became upset after they ate [employer] last evening. 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 No fevers reported. Denies urinary symptoms. No melena or hematochezia. Allergies and Home Medications Allergies Coded Allergies: Sulfa (Sulfonamide Antibiotics) (Unverified Allergy, Unknown, RASH, 07/30/15) esomeprazole mag (Unverified Adverse Reaction, Intermediate, 06/10/13) Diarrhea Home Medications Albuterol Sulfate 2.5 Mg/3 Ml Nebu, 2.5 MG INH Q6H PRN, (Reported) Amoxicillin/Potassium Clav 1 Each Tablet, 1 EACH PO BID Prescribed by: JOHNSON REESE on 03/23/17 1020 Amphet Asp/Amphet/D-Amphet 30 Mg Tablet, 30 MG PO BID, (Reported) Atorvastatin Calcium 10 Mg Tablet, 10 MG PO HS, (Reported) Black Cohosh Root Extract 80 Mg Capsule, 80 MG PO DAILY, (Reported) Cetirizine Hcl 10 Mg Capsule, 10 MG PO DAILY, (Reported) Cyclobenzaprine HCl 10 Mg Tablet, 10 MG PO TID PRN for SPASMS Prescribed by: RUY EVANS on 06/20/17 1428 Cyclobenzaprine HCl 5 Mg Tablet, 5 MG PO TID PRN for PAIN-MODERATE Prescribed by: KHAI JOAQUIN on 01/01/18 1102 Cyclobenzaprine Hcl 10 Mg Tablet, 10 MG PO TID PRN, (Reported) Diazepam 10 Mg Tablet, 10 MG PO Q8H PRN, (Reported) Escitalopram Oxalate 10 Mg Tablet, 10 MG PO DAILY, (Reported) Furosemide 40 Mg Tablet, 40 MG PO BID, (Reported) Hydrocodone Bit/Acetaminophen 1 Tab Tab, 1 EA PO Q4HR PRN, (Reported) Hydrocodone Bit/Acetaminophen 1 Each Tablet, 1-2 EACH PO Q4H PRN for PAIN Prescribed by: RUY EVANS on 06/20/17 1428 Ibuprofen 600 Mg Tab, 600 MG PO Q6H PRN, (Reported) Lamotrigine 100 Mg Tablet, 50 MG PO BID, (Reported) Levetiracetam 500 Mg Tab, 500 MG PO BID, (Reported) Loperamide HCl 2 Mg Capsule, 2 MG PO TID Prescribed by: ISHAN PATEL on 05/02/19 0514 Multivitamin 1 Each Tablet, 1 TAB PO DAILY, (Reported) Nortriptyline Hcl 25 Mg Cap, 25 MG PO HS, (Reported) Ondansetron Hcl 4 Mg Tab, 4 MG PO Q8H PRN, (Reported) Polyethylene Glycol 3350 17 Gm Powd.pack, 17 GM PO BID PRN Prescribed by: ZAHRA ORNELAS on 12/22/16 1704 Potassium Chloride 10 Meq Tablet.sa, 20 MEQ PO BID, (Reported) Prednisone 20 Mg Tab, 40 MG PO DAILY Prescribed by: JOHNSON REESE on 03/23/17 1020 Tramadol HCl 50 Mg Tablet, 50 MG PO Q6H PRN for PAIN Prescribed by: JOHNSON REESE on 04/26/18 1056 Zolpidem Tartrate 10 Mg Tab, 10 MG PO HS, (Reported) Patient Home Medication List Home Medication List Reviewed: Yes Review of Systems Review of Systems Constitutional: no symptoms reported EENTM: No Symptoms Reported Respiratory: No Symptoms Reported Cardiovascular: No Symptoms Reported Gastrointestinal: See HPI Genitourinary: No Symptoms Reported Musculoskeletal: no symptoms reported Skin: no symptoms reported Psychiatric/Neurological: No Symptoms Reported All Other Systems Reviewed Negative Unless Noted: Yes Past Fduomft-Ungiza-Hiyvfs Hx Patient Social History Alcohol Use: Denies Use Recreational Drug Use: No Smoking Status: Current Everyday Smoker Type Used: Cigarettes Former Smoker, Quit: Feb 27, 2018 2nd Hand Smoke Exposure: No Recent Foreign Travel: No Contact w/Someone Who Travel: No Recent Infectious Disease Expo: No Recent Hopitalizations: No Physical Abuse: No Sexual Abuse: No Mistreated: No Fear: No Immunizations Up To Date Tetanus Booster (TDap): Unknown Date of Pneumonia Vaccine: Dec 14, 2012 Seasonal Allergies Seasonal Allergies: Yes Past Medical History Surgeries: Yes (carpal tunnel sx) Gallbladder, Hysterectomy Respiratory: Yes Chronic Bronchitis, Sleep Apnea, COPD Cardiac: No Neurological: Yes Seizure Disorder 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 0oz. [id number]; 54.24 BMI Method:Stated General Appearance: WD/WN, no apparent distress HEENT: PERRL/EOMI, normal ENT inspection, pharynx normal Neck: full range of motion Respiratory: chest non-tender, lungs clear, normal breath sounds Cardiovascular: regular rate, rhythm Gastrointestinal: normal bowel sounds, soft, other (tender to palpation over the upper right and upper left quadrants. No tenderness to palpation over the lower portion of her abdomen. 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, alert, normal mood/affect Focused Exam Lactate Level 05/02/19 04:31: Lactic Acid Level 0.77 Lactic Acid Level Laboratory Tests Test 05/02/19 04:31 Lactic Acid Level 0.77 MMOL/L (0.50-2.00) Progress/Results/Core Measures Results/Orders Lab Results Laboratory Tests Test 05/02/19 04:02 05/02/19 04:31 Range/Units White Blood Count 10.6 4.3-11.0 10^3/uL Red Blood Count 4.23 L 4.35-5.85 10^6/uL Hemoglobin 13.0 11.5-16.0 G/DL Hematocrit 40 35-52 % Mean Corpuscular Volume 94 80-99 FL Mean Corpuscular Hemoglobin 31 25-34 PG Mean Corpuscular Hemoglobin Concent 33 32-36 G/DL Red Cell Distribution Width 12.9 10.0-14.5 % Platelet Count 228 130-400 10^3/uL Mean Platelet Volume 10.9 H 7.4-10.4 FL Neutrophils (%) (Auto) 52 42-75 % Lymphocytes (%) (Auto) 39 12-44 % Monocytes (%) (Auto) 8 0-12 % Eosinophils (%) (Auto) 1 0-10 % Basophils (%) (Auto) 0 0-10 % Neutrophils # (Auto) 5.5 1.8-7.8 X 10^3 Lymphocytes # (Auto) 4.1 H 1.0-4.0 X 10^3 Monocytes # (Auto) 0.8 0.0-1.0 X 10^3 Eosinophils # (Auto) 0.1 0.0-0.3 10^3/uL Basophils # (Auto) 0.0 0.0-0.1 10^3/uL Sodium Level 145 135-145 MMOL/L Potassium Level 3.9 3.6-5.0 MMOL/L Chloride Level 109 H 98-107 MMOL/L Carbon Dioxide Level 22 21-32 MMOL/L Anion Gap 14 5-14 MMOL/L Blood Urea Nitrogen 23 H 7-18 MG/DL Creatinine 1.04 0.60-1.30 MG/DL Estimat Glomerular Filtration Rate 56 BUN/Creatinine Ratio 22 Glucose Level 94 70-105 MG/DL Calcium Level 9.3 8.5-10.1 MG/DL Corrected Calcium 9.5 8.5-10.1 MG/DL Total Bilirubin < 0.2 0.1-1.0 MG/DL Aspartate Amino Transf (AST/SGOT) 15 5-34 U/L Alanine Aminotransferase (ALT/SGPT) 15 0-55 U/L Alkaline Phosphatase 91 40-136 U/L Total Protein 6.4 6.4-8.2 GM/DL Albumin 3.8 3.2-4.5 GM/DL Lipase 30 8-78 U/L Lactic Acid Level 0.77 0.50-2.00 MMOL/L [facility] [place],ISHAN L DO Ed Iv/Invasive Line Start (05/02/19 03:55) Cbc With Automated Diff (05/02/19 03:55) Comprehensive Metabolic Panel (05/02/19 03:55) Lipase (05/02/19 03:55) Lactic Acid Analyzer (05/02/19 03:55) Urinalysis (05/02/19 03:55) Ct Abdomen/Pelvis W (05/02/19 03:55) Ns Iv 1000 Ml (Sodium Chloride 0.9%) (05/02/19 04:00) Famotidine Injection (Pepcid Injection) (05/02/19 04:00) Ondansetron Injection (Zofran Injectio (05/02/19 04:00) Morphine Injection (Morphine Injection (05/02/19 03:57) Iohexol Injection (Omnipaque 350 Mg/Ml 1 (05/02/19 04:15) Received Contrast (Hold Metformin- Contr (05/02/19 04:15) Ns (Ivpb) (Sodium Chloride 0.9% Ivpb Bag (05/02/19 04:15) Sodium Chloride Flush (Catheter Flush Sy (05/02/19 04:15) Medications Given in ED Current Medications Medications Dose Ordered Sig/Daysi Route Start Time Stop Time Status Last Admin Dose Admin Famotidine 20 mg ONCE ONCE IVP 05/02/19 04:00 05/02/19 04:01 DC 05/02/19 04:17 20 MG Iohexol 100 ml ONCE ONCE IV 05/02/19 04:15 05/02/19 04:16 UNV 05/02/19 04:24 100 ML Ondansetron HCl 4 mg ONCE ONCE IVP 05/02/19 04:00 05/02/19 04:01 DC 05/02/19 04:15 4 MG Sodium Chloride 10 ml NEEDED PRN IV 05/02/19 04:15 UNV 05/02/19 04:24 10 ML Sodium Chloride 100 ml ONCE ONCE IV 05/02/19 04:15 05/02/19 04:16 UNV 05/02/19 04:24 40 ML Vital Signs/I&O 05/02/19 03:46 Temp 98.2 Pulse 86 Resp 24 B/P (MAP) 129/93 (105) Pulse Ox 95 O2 Delivery Room Air Blood Pressure Mean: 105 Progress Progress Note : Time: 04:04 Progress Note Patient is seen and examined. Overall, her abdominal exam is relatively benign she did have some tenderness to palpation of the upper portion of her abdomen which is not where her complaint of pain is located. Will do standard abdominal pain workup. We'll give Pepcid and morphine and Zofran. Labs and urine are also ordered with CT scan. IV fluids. 05:15: All results are reviewed. CT scan does not reveal any acute causes for the patient's symptoms. Suspect her discomfort and diarrhea to be secondary to simple gastroenteritis or irritation from eating bad food earlier in the evening. Overall, she is nontoxic and in no distress. She is currently feeling improved after medications were given in the emergency department. Plan is for discharge home. Patient is agreeable to this plan of care. She was advised to follow-up with her primary care doctor. She was recommended to use some Imodium as needed for control diarrheal symptoms. Return to the ER also as needed. Departure Impression Primary Impression: Gastroenteritis Disposition: 01 HOME, SELF-CARE Condition: Improved Departure-Patient Inst. Referrals: NO,LOCAL PHYSICIAN (PCP/Family) Primary Care Physician Scripts Loperamide HCl (Imodium A-D) 2 Mg Capsule 2 MG PO TID for constipation, #15 CAP 0 Refills Prov: ISHAN PATEL DO 05/02/19 ISHAN PATEL DO May 02, 2019 04:05
[2019-05-02] MEDS ORDERED: HOLD METFORMIN - RECEIVED CONTRAST 20 ML VIAL IV SCH (04:15)
[2019-05-02] MEDS ORDERED: IOHEXOL 350 MG/ML 100 ML (OMNIPAQUE 350) VIAL IV ONE (04:15)
[2019-05-02] MEDS ORDERED: CATHETER FLUSH 10 ML SYR IV PRN (04:15)
[2019-05-02] MEDS ORDERED: NS 100 ML (IVPB) BAG IV ONE (04:15)
[2019-05-02 04:31] LABS: BASOPHILS % (AUTO) 0 % (0-10); EOSINOPHILS % (AUTO) 1 % (0-10); HEMATOCRIT 40 % (35-52); LYMPHOCYTES % (AUTO) 39 % (12-44); MEAN CORPUSCULAR HEMOGLOBIN 31 PG (25-34); MEAN CORPUSCULAR HGB CONC 33 G/DL (32-36); MEAN CORPUSCULAR VOLUME 94 FL (80-99); MEAN PLATELET VOLUME 10.9 FL (7.4-10.4); MONOCYTES % (AUTO) 8 % (0-12); NEUTROPHILS % (AUTO) 52 % (42-75); PLATELET COUNT 228 10^3/uL (130-400); RED CELL DISTRIBUTION WIDTH 12.9 % (10.0-14.5); WHITE BLOOD COUNT 10.6 10^3/uL (4.3-11.0)
[2019-05-02 04:32] LABS: EOSINOPHILS # (AUTO) 0.1 10^3/uL (0.0-0.3); LYMPHOCYTES # (AUTO) 4.1 X 10^3 (1.0-4.0); MONOCYTES # (AUTO) 0.8 X 10^3 (0.0-1.0); NEUTROPHILS # (AUTO) 5.5 X 10^3 (1.8-7.8)
[2019-05-02 04:51] LABS: CARBON DIOXIDE 22 MMOL/L (21-32); CHLORIDE 109 MMOL/L (98-107); POTASSIUM 3.9 MMOL/L (3.6-5.0); SODIUM 145 MMOL/L (135-145)
[2019-05-02 04:52] LABS: ALANINE AMINOTRANSFERASE 15 U/L (0-55); ALBUMIN 3.8 GM/DL (3.2-4.5); ALKALINE PHOSPHATASE 91 U/L (40-136); BILIRUBIN,TOTAL < 0.2 MG/DL (0.1-1.0); BUN/CREATININE RATIO 22; CALCIUM 9.3 MG/DL (8.5-10.1); CREATININE SERUM 1.04 MG/DL (0.60-1.30); GFR ESTIMATED 56; GLUCOSE 94 MG/DL (70-105); LIPASE 30 U/L (8-78); TOTAL PROTEIN 6.4 GM/DL (6.4-8.2)
[2019-05-02] MEDS ORDERED: LOPE-145 PO (05:14)
[2019-05-02 05:19] VITALS: BP 118/92
--- NOTE | 2019-05-02 07:23 | Diagnostic Imaging Report ---
PROCEDURE: CT abdomen and pelvis with contrast. TECHNIQUE: Multiple contiguous axial images were obtained through the abdomen and pelvis after administration of intravenous contrast. Auto Exposure Controls were utilized during the CT exam to meet ALARA standards for radiation dose reduction. INDICATION: Abdominal pain, nausea, and diarrhea worsening in severity. Study compared with abdominal pelvic CT 03/03/2018. FINDINGS: Mild fatty hepatomegaly is an unchanged finding. No bile duct dilatation. Spleen, adrenals and pancreas are unremarkable. There is nonobstructing calculus disease within the right renal upper and lower poles but no hydroureteronephrosis and no radiodense ureteral stone. Urinary bladder was empty at this study. There is fatty periumbilical abdominal wall hernias unchanged. There is no herniation of viscus and this is noninflamed. Aortoiliac vessels patent and nonaneurysmal. There is minimal noninflamed diverticula changes to the sigmoid colon. There is no appendicitis. There is no pneumatosis or free gas. No ascites, abscess, hematoma or other fluid collection. IMPRESSION: 1. Nonobstructing right renal calculus, chronic mild hepatic steatosis, noninflamed diverticulosis and chronic noninflamed ventral fatty periumbilical hernias. 2. No acute appearing abnormality or imaging explanation for the presenting complaints. Dictated by: Dictated on workstation # [id number]
== END 2019-05-02 05:19 | disposition home or self-care (01) ==
LOC: EDUNIT# 03:42 → ER FS 03:44
DX: K52.9 Noninfective gastroenteritis and colitis, unspecified (principal); J44.9 Chronic obstructive pulmonary disease, unspecified; G47.30 Sleep apnea, unspecified; G40.909 Epilepsy, unspecified, not intractable, without status epilepticus; K21.9 Gastro-esophageal reflux disease without esophagitis; M79.7 Fibromyalgia; E66.01 Morbid (severe) obesity due to excess calories; F43.10 Post-traumatic stress disorder, unspecified; F32.9 Major depressive disorder, single episode, unspecified; F41.9 Anxiety disorder, unspecified; F90.9 Attention-deficit hyperactivity disorder, unspecified type; F17.210 Nicotine dependence, cigarettes, uncomplicated; Z88.2 Allergy status to sulfonamides; Z88.8 Allergy status to other drugs, medicaments and biological substances; Z90.710 Acquired absence of both cervix and uterus; Z68.43 Body mass index [BMI] 50.0-59.9, adult
CPT/HCPCS: 36415; 74177; 80053; 83605; 83690; 85025

== ENCOUNTER 2019-05-17 14:21 | Emergency (ER) | payer MEDICAID ==
[~2019-05-17] VITALS: Ht 167.6 cm; Wt 138.8 kg
[~2019-05-17 14:21] MED LIST changes: +LOPE-145 PO
[2019-05-17] MEDS ORDERED: NS IV 1000 ML 1,000 ML IV ONE (14:44)
--- NOTE | 2019-05-17 14:44 | ED GU-Female ---
General Chief Complaint: - Urinary Stated Complaint: BLADDER PRESSURE/PAINFUL URINATION/CHILLS/HEADACHE Nursing Triage Note: PT AMB TO RM 10 WITH COMPLAINT OF PAINFUL URINATION, HEADACHE, FEVER AND CHILLS. STATES HAS BEEN GOING ON FOR A WEEK. TOOK TYLENOL SOMETIME EARLIER. Nursing Sepsis Screen: No Definite Risk Source: patient Exam Limitations: no limitations History of Present Illness Date Seen by Provider: May 17, 2019 Time Seen by Provider: 14:34 Initial Comments Here with report of painful urination over the last week that is associated with fever and chills as well as nausea and vomiting today. Pain is lower. Also notes that she has wheezing as well as cough that has been worsening in that same time. She has been unable to smoke as much due to not feeling well. Timing/Duration: week, getting worse Severity/Quality: moderate Location: suprapubic Radiation: none Activities at Onset: none Associated Symptoms: abdominal pain, dysuria, fever/chills; No lower back pain; nausea/vomiting, urinary frequency Allergies and Home Medications Allergies Coded Allergies: Sulfa (Sulfonamide Antibiotics) (Unverified Allergy, Unknown, RASH, 07/30/15) esomeprazole mag (Unverified Adverse Reaction, Intermediate, 06/10/13) Diarrhea Home Medications Albuterol Sulfate 2.5 Mg/3 Ml Nebu, 2.5 MG INH Q6H PRN, (Reported) Amoxicillin/Potassium Clav 1 Each Tablet, 1 EACH PO BID Prescribed by: JOHNSON REESE on 03/23/17 1020 Amphet Asp/Amphet/D-Amphet 30 Mg Tablet, 30 MG PO BID, (Reported) Atorvastatin Calcium 10 Mg Tablet, 10 MG PO HS, (Reported) Black Cohosh Root Extract 80 Mg Capsule, 80 MG PO DAILY, (Reported) Cetirizine Hcl 10 Mg Capsule, 10 MG PO DAILY, (Reported) Cyclobenzaprine HCl 10 Mg Tablet, 10 MG PO TID PRN for SPASMS Prescribed by: RUY EVANS on 06/20/17 1428 Cyclobenzaprine HCl 5 Mg Tablet, 5 MG PO TID PRN for PAIN-MODERATE Prescribed by: KHAI JOAQUIN on 01/01/18 1102 Cyclobenzaprine Hcl 10 Mg Tablet, 10 MG PO TID PRN, (Reported) Diazepam 10 Mg Tablet, 10 MG PO Q8H PRN, (Reported) Escitalopram Oxalate 10 Mg Tablet, 10 MG PO DAILY, (Reported) Furosemide 40 Mg Tablet, 40 MG PO BID, (Reported) Hydrocodone Bit/Acetaminophen 1 Tab Tab, 1 EA PO Q4HR PRN, (Reported) Hydrocodone Bit/Acetaminophen 1 Each Tablet, 1-2 EACH PO Q4H PRN for PAIN Prescribed by: RUY EVANS on 06/20/17 1428 Ibuprofen 600 Mg Tab, 600 MG PO Q6H PRN, (Reported) Lamotrigine 100 Mg Tablet, 50 MG PO BID, (Reported) Levetiracetam 500 Mg Tab, 500 MG PO BID, (Reported) Loperamide HCl 2 Mg Capsule, 2 MG PO TID Prescribed by: ISHAN PATEL on 05/02/19 0514 Multivitamin 1 Each Tablet, 1 TAB PO DAILY, (Reported) Nortriptyline Hcl 25 Mg Cap, 25 MG PO HS, (Reported) Ondansetron Hcl 4 Mg Tab, 4 MG PO Q8H PRN, (Reported) Polyethylene Glycol 3350 17 Gm Powd.pack, 17 GM PO BID PRN Prescribed by: ZAHRA ORNELAS on 12/22/16 1704 Potassium Chloride 10 Meq Tablet.sa, 20 MEQ PO BID, (Reported) Prednisone 20 Mg Tab, 40 MG PO DAILY Prescribed by: JOHNSON REESE on 03/23/17 1020 Tramadol HCl 50 Mg Tablet, 50 MG PO Q6H PRN for PAIN Prescribed by: JOHNSON REESE on 04/26/18 1056 Zolpidem Tartrate 10 Mg Tab, 10 MG PO HS, (Reported) Patient Home Medication List Home Medication List Reviewed: Yes Review of Systems Review of Systems Constitutional: see HPI, chills, fever EENTM: throat pain; No nose congestion Respiratory: cough, short of breath, wheezing Cardiovascular: no symptoms reported Gastrointestinal: no symptoms reported, abdominal pain; No nausea, No vomiting Genitourinary: see HPI, dysuria, frequency, pain : No Musculoskeletal: no symptoms reported Skin: no symptoms reported All Other Systemes Reviewed Negative Unless Noted: Yes Past Iudzyeb-Kwzatp-Ckstau Hx Past Med/Social Hx: Reviewed Nursing Past Med/Soc Hx Patient Social History Alcohol Use: Denies Use Recreational Drug Use: No Smoking Status: Current Everyday Smoker Type Used: Cigarettes 2nd Hand Smoke Exposure: No Recent Foreign Travel: No Contact w/Someone Who Travel: No Recent Infectious Disease Expo: No Recent Hopitalizations: No Physical Abuse: No Sexual Abuse: No Mistreated: No Fear: No Immunizations Up To Date Tetanus Booster (TDap): Unknown Date of Pneumonia Vaccine: Dec 14, 2012 Seasonal Allergies Seasonal Allergies: Yes Past Medical History Surgeries: Yes (carpal tunnel sx) Gallbladder, Hysterectomy Respiratory: Yes Chronic Bronchitis, Sleep Apnea, COPD Cardiac: No Neurological: Yes Seizure Disorder 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 Sexually Transmitted Disease: No HIV/AIDS: No Genitourinary: No Gastrointestinal: Yes Gastroesophageal Reflux Musculoskeletal: Yes Arthritis, Fibromyalgia Endocrine: Yes (morbid obesity) HEENT: No Cancer: No Psychosocial: Yes ADD/ADHD, Anxiety, PTSD, Depression Integumentary: No Blood Disorders: No Family Medical History Reviewed Nursing Family Hx No Pertinent Family Hx Physical Exam Vital Signs Vital Signs - First Documented 05/17/19 14:30 Temp 102.0 Pulse 93 Resp 16 B/P (MAP) 137/83 (101) Pulse Ox 94 O2 Delivery Room Air Capillary Refill : Less Than 3 Seconds Height, Weight, BMI Height: 5'6.00" Weight: 306lbs. 0oz. 138.078058vb; 54.24 BMI Method:Stated General Appearance: WD/WN, no apparent distress HEENT: PERRL/EOMI, pharynx normal Neck: full range of motion, supple Cardiovascular: regular rate, rhythm, no murmur Respiratory: no accessory muscle use, wheezing Gastrointestinal: non tender, soft Back: normal inspection, no CVA tenderness, no vertebral tenderness, CVA tenderness (L) Extremities: non-tender, normal inspection Neurologic/Psychiatric: alert, oriented x 3 Skin: normal color, warm/dry Focused Exam Lactate Level 05/17/19 14:59: Lactic Acid Level 1.02 Lactic Acid Level Laboratory Tests Test 05/17/19 14:59 Lactic Acid Level 1.02 MMOL/L (0.50-2.00) Progress/Results/Core Measures Suspected Sepsis Recent Fever Within 48 Hours: No Infection Criteria Present: None New/Unexplained Altered Menta: No Sepsis Screen: No Definite Risk SIRS Temperature:102.0 Pulse: 93 Respiratory Rate: 16 Laboratory Tests 05/17/19 14:59: White Blood Count 11.5H Blood Pressure 137 /83 Mean: 101 9/2/19 14:59: Lactic Acid Level 1.02 Laboratory Tests 05/17/19 14:59: Creatinine 1.08, INR Comment 1.1, Platelet Count 205, Total Bilirubin 0.6 Results/Orders Lab Results Laboratory Tests Test 05/17/19 14:32 05/17/19 14:59 Range/Units Urine Color YELLOW Urine Clarity SLIGHTLY CLOUDY Urine pH 6 5-9 Urine Specific [place] 1.010 L 1.016-1.022 Urine Protein 2+ H NEGATIVE Urine Glucose (UA) NEGATIVE NEGATIVE Urine Ketones NEGATIVE NEGATIVE Urine Nitrite POSITIVE H NEGATIVE Urine Bilirubin NEGATIVE NEGATIVE Urine Urobilinogen NORMAL NORMAL MG/DL Urine Leukocyte Esterase 3+ H NEGATIVE Urine RBC (Auto) 2+ H NEGATIVE Urine RBC RARE /HPF Urine WBC >100 H /HPF Urine Squamous Epithelial Cells 2-5 /HPF Urine Crystals NONE /LPF Urine Bacteria LARGE H /HPF Urine Casts NONE /LPF Urine Mucus NEGATIVE /LPF Urine Culture Indicated YES White Blood Count 11.5 H 4.3-11.0 10^3/uL Red Blood Count 4.04 L 4.35-5.85 10^6/uL Hemoglobin 12.3 11.5-16.0 G/DL Hematocrit 37 35-52 % Mean Corpuscular Volume 91 80-99 FL Mean Corpuscular Hemoglobin 30 25-34 PG Mean Corpuscular Hemoglobin Concent 33 32-36 G/DL Red Cell Distribution Width 12.6 10.0-14.5 % Platelet Count 205 130-400 10^3/uL Mean Platelet Volume 10.3 7.4-10.4 FL Neutrophils (%) (Auto) 71 42-75 % Lymphocytes (%) (Auto) 16 12-44 % Monocytes (%) (Auto) 11 0-12 % Eosinophils (%) (Auto) 2 0-10 % Basophils (%) (Auto) 0 0-10 % Neutrophils # (Auto) 8.2 H 1.8-7.8 X 10^3 Lymphocytes # (Auto) 1.9 1.0-4.0 X 10^3 Monocytes # (Auto) 1.3 H 0.0-1.0 X 10^3 Eosinophils # (Auto) 0.2 0.0-0.3 10^3/uL Basophils # (Auto) 0.0 0.0-0.1 10^3/uL Prothrombin Time 14.8 H 12.2-14.7 SEC INR Comment 1.1 0.8-1.4 Activated Partial Thromboplast Time 34 24-35 SEC Sodium Level 139 135-145 MMOL/L Potassium Level 3.6 3.6-5.0 MMOL/L Chloride Level 106 98-107 MMOL/L Carbon Dioxide Level 24 21-32 MMOL/L Anion Gap 9 5-14 MMOL/L Blood Urea Nitrogen 17 7-18 MG/DL Creatinine 1.08 0.60-1.30 MG/DL Estimat Glomerular Filtration Rate 54 BUN/Creatinine Ratio 16 Glucose Level 101 70-105 MG/DL Lactic Acid Level 1.02 0.50-2.00 MMOL/L Calcium Level 9.0 8.5-10.1 MG/DL Corrected Calcium 9.4 8.5-10.1 MG/DL Total Bilirubin 0.6 0.1-1.0 MG/DL Aspartate Amino Transf (AST/SGOT) 27 5-34 U/L Alanine Aminotransferase (ALT/SGPT) 33 0-55 U/L Alkaline Phosphatase 134 40-136 U/L C-Reactive Protein High Sensitivity 22.95 H 0.00-0.50 MG/DL Total Protein 6.5 6.4-8.2 GM/DL Albumin 3.5 3.2-4.5 GM/DL My Orders Orders - JOHNSON REESE MD Cbc With Automated Diff (05/17/19 14:44) Comprehensive Metabolic Panel (05/17/19 14:44) Hs C Reactive Protein (05/17/19 14:44) Ed Iv/Invasive Line Start (05/17/19 14:44) Ns Iv 1000 Ml (Sodium Chloride 0.9%) (05/17/19 14:44) Blood Culture (05/17/19 14:51) Sputum Culture (05/17/19 14:51) Protime With Inr (05/17/19 14:51) Partial Thromboplastin Time (05/17/19 14:51) Chest 1 View, Ap/Pa Only (05/17/19 14:51) Ed Iv/Invasive Line Start (05/17/19 14:51) Vital Signs Adult Sepsis Patie Q15M (05/17/19 14:51) O2 (05/17/19 14:51) Remove Rings In Anticipation O (05/17/19 14:51) Lactic Acid Analyzer (05/17/19 14:51) Albuterol/Ipra Inhalation Soln (Duoneb I (05/17/19 15:00) Svn Small Volume Nebulizer (05/17/19 14:51) Ceftriaxone For Iv Use (Rocephin For I (05/17/19 16:45) Acetaminophen Tablet (Tylenol Tablet) (05/17/19 16:40) Ketorolac Injection (Toradol Injection) (05/17/19 16:40) Medications Given in ED Current Medications Medications Dose Ordered Sig/Daysi Route Start Time Stop Time Status Last Admin Dose Admin Albuterol/ Ipratropium 3 ml ONCE ONCE INH 05/17/19 15:00 05/17/19 15:01 DC 05/17/19 15:15 3 ML Ceftriaxone Sodium 1000 mg/ Sterile Water 10 ml @ 200 mls/hr ONCE ONCE IV 05/17/19 16:45 05/17/19 16:47 05/17/19 16:41 200 MLS/HR Sodium Chloride 1,000 ml @ 0 mls/hr Q0M ONCE IV 05/17/19 14:44 05/17/19 14:48 DC 05/17/19 15:04 1,000 MLS/HR Vital Signs/I&O 05/17/19 05/17/19 14:30 15:15 Temp 102.0 Pulse 93 Resp 16 B/P (MAP) 137/83 (101) Pulse Ox 94 94 O2 Delivery Room Air Room Air Capillary Refill : Less Than 3 Seconds Blood Pressure Mean: 101 Progress Note : Progress Note Seen and evaluated. Sepsis screen initiated. IV, labs, UA, normal saline 1 L bolus and chest x-ray ordered. DuoNeb treatment ordered. Monitor patient. 1635: Better overall. UTI noted. Rocephin 1 g IV ordered. Discharged home with return precautions. Patient verbalize understanding instructions and agreement with plan. Diagnostic Imaging Diagonstic Imaging: Xray Plain Films/CT/US/NM/MRI: chest Comments NAME: LANETTE CARO [facility] REC#: [id number] PT STATUS: REG ER : 1970 PHYSICIAN: JOHNSON REESE MD ADMIT DATE: 05/17/19/ER Signed Date of Exam: 05/17/19 CHEST 1 VIEW, AP/PA ONLY INDICATION: Shortness of breath. COMPARISON: 06/15/2017 TECHNIQUE: Single radiograph of the chest dated 05/17/2019. FINDINGS: The cardiac silhouette is within normal limits of size. No significant pulmonary vascular congestion. Calcified granuloma within left midlung is again identified and stable. The lungs are otherwise clear. No pleural effusion. No pneumothorax. No acute osseous abnormality. IMPRESSION: Stable appearing examination without acute cardiopulmonary abnormality. Dictated by: Dictated on workstation # [id number] Dict: 05/17/19 1534 Trans: 05/17/19 1557 Interpreted by: ALISIA HILLMAN MD Electronically signed by: ALISIA HILLMAN MD 05/17/19 1557 Departure Impression Primary Impression: Urinary tract infection Qualified Codes: N30.00 - Acute cystitis without hematuria Disposition: HOME, SELF-CARE Condition: Improved Departure-Patient Inst. Decision time for Depature: 16:43 Referrals: NO,LOCAL PHYSICIAN (PCP/Family) Primary Care Physician Patient Instructions: Urinary Tract Infection, Adult (DC) Add. Discharge Instructions: All discharge instructions reviewed with patient and/or family. Voiced understanding. Drink plenty of fluids. Follow-up with your Dr. in a few days for recheck. Talk with your doctor about stopping smoking as well. You may take Tylenol/acetaminophen 1000 mg every 8 hours as needed for fever or pain. You may take ibuprofen 400 mg every 6-8 hours as needed for fever or pain. Return for worse pain, fever, vomiting, weakness, breathing problems or other concerns as needed. Scripts Cephalexin (Cephalexin) 500 Mg Tablet 500 MG PO BID, #14 TAB 0 Refills Prov: JOHNSON REESE MD 05/17/19 JOHNSON REESE MD May 17, 2019 14:44
[2019-05-17] MEDS ORDERED: RT-ALBUTEROL/IPRATROPIUM 3 ML (DUONEB) VIAL INH ONE (15:00)
[2019-05-17 15:12] LABS: BILIRUBIN,URINE NEGATIVE (NEGATIVE); CLARITY,URINE SLIGHTLY CLOUDY; COLOR,URINE YELLOW; GLUCOSE, URINE (UA) NEGATIVE (NEGATIVE); KETONES,URINE NEGATIVE (NEGATIVE); LEUKOCYTE ESTERASE ,URINE 3+ (NEGATIVE); NITRITE,URINE POSITIVE (NEGATIVE); PH,URINE 6 (5-9); PROTEIN,URINE 2+ (NEGATIVE); UROBILINOGEN,URINE NORMAL (NORMAL)
[2019-05-17 15:14] LABS: BASOPHILS % (AUTO) 0 % (0-10); EOSINOPHILS # (AUTO) 0.2 10^3/uL (0.0-0.3); EOSINOPHILS % (AUTO) 2 % (0-10); HEMATOCRIT 37 % (35-52); HEMOGLOBIN 12.3 G/DL (11.5-16.0); LYMPHOCYTES # (AUTO) 1.9 X 10^3 (1.0-4.0); LYMPHOCYTES % (AUTO) 16 % (12-44); MEAN CORPUSCULAR HEMOGLOBIN 30 PG (25-34); MEAN CORPUSCULAR HGB CONC 33 G/DL (32-36); MEAN CORPUSCULAR VOLUME 91 FL (80-99); MEAN PLATELET VOLUME 10.3 FL (7.4-10.4); MONOCYTES # (AUTO) 1.3 X 10^3 (0.0-1.0); MONOCYTES % (AUTO) 11 % (0-12); NEUTROPHILS # (AUTO) 8.2 X 10^3 (1.8-7.8); NEUTROPHILS % (AUTO) 71 % (42-75); PLATELET COUNT 205 10^3/uL (130-400); RED CELL DISTRIBUTION WIDTH 12.6 % (10.0-14.5); WHITE BLOOD COUNT 11.5 10^3/uL (4.3-11.0)
[2019-05-17 15:24] LABS: INR 1.1 (0.8-1.4); PROTHROMBIN TIME PATIENT 14.8 SEC (12.2-14.7)
[2019-05-17 15:26] LABS: BACTERIA,URINE LARGE /HPF; RBC,URINE RARE /HPF; WBC,URINE >100 /HPF
[2019-05-17 15:31] LABS: ALBUMIN 3.5 GM/DL (3.2-4.5); BILIRUBIN,TOTAL 0.6 MG/DL (0.1-1.0); CREATININE SERUM 1.08 MG/DL (0.60-1.30); POTASSIUM 3.6 MMOL/L (3.6-5.0); TOTAL PROTEIN 6.5 GM/DL (6.4-8.2)
--- NOTE | 2019-05-17 15:39 | Diagnostic Imaging Report ---
INDICATION: Shortness of breath. COMPARISON: 06/15/2017 TECHNIQUE: Single radiograph of the chest dated 05/17/2019. FINDINGS: The cardiac silhouette is within normal limits of size. No significant pulmonary vascular congestion. Calcified granuloma within left midlung is again identified and stable. The lungs are otherwise clear. No pleural effusion. No pneumothorax. No acute osseous abnormality. IMPRESSION: Stable appearing examination without acute cardiopulmonary abnormality. Dictated by: Dictated on workstation # [id number]
[2019-05-17] MEDS ORDERED: KETOROLAC 30 MG/ML VIAL IVP STA (16:40)
[2019-05-17] MEDS ORDERED: ACETAMINOPHEN 500 MG TAB (TYLENOL) PO STA (16:40)
[2019-05-17] MEDS ORDERED: cefTRIAXone FOR IV USE 1,000 MG in WATER (STERILE) FOR INJECTION 10 ML IV ONE (16:45)
[2019-05-17] MEDS ORDERED: CEPH500T PO (16:45)
[2019-05-17 16:55] VITALS: BP 110/69
== END 2019-05-17 16:55 | disposition home or self-care (01) ==
LOC: EDUNIT# 14:21 → ER 14:22
DX: N39.0 Urinary tract infection, site not specified (principal); J44.9 Chronic obstructive pulmonary disease, unspecified; G47.30 Sleep apnea, unspecified; G40.909 Epilepsy, unspecified, not intractable, without status epilepticus; K21.9 Gastro-esophageal reflux disease without esophagitis; M79.7 Fibromyalgia; E66.01 Morbid (severe) obesity due to excess calories; F43.10 Post-traumatic stress disorder, unspecified; F90.9 Attention-deficit hyperactivity disorder, unspecified type; F32.9 Major depressive disorder, single episode, unspecified; F17.210 Nicotine dependence, cigarettes, uncomplicated; Z90.710 Acquired absence of both cervix and uterus; Z88.2 Allergy status to sulfonamides; Z88.8 Allergy status to other drugs, medicaments and biological substances; Z68.42 Body mass index [BMI] 45.0-49.9, adult
CPT/HCPCS: 36415; 71045; 80053; 81000; 83605; 85025; 85610; 85730; 86141; 87040; 87077; 87088; 87186; 94640

== ENCOUNTER 2019-05-31 12:48 | Outpatient (RCR) | payer MEDICAID ==
[~2019-05-31 12:48] MED LIST changes: +CEPH500T PO
== END 2019-07-27 | disposition home or self-care (01) ==
PROVIDERS: ATTEND Psychiatry & Neurology Neurology
DX: M54.16 Radiculopathy, lumbar region (principal)

== ENCOUNTER 2019-09-19 15:38 | Emergency (ER) | payer MEDICAID ==
[~2019-09-19] VITALS: Ht 165.1 cm; Wt 144.3 kg
[~2019-09-19 15:38] MED LIST changes: -TRAM50TA2 PO; +TRM50T PO
--- NOTE | 2019-09-19 15:56 | ED Upper Extremity ---
General Chief Complaint: Upper Extremity Stated Complaint: R HAND PAIN Nursing Triage Note: PT AMBULATE TO TRIAGE WITH C/O RIGHT HAND PAIN STARTING LAST NIGHT. PT REPORTS SHE MAY HAVE TWISTED HER HAND WHEN GETTING ONTO THE BED. PT REPORTS TAKING TYLENOL FOR THE PAIN. PT HAS HX OF CARPAL TUNAL AND ULNER NERVE SURGERY ON THAT HAND. Nursing Sepsis Screen: No Definite Risk Source: patient Exam Limitations: no limitations History of Present Illness Date Seen by Provider: Sep 19, 2019 Time Seen by Provider: 15:52 Initial Comments To ER with right hand pain that began last night after she was getting into bed. She states that she somehow twisted her hand, cannot remember exactly how, but now has pain over the dorsal aspect of the first and second metacarpals. Onset: just prior to arrival Severity: moderate Pain/Injury Location: right hand Method of Injury: twisted Modifying Factors: Worse With Movement Allergies and Home Medications Allergies Coded Allergies: Sulfa (Sulfonamide Antibiotics) (Unverified Allergy, Unknown, RASH, 07/30/15) esomeprazole mag (Unverified Adverse Reaction, Intermediate, 06/10/13) Diarrhea Home Medications Albuterol Sulfate 2.5 Mg/3 Ml Nebu, 2.5 MG INH Q6H PRN, (Reported) Amoxicillin/Potassium Clav 1 Each Tablet, 1 EACH PO BID Prescribed by: JOHNSON REESE on 03/23/17 1020 Amphet Asp/Amphet/D-Amphet 30 Mg Tablet, 30 MG PO BID, (Reported) Atorvastatin Calcium 10 Mg Tablet, 10 MG PO HS, (Reported) Black Cohosh Root Extract 80 Mg Capsule, 80 MG PO DAILY, (Reported) Cephalexin 500 Mg Tablet, 500 MG PO BID Prescribed by: JOHNSON REESE on 05/17/19 1645 Cetirizine Hcl 10 Mg Capsule, 10 MG PO DAILY, (Reported) Cyclobenzaprine HCl 10 Mg Tablet, 10 MG PO TID PRN for SPASMS Prescribed by: RUY EVANS on 06/20/17 1428 Cyclobenzaprine HCl 5 Mg Tablet, 5 MG PO TID PRN for PAIN-MODERATE Prescribed by: KHAI JOAQUIN on 01/01/18 1102 Cyclobenzaprine Hcl 10 Mg Tablet, 10 MG PO TID PRN, (Reported) Diazepam 10 Mg Tablet, 10 MG PO Q8H PRN, (Reported) Escitalopram Oxalate 10 Mg Tablet, 10 MG PO DAILY, (Reported) Furosemide 40 Mg Tablet, 40 MG PO BID, (Reported) Hydrocodone Bit/Acetaminophen 1 Tab Tab, 1 EA PO Q4HR PRN, (Reported) Hydrocodone Bit/Acetaminophen 1 Each Tablet, 1-2 EACH PO Q4H PRN for PAIN Prescribed by: RUY EVANS on 06/20/17 1428 Ibuprofen 600 Mg Tab, 600 MG PO Q6H PRN, (Reported) Lamotrigine 100 Mg Tablet, 50 MG PO BID, (Reported) Levetiracetam 500 Mg Tab, 500 MG PO BID, (Reported) Loperamide HCl 2 Mg Capsule, 2 MG PO TID Prescribed by: ISHAN PATEL on 05/02/19 0514 Multivitamin 1 Each Tablet, 1 TAB PO DAILY, (Reported) Nortriptyline Hcl 25 Mg Cap, 25 MG PO HS, (Reported) Ondansetron Hcl 4 Mg Tab, 4 MG PO Q8H PRN, (Reported) Polyethylene Glycol 3350 17 Gm Powd.pack, 17 GM PO BID PRN Prescribed by: ZAHRA ORNELAS on 12/22/16 1704 Potassium Chloride 10 Meq Tablet.sa, 20 MEQ PO BID, (Reported) Prednisone 20 Mg Tab, 40 MG PO DAILY Prescribed by: JOHNSON REESE on 03/23/17 1020 Tramadol HCl 50 Mg Tablet, 50 MG PO Q6H PRN for PAIN Prescribed by: JOHNSON REESE on 04/26/18 1056 Zolpidem Tartrate 10 Mg Tab, 10 MG PO HS, (Reported) Patient Home Medication List Home Medication List Reviewed: Yes Review of Systems Constitutional: see HPI EENTM: see HPI Respiratory: no symptoms reported Cardiovascular: no symptoms reported Genitourinary: no symptoms reported Musculoskeletal: see HPI Skin: no symptoms reported Psychiatric/Neurological: No Symptoms Reported Past Ccteklb-Lxuwpf-Sozpqb Hx Patient Social History Alcohol Use: Denies Use Recreational Drug Use: No Smoking Status: Current Everyday Smoker Type Used: Cigarettes 2nd Hand Smoke Exposure: No Recent Foreign Travel: No Contact w/Someone Who Travel: No Recent Infectious Disease Expo: No Recent Hopitalizations: No Physical Abuse: No Sexual Abuse: No Mistreated: No Fear: No Immunizations Up To Date Tetanus Booster (TDap): Unknown Date of Pneumonia Vaccine: Dec 14, 2012 Seasonal Allergies Seasonal Allergies: Yes Past Medical History Surgeries: Yes (carpal tunnel sx) Gallbladder, Hysterectomy Respiratory: Yes Chronic Bronchitis, Sleep Apnea, COPD Cardiac: Yes High Cholesterol Neurological: Yes Seizure Disorder 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 Disorders: No 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 0oz. 138.569450nj; 52.00 BMI Method:Stated General Appearance: WD/WN, no apparent distress HEENT: PERRL/EOMI, normal ENT inspection Respiratory: no respiratory distress, no accessory muscle use Shoulder: normal inspection, non-tender Elbow/Forearm: normal inspection, non-tender, Right Wrist: Yes normal inspection, Yes non-tender Hand: normal inspection, Right, soft tissue tenderness (no erythema and no swelling no limited range of motion) Neurologic/Tendon: normal sensation, normal motor functions Neurologic/Psychiatric: alert, normal mood/affect, oriented x 3 Skin: normal color, warm/dry Progress/Results/Core Measures Results/Orders My Orders Orders - KHAI JOAQUIN APRN Hand, Right, 3 Views (09/19/19 15:48) Vital Signs/I&O 09/19/19 15:42 Temp 36.8 Pulse 88 Resp 17 B/P (MAP) 128/85 (99) Pulse Ox 94 O2 Delivery Room Air Blood Pressure Mean: 99 Departure Impression Primary Impression: Hand sprain Qualified Codes: S63.91XA - Sprain of unspecified part of right wrist and hand, initial encounter Disposition: HOME, SELF-CARE Condition: Improved Departure-Patient Inst. Decision time for Depature: 15:59 Referrals: EDER ESQUEDA MD (PCP/Family) Primary Care Physician Patient Instructions: Hand Pain (DC) Add. Discharge Instructions: 1. Return to ER for any concerns 2. Follow-up with your doctor next week 3. Tylenol and Motrin for pain control. All discharge instructions reviewed with patient and/or family. Voiced understanding. KHAI JOAQUIN APRN Sep 19, 2019 15:56
--- NOTE | 2019-09-19 16:22 | Diagnostic Imaging Report ---
INDICATION: Hand pain. COMPARISON: August 15, 2009. TECHNIQUE: Three radiographs of the right hand dated September 19, 2019. FINDINGS: No acute fracture or dislocation. No destructive osseous process. Carpal alignment is well maintained. No suspicious radiopaque foreign body. IMPRESSION: No acute osseous abnormality. Dictated by: Dictated on workstation # [id number]
[2019-09-19] MEDS ORDERED: NAPR-1071 PO (16:34)
[2019-09-19 16:41] VITALS: BP 144/78
[2019-09-19] MEDS ORDERED: IBUPROFEN 800 MG (MOTRIN) TAB PO ONE (16:45)
== END 2019-09-19 16:41 | disposition home or self-care (01) ==
LOC: EDUNIT# 15:38 → ER 15:39
DX: S63.91XA Sprain of unspecified part of right wrist and hand, initial encounter (principal); J44.9 Chronic obstructive pulmonary disease, unspecified; E78.00 Pure hypercholesterolemia, unspecified; K21.9 Gastro-esophageal reflux disease without esophagitis; G40.909 Epilepsy, unspecified, not intractable, without status epilepticus; M79.7 Fibromyalgia; F90.9 Attention-deficit hyperactivity disorder, unspecified type; F41.9 Anxiety disorder, unspecified; F43.10 Post-traumatic stress disorder, unspecified; F32.9 Major depressive disorder, single episode, unspecified; E66.01 Morbid (severe) obesity due to excess calories; F17.210 Nicotine dependence, cigarettes, uncomplicated; Z90.710 Acquired absence of both cervix and uterus; Z88.2 Allergy status to sulfonamides; Z88.8 Allergy status to other drugs, medicaments and biological substances; Z68.43 Body mass index [BMI] 50.0-59.9, adult; Z79.52 Long term (current) use of systemic steroids; X50.1XXA Overexertion from prolonged static or awkward postures, initial encounter
CPT/HCPCS: 73130

== ENCOUNTER 2019-11-20 15:53 | Emergency (ER) | payer MEDICAID ==
[~2019-11-20] VITALS: Ht 165 cm; Wt 110.0 kg
[~2019-11-20 15:53] MED LIST changes: -LOPE-145 PO; +LOPE-175 PO; +NAPR-1071 PO
--- NOTE | 2019-11-20 17:25 | Diagnostic Imaging Report ---
INDICATION: Fell off bed last night, pain on left side of body. FINDINGS: Three views of the left shoulder demonstrate irregularity of the acromion which was present on a chest radiograph from 06/15/2017. Findings are consistent with an old acromial fracture. No acute findings are present. IMPRESSION: There are no acute findings to the left shoulder. Dictated by: Dictated on workstation # [id number]
--- NOTE | 2019-11-20 17:26 | Diagnostic Imaging Report ---
INDICATION: Fell off bed last night, pain on left side of the body. FINDINGS: Frontal and lateral views of the left femur demonstrate no fracture or dislocation. Degenerative changes are present in the left knee. IMPRESSION: There are no acute findings. Dictated by: Dictated on workstation # [id number]
--- NOTE | 2019-11-20 17:27 | Diagnostic Imaging Report ---
INDICATION: Fell off bed last night, pain on left side of the body. FINDINGS: Two views of the left humerus demonstrate normal ossification. No fractures are present. Previous old fracture of the acromion was present. IMPRESSION: There are no acute findings to the left humerus. Dictated by: Dictated on workstation # [id number]
--- NOTE | 2019-11-20 17:41 | ED Fall/Injury ---
General Chief Complaint: Hip/Pelvic Problems Stated Complaint: R ARM/LEG/SIDE PAIN, FELL OUT OF BED Nursing Triage Note: THE PT IS AMBULATORY TO THE ROOM WITHOUT DIFFICULTY. NO DISTRESS IS SEEN ON ARRIVAL. LOC IS NORMAL FOR THE PT. T6HE PT STATES THAT SHE FELL OUT OF BED LAST PM. Source: patient, family Exam Limitations: no limitations History of Present Illness Date Seen by Provider: Nov 20, 2019 Time Seen by Provider: 17:00 Initial Comments Here with report of left shoulder, hip and knee pain after falling out of bed last night. States took Tylenol today at about 1:00 and that did not help. Has continued pain. Is able to walk and move her arm without difficulty. Denies other injury or loss of consciousness. Occurred: this morning Severity: mild Injuries/Pain Location: upper extremity, lower extremity Context: other (rolled out of bed) Loss of Consciousness: no loss of consciousness Associated Symptoms (Fall): No Abdominal Pain, No Chest Pain, No Confusion, No Headache, No Muscle Spasms, No Neck Pain, No Trouble Walking Allergies and Home Medications Allergies Coded Allergies: Sulfa (Sulfonamide Antibiotics) (Unverified Allergy, Unknown, RASH, 07/30/15) esomeprazole mag (Unverified Adverse Reaction, Intermediate, 06/10/13) Diarrhea Home Medications Albuterol Sulfate 2.5 Mg/3 Ml Nebu, 2.5 MG INH Q6H PRN, (Reported) Amoxicillin/Potassium Clav 1 Each Tablet, 1 EACH PO BID Prescribed by: JOHNSON REESE on 03/23/17 1020 Amphet Asp/Amphet/D-Amphet 30 Mg Tablet, 30 MG PO BID, (Reported) Atorvastatin Calcium 10 Mg Tablet, 10 MG PO HS, (Reported) Black Cohosh Root Extract 80 Mg Capsule, 80 MG PO DAILY, (Reported) Cephalexin 500 Mg Tablet, 500 MG PO BID Prescribed by: JOHNSON REESE on 05/17/19 1645 Cetirizine Hcl 10 Mg Capsule, 10 MG PO DAILY, (Reported) Cyclobenzaprine HCl 10 Mg Tablet, 10 MG PO TID PRN for SPASMS Prescribed by: RUY EVANS on 06/20/17 1428 Cyclobenzaprine HCl 5 Mg Tablet, 5 MG PO TID PRN for PAIN-MODERATE Prescribed by: KHAI JOAQUIN on 01/01/18 1102 Cyclobenzaprine Hcl 10 Mg Tablet, 10 MG PO TID PRN, (Reported) Diazepam 10 Mg Tablet, 10 MG PO Q8H PRN, (Reported) Escitalopram Oxalate 10 Mg Tablet, 10 MG PO DAILY, (Reported) Furosemide 40 Mg Tablet, 40 MG PO BID, (Reported) Hydrocodone Bit/Acetaminophen 1 Tab Tab, 1 EA PO Q4HR PRN, (Reported) Hydrocodone Bit/Acetaminophen 1 Each Tablet, 1-2 EACH PO Q4H PRN for PAIN Prescribed by: RUY EVANS on 06/20/17 1428 Ibuprofen 600 Mg Tab, 600 MG PO Q6H PRN, (Reported) Lamotrigine 100 Mg Tablet, 50 MG PO BID, (Reported) Levetiracetam 500 Mg Tab, 500 MG PO BID, (Reported) Loperamide HCl 2 Mg Capsule, 2 MG PO TID Prescribed by: ISHAN PATEL on 05/02/19 0514 Multivitamin 1 Each Tablet, 1 TAB PO DAILY, (Reported) Naproxen 500 Mg Tablet, 500 MG PO BID PRN for PAIN-MODERATE (5-7) Prescribed by: KHAI JOAQUIN on 09/19/19 1634 Nortriptyline Hcl 25 Mg Cap, 25 MG PO HS, (Reported) Ondansetron Hcl 4 Mg Tab, 4 MG PO Q8H PRN, (Reported) Polyethylene Glycol 3350 17 Gm Powd.pack, 17 GM PO BID PRN Prescribed by: ZAHRA ORNELAS on 12/22/16 1704 Potassium Chloride 10 Meq Tablet.sa, 20 MEQ PO BID, (Reported) Prednisone 20 Mg Tab, 40 MG PO DAILY Prescribed by: JOHNSON REESE on 03/23/17 1020 Tramadol HCl 50 Mg Tablet, 50 MG PO Q6H PRN for PAIN Prescribed by: JOHNSON REESE on 04/26/18 1056 Zolpidem Tartrate 10 Mg Tab, 10 MG PO HS, (Reported) Patient Home Medication List Home Medication List Reviewed: Yes Review of Systems Review of Systems Constitutional: see HPI; No dizziness, No weakness Eyes: No Symptoms Reported Ears, Nose, Mouth, Throat: no symptoms reported Respiratory: no symptoms reported Cardiovascular: no symptoms reported Gastrointestinal: No abdominal pain, No nausea, No vomiting Musculoskeletal: see HPI, joint pain, muscle pain Skin: change in color; No lesions Past Beznwba-Yoxdua-Mifilf Hx Past Med/Social Hx: Reviewed Nursing Past Med/Soc Hx Patient Social History Alcohol Use: Denies Use Recreational Drug Use: No Smoking Status: Current Everyday Smoker Type Used: Cigarettes 2nd Hand Smoke Exposure: No Recent Foreign Travel: No Contact w/Someone Who Travel: No Recent Infectious Disease Expo: No Recent Hopitalizations: No Physical Abuse: No Sexual Abuse: No Mistreated: No Fear: No Immunizations Up To Date Tetanus Booster (TDap): Unknown Date of Pneumonia Vaccine: Dec 14, 2012 Seasonal Allergies Seasonal Allergies: Yes Past Medical History Surgeries: Yes (carpal tunnel sx) Gallbladder, Hysterectomy Respiratory: Yes Chronic Bronchitis, Sleep Apnea, COPD Cardiac: Yes High Cholesterol Neurological: Yes Headaches /Migraines, Seizure Disorder 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 Disorders: No MOLDER 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 History: Hysterectomy Sexually Transmitted Disease: No HIV/AIDS: No Genitourinary: No Gastrointestinal: Yes Gastroesophageal Reflux Musculoskeletal: Yes Arthritis, Fibromyalgia Endocrine: Yes (morbid obesity) HEENT: No Cancer: No Psychosocial: Yes ADD/ADHD, Anxiety, PTSD, Depression Integumentary: No Blood Disorders: No Family Medical History Reviewed Nursing Family Hx No Pertinent Family Hx Physical Exam Vital Signs Vital Signs - First Documented 11/20/19 16:11 Temp 37.0 Pulse 75 Resp 18 B/P (MAP) 114/74 (87) Capillary Refill : Less Than 3 Seconds Height, Weight, BMI Height: 5'6.00" Weight: 306lbs. 0oz. 138.376545xa; 40.00 BMI Method:Stated General Appearance: WD/WN, no apparent distress Cardiovascular: regular rate, rhythm, no murmur Respiratory: lungs clear, normal breath sounds Back: normal inspection, no CVA tenderness, no vertebral tenderness Extremities: other (tender at the superior lateral portion of the shoulder but has full range of motion without deformity. Tender over the anterior knee and there is very small bruise to the proximal portion. Retains range of motion and is able to walk on it. Tender at the left upper thigh and there is a questionable bruise with a small abrasion there. Retains full range of motion.) Neurologic/Psychiatric: alert, oriented x 3 Skin: ecchymosis (knee and upper leg on the left both small and described above) Debbi Coma Score Best Eye Response: (4) Open Spontaneously Best Verbal Response: (5) Oriented Best Motor Response: (6) Obeys Commands Progress/Results/Core Measures Results/Orders My Orders Orders - JOHNSON REESE MD Shoulder, Left, 3 Views (11/20/19 16:54) Femur, Left, 2 Views (11/20/19 16:54) Humerus, Left, 2 Views (11/20/19 16:54) Lortab 5mg Po (11/20/19 17:45) Vital Signs/I&O 11/20/19 16:11 Temp 37.0 Pulse 75 Resp 18 B/P (MAP) 114/74 (87) Blood Pressure Mean: 87 Progress Progress Note : Progress Note Seen and evaluated. X-ray left shoulder and humerus as well as left femur. All were negative. Hydrocodone 5/325 one tab by mouth given. Discharged home with return precautions. Patient verbalized understanding instructions and agreement with plan. Departure Impression Primary Impression: Contusion of left shoulder Qualified Codes: S40.012A - Contusion of left shoulder, initial encounter Additional Impressions: Contusion of left knee Qualified Codes: S80.02XA - Contusion of left knee, initial encounter Contusion of left hip Qualified Codes: S70.02XA - Contusion of left hip, initial encounter Disposition: 01 HOME, SELF-CARE Condition: Improved Departure-Patient Inst. Decision time for Depature: 17:42 Referrals: EDER ESQUEDA MD (PCP/Family) Primary Care Physician Patient Instructions: Contusion (DC) Add. Discharge Instructions: All discharge instructions reviewed with patient and/or family. Voiced understanding. You may take Tylenol/acetaminophen 1000 mg every 8 hours as needed for pain. You may take ibuprofen 600 mg every 8 hours as needed for pain. Follow-up with your DrSilvia in a few days for recheck. You may use ice packs over areas of concern 20 minutes per hour as needed. Return for worse pain, swelling, weakness or other concerns as needed. JOHNSON REESE MD Nov 20, 2019 17:40
[2019-11-20] MEDS ORDERED: HYDROcodone/APAP 5 MG/325 MG (LORTAB) TAB PO ONE (17:45)
[2019-11-20 17:49] VITALS: BP 124/86
--- OUTSIDE RECORDS SUMMARY | 2019-11-24 02:27 | XMS REPORT | Encounter Summary ---
Author Author [facility] Organization [facility] Address Unknown Phone Unavailable Care Team Providers Care Wet Pour Mixer Name Role Phone SethMaribel fonseca Unavailable Unavailable Carol Ann Marie PA-C Unavailable Unavailable Hailee Crook Unavailable Nadja Levy RN Unavailable Unavailable Shannen Christensen MD Unavailable Gabriela Silva MD Unavailable [place] [facility] Unavailable Unavailable Beny Fuentes MD Unavailable Unavailable Carlin Hamilton MD Unavailable Yesenia Falcon MD Unavailable Harvey Black MD Unavailable Billie Pereyra MD Unavailable Samreen Harris MD Unavailable Mariusz Kay MD Unavailable Carolina Cross MD Unavailable Myles Bledsoe DO PCP Encounter Details Care Team Description Date Type Department Mohan Cheney MD [address] [facility] [place] [address] 06/03/2019 [facility] [address] [place] [address] Social History Date Tobacco Use Types Packs/Day Years Used Quit: 03/2018 Former Smoker Cigarettes 1 Smokeless Tobacco: Former Quit: 06/16/2012 User Comments: in process of quitting Drinks/Week oz/Week Comments Alcohol Use 1 Shots of liquor 1.0 Social No Sex Assigned at Date Recorded Not on file Industry Job Start Date Occupation Not on file Not on file Not on file Travel End Travel History Travel Start No recent travel history available. documented as of this encounter Functional Status Date of Assessment Functional Status Response 06/03/2019 Does the patient have a hearing impairment: No 06/03/2019 Does the patient have a visual impairment: Yes 06/03/2019 Does the patient have impaired ambulation: Yes 04/06/2018 Does the patient have an activity of daily living No (ADL) impairment: 04/06/2018 Does the patient have an instrumental activity of No daily living (IADL) impairment: Date of Assessment Cognitive Status Response 06/03/2019 Does the patient have a cognitive impairment: No documented as of this encounter Medications at Time of Discharge Start Date End Date Medication Sig Dispensed Refills acetaminophen (TYLENOL) Take 1,000 mg 0 500 mg tablet by mouth at bedtime daily. Max of 4,000 mg of acetaminophen in 24 hours. albuterol (PROAIR HFA, Inhale 2 0 VENTOLIN HFA, OR puffs by PROVENTIL HFA) 90 mouth into mcg/actuation inhaler the lungs every 6 hours as needed for Wheezing or Shortness of Breath. Shake well before use. albuterol 0.5% Inhale 2.5 mg 0 (PROVENTIL; VENTOLIN) 2.5 solution as mg/0.5 mL Nebu nebulizer directed solution every 6 hours as needed. ARIPiprazole (ABILIFY) 10 Take 10 mg by 0 mg tablet mouth daily. atorvastatin (LIPITOR) 10 Take 10 mg by 0 mg tablet mouth at bedtime daily. cetirizine (ZYRTEC) 10 mg Take 10 mg by 0 tablet mouth daily. doxepin (SINEQUAN) 10 mg Take 40 mg by 0 capsuleIndications: takes mouth at 2 at hs bedtime daily. Indications: takes 2 at hs doxepin (SINEQUAN) 50 mg Take 50 mg by 0 capsule mouth at bedtime daily. fesoterodine ER(+) Take 4 mg by 0 (TOVIAZ) 4 mg tablet mouth daily. fluticasone (FLONASE) 50 Apply 1 spray 0 mcg/actuation nasal spray to each nostril as directed daily. Shake bottle gently before using. Glycopyrrolate 2 mg tab Take 1 tablet 0 by mouth twice daily. isosorbide mononitrate SR Take 30 mg by 0 (IMDUR) 60 mg tablet mouth every morning. 12/15/2018 levETIRAcetam (KEPPRA) Take 2 tabs 150 tablet 11 500 mg tablet PO every morning and take 3 tabs po at bedtime other medication 1 Dose. [address] Take 40 mg by 0 (PROTONIX) 40 mg tablet mouth daily. prazosin (MINIPRESS) 5 mg Take 5 mg by 0 capsuleIndications: takes mouth at tabs a hs bedtime daily. Indications: takes tabs a hs 04/09/2019 tiZANidine (ZANAFLEX) 4 Take one 90 tablet 11 mg tablet tablet by mouth three times daily as needed. umeclidinium-vilanterol Inhale 1 puff 0 (ANORO ELLIPTA) 62.5-25 by mouth into mcg/actuation inhaler the lungs daily. 07/20/2019 desvenlafaxine (+) Take 50 mg by 0 (PRISTIQ) 100 mg tablet mouth at bedtime daily. 04/27/2019 10/14/[address] (CYMBALTA) 30 mg for 2 60 capsule 5 30 mg capsule weeks, then increase to 60mg 11/27/2012 07/20/2019 other Compression 1 Each 6 medicationIndications: stockings Peripheral edema 30-40 mm Hg Knee high 11/27/2012 07/20/2019 other BP machine 1 Each 0 medicationIndications: HTN (hypertension) 07/20/2019 ranitidine(+) (ZANTAC) Take 150 mg 0 150 mg tablet by mouth twice daily. 03/19/2019 07/14/2019 topiramate (TOPAMAX) 50 Take two 120 tablet 2 mg tablet tablets by mouth twice daily. documented as of this encounter Plan of Treatment Not on filedocumented as of this encounter Procedures Comments Procedure Name Priority Date/Time Associated Diag nosis FLUORO GUIDANCE FOR SPINE Routine 06/03/2019 Pain INJ RAD 2:01 PM CDT documented in this encounter Results * FLUORO GUIDANCE FOR SPINE INJ RAD (06/03/2019 2:01 PM CDT) Specimen Narrative Performed At This order has been auto finalized and does not conta in a result. [facility] Performing Organization Address City/State/[facility] Ph one Number [facility] documented in this encounter Visit Diagnoses Diagnosis Pain Generalized pain documented in this encounter
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
--- OUTSIDE RECORDS SUMMARY | 2019-11-24 02:27 | XMS REPORT | Encounter Summary ---
Author Author [facility] Organization [facility] Address Unknown Phone Unavailable Care Team Providers Care Juke Box Servicer Name Role Phone SethMaribel fonseca Unavailable Unavailable Carol Ann Marie PA-C Unavailable Unavailable Hailee Crook Unavailable Nadja Levy RN Unavailable Unavailable Shannen Christensen MD Unavailable Gabriela Silva MD Unavailable Africa Talamantes [facility] Unavailable Unavailable Beny Fuentes MD Unavailable Unavailable Carlin Hamilton MD Unavailable Yesenia Falcon MD Unavailable Harvey Black MD Unavailable Billie Pereyra MD Unavailable Samreen Harris MD Unavailable Mariusz Kay MD Unavailable Carolina Cross MD Unavailable Myles Bledsoe DO PCP Reason for Referral * Pain Authorization (Routine) Referred By Contact Referred To Contact Status Reason Specialty Diagnoses / Procedures Mohan Cheney MD [address] [place] [address] [facility] [address] [address] Authorized Anesthesia Pain Diagnoses Myalgia, other site P rocedures KU AMB SPINE TRIGGER POINT INJECTION Encounter Details Care Team Description Date Type Department Radha Joyner RN Myalgia, other site (Primary Dx) 10/29/2019 Orders Only [facility] [address] [address] Social History Date Tobacco Use Types Packs/Day [...] impairment: No documented as of this encounter Plan of Treatment Order Schedule Name Type Priority Associated Diag noses Expected: 10/29/2019, Expires: 1 KU AMB SPINE TRIGGER Procedures Routine Myalgia, other site POINT INJECTION documented as of this encounter Visit Diagnoses Diagnosis Myalgia, other site - Primary documented in this encounter
--- OUTSIDE RECORDS SUMMARY | 2019-11-24 02:27 | XMS REPORT | Encounter Summary ---
Author Author [facility] Organization [facility] Address Unknown Phone Unavailable Care Team Providers Care Retail Zone Specialist Name Role Phone SethMaribel fonseca Unavailable Unavailable Carol Ann Marie PA-C Unavailable Unavailable Hailee Crook Unavailable Nadja Levy RN Unavailable Unavailable Shannen Christensen MD Unavailable Gabriela Silva MD Unavailable Africa Talamantes [facility] Unavailable Unavailable Beny Fuentes MD Unavailable Unavailable Carlin Hamilton MD Unavailable Yesenia Falcon MD Unavailable Harvey Black MD Unavailable Billie Pereyra MD Unavailable Samreen Harris MD Unavailable Mariusz Kay MD Unavailable Carolina Cross MD Unavailable Myles Bledsoe DO PCP Reason for Visit * Reason Comments Medication Refill Encounter Details Care Team Description Date Type Department Carolina Cross MD [address] [place] [address] 10/14/2019 Refill [facility] [address] [place] [address] Social History Date Tobacco Use Types Packs/Day [...] impairment: No documented as of this encounter Miscellaneous Notes * Telephone Encounter - David Jordan RN - 10/14/2019 8:26 AM MEAT BONER AND SLICER Patient is requesting a refill of Cymbalta. Pt last seen 04/27/19. Last labs were drawn 04/27/19. Pt scheduled for follow up on 11/11/19. BONER AND SLICER documented in this encounter Plan of Treatment Not on filedocumented as of this encounter Visit Diagnoses Not on filedocumented in this encounter
--- OUTSIDE RECORDS SUMMARY | 2019-11-24 02:27 | XMS REPORT | Encounter Summary ---
Author Author [facility] Organization [facility] Address Unknown Phone Unavailable Care Team Providers Care Licensed Sales Assistant Name Role Phone SethMaribel fonseca Unavailable Unavailable Carol Ann Marie PA-C Unavailable Unavailable Hailee Crook Unavailable Nadja Levy RN Unavailable Unavailable Shannen Christensen MD Unavailable Gabriela Silva MD Unavailable Africa Talamantes [facility] Unavailable Unavailable Beny Fuentes MD Unavailable Unavailable Carlin Hamilton MD Unavailable Yesenia Falcon MD Unavailable Harvey Black MD Unavailable Billie Pereyra MD Unavailable Samreen Harris MD Unavailable Mariusz Kay MD Unavailable Carolina Cross MD Unavailable Myles Bledsoe DO PCP Reason for Visit * Reason Comments Medication Refill Encounter Details Care Team Description Date Type Department Alison Bentley MD [address] [address] 07/14/2019 Refill The [facility] [id number] [place] [address] Social History Date Tobacco Use Types Packs/Day [...]
--- OUTSIDE RECORDS SUMMARY | 2019-11-24 02:27 | XMS REPORT | Encounter Summary ---
Author Author [facility] Organization [facility] Address Unknown Phone Unavailable Care Team Providers Care Heat Treater Head Name Role Phone SethMaribel fonseca Unavailable Unavailable Carol Ann Marie PA-C Unavailable Unavailable Hailee Crook Unavailable Nadja Levy RN Unavailable Unavailable Shannen Christensen MD Unavailable Gabriela Silva MD Unavailable Africa Talamatnes [facility] Unavailable Unavailable Beny Fuentes MD Unavailable Unavailable Carlin Hamilton MD Unavailable Yesenia Falcon MD Unavailable Harvey Black MD Unavailable Billie Pereyra MD Unavailable Samreen Harris MD Unavailable Mariusz Kay MD Unavailable Carolina Cross MD Unavailable Myles Bledsoe DO PCP Reason for Referral * Pain Authorization (Routine) Referred By Contact Referred To Contact Status Reason Specialty Diagnoses / Procedures Mohan Cheney MD [address] [place] [address] [facility] [address] [place] [address] Authorized Anesthesia Pain Diagnoses Spondylosis of lumbosacral region without myelopathy or radiculopathy P rocedures DESTRUCTION OF NERVE W/ FLUORO LUMBAR/SACRAL Reason for Visit * Reason Comments Results MBB 2 Encounter Details Care Team Description Date Type Department Mohan Cheney MD [address] [facility] Sp[facility] [place], [place] [id number] Results (MBB 2) 06/04/2019 Telephone [facility] [address] [address] Social History Date Tobacco Use Types Packs/Day [...] encounter Miscellaneous Notes * Telephone Encounter - Paola Chaidez RN - 06/04/2019 8:36 AM CDT Patient reports 100% pain relief from MBB #2. LVM for patient to schedule RFA. W ill place order. documented in this encounter Plan of Treatment Not on filedocumented as of this encounter Results * DESTRUCTION OF NERVE W/ FLUORO LUMBAR/SACRAL (07/20/2019 4:37 PM BINDER OPERATOR) Narrative Performed At Mohan Cheney MD 07/20/2019 4:38 PM OTHER OUT SIDE LAB LUMBAR MEDIAL BRANCH RADIOFREQUENCY ABL ATION UNDER FLUOROSCOPY PROCEDURE: 1) bilateral L4-S1 medial branch radiof requency ablation 2) Fluoroscopic needle guidance REASON FOR PROCEDURE: Spondylosis witho ut myleopathy or radiculopathy, facet arthropathy, DDD ( lumbosacral) PHYSICIAN: Mohan Cheney MD MEDICATIONS INJECTED: Before the ablati on, 1 mL of 2% lidocaine with 1.66mg dexamethasone was injected at each level. LOCAL ANESTHETIC INJECTED: 2 mL of 1% l idocaine per site SEDATION MEDICATIONS: Versed and Fentan yl as per nurse charting. ESTIMATED BLOOD LOSS: None SPECIMENS REMOVED: None COMPLICATIONS: None TECHNIQUE: Time-out was taken to identi fy the correct patient, procedure and side prior to starting e procedure. Lying in a prone position, the patient was prepped and draped in the usual sterile fashion using DuraPrep and a fe nestrated drape. The levels were determined under fluoroscop y. Local anesthetic was given by raising a skin wheal and going down to the hub of a 27-gauge 1.25-inch needle. A 10mm tip r adiofrequency needle was introduced to the anatomic location of the medial branch at the junction of the superior articular proc ess and transverse process utilizing intermittent fluoroscopy. Mot or stimulation up to 2 volts was done to confirm no ablation o f the ventral ramus at each level. 1 mL of 2% lidocaine was th en injected slowly at each level. After waiting 60 seconds, ablati on was performed utilizing a radiofrequency generator at 80 degree s C for 90 seconds. The procedure was completed without com plications and was tolerated well. The patient was monitor ed after the procedure. The patient (or responsible libertarian) was given post-procedure and discharge instructions to follow at [facility]. The patient was discharged in stable condition. Mohan Cheney MD Performing Organization Address City/State/Zipcode Ph one Number OTHER OUTSIDE LAB documented in this encounter Visit Diagnoses Diagnosis Spondylosis of lumbosacral region witho ut myelopathy or radiculopathy - Primary Lumbosacral spondylosis without myelopa thy documented in this encounter
--- OUTSIDE RECORDS SUMMARY | 2019-11-24 02:27 | XMS REPORT | Encounter Summary ---
Author Author [facility] Organization [facility] Address Unknown Phone Unavailable Care Team Providers Care Business Analyst Name Role Phone SethMaribel fonseca Unavailable Unavailable Carol Ann Marie PA-C Unavailable Unavailable Hailee Crook Unavailable Nadja Levy RN Unavailable Unavailable Shannen Christensen MD Unavailable Gabriela Silva MD Unavailable Africa Talamantes [facility] Unavailable Unavailable Beny Fuentes MD Unavailable Unavailable Carlin Hamilton MD Unavailable Yesenia Falcon MD Unavailable Harvey Black MD Unavailable Billie Pereyra MD Unavailable Samreen Harris MD Unavailable Mariusz Kay MD Unavailable Carolina Cross MD Unavailable Myles Bledsoe DO PCP Reason for Visit * Reason Comments Medication Refill Encounter Details Care Team Description Date Type Department Carolina Cross MD [address] [place] [address] 07/16/2019 Refill [facility] [address] [place] [address] Social History Date Tobacco Use [...] encounter Miscellaneous Notes * Telephone Encounter - Yas Jarquin LPN - 07/16/2019 2:38 PM CDT Recieved topiramate refill request for Ms. Cespedes. NORMAN 05/03/2019, medication inc luded in plan of care set forth by Dr. Cross. medication escribed to pharmacy. Dr. Cross to cosign. documented in this encounter Plan of Treatment Not on filedocumented as of this encounter Visit Diagnoses Not on filedocumented in this encounter
--- OUTSIDE RECORDS SUMMARY | 2019-11-24 02:27 | XMS REPORT | Encounter Summary ---
Author Author [facility] Organization [facility] Address Unknown Phone Unavailable Care Team Providers Care Compatibility Test Engineer Name Role Phone SethMaribel rodriguez Unavailable Unavailable Carol Ann Marie PA-C Unavailable [...] PCP Reason for Visit * Reason Comments Error Encounter Details Care Team Description Date Type Department Mohan Cheney MD [address] [place] [address] Error 08/17/2019 Telephone [facility] [address] [address] [address] Social History Date Tobacco Use Types Packs/Day [...]
--- OUTSIDE RECORDS SUMMARY | 2019-11-24 02:27 | XMS REPORT | Encounter Summary ---
Author Author [facility] Organization [facility] Address Unknown Phone Unavailable Care Team Providers Care Harbor Boat Pilot Name Role Phone SethMaribel fonseca Unavailable Unavailable Carol Ann Marie PA-C Unavailable Unavailable Hailee Crook Unavailable Nadja Levy RN Unavailable Unavailable Shannen Christensen MD Unavailable Gabriela Silva MD Unavailable Africa Talamantes [facility] Unavailable Unavailable Beny Fuentes MD Unavailable Unavailable Carlin Hamilton MD Unavailable Yesenia Falcon MD Unavailable Harvey Black MD Unavailable Billie Pereyra MD Unavailable Samreen Harris MD Unavailable Mariusz Kay MD Unavailable Carolina Cross MD Unavailable Myles Bledsoe DO PCP Encounter Details Care Team Description Date Type Department Mohan Cheney MD [address] [facility] [place] [address] 07/20/2019 [facility] [address] [place] [address] Social History Date Tobacco Use Types Packs/Day [...] by mouth three times daily as needed. 07/16/2019 topiramate (TOPAMAX) 50 Take two 120 tablet 3 mg tablet tablets by mouth twice daily. umeclidinium-vilanterol Inhale 1 puff 0 (ANORO ELLIPTA) 62.5-25 by mouth into mcg/actuation inhaler the lungs daily. 04/27/2019 10/14/[address] (CYMBALTA) 30 mg for 2 60 capsule 5 30 mg capsule weeks, then increase to 60mg documented as of this encounter Plan of Treatment Not on filedocumented as of this encounter Procedures Comments Procedure Name Priority Date/Time Associated Diag nosis FLUORO GUIDANCE FOR SPINE Routine 07/20/2019 Pain INJ RAD 2:36 PM PARKING ENFORCER documented in this encounter Results * FLUORO GUIDANCE FOR SPINE INJ RAD (07/20/2019 2:36 PM PARKING ENFORCER) Specimen Narrative Performed At This order has been auto finalized and does not contain a result. documented in this encounter Visit Diagnoses Diagnosis Pain Generalized pain documented in this encounter
--- OUTSIDE RECORDS SUMMARY | 2019-11-24 02:27 | XMS REPORT | Encounter Summary ---
Author Author [facility] Organization [facility] Address Unknown Phone Unavailable Care Team Providers Care Air Sampling And Monitoring Name Role Phone SethMaribel fonseca Unavailable Unavailable Carol Ann Marie PA-C Unavailable Unavailable Hailee Crook Unavailable Nadja Levy RN Unavailable Unavailable Shannen Christensen MD Unavailable Gabriela Silva MD Unavailable Africa Talamantes [facility] Unavailable Unavailable Beny Fuentes [...] Specialty Diagnoses / Procedures Mohan Cheney MD [address] [place] [address] Bhg Spn Anes Pain Cl [address] [address] Denied Anesthesia Pain Diagnoses Myalgia, other site P rocedures KU AMB SPINE TRIGGER POINT INJECTION Encounter Details Care Team Description Date Type Department Radha Joyner RN Myalgia, other site (Primary Dx) 08/17/2019 Orders Only [facility] [address] [address] Social History Date Tobacco Use Types Packs/Day [...] Name Type Priority Associated Diag noses Expected: 11/16/2019, Expires: 0 KU AMB SPINE TRIGGER Procedures Routine Myalgia, other site POINT INJECTION documented as of this encounter Visit Diagnoses Diagnosis Myalgia, other site - Primary documented in this encounter
--- OUTSIDE RECORDS SUMMARY | 2019-11-24 02:27 | XMS REPORT | Clinical Summary ---
Author Author [facility] Organization [facility] Address Unknown Phone Unavailable Care Team Providers Care Farm Rancher Name Role Phone SethMaribel fonseca Unavailable Unavailable Carol Ann Marie PA-C Unavailable Unavailable Hailee Crook Unavailable Nadja Levy RN Unavailable Unavailable Shannen Christensen MD Unavailable Gabriela Silva MD Unavailable [place] [facility] Unavailable Unavailable Beny Fuentes MD Unavailable Unavailable Carlin Hamilton MD Unavailable Yesenia Falcon MD Unavailable Harvey Black MD Unavailable Billie Pereyra MD Unavailable Samreen Harris MD Unavailable Mariusz Kay MD Unavailable Carolina Cross MD Unavailable Myles Bledsoe DO PCP Source Comments Some departments are not documenting in the electronic medical record. If you d o not see the information that you expected, contact Release of Information in state mental health facility Health Information Management department at [phone] for further assistan ce in locating additional records.[facility] Allergies Comments Active Allergy Reactions Severity Noted Date Esomeprazole Magnesium DIARRHEA 11/10/2013 Sulfa (Sulfonamide RASH 03/23/2008 Antibiotics) Medications End Date Status Medication Sig Dispensed Refills Start Date Active other medication 1 Dose. 0 Allergy shot Active cetirizine (ZYRTEC) 10 mg Take 10 mg by 0 tablet mouth daily. Active albuterol 0.5% Inhale 2.5 mg 0 (PROVENTIL; VENTOLIN) 2.5 solution as mg/0.5 mL Nebu nebulizer directed solution every 6 hours as needed. Active atorvastatin (LIPITOR) 10 Take 10 mg by 0 mg tablet mouth at bedtime daily. Active fluticasone (FLONASE) 50 Apply 1 spray 0 mcg/actuation nasal spray to each nostril as directed daily. Shake bottle gently before using. Active isosorbide mononitrate SR Take 30 mg by 0 (IMDUR) 60 mg tablet mouth every morning. Active umeclidinium-vilanterol Inhale 1 puff 0 (ANORO ELLIPTA) 62.5-25 by mouth into mcg/actuation inhaler the lungs daily. Active pantoprazole DR Take 40 mg by 0 (PROTONIX) 40 mg tablet mouth daily. Active ARIPiprazole (ABILIFY) 10 Take 10 mg by 0 mg tablet mouth daily. Active Glycopyrrolate 2 mg tab Take 1 tablet 0 by mouth twice daily. Active albuterol (PROAIR HFA, Inhale 2 0 VENTOLIN HFA, OR puffs by PROVENTIL HFA) 90 mouth into mcg/actuation inhaler the lungs every 6 hours as needed for Wheezing or Shortness of Breath. Shake well before use. Active acetaminophen (TYLENOL) Take 1,000 mg 0 500 mg tablet by mouth at bedtime daily. Max of 4,000 mg of acetaminophen in 24 hours. Active doxepin (SINEQUAN) 50 mg Take 50 mg by 0 capsule mouth at bedtime daily. Active prazosin (MINIPRESS) 5 mg Take 5 mg by 0 capsuleIndications: takes mouth at tabs a hs bedtime daily. Indications: takes tabs a hs Active fesoterodine ER(+) Take 4 mg by 0 (TOVIAZ) 4 mg tablet mouth daily. Active levETIRAcetam (KEPPRA) Take 2 tabs 150 tablet 11 500 mg tablet PO every 9 morning and take 3 tabs po at bedtime Active doxepin (SINEQUAN) 10 mg Take 40 mg by 0 capsuleIndications: takes mouth at 2 at hs bedtime daily. Indications: takes 2 at hs Active tiZANidine (ZANAFLEX) 4 Take one 90 tablet 11 mg tablet tablet by 9 mouth three times daily as needed. Active topiramate (TOPAMAX) 50 Take two 120 tablet 3 mg tablet tablets by 9 mouth twice daily. Active duloxetine DR (CYMBALTA) Take two 180 capsule 1 0 30 mg capsule capsules by 0 mouth daily. 30 mg for 2 weeks, then increase to 60mg Status Hospital, Clinic, or Ordered Dose Route Frequency Start End Date Other Facility Date Administered Medication Active fentaNYL citrate PF 50-100 mcg IV EVERY 2 MIN PRN 1 09/19/19 (SUBLIMAZE) injection 19 50-100 mcgIndications: Spondylosis of lumbosacral region without myelopathy or radiculopathy Active midazolam (VERSED) 1-2 mg IV EVERY 2 MIN PRN injection 1-2 19 mgIndications: Spondylosis of lumbosacral region without myelopathy or radiculopathy Active Problems Problem Noted Date Gait abnormality 12/15/2018 Back pain 07/18/2014 Smoker 12/21/2012 Overview: 12/21/2012: Rxed nicoderm 21 mg patch. Abnormal thyroid blood test 12/08/2012 Overview: 12/21/2012: repeat in 4-6 weeks. MICHELLE (obstructive sleep apnea) 11/29/2012 Overview: 11/27/2012: Reiterated need to get back on CPAP. [facility] pays for CPAP. She will check with Dr Black office. Told her getting back, may bring her BP down, help her get off the ambien (a ctually is risky to take w/untreated MICHELLE) and maybe even the adderral (if ta brandon for anhedonia from ?depression or daytime sx from disrupted overnight sleep). 12/21/2012: Needs to restart CPAP, has ap pt w/Dr Black later this month. L ast Assessment & Plan: Stooped using the CPAP since it was sto cynthia. We will restart the CPAP Polypharmacy 11/29/2012 Overview: 11/27/2012: Would definitely like to see her get off the medicines slowly, other than the ones she absolutely need s. Would start with ambien and doxepin, maybe adderral once she restar ts the CPAP. Environmental allergies 11/29/2012 Overview: 11/27/2012: Requesting a referral to [facility] for shots: Has been getting shots for 1 yr and has had notiecable i mprovement in her sx of runny, itchy nose and eyes. Referral placed for [facility]. Anxiety and depression 11/29/2012 Overview: 11/27/2012: concerned about polypharmacy : Insomnia - Ambien and doxepin. Depression/anxiety - Participating in t he[facility] at [facility] and [facility]. Treated with adderall, lamotrigin e, oxcarbazepine and valium PRN. Osteoarthritis and fibromyalgia - DJD i n lumbar spine, knees L>R, and bilateral ankles. Treated with vicodin, flexeril, ibuprofen and lyrica. Preventative health care 11/29/2012 Overview: 11/27/2012: . Hysterectomy and BSO i n 10/2011 - Due to menorrhagia >> PAPs not needed anymore. Routine pap sm ears - Distant hx of dysplasia, recent tests normal. Contraception - Implanon x1 year, OCP u se x3 years. No Hx of HRT Mammorgram - Always normal. Screening e xam last year. Smokes, occasional alcohol, no illegal drugs. No family hx of breast, colon cancer and premature CAD. Wt in obese r tiffany. BP high. Labs ordered. Immunizations next visit. Peripheral edema 11/27/2012 Overview: 11/27/2012: Ankles swollen for a week de spite furosemide, which she has been on for a long time. Likely has diastolic dysfunction (last echo in 2009 showed LVH, normal EF), potential medication side effect, hypoa lbuminemia. On last check liver and kidney function was wnl. Recommended lo w salt diet, leg elevation and compression stockings (rx given). 12/21/2012: Improved w/ compression stock ings. Fibromyalgia 05/07/2010 Overview: 11/27/2012: Osteoarthritis and fibromyal jessica - DJD in lumbar spine, knees L>R, and bilateral ankles. Treated with vicodin, flexeril, ibuprofen and lyrica. DVT (deep venous thrombosis) 03/25/2008 Overview: 2007 - Completed 6 mos of warfarin OA (osteoarthritis) 10/26/2007 Overview: KNEES, ANKLES Migraine 10/26/2007 Overview: 11/27/2012: Migraine with aura. Headache s are right sided, with photo and phonosensitivity. Last for hours up to a day. Relieved by sleep. Treated with topamax and compazine. Follows in Neurology. HTN (hypertension) 10/26/2007 Overview: 11/27/2012: Not treated currently. Tryin g to improve with weight loss. Treated with lasix for fluid retention. Card given to keep log of BP and bring to next appt. Advised low salt di et, a regular exercise program, and weight loss. Labs ordered. RTC 2-3 week s to discuss results. 12/21/2012: BP improved. No intervention. Encouraged restarting CPAP, since that will also help bring BP down. Smok ing cessation and wt loss encouraged. Epilepsy 10/26/2007 Overview: 11/27/2012: Since childhood. First seizu re at age 3-5. Always has them at night; wakes up with severe headache an d confusion. Post-ictal state lasts an hour. Brought on by stress. Diagnose d with partial complex seizures by Drs. Falcon and Gina in neurology. Has follow-up appointment December [address] Falcon. Treated with Keppra. GERD (gastroesophageal reflux disease) Anxiety Morbid obesity with BMI of 50.0-59.9, a dult Resolved Problems Problem Noted Date Resolved Date Seizures 11/23/2017 12/15/2018 Acute sinusitis 11/27/2012 12/22/2012 Overview: 11/27/2012: Feels that she has a sinus i nfection. Sx for 1 week, with sinus pressure, pain and thick greenish drain age and post nasal drip. Is on nasal flonase for allergic rhinitis but latel y does not seem to be helping. Has had issues with sinuses in the past, ty pically resolves with abx (per pt). Recommended few day nasal afrin to deco ngest, educated on correct way of using the nasal flonase; increase to 2 squirts for now, nasal saline rinses bid w/ white vinegar. L ast Assessment & Plan: Transient alteration of awareness 05/07/201011/13 Convulsions 12/15/2018 Encounters Care Team Description Date Type Specialty Radha Joyner RN Myalgia, other site (Primary Dx) 10/29/2019 Orders Only Anesthesia Carolina Leon MD 10/14/2019 Refill Neurology from Last 3 Months Immunizations Name Administration Dates Next Due FLU VACCINE >3YO 07/27/2008 Pneumococcal Vaccine 12/21/2012 (23-Emily Adult) Td Vaccine 09/15/1999 Family History Medical History Relation Name Comments Epilepsy Daughter Cancer-Lung Father Heart Disease Father Alcohol abuse Mother Dementia Mother Relation Name Status Comments Daughter Father ALCOHOLIC; LUNG CAN CER Mother Alive ALCOHOLIC Sister Alive ULCERS Sister Alive Social History Date Tobacco Use Types Packs/Day Years Used Quit: 03/2018 Former Smoker Cigarettes 1 Smokeless Tobacco: Former Quit: 06/16/2012 User Tobacco Cessation: Ready to Quit: Yes; C ounseling Given: Yes Comments: in process of quitting Drinks/Week oz/Week Comments Alcohol Use 1 Shots of liquor 1.0 Social No Sex Assigned at Date Recorded Not on file Industry Job Start Date Occupation Not on file Not on file Not on file Travel End Travel History Travel Start No recent travel history available. Last Filed Vital Signs Reading Time Taken Comments Vital Sign 121/84 08/24/2019 2:39 PM COUNTER CHECKER Blood Pressure 97 08/24/2019 2:39 PM COUNTER CHECKER Pulse 36.5 C (97.7 F) 07/20/2019 1:55 PM COUNTER CHECKER Temperature 18 06/03/2019 1:18 PM CDT Respiratory Rate 96% 07/20/2019 3:04 PM COUNTER CHECKER Oxygen Saturation - - Inhaled Oxygen Concentration 144.2 kg (318 lb) 08/24/2019 2:39 PM COUNTER CHECKER Weight 162.6 cm (5' 4") 08/24/2019 2:39 PM COUNTER CHECKER Height 54.58 08/24/2019 2:39 PM COUNTER CHECKER Body Mass Index Plan of Treatment Health Maintenance Due Date Last Done Comments DTAP/TDAP VACCINES (1 - 02/25/1980 09/15/1999 Tdap) HIV SCREENING 02/25/1984 CERVICAL CANCER SCREENING 1999 PHYSICAL (COMPREHENSIVE) 12/28/2008 12/29/2007 EXAM BREAST CANCER SCREENING 2009 COLORECTAL CANCER 2019 SCREENING SHINGLES RECOMBINANT 2019 VACCINE (1 of 2) INFLUENZA VACCINE 04/15/2019 07/27/2008, 008 Results Not on filefrom Last 3 Months Insurance Type Payer Benefit Subscriber ID Effective Phone Address Plan / Dates Group AETNA MEDICAID AETNA xxxxxxxxxxx 2019[facility]P [facility] [place] [facility] 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 needed 11/23/2017 1:32 PM DNAR-Limited 11/23/2017 1:25 PM Intervention 03/25/2008 5:59 PM Full Code 03/23/2008 8:02 PM
--- OUTSIDE RECORDS SUMMARY | 2019-11-24 02:27 | XMS REPORT | Encounter Summary ---
Author Author [facility] Organization [facility] Address Unknown Phone Unavailable Care Team Providers Care Parimutuel Cashier Name Role Phone SethMaribel fonseca Unavailable Unavailable [...] Bledsoe DO PCP Reason for Visit * Pain Authorization (Routine) Referred By Contact Referred To Contact Status Reason Specialty Diagnoses / Procedures Mohan Cheney MD [address] [place] [address] Asc [facility] [address] [place] [address] Authorized Anesthesia Pain Diagnoses Spondylosis of lumbosacral region without myelopathy or radiculopathy P rocedures DESTRUCTION OF NERVE W/ FLUORO LUMBAR/SACRAL Encounter Details Care Team Description Date Type Department Mohan Cheney MD [address] [place] [address] [phone] Canceled (Patient-Transportation) 06/29/2019 [facility] ICC2 PP Encounter [id number] [place] [address] Social History Date Tobacco Use Types Packs/Day [...] Signs Reading Time Taken Comments Vital Sign - - Blood Pressure - - Pulse - - Temperature - - Respiratory Rate - - Oxygen Saturation - - Inhaled Oxygen Concentration 136.1 kg (300 lb) 06/25/2019 3:04 PM CDT Weight 165.1 cm (5' 5") 06/25/2019 3:04 PM CDT Height 49.92 06/25/2019 3:04 PM CDT Body Mass Index documented in this encounter [...] impairment: No documented as of this encounter Discharge Instructions * Pre-Anesthesia Patient Instructions* Michelle Lopez RN - 06/25/2019 3:13 PM CDT Below are the instructions for your upcoming procedure. DATE OF PROCEDURE: 06/29/2019 ARRIVAL TIME: 12:00 pm PLEASE HAVE NOTHING TO EAT AFTER 6:00am PRIOR TO YOUR PROCEDURE AVOID SMOKING GUM CANDY AND MINTS AFTER 6:00am PRIOR TO YOUR PROCEDURE YOU MAY HAVE WATER ONLY UNTIL 06/29/2019 at 10:00am. * BATHE, BRUSH TEETH AND GARGLE THE MORNING OF SURGERY, NO MAKEUP, PERFUMES OR L OTION * WEAR CASUAL, COMFORTABLE, LOOSE FITTING CLOTHING THAT ARE EASY TO GET ON AND O FF * TAKE OFF ANY JEWELRY, TAKE OUT ANY PIERCINGS, LEAVE ALL VALUABLES AT HOME * IF YOU WEAR GLASSES OR CONTACTS PLEASE BRING A CASE FOR THEIR SAFEKEEPING * YOU WILL NEED A RESPONSIBLE ADULT TO BRING YOU TO YOUR PROCEDURE, DRIVE YOU HO ME, AND STAY WITH YOU UNTIL THE NEXT DAY * PEDIATRIC PATIENTS MAY BRING TOY, BOTTLE OR BLANKET FOR COMFORT * IF YOUR CHILD IS HAVING A BMT, PAPER PATCH, OR TUBE REMOVAL PLEASE GIVE THEM A DOSE OF TYLENOL OR MOTRIN BEFORE LEAVING HOME THE MORNING OF SURGERY * BRING CRUTCHES OR RESPIRATORY INHALERS IF APPLICABLE * BRING INSURANCE CARD AND DRIVERS LICENSE, AND BE PREPARED TO PAY ANY COPAY/DED UCTIBLE ON ARRIVAL WHEN CHECKING IN * NOTIFY US IF YOU HAVE ANY SIGNIFICANT HEALTH STATUS CHANGES OR SHOULD YOU BECO ME ILL PRIOR TO SURGERY WITH FEVER OR SORE THROAT OUR ADDRESS IS [address] [place] [address] [address] [place] [address] AND TURN LEFT. TAKE A LEFT AT THE FIRST OR SECOND ENTRANCE AND FOLLOW SIGNAGE TO THE [facility] ([address] [place] [address]). Pre-Admissions Testing (PAT) [facility] [place], [facility] [employer] [address] [place] [address] (Main) [phone] (PAT) [email or web address] documented in this encounter Medications at Time of [...] Procedure Name Priority Date/Time Associated Diag nosis LA DSTR NROLYTC AGNT Routine 07/20/2019 [facility] ROD BUSTER lumbosacral region LMBR/SACRAL without myelopathy or radiculopathy LA DSTR NROLYTC AGNT Routine 07/20/[address] [facility]37 PM ROD BUSTER lumbosacral region LMBR/SACRAL without myelopathy or radiculopathy DESTRUCTION OF NERVE W/ Routine 07/20/2019 Spondy losis of FLUORO LUMBAR/SACRAL 4:37 PM ROD BUSTER lumbosacral molly on without myelopathy or radiculopathy DESTRUCTION OF NERVE W/ Routine 07/20/2019 Spondy losis of FLUORO LUMBAR/SACRAL 4:37 PM ROD BUSTER lumbosacral molly on without myelopathy or radiculopathy documented in this encounter Results * DESTRUCTION OF NERVE W/ FLUORO LUMBAR/SACRAL (07/20/2019 4:37 PM ROD BUSTER) Narrative Performed At Mohan Cheney MD 07/20/2019 [...] after the procedure. The patient (or responsible republican) was given post-procedure and discharge instructions to follow at [facility] includes the [facility]. The patient was discharged in stable condition. Mohan Cheney MD Performing Organization Address City/State/[place] Ph one Number OTHER OUTSIDE LAB documented in this encounter Visit Diagnoses Not on filedocumented in this encounter
--- OUTSIDE RECORDS SUMMARY | 2019-11-24 02:27 | XMS REPORT | Encounter Summary ---
Author Author [facility] Address Unknown Phone Unavailable Care Team Providers Care Absorber Operator Name Role Phone SethMaribel fonseca Unavailable Unavailable Carol Ann Marie PA-C Unavailable Unavailable Hailee Crook Unavailable Nadja Levy RN Unavailable Unavailable Shannen Christensen MD Unavailable Gabriela Silva MD Unavailable [place] [facility] Unavailable Unavailable Beny Fuentes MD Unavailable Unavailable Carlin Hamilton MD Unavailable Yesenia Falcon MD Unavailable Harvey Black MD Unavailable Billie Pereyra MD Unavailable Samreen Harris MD Unavailable Mariusz Kay MD Unavailable Carolina Cross MD Unavailable Myles Bledsoe DO PCP Reason for Referral * Pain Authorization (Routine) Referred By Contact Referred To Contact Status Reason Specialty Diagnoses / Procedures Mohan Cheney MD [address] [place] [address] Asc Icc2 Pp [address] [place] [address] Authorized Anesthesia Pain Diagnoses Spondylosis of lumbosacral region without myelopathy or radiculopathy P rocedures DESTRUCTION OF NERVE W/ FLUORO LUMBAR/SACRAL Reason for Visit * Pain Authorization (Routine) Referred By Contact Referred To Contact Status Reason Specialty Diagnoses / Procedures Mohan Cheney MD [address] [place] [address] Asc Icc2 Pp [id number] [place] [address] Authorized Anesthesia Pain Diagnoses Spondylosis of lumbosacral region without myelopathy or radiculopathy P rocedures DESTRUCTION OF NERVE W/ FLUORO LUMBAR/SACRAL Encounter Details Care Team Description Date Type Department Mohan Cheney MD [address] [place] [address] [phone] 07/20/2019 [facility] ASC ICC2 PP Encounter [id number] [place] [address] Social History Date Tobacco Use Types Packs/Day [...] Signs Reading Time Taken Comments Vital Sign 107/59 07/20/2019 3:04 PM BUILDING ARCHITECT Blood Pressure 85 07/20/2019 1:55 PM BUILDING ARCHITECT Pulse 36.5 C (97.7 F) 07/20/2019 1:55 PM BUILDING ARCHITECT Temperature - - Respiratory Rate 96% 07/20/2019 3:04 PM BUILDING ARCHITECT Oxygen Saturation - - Inhaled Oxygen Concentration 138.8 kg (306 lb) 07/20/2019 1:55 PM BUILDING ARCHITECT Weight 165.1 cm (5' 5") 07/20/2019 1:55 PM BUILDING ARCHITECT Height 50.92 07/20/2019 1:55 PM BUILDING ARCHITECT Body Mass Index documented in this encounter [...] as of this encounter Discharge Instructions * Instructions* Tiffanie Samuels RN - 07/20/2019 2:16 PM BUILDING ARCHITECT RADIOFREQUENCY ABLATION POST PROCEDURE INSTRUCTIONS ? Go directly home and rest. DO NOT drive today. ? If you have a dressing or bandage on, you may remove it in 12 hours. You may s hower tomorrow. ? Apply ice to the procedure site at 20 minute intervals frequently for the next 24 hours. ? If you had an IV for your procedure and a lump or redness occurs at the site, you may apply a warm, moist compress for 10minutes four times daily for 2-3 days . ? If you had sedation for your procedure: ? The anesthetic may make you drowsy and slow to react for up to 12 hours. ? For the next 12 hours do not consume alcohol, drive, operate machinery, sign l egal documents, or work. ? Rest at home today. ? A responsible adult needs to stay with you today and overnight. ? Start with clear liquids and advance as tolerated. ? Resume all previous medication unless directed not to. ? It is not uncommon to experience an increase in pain for several days after th e procedure. ? The beneficial effects from the radiofrequency procedure may take several week s to be noticed. ? There should be minimal drainage and no swelling or redness at the injection s ites. You should not experience a severe headache. You should not run a fever ov er 101F. If any of these occur, call to report this to a nurse at [phone] . If you are calling after 4PM or on weekends/holidays, call [phone] and ask to have the on-call pain management resident paged or go to your local [facility] room. ? Follow up appointment as needed. Other instructions: FOLLOW UP 6 WEEKS WITH BERTRAND TREADWELL DING ARCHITECT documented in this encounter Medications at Time [...] to 60mg documented as of this encounter Progress Notes * Mohan Cheney MD - 07/20/2019 1:39 PM BUILDING ARCHITECT [facility] INTERVENTIONAL PAIN PROCEDURE HISTORY AND PHYSICAL No chief complaint on file. LBP HISTORY OF PRESENT ILLNESS: LBP, axial. Bilateral L4-S1 MBB x2 with at least 80 % improvement Medical History: Diagnosis Date Anxiety Convulsions (HCC) COPD (chronic obstructive pulmonary disease) ([facility]) Depression DVT (deep venous thrombosis) ([facility]) 03/22 right calf 2007 Fibromyalgia GERD (gastroesophageal reflux disease) HTN (hypertension) 10/26/2007 Hyperlipidemia Intentional weight loss Migraine 10/26/2007 Morbid obesity with BMI of 50.0-59.9, adult ([facility]) OA (osteoarthritis) 10/26/2007 KNEES, ANKLES Psychiatric illness depression/anxiety. Denies suicidal ideations. RLS (restless legs syndrome) Sleep apnea Surgical History: Procedure Laterality Date APPENDECTOMY HX LITHOTRIPSY HX IBRAHIMA AND BSO for menorrhagia TN OPTX ANKLE DISLOCATION W/REPAIR/INT/XTRNL FIXJ family history includes Alcohol abuse in her mother; Cancer-Lung in her father; Dementia in her mother; Epilepsy in her daughter; Heart Disease in her father. Social History Socioeconomic History Marital status: Spouse name: Not on file Number of children: 1 Years of education: Not on file Highest education level: Not on file Occupational History Employer: DISABLED Tobacco Use Smoking status: Former Smoker Packs/day: 1.00 Types: Cigarettes Last attempt to quit: 03/2018 Years since quittin.3 Smokeless tobacco: Former User Quit date: 06/16/2012 Tobacco comment: in process of quitting Substance and Sexual Activity Alcohol use: No Alcohol/week: 1.0 standard drinks Types: 1 Shots of liquor per week Comment: Social Drug use: No Sexual activity: Not Currently Other Topics Concern Not on file Social History Narrative Some college . One daughter at age 21 from unknown etiology during sleep. Disabled due to seizures Lives alone Allergies Allergen Reactions Nexium [Esomeprazole Magnesium] DIARRHEA Sulfa (Sulfonamide Antibiotics) RASH There were no vitals filed for this visit. REVIEW OF SYSTEMS: 10 point ROS obtained and negative PHYSICAL EXAM: General: The patient is a morbidly obese 49 y.o. female in no acute distress. HEENT: Head is normocephalic and atraumatic. Cardiac: Based on palpation, pulse appears to be regular rate and rhythm. Pulmonary: The patient has unlabored respirations and bilateral symmetric chest excursion. Abdomen: Soft, obese. Extremities: No clubbing, cyanosis, or edema. Neurologic: The patient is alert and oriented times 3. Musculoskeletal: L-Spine There is severe low lumbar paraspinal tenderness. IMPRESSION: 1. Spondylosis of lumbosacral region without myelopathy or radiculopathy PLAN: Other Bilateral L4-S1 RFA DING ARCHITECT documented in this encounter Procedure Notes * Mohan Cheney MD - 07/20/2019 4:37 PM BUILDING ARCHITECT Associated Order(s): DESTRUCTION OF NERVE W/ FLUORO LUMBAR/SACRAL Procedure(s): TN DSTR NROLYTC AGNT PARVERTEB FCT SNGL LMBR/SACRAL; TN DSTR NROLY TC AGNT PARVERTEB FCT ADDL LMBR/SACRAL Pre-Procedure Diagnose(s): Spondylosis of lumbosacral region without myelopathy or radiculopathy Post-Procedure Diagnose(s): Spondylosis of lumbosacral region without myelopathy or radiculopathy LUMBAR MEDIAL BRANCH RADIOFREQUENCY ABLATION UNDER FLUOROSCOPY PROCEDURE: 1) bilateral L4-S1 medial branch radiofrequency ablation 2) Fluoroscopic needle guidance REASON FOR PROCEDURE: Spondylosis without myleopathy or radiculopathy, facet art hropathy, DDD (lumbosacral) PHYSICIAN: Mohan Cheney MD MEDICATIONS INJECTED: Before the ablation, 1 mL of 2% lidocaine with 1.66mg dexa methasone was injected at each level. LOCAL ANESTHETIC INJECTED: 2 mL of 1% lidocaine per site SEDATION MEDICATIONS: Versed and Fentanyl as per nurse charting. ESTIMATED BLOOD LOSS: None SPECIMENS REMOVED: None COMPLICATIONS: None TECHNIQUE: Time-out was taken to identify the correct patient, procedure and jennifer e prior to starting the procedure. Lying in a prone position, the patient was pr epped and draped in the usual sterile fashion using DuraPrep and a fenestrated d rape. The levels were determined under fluoroscopy. Local anesthetic was given b y raising a skin wheal and going down to the hub of a 27-gauge 1.25-inch needle. A 10mm tip radiofrequency needle was introduced to the anatomic location of the medial branch at the junction of the superior articular process and transverse process utilizing intermittent fluoroscopy. Motor stimulation up to 2 volts was done to confirm no ablation of the ventral ramus at each level. 1 mL of 2% lidoc shoshana was then injected slowly at each level. After waiting 60 seconds, ablation was performed utilizing a radiofrequency generator at 80 degrees C for 90 second s. The procedure was completed without complications and was tolerated well. The pa tient was monitored after the procedure. The patient (or responsible libertarian) was given post-procedure and discharge instructions to follow at home. The patient w as discharged in stable condition. Mohan Cheney MD DING ARCHITECT documented in this encounter Miscellaneous Notes * Addendum Note - Harriet Theodore RN - 07/22/2019 1:24 PM BUILDING ARCHITECT Encounter addended by: Harriet Theodore RN on: 07/22/2019 1:24 PM Actions taken: Visit Navigator Flowsheet section accepted DING ARCHITECT * Addendum Note - Giovanna Zhou RN - 07/21/2019 1:30 PM BUILDING ARCHITECT Encounter addended by: Giovanna Zhou RN on: 07/21/2019 1:30 PM Actions taken: Contacts section saved DING ARCHITECT documented in this encounter Plan of Treatment Not on filedocumented as of this encounter Procedures Comments Procedure Name Priority Date/Time Associated Diag nosis TN DSTR NROLYTC AGNT Routine 07/20/2019 Spondylos is of PARVERTEB FCT ADDL 4:37 PM BUILDING ARCHITECT lumbosacral region LMBR/SACRAL without myelopathy or radiculopathy TN DSTR NROLYTC AGNT Routine 07/20/2019 Spondylos is of PARVERTEB FCT SNGL 4:37 PM BUILDING ARCHITECT lumbosacral region LMBR/SACRAL without myelopathy or radiculopathy DESTRUCTION OF NERVE W/ Routine 07/20/2019 Spondy losis of FLUORO LUMBAR/SACRAL 4:37 PM BUILDING ARCHITECT lumbosacral molly on without myelopathy or radiculopathy DESTRUCTION OF NERVE W/ Routine 07/20/2019 Spondy losis of FLUORO LUMBAR/SACRAL 4:37 PM BUILDING ARCHITECT lumbosacral molly on without myelopathy or radiculopathy documented in this encounter Results * DESTRUCTION OF NERVE W/ FLUORO LUMBAR/SACRAL (07/20/2019 4:37 PM BUILDING ARCHITECT) Narrative Performed At Mohan Cheney MD 07/20/2019 [...] post-procedure and discharge instructions to follow at [facility]. The patient was discharged in stable condition. Mohan Cheney MD Performing Organization Address [facility] OTHER OUTSIDE LAB documented in this encounter Visit Diagnoses Diagnosis Spondylosis of lumbosacral region witho ut myelopathy or radiculopathy - Primary Lumbosacral spondylosis without myelopa thy DDD (degenerative disc disease), lumbos acral Degeneration of lumbar or lumbosacral i ntervertebral disc Facet arthropathy Spondylosis of unspecified site without mention of myelopathy documented in this encounter Administered Medications Action Date Dose Rate Site Medication Order MAR Action 07/20/2019 2:30 PM BUILDING ARCHITECT 100 mcg fentaNYL citrate PF (SUBLIMAZE) Given injection 50-100 mcg 50-100 mcg, Intravenous, EVERY 2 MIN PRN, Starting Fri07/20/19 at 1339, Unti l Discontinued, Other..., Pain during procedure, Sedate to RASS level of -3 during procedure. Max 300 mcg. Discontinue when procedure complete., 07/20/2019 2:31 PM BUILDING ARCHITECT 2 mg midazolam (VERSED) injection 1-2 mg Given 1-2 mg, Intravenous, EVERY 2 MIN PRN, Starting 07/20/19 at 1339, Until Discontinued, Agitation Injectable, Anxiety Injectable, Sedate to RASS leve l of -3 during procedure. Max 10 mg. Discontinue when procedure complete., Action Date Dose Rate Site Medication Order MAR Action 07/20/2019 2:30 PM BUILDING ARCHITECT 10 mg dexamethasone PF (DECADRON) injection 10 Given mg 10 mg, SEE ADMIN INSTRUCTIONS, ONCE, 1 dose, [facility] 07/20/19 at 1345, Preservative Free Route: Epidural, 07/20/2019 2:30 PM BUILDING ARCHITECT 5 mL lidocaine PF 1% (10 mg/mL) injection 5 Given mL 5 mL, Injection, ONCE, 1 dose, 07/20/19 at 1345 07/20/2019 2:30 PM BUILDING ARCHITECT 100 mg lidocaine PF 20 mg/mL (2 %) injection Given 100 mg 100 mg (5 mL), Injection, ONCE, 1 dose, [facility] 07/20/19 at 1345 documented in this encounter
--- OUTSIDE RECORDS SUMMARY | 2019-11-24 02:28 | XMS REPORT | Continuity of Care Document ---
Author Author [employer] RH SHARON Wells Organization [employer] Address Unknown Phone Unavailable Care Team Providers Care Water Supply Technician Name Role Phone [employer] [facility] Unavailable Unavailable Problems Problem Status Onset Date Classification Date Reported Comments Source SPRAIN OF UNSPECIFIED LIGAMENT OF RIGHT [facility]PECIF[facility] NON-INS Active 02/20/2016 [facility] PAIN IN RIGHT ANKLE AND JOINTS OF RIGHT Active 02/20/2016 [facility] Discharge Diagnosis: Sprain of right ankle 02/20/2016 Discharge Diagnosis 02/21/2016 [facility] Medications Medication Details Route Status Patient Instructions Ordering Provider Order Date Source Acetaminophen 325 MG / Oxycodone Hydroch loride 5 MG Oral Tablet [Percocet 5/325] 2 TAB, PO, Q4H (Every 4 hours), PRN Pain , # 18 TAB, 0 Refill(s), Indication: Mild Pain Active 02/20/2016 [facility] Allergies, Adverse Reactions, Alerts Substance Category Reaction Severity Reaction type Status Date Reported Comments Source NexIUM Assertion Drug allergy Active [facility] Immunizations No Data Provided for This Section Results No Data Provided for This Section Pathology Reports No Data Provided for This Section Diagnostic Reports Report Value Date Source XR Ankle Min 3V RT [facility] [address] [place] [id number] Radiology Reports CPT Codes: 02667 CDM Codes: 2985148 (XR Ankle Min 3V RT) Reason for exam: pain Report RIGHT ANKLE, THREE VIEWS CLINICAL DATA: Pain. FINDINGS: No acute fracture deformities or dislocations are detected. An old healed fracture deformity of the distal fibular metadiaphysis is noted. There is marked osteoarthrosis of the talocrural joint, presumably due to old trauma. No obvious radiopaque foreign body is seen. IMPRESSION: 1. No acute fracture detected. 2. If symptoms warrant, a repeat study could be performed in 7-[address] study could be performed sooner. 3. Old healed fibular distal metadiaphyseal fracture and posttraumatic talocrural joint osteoarthrosis. Dictating Bernardo Grajeda Dictated 02/20/2016 13:45 Signing Bernardo Grajeda Location [id number] Final Dictated by: BERNARDO FRIEND MD Signed by: BERNARDO FRIEND MD 02/20/16 13:46 Ocean Export Coordinator: MANOLO 02/20/16 13:46 LANETTE CARO [id number] 02/20/2016 [facility] Consultation Notes Results Value Date Source Emergency Room Record Emergency Room Record Ankle injury - Minor Patient: LANETTE CARO Age: 45 years Sex: Female : 1970 Associated Diagnoses: None Author: JOHNSON SUNG MD Basic Information Time seen: Date and time 02/20/16 12:50:00. History source: Patient. Arrival mode: Arrival Mode Walk In, Wheelchair . History limitation: None. Additional information: Primary Care Physician No Primary Care Physician has been entered . History of Present Illness The patient presents with right, ankle injury. The onset was 2 days ago. The course/duration of symptoms is constant. Type of injury: twisting. Location: Right medial ankle. The character of symptoms is pain and swelling. The degree at present is minimal. There are exacerbating factors including weight bearing and palpation. The relieving factor is none. The location where the incident occurred was at home. Risk factors consist of none. Prior episodes: none. Therapy today: none. Associated symptoms: none. Review of Systems Additional review of systems information: All other systems reviewed and otherwise negative. Health Status Allergies: Allergic Reactions (Selected) Severity Not Documented NexIUM- No reactions were documented.. Menstrual history: Per nurse's notes. Past Medical/ Family/ Social History Medical history Reviewed as documented in chart. Surgical history: Reviewed as documented in chart. Family history: Reviewed as documented in chart. Social history: Reviewed as documented in chart. Emergency Room Record Physical Examination General: Alert, mild distress. Vital Signs VITALS: BP: 103 / 74 Pulse: 89 Temp: 98.5 Resp Rate: 20 Tmax: 98.5 Wt(kg): 146.7 Pain Score: O2 Sat: 94 02/20/16 12:43 O2 Status: Room air 21% . Skin: Warm, dry, pink. Head: Normocephalic, atraumatic. Neck: Supple. Eye: Pupils are equal, round and reactive to light, extraocular movements are intact. Ears, nose, mouth and throat: Oral mucosa moist. Cardiovascular: Regular rate and rhythm. Respiratory: Lungs are clear to auscultation. Gastrointestinal: Soft, Nontender, Non distended. Musculoskeletal: Ankle/foot: Right, medial, malleolus, tenderness, swelling. Neurological: Alert and oriented to person, place, time, and situation, No focal neurological deficit observed. Psychiatric: Cooperative, appropriate mood and affect. Medical Decision Making Differential Diagnosis: Ankle sprain, ankle fracture. Ankle x-ray findings Normal alignment, no fracture, normal soft tissue, interpretation by Emergency Physician. Radiology results: COMPLETED RADIOLOGY IMAGING STUDIES: XR Ankle Min 3V RT [Auth (Verified)] (02/19 1327): FINAL IMPRESSION:1. No acute fracture detected.2. If symptoms warrant, a repeat study could be performed in 7-[address] study could be performed sooner.3. Old healed fibular distal metadiaphyseal fracture and posttraumatic talocrural joint osteoarthrosis.Dictating Romina Grajeda 02/20/2016 13:45Signing Bernardo GrajedaLocattyson [id number] . Reexamination/ Reevaluation Course: improving. Pain status: decreased. Emergency Room Record Impression and Plan Diagnosis Sprain of right ankle ([id number] S93.421A) Plan Condition: Stable. Disposition: Discharged: Launch Order Patient Care: Discharge (Order Processing): 02/20/2016 13:59, to home. Prescriptions: Launch prescriptions Pharmacy: Percocet 5/325 oral tablet (Prescribe): 2 TAB, PO, Q4H (Every 4 hours), PRN Pain, # 18 TAB, 0 Refill(s), Indication: Mild Pain, 02/20/2016 13:59. Patient was given the following educational materials: [employer] Splint and Boot, Self-Care for Strains and Sprains. Follow up with: KUSHAL FLOR Within 1-2 days Please follow up with Dr. Flor. There is no fracture of the bone. It was a pleasure to care for you today, thank you for choosing [facility] for your medical needs.. Counseled: Patient, Patient indicated understanding of instructions. [Electronically Signed By:] MD PINEDA BORGES, JOHNSON Allen On, 02/20/2016 02:00 PM 02/20/2016 [facility] Discharge Summaries No Data Provided for This Section History and Physicals No Data Provided for This Section Vital Signs Vital Sign Value Date Comments Source Respiratory Rate 18 br/min 02/20/2016 [facility] Heart Rate 92 bpm 02/20/2016 [facility] er Inet NIBP Systolic 130 mm[Hg] 02/20/2016 [facility] Inet NIBP Diastolic 87 mm[Hg] 02/20/2016 [facility] Temp Method Oral (02/20/16 12:43 PM) 02/20/2016 [facility] Temperature 98.5 [degF] 02/20/2016 [facility] Encounters Location Location Details Encounter Type Encounter Number Reason For Visit Attending Provider ADM Date DC Date Status Source [id number] AUBREE SUNG MD 02/20/2016 02/20/2016 Active [facility] ssion Procedures No Data Provided for This Section Plan of Care No Data Provided for This Section Social History No Data Provided for This Section Assessment and Plan No Data Provided for This Section Family History No Data Provided for This Section Advance Directives No Data Provided for This Section Functional Status No Data Provided for This Section
--- OUTSIDE RECORDS SUMMARY | 2019-11-24 02:28 | XMS REPORT | Encounter Summary ---
Author Author [facility] Organization [facility] Address Unknown Phone Unavailable Care Team Providers Care Irrigation Supervisor Name Role Phone SethMaribel fonseca Unavailable Unavailable Carol Ann Marei PA-C Unavailable Unavailable Hailee Crook Unavailable Nadja Levy RN Unavailable Unavailable Shannen Christensen MD Unavailable Gabriela Silva MD Unavailable Africa Talamantes [facility] Unavailable Unavailable Beny Fuentes MD Unavailable Unavailable Carlin Hamilton MD Unavailable Yesenia Falcon MD Unavailable Harvey Black MD Unavailable Billie Pereyra MD Unavailable Samreen Harris MD Unavailable Mariusz Kay MD Unavailable Carolina Cross MD Unavailable Myles Bledsoe DO PCP Reason for Visit * Reason Comments Pain * Pain Authorization (Routine) Referred By Contact Referred To Contact Status Reason Specialty Diagnoses / Procedures Mohan Cheney MD [address] [place] [address] [id number] Pain Procedure [address] [place] [address] Closed Anesthesia Pain Diagnoses Spondylosis of lumbosacral region without myelopathy or radiculopathy P rocedures KU AMB SPINE INJECT PVRT FACET MBB JT LMBR/SAC Encounter Details Care Team Description Date Type Department Mohan Cheney MD [address] [facility] [place] [address] [phone] Spondylosis of lumbosacral region withou t myelopathy or radiculopathy (Primary Dx); DDD (degenerative disc disease), lumbosacral 06/03/2019 Procedure visit [facility] [address] [place] [address] Social History Date Tobacco Use Types Packs/Day [...] Signs Reading Time Taken Comments Vital Sign 109/68 06/03/2019 2:15 PM CDT Blood Pressure 78 06/03/2019 1:18 PM CDT Pulse 37.1 C (98.7 F) 06/03/2019 1:18 PM CDT Temperature 18 06/03/2019 1:18 PM CDT Respiratory Rate 96% 06/03/2019 2:15 PM CDT Oxygen Saturation - - Inhaled Oxygen Concentration 136.1 kg (300 lb) 06/03/2019 1:18 PM CDT Weight 165.1 cm (5' 5") 06/03/2019 1:18 PM CDT Height 49.92 06/03/2019 1:18 PM CDT Body Mass Index documented in [...] this encounter Patient Instructions * Patient Instructions* Shannen Garcia RN - 06/03/2019 1:45 PM CDT Discharge Instructions for Medial Branch Block BILATERAL L4-S1 #2 Important information following your procedure today: You may drive today This injection is for diagnostic purposes, it is a test. Only short term results are expected. 1. Though the procedure is generally safe and complications are rare, we do ask that you be aware of any of the following: ? Any swelling, persistent redness, new bleeding, or drainage from the site of t he injection. ? You should not experience a severe headache. ? You should not run a fever over 101 F. ? New onset of sharp, severe back & or neck pain. ? New onset of upper or lower extremity numbness or weakness. ? New difficulty controlling bowel or bladder function after the injection. ? New shortness of breath. If any of these occur, please call to report this occurrence to a nurse at . If you are calling after 4:00 p.m. or on weekends or holidays please ca [phone] and ask to have the resident physician condenser setter for the physician paged or go to your local emergency room. 2. You may experience soreness at the injection site. Ice can be applied at 20 m inute intervals. Avoid application of direct heat, hot showers or hot tubs today . 3. Patients taking a daily blood thinner can resume their regular dose this even ing. 4. It is important that you take all medications ordered by your pain physician. Taking medication as ordered is an important part of your pain care plan. If you cannot continue the medication plan, please notify the physician. 5. Remain active today. Do the activities that would normally cause you pain. 6. It is important for you to keep track of the results of this test on paper. ? Did you get relief? ? Percentage of relief? ? How long did it last? Call back to report the results to a nurse on FRIDAY at [phone] . Use notes that you kept when giving your report. You may have to leave a message and a nu rse will contact you to help you determine if you are a candidate for the Radiof requency Ablation Procedure. The following medications were used: Bupivicaine PAIN DIARY Please report pain on 0-10 scale for each hour listed following discharge. (0 = No pain; 5 = Moderate pain; 10 = Worst pain of your life) TIME DAY OF PROCEDURE LOCATION OF PAIN Pain Level Prior to Procedure 9:00 AM 10:00 11:00 12:00 (NOON) 1:00 PM 2:00 3:00 4:00 5:00 6:00 7:00 8:00 9:00 10:00 11:00 PM 12:00 AM (MIDNIGHT) If you are unable to keep your upcoming appointment, please notify the Spine [facility] ter maintenance scheduler at [phone] at least 24 hours in advance. documented in this encounter Progress Notes * Mohan Cheney MD - 06/03/2019 1:45 PM CDT SPINE CENTER INTERVENTIONAL PAIN PROCEDURE HISTORY AND PHYSICAL Chief Complaint Patient presents with Lower Back - Pain LBP HISTORY OF PRESENT ILLNESS: LBP, axial. Medical History: Diagnosis Date Anxiety Convulsions (HCC) Depression DVT (deep venous thrombosis) (HCC) 03/22 right calf 2007 Fibromyalgia GERD (gastroesophageal reflux disease) HTN (hypertension) 10/26/2007 Intentional weight loss Migraine 10/26/2007 Morbid obesity with BMI of 50.0-59.9, adult (HCC) OA (osteoarthritis) 10/26/2007 KNEES, ANKLES Psychiatric illness depression/anxiety. Denies suicidal ideations. RLS (restless legs syndrome) Sleep apnea Surgical History: Procedure Laterality Date APPENDECTOMY HX LITHOTRIPSY HX IBRAHIMA AND BSO for menorrhagia MI OPTX ANKLE DISLOCATION W/REPAIR/INT/XTRNL FIXJ family history [...] Last attempt to quit: 03/2018 Years since quittin.2 Smokeless tobacco: Former User Quit date: 06/16/2012 [...] [Esomeprazole Magnesium] DIARRHEA Sulfa (Sulfonamide Antibiotics) RASH Vitals: 06/03/19 1318 BP: 112/62 Pulse: 78 Resp: 18 Temp: 37.1 C (98.7 F) TempSrc: Oral SpO2: 97% Weight: 136.1 kg (300 lb) Height: 165.1 cm (65") REVIEW OF SYSTEMS: 10 point ROS obtained [...] of lumbosacral region without myelopathy or radiculopathy 2. DDD (degenerative disc disease), lumbosacral PLAN: Other Bilateral L4-S1 MBB * Brenda Armas RN - 06/03/2019 1:45 PM CDT Pain Procedure Plan Of Care Risk of injury related to procedure Patient identification, allergies verified, fall precautions implemented Risk of injury and impaired skin integrity Positioning devices applied as appropriate for procedure, patient transported [facility] staff assistance Management of Pain Pain assessment completed on arrival, PAR scoring following procedure and at dis charge, sedation administered as ordered, patient positioned for comfort Risk of anxiety related to procedure and disease process Patient education on procedure and expectations, provide coping support to patie nt, provide relaxation techniques Outcomes: The patient is free of injury during and following their procedure. Skin is intact and free of bruising. The patients pain is managed during their stay. Alleviation of patient anxiety exhibited. documented in this encounter Procedure Notes * Mohan Cheney MD - 06/03/2019 1:45 PM CDT Associated Order(s): [facility] AMB SPINE INJECT PVRT FACET MBB JT LMBR/SAC Pre-Procedure Diagnose(s): Spondylosis of lumbosacral region without myelopathy or radiculopathy Post-Procedure Diagnose(s): Spondylosis of lumbosacral region without myelopathy or radiculopathy Attending Surgeon: Mohan Cheney MD Anesthesia: Local Pre-Procedure Diagnosis: 1. Spondylosis of lumbosacral region without myelopathy or radiculopathy 2. DDD (degenerative disc disease), lumbosacral Post-Procedure Diagnosis: 1. Spondylosis of lumbosacral region without myelopathy or radiculopathy 2. DDD (degenerative disc disease), lumbosacral KU AMB SPINE INJECT PVRT FACET MBB JT LMBR/SAC Procedure: medial branch block Laterality: bilateral Location: lumbar - L3-4, L4-5 and L5-S1 Consent: Consent obtained: written Consent given by: patient Risks discussed: allergic reaction, bleeding, bruising, infection, never damage, no change or worsening in pain, pneumo thorax, reaction to medication, seizure, swelling and weakness Alternatives discussed: alternative treatment, delayed treatment and no treatmen t Discussed with patient the purpose of the treatment/procedure, other ways of tank ating my condition, including no treatment/ procedure and the risks and benefits of the alternatives. Patient has decided to proceed with treatment/procedure. Sheridan Protocol: Relevant documents: relevant documents present and verified Site marked: the operative site was marked Patient identity confirmed: Patient identify confirmed verbally with patient. Time out: Immediately prior to procedure a "time out" was called to verify the c orrect patient, procedure, equipment, product support rep and site/side marked as requ ired Procedures Details: Indications: pain Prep: chlorhexidine Patient position: prone Estimated Blood Loss: minimal Specimens: none Number of Levels: 3 Guidance: fluoroscopy Needle and Epidural Catheter: quincke Needle size: 25 G Injection procedure: Incremental injection and Negative aspiration for blood Patient tolerance: Patient tolerated the procedure well with no immediate compli cations. Pressure was applied, and hemostasis was accomplished. Outcome: Pain unchanged Comments: LUMBAR MEDIAL BRANCH BLOCKS UNDER FLUOROSCOPY PROCEDURE: 1) bilateral L3-L5 medial branch blocks 2) Fluoroscopic needle guidance REASON FOR PROCEDURE: Spondylosis without myelopathy or radiculopathy, DDD (lumbosacral), Facet arthro catalina, and axial back pain PHYSICIAN: Mohan Cheney MD MEDICATIONS INJECTED: Bupivacaine 0.5% (0.7 ml each level) LOCAL ANESTHETIC INJECTED: 0.5 mL of 1% lidocaine per site SEDATION MEDICATIONS: None ESTIMATED BLOOD LOSS: None SPECIMENS REMOVED: None COMPLICATIONS: None TECHNIQUE: Time-out was taken to identify the correct patient, procedure and jennifer e prior to starting the procedure. Lying in a prone position, the patient was pr epped and draped in the usual sterile fashion using DuraPrep and a fenestrated d rape. Each site was identified under fluoroscopy. Local anesthetic was given by raising a wheal and going down to the hub of a 27-gauge 1.25-inch needle. The 25 -gauge 3.5-inch Quincke needle was advanced to the anatomic location of each med ial branch at the junction of the superior articular process and transverse proc ess utilizing intermittent fluoroscopy. Medication was then injected slowly. The procedure was completed without complications and was tolerated well. The pa tient was monitored after the procedure. The patient (or responsible republican) was given post-procedure and discharge instructions to follow at home. The patient was discharged in stable c ondition. Note: The patient has been instructed to call to inform us what percentage of pa in relief was obtained after the facet nerve blocks from today. A pain diary was provided. The patient was also instructed to do the activities that would michael lly worsen the pain. Estimated blood loss: none or minimal Specimens: none Patient tolerated the procedure well with no immediate complications. Pressure w as applied, and hemostasis was accomplished. documented in this encounter Plan of Treatment Not on filedocumented as of this encounter Procedures Comments Procedure Name Priority Date/Time Associated Diag nosis MI RPB BILATERAL CABBAGE SALTER Routine 06/03/2019 Spondyl osis of REVIEW 1:45 PM CDT lumbosacral region without myelopathy or radiculopathy MI NJX DX/THER AGT PVRT Routine 06/03/2019 Spondy losis of FACET JT LMBR/SAC 3+ 1:45 PM CDT lumbosacral molly on LEVEL without myelopathy or radiculopathy MI NJX DX/THER AGT PVRT Routine 06/03/2019 Spondy losis of FACET JT LMBR/SAC 2ND 1:45 PM CDT lumbosacral reg ion LEVEL without myelopathy or radiculopathy MI NJX DX/THER AGT PVRT Routine 06/03/2019 Spondy losis of FACET JT LMBR/SAC 1 LEVEL 1:45 PM CDT lumbosacral region without myelopathy or radiculopathy documented in this encounter Results * KU AMB SPINE INJECT PVRT FACET MBB JT LMBR/SAC (06/03/2019 1:45 PM CDT) Narrative Performed At Mohan Cheney MD 06/03/2019 3:44 PM OTHER OUT SIDE LAB [facility]U AMB SPINE INJECT PVRT FACET MBB JT L MBR/SAC Procedure: medial branch block Laterality: bilateral Location: lumbar - L3-4, L4-5 and L5-S1 Consent: Consent obtained: written Consent given by: patient Risks discussed: allergic reaction, ble eding, bruising, infection, never damage, no change or worsening in pain, pneumo thorax, reaction to medication, seizure, swelling and weakn ess Alternatives discussed: alternative tank atment, delayed treatment and no treatment Discussed with patient the purpose of t he treatment/procedure, other ways of treating my condition, including no treatment/ procedure and the risks and benefits of the alternatives. Patie nt has decided to proceed with treatment/procedure. Sheridan Protocol: Relevant documents: relevant documents present and verified Site marked: the operative site was lisandra dow Patient identity confirmed: Patient abhishek ntify confirmed verbally with patient. Time out: Immediately prior to procedur e a "time out" was called to verify the correct patient, procedure, equipme nt, product support rep and site/side marked as required Procedures Details: Indications: pain Prep: chlorhexidine Patient position: prone Estimated Blood Loss: minimal Specimens: none Number of Levels: 3 Guidance: fluoroscopy Needle and Epidural Catheter: quincke Needle size: 25 G Injection procedure: Incremental inject ion and Negative aspiration for blood Patient tolerance: Patient tolerated th e procedure well with no immediate complications. Pressure was applied, an d hemostasis was accomplished. Outcome: Pain unchanged Comments: LUMBAR MEDIAL BRANCH BLOCKS UNDER FLUOR OSCOPY PROCEDURE: 1) bilateral L3-L5 medial branch blocks 2) Fluoroscopic needle guidance REASON FOR PROCEDURE: Spondylosis without myelopathy or radic ulopathy, DDD (lumbosacral), Facet arthropathy, and axial back pain PHYSICIAN: Mohan Cheney MD MEDICATIONS INJECTED: Bupivacaine 0.5% (0.7 ml each level) LOCAL ANESTHETIC INJECTED: 0.5 mL of 1% lidocaine per site SEDATION MEDICATIONS: None ESTIMATED BLOOD LOSS: None SPECIMENS REMOVED: None COMPLICATIONS: None TECHNIQUE: Time-out was taken to identi fy the correct patient, procedure and side prior to starting the procedur e. Lying in a prone position, the patient was prepped and draped in the u sual sterile fashion using DuraPrep and a fenestrated drape. Each site was identified under fluoroscopy. Local anesthetic was given by raising a wheal and going down to the hub of a 27-gauge 1.25-inch needle. The 25-gauge 3.5-inch Quincke needle was advanced to the anatomic location of ea ch medial branch at the junction of the superior articular process and mirza sverse process utilizing intermittent fluoroscopy. Medication wa s then injected slowly. The procedure was completed without com plications and was tolerated well. The patient was monitored after the pro cedure. The patient (or responsible republican) was given post-procedure and discharge instructions to follow at [facility]. The patient was discharged in stable condition. Note: The patient has been instructed t o call to inform us what percentage of pain relief was obtained after the f acet nerve blocks from today. A pain diary was provided. The patient wa s also instructed to do the activities that would normally worsen t he pain. Performing Organization Address City/State/Zipcode Ph one Number OTHER OUTSIDE LAB documented in this encounter Visit Diagnoses Diagnosis Spondylosis of lumbosacral region witho ut myelopathy or radiculopathy - Primary Lumbosacral spondylosis without myelopa thy DDD (degenerative disc disease), lumbos acral Degeneration of lumbar or lumbosacral i ntervertebral disc documented in this encounter Administered Medications Action Date Dose Rate Site Medication Order MAR Action 06/03/2019 1:56 PM CDT 6 mL bupivacaine PF (MARCAINE) 0.5 % Given injection 6 mL 6 mL, Injection, ONCE, 1 dose, Julia 06/03/19 at 1330 documented in this encounter
--- OUTSIDE RECORDS SUMMARY | 2019-11-24 02:28 | XMS REPORT | Encounter Summary ---
Author Author [facility] Organization [facility] Address Unknown Phone Unavailable Care Team Providers Care Hourly Caregiver Name Role Phone PCP Unavailable Encounter Details Care Team Description Date Type Department 04/01/2008 [facility] al Encounter [address] [place], [place] [id number] Social History Date Tobacco Use Types Packs/Day Years Used Never Assessed Sex Assigned at Date Recorded Not on file Industry Job Start Date Occupation Not on file Not on file Not on file Travel End Travel History Travel Start No recent travel history available. documented as of this encounter Plan of Treatment Not on filedocumented as of this encounter Procedures Comments Procedure Name Priority Date/Time Associated Diag nosis FACTOR V LEIDEN MUTATION Routine 03/23/2008 5:18 PM CDT documented in this encounter Results * Factor V Leiden Mutation (03/23/2008 5:18 PM CDT) Factor V Leiden NOT PRES NOT PRES SUNQUEST Factor X NOT PRESENT SUNQUEST Chromogenic Comment: NOT PRESENT Analysis of the PCR products of genomic DNA using Factor V specific primers and probes with melting curve analysis indicates that the Factor V Leiden mutation is not present. This test result reviewed by Dr Allison Christopher MD. This test or one or more of its components was developed and performance characteristics determined by [facility]. It has not been cleared or approved by the U.S. Food and Drug Administration. The FDA has determined that such clearance or approval is not necessary. Specimen Performing Organization Address City/State/Zipcode Ph one Number [facility] [address] [place], [place] [address] [place] documented in this encounter Visit Diagnoses Not on filedocumented in this encounter
--- OUTSIDE RECORDS SUMMARY | 2019-11-24 02:28 | XMS REPORT | Summary of Care ---
Author Author [facility] Organization [facility] Address Unknown Phone Unavailable Care Team Providers Care Supervisor Mill Name Role Phone KUSHAL FLOR MD PCP Encounter [facility] [place] [id number] Date(s): 02/20/16 - 02/20/[address] [address] Discharge Diagnosis: Sprain of right ankle Discharge Disposition: Home - Attending Physician: JOHNSON SUNG MD Admitting Physician: JOHNSON SUNG MD Vital Signs Most recent to 1 oldest [Reference Range]: Temperature 98.5 DegF [96.8-99.7 DegF] (02/20/16 12:43 PM) Temp Method Oral (02/20/16 12:43 PM) Heart Rate 92 bpm (02/20/16 2:24 PM) Respiratory Rate 18 br/min [14-20 br/min] (02/20/16 2:24 PM) Blood Pressure 130/87 mmHg [70-180/50-90 mmHg] (02/20/16 2:24 PM) Problem List No data available for this section Allergies, Adverse Reactions, Alerts Substance Reaction Severity Status NexIUM Active Medications Percocet 5/325 oral tablet 2 TAB, PO, Q4H (Every 4 hours), PRN Pain, # 18 TAB, 0 Refill(s), Indication: Mil d Pain Start Date: 02/20/16 Status: Ordered Results No data available for this section Immunizations No data available for this section Procedures No data available for this section Social History No data available for this section Functional Status No data available for this section Assessment and Plan No data available for this section Hospital Discharge Instructions No data available for this section
--- OUTSIDE RECORDS SUMMARY | 2019-11-24 02:28 | XMS REPORT | Encounter Summary ---
Author Author [facility] Organization [facility] Address Unknown Phone Unavailable Care Team Providers Care Lithoduplicator Operator Name Role Phone PCP Unavailable Encounter Details Care Team Description Date Type Department 03/28/2008 [facility] al Encounter [address] [place] [address] Social History Date Tobacco Use Types Packs/Day [...] Procedure Name Priority Date/Time Associated Diag nosis PROTEIN S ACTIVITY Routine 03/23/2008 5:18 PM CDT documented in this encounter Results * Protein S Activity (03/23/2008 5:18 PM CDT) Protein S 145 (H) 57 - 140 % SUNQUEST Activity Specimen Performing Organization Address City/State/Zipcode Ph one Number [facility] [address] [place], [place] [address] [place] documented in this encounter Visit Diagnoses Not on filedocumented in this encounter
--- OUTSIDE RECORDS SUMMARY | 2019-11-24 02:28 | XMS REPORT | Clinical Summary ---
Author Author [facility] Organization [facility] Address Unknown Phone Unavailable Care Team Providers Care Outside Sales Engineer Name Role Phone PCP Unavailable Allergies Not on File Medications Not on file Active Problems Not on file Social History Date Tobacco Use Types Packs/Day Years Used Never Assessed Sex Assigned at Date Recorded Not on file Industry Job Start Date Occupation Not on file Not on file Not on file Travel End Travel History Travel Start No recent travel history available. Last Filed Vital Signs Not on file Plan of Treatment Not on file Results Not on filefrom Last 3 Months
--- OUTSIDE RECORDS SUMMARY | 2019-11-24 02:28 | XMS REPORT | Encounter Summary ---
Author Author [facility] Organization [facility] Address Unknown Phone Unavailable Care Team Providers Care Procurement Intern Name Role Phone RoloMaribel Unavailable Unavailable Carol Ann Marie PA-C Unavailable Unavailable Hailee Crook Unavailable Nadja Levy RN Unavailable Unavailable Shannen Christensen MD Unavailable Gabriela Silva MD Unavailable [place] Tal[place]antes [facility] Unavailable Unavailable Beny Fuentes MD Unavailable Unavailable Carlin Hamilton MD Unavailable Yesenia Falcon MD Unavailable Harvey Black MD Unavailable Billie Pereyra MD Unavailable Samreen Harris MD Unavailable Mariusz Kay MD Unavailable Carolina Cross MD Unavailable Myles Bledsoe DO PCP Reason for Visit * Reason Comments Post Procedure Encounter Details Care Team Description Date Type Department Radha Joyner, EDWARD Post Procedure 05/26/2019 Telephone [facility] [address] [address] Social History Date Tobacco Use [...] Status Date of Assessment Functional Status Response 04/07/2018 Does the patient have a hearing impairment: No 04/06/2018 Does the patient have a visual impairment: Yes 04/06/2018 Does the patient have impaired ambulation: Yes 04/06/2018 Does the patient have an activity of daily living No (ADL) impairment: 04/06/2018 Does the patient have an instrumental activity of No daily living (IADL) impairment: Date of Assessment Cognitive Status Response 10/31/2017 Does the patient have a cognitive impairment: No documented as of this encounter Miscellaneous Notes * Telephone Encounter - Radha Joyner RN - 05/27/2019 3:00 PM CDT Patient called to report pain diary status post Facet Joint Injection MBB #1 Procedure completed approximately 0900 (per patient report) Pre-procedure pain level returned at 1400 Experienced 100% of relief for 4 hours in lower back documented in this encounter Plan of Treatment Not on filedocumented as of this encounter Visit Diagnoses Not on filedocumented in this encounter
--- OUTSIDE RECORDS SUMMARY | 2019-11-24 02:30 | XMS REPORT | Continuity of Care Document ---
Author Organization Unknown Address Unknown Phone Unavailable Allergies Active Description Code Type Severity Reaction Onset Reported/Identified Relationship to Patient Clinical Status Yes [id number] (SULFA (SULFONAMIDE ANTIBIOTI CS)) [id number] (SULFA (SULFONAMIDE ANTIBIOTICS)) Mild N/A 08/06/2009 Yes esomeprazole mag [id number] Drug Allergy Moderate N/A 06/10/2013 Yes Sulfa (Sulfonamide Antibiotics) [id number] Drug Allergy Unknown RASH 015 Medications There is no data. Problems Date Dx Coded Attending Type Code Diagnosis Diagnosed By 06/11/2013 RUY SHANE MD Ot 053.9 HERPES ZOSTER NOS 06/11/2013 RUY [...] 535.50 UNSP GASTRITIS GASTRODUODENITIS W/O ME 06/11/2013 RUY SHANE MD Ot 553.3 [...] UNSPECIFIED 07/31/2015 GEETA CASTELLON Ot Z79.899 OTHER PULLMAN CLERK (CURRENT) DRUG THERAPY 02/11/2016 KHAI JOAQUIN APRN Ot F17.210 NICOTINE DEPENDENCE, CIGARETTES, UNCOMPL 02/11/2016 KHAI JOAQUIN APRN Ot H66.93 OTITIS MEDIA, UNSPECIFIED, BILATERAL 02/11/2016 KHAI JOAQUIN APRN Ot J06 .9 ACUTE UPPER RESPIRATORY INFECTION, UNSPE 02/11/2016 KHAI JOAQUIN APRN Ot R91 .1 SOLITARY PULMONARY NODULE 02/13/2016 KHAI JOAQUIN APRN Ot F17.210 NICOTINE DEPENDENCE, CIGARETTES, UNCOMPL 02/13/2016 KHAI JOAQUIN APRN Ot H66.93 OTITIS MEDIA, UNSPECIFIED, BILATERAL 02/13/2016 KHAI JOAQUIN APRN Ot J06 .9 ACUTE UPPER RESPIRATORY INFECTION, UNSPE 02/13/2016 KHAI JOAQUIN APRN Ot R91 .1 SOLITARY PULMONARY NODULE 12/24/2016 ZAHRA ORNELAS MD Ot F17.210 NICOTINE DEPENDENCE, CIGARETTES, UNCOMPL 12/24/2016 ZAHRA ORNELAS MD Ot J44. 9 CHRONIC OBSTRUCTIVE PULMONARY DISEASE, U 12/24/2016 ZAHRA ORNELAS MD Ot K59. 03 DRUG INDUCED CONSTIPATION 12/24/2016 ZAHRA ORNELAS MD Ot R10. 11 RIGHT UPPER QUADRANT PAIN 12/24/2016 ZAHRA ORNELAS MD Ot Z79.891 INTERMEDIATE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 OPIATE ANALGE 12/24/2016 ZAHRA ORNELAS MD Ot Z79.899 OTHER PULLMAN CLERK (CURRENT) DRUG THERAPY 12/24/2016 ZAHRA ORNELAS MD Ot Z90. 49 ACQUIRED ABSENCE OF OTHER SPECIFIED PART 12/24/2016 ZAHRA ORNELAS MD Ot Z90.710 ACQUIRED ABSENCE OF BOTH CERVIX AND UTER 12/27/2016 ZAHRA ORNELAS MD Ot F17.210 NICOTINE DEPENDENCE, CIGARETTES, UNCOMPL 12/27/2016 ZAHRA ORNELAS MD Ot J44. 9 CHRONIC OBSTRUCTIVE PULMONARY DISEASE, U 12/27/2016 ZAHRA ORNELAS MD Ot K59. 03 DRUG INDUCED CONSTIPATION 12/27/2016 ZAHRA ORNELAS MD Ot R10. 11 RIGHT UPPER QUADRANT PAIN 12/27/2016 ZAHRA ORNELAS MD Ot Z79.891 PULLMAN CLERK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 OPIATE ANALGE 12/27/2016 ZAHRA ORNELAS MD J Ot Z79.899 OTHER INTERMEDIATE (CURRENT) DRUG THERAPY 12/27/2016 ZAHRA ORNELAS MD J Ot Z90. 49 ACQUIRED ABSENCE OF OTHER SPECIFIED PART 12/27/2016 ZAHRA ORNELAS MD J Ot Z90.710 ACQUIRED ABSENCE OF BOTH CERVIX AND UTER 01/03/2017 ZAHRA ORNELAS MD Ot F17.210 NICOTINE DEPENDENCE, CIGARETTES, UNCOMPL 01/03/2017 ZAHRA ORNELAS MD Ot J44. 9 CHRONIC OBSTRUCTIVE PULMONARY DISEASE, U 01/03/2017 ZAHRA ORNELAS MD Ot K59. 03 DRUG INDUCED CONSTIPATION 01/03/2017 ZAHRA ORNELAS MD Ot R10. 11 RIGHT UPPER QUADRANT PAIN 01/03/2017 ZAHRA ORNELAS MD Ot Z79.891 PULLMAN CLERK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 OPIATE ANALGE 01/03/2017 ZAHRA ORNELAS MD Ot Z79.899 OTHER PULLMAN CLERK (CURRENT) DRUG THERAPY 01/03/2017 ZAHRA ORNELAS MD Ot Z90. 49 ACQUIRED ABSENCE OF OTHER SPECIFIED PART 01/03/2017 ZAHRA ORNELAS MD J Ot Z90.710 ACQUIRED ABSENCE OF BOTH CERVIX AND UTER 03/23/2017 ZAHRA ORNELAS MD Ot F17.210 NICOTINE DEPENDENCE, CIGARETTES, UNCOMPL 03/23/2017 ZAHRA ORNELAS MD Ot J44. 9 CHRONIC OBSTRUCTIVE PULMONARY DISEASE, U 03/23/2017 ZAHRA ORNELAS MD Ot K59. 03 DRUG INDUCED CONSTIPATION 03/23/2017 ZAHRA ORNELAS MD Ot R10. 11 RIGHT UPPER QUADRANT PAIN 03/23/2017 ZAHRA ORNELAS MD Ot Z79.891 PULLMAN CLERK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 OPIATE ANALGE 03/23/2017 ZAHRA ORNELAS MD Ot Z79.899 OTHER INTERMEDIATE (CURRENT) DRUG THERAPY 03/23/2017 ZAHRA ORNELAS MD J Ot Z90. 49 ACQUIRED ABSENCE OF OTHER SPECIFIED PART 03/23/2017 [...] OF UTERUS WITH REMAININ 05/26/2017 RAUL YOUNG S LAYOUT DESIGNER-C Ot M25.531 PAIN IN RIGHT WRIST 05/26/2017 YOUNGRAUL S LAYOUT DESIGNER-C Ot Z47.89 ENCOUNTER FOR OTHER ORTHOPEDIC AFTERCARE 06/05/2017 YOUNGRAUL S LAYOUT DESIGNER-C Ot M25.531 PAIN IN RIGHT WRIST 06/05/2017 YOUNGRAUL S LAYOUT DESIGNER-C Ot Z47.89 ENCOUNTER FOR OTHER ORTHOPEDIC AFTERCARE 06/10/2017 YOUNGRAUL S LAYOUT DESIGNER-C Ot M25.531 PAIN IN RIGHT WRIST 06/10/2017 YOUNGRAUL S LAYOUT DESIGNER-C Ot Z47.89 ENCOUNTER FOR OTHER ORTHOPEDIC AFTERCARE 06/14/2017 YOUNGRAUL S LAYOUT DESIGNER-C Ot M25.531 PAIN IN RIGHT WRIST 06/14/2017 YOUNGRAUL S LAYOUT DESIGNER-C Ot Z47.89 ENCOUNTER FOR OTHER ORTHOPEDIC AFTERCARE 06/15/2017 RUY SHANE MD Ot E66.01 MORBID (SEVERE) OBESITY DUE TO EXCESS CA 06/15/2017 RUY SHANE MD Ot F32.9 MAJOR DEPRESSIVE DISORDER, SINGLE EPISOD 06/15/2017 RUY SHANE MD Ot F41.9 ANXIETY DISORDER, UNSPECIFIED 06/15/2017 RUY [...] R06.02 SHORTNESS OF BREATH 06/15/2017 RUY SHANE MD, Ot Z68.43 BODY MASS INDEX (BMI) 50-59.9 , ADULT 06/15/2017 RUY SHANE MD, Ot Z90.710 ACQUIRED ABSENCE OF BOTH CERVIX AND UTER 06/16/2017 RAUL YOUNG LAYOUT DESIGNER-C Ot M25.531 PAIN IN RIGHT WRIST 06/16/2017 RAUL YOUNG LAYOUT DESIGNER-C Ot Z47.89 ENCOUNTER FOR OTHER ORTHOPEDIC AFTERCARE 06/17/2017 RUY SHANE MD Ot E66.01 MORBID (SEVERE) OBESITY DUE TO EXCESS CA 06/17/2017 RUY SHANE MD Ot G40.909 EPILEPSY, UNSP, NOT INTRACTABLE, WITHOUT 06/17/2017 RUY SHANE MD, Ot G47.30 SLEEP APNEA, UNSPECIFIED 06/17/2017 RUY SHANE MD, Ot J44.9 CHRONIC OBSTRUCTIVE PULMONARY DISEASE, U 06/17/2017 RUY SHANE MD, Ot K21.9 GASTRO-ESOPHAGEAL REFLUX DISEASE WITHOUT 06/17/2017 RUY SHANE MD, Ot M19.90 UNSPECIFIED OSTEOARTHRITIS, UNSPECIFIED 06/17/2017 RUY [...] Ot G47.30 SLEEP APNEA, UNSPECIFIED 06/17/2017 RUY HSANE MD Ot J44.1 CHRONIC OBSTRUCTIVE PULMONARY DISEASE W 06/17/2017 RUY SHANE MD Ot K21.9 GASTRO-ESOPHAGEAL REFLUX DISEASE WITHOUT 06/17/2017 RUY SHANE MD Ot M19.90 UNSPECIFIED OSTEOARTHRITIS, UNSPECIFIED 06/17/2017 RUY SHANE MD Ot R06.02 SHORTNESS OF BREATH 06/17/2017 RUY SHANE MD Ot Z90.710 ACQUIRED ABSENCE OF BOTH CERVIX AND UTER 06/18/2017 RAUL YOUNG LAYOUT DESIGNER-C Ot M25.531 PAIN IN RIGHT WRIST 06/18/2017 RAUL YOUNG LAYOUT DESIGNER-C Ot Z47.89 ENCOUNTER FOR OTHER ORTHOPEDIC AFTERCARE 06/19/2017 RAUL YOUNG LAYOUT DESIGNER-C Ot M25.531 PAIN IN RIGHT WRIST 06/19/2017 RAUL YOUNG LAYOUT DESIGNER-C Ot Z47.89 ENCOUNTER FOR OTHER ORTHOPEDIC AFTERCARE 06/20/2017 SVITLANA BORGES, RUY Rushing Ot E66.01 MORBID (SEVERE) OBESITY DUE TO EXCESS CA 06/20/2017 RUY SHANE MD Ot F17.210 NICOTINE DEPENDENCE, CIGARETTES, UNCOMPL 06/20/2017 RUY SHANE MD Ot F32.9 MAJOR DEPRESSIVE DISORDER, SINGLE EPISOD 06/20/2017 RUY SHANE MD Ot F41.9 ANXIETY DISORDER, UNSPECIFIED 06/20/2017 RUY SHANE MD Ot F43.10 POST-TRAUMATIC STRESS DISORDER, UNSPECIF 06/20/2017 RUY SHANE MD, Ot F90.9 ATTENTION-DEFICIT HYPERACTIVITY DISORDER 06/20/2017 RUY SHANE MD, Ot G40.909 EPILEPSY, UNSP, NOT INTRACTABLE, WITHOUT 06/20/2017 RUY SHANE MD, Ot G47.30 SLEEP APNEA, UNSPECIFIED 06/20/2017 RUY SHANE MD, Ot J44.9 CHRONIC OBSTRUCTIVE PULMONARY DISEASE, U 06/20/2017 RUY SHANE MD, Ot K21.9 GASTRO-ESOPHAGEAL REFLUX DISEASE WITHOUT 06/20/2017 RUY SHANE MD, Ot M54.5 LOW BACK PAIN 06/20/2017 RUY SHAEN MD Ot M62.830 MUSCLE SPASM OF BACK 06/20/2017 RUY SHANE MD, Ot R35.0 FREQUENCY OF MICTURITION 06/20/2017 RUY SHANE MD Ot Z90.710 ACQUIRED ABSENCE OF BOTH CERVIX AND UTER 06/23/2017 RUY SHANE MD Ot E66.01 MORBID (SEVERE) OBESITY DUE TO EXCESS CA 06/23/2017 RUY SHANE MD Ot F17.210 NICOTINE DEPENDENCE, CIGARETTES, UNCOMPL 06/23/2017 RUY SHANE MD, Ot F32.9 MAJOR DEPRESSIVE DISORDER, SINGLE EPISOD 06/23/2017 RUY SHANE MD, Ot F41.9 ANXIETY DISORDER, UNSPECIFIED 06/23/2017 RUY SHANE MD, Ot F43.10 POST-TRAUMATIC STRESS DISORDER, UNSPECIF 06/23/2017 RUY SHANE MD, Ot F90.9 ATTENTION-DEFICIT HYPERACTIVITY DISORDER 06/23/2017 RUY SHANE MD, Ot G40.909 EPILEPSY, UNSP, NOT INTRACTABLE, WITHOUT 06/23/2017 RUY SHANE MD Ot G47.30 SLEEP APNEA, UNSPECIFIED 06/23/2017 RUY SHANE MD, Ot J44.9 CHRONIC OBSTRUCTIVE PULMONARY DISEASE, U 06/23/2017 RUY SHANE MD, Ot K21.9 GASTRO-ESOPHAGEAL REFLUX DISEASE WITHOUT 06/23/2017 RUY SHANE MD Ot M54.5 LOW BACK PAIN 06/23/2017 RUY SHANE MD Ot M62.830 MUSCLE SPASM OF BACK 06/23/2017 RUY SHANE MD Ot R35.0 FREQUENCY OF MICTURITION 06/23/2017 RUY SHANE MD Ot Z90.710 ACQUIRED ABSENCE OF BOTH CERVIX AND UTER 07/08/2017 RAUL YOUNG LAYOUT DESIGNER-C Ot M25.531 PAIN IN RIGHT WRIST 07/08/2017 RAUL YOUNG LAYOUT DESIGNER-C Ot Z47.89 ENCOUNTER FOR OTHER ORTHOPEDIC AFTERCARE 07/16/2017 RAUL YOUNG LAYOUT DESIGNER-C Ot M25.531 PAIN IN RIGHT WRIST 07/16/2017 RAUL YOUNG LAYOUT DESIGNER-C Ot Z47.89 ENCOUNTER FOR OTHER ORTHOPEDIC AFTERCARE 01/01/2018 ZAHRA ORNELAS MD Ot F17.210 NICOTINE DEPENDENCE, CIGARETTES, UNCOMPL 01/01/2018 ZAHRA ORNELAS MD Ot J44. 9 CHRONIC OBSTRUCTIVE PULMONARY DISEASE, U 01/01/2018 ZAHRA ORNEALS MD Ot K59. 03 DRUG INDUCED CONSTIPATION 01/01/2018 ZAHRA ORNELAS MD Ot R10. 11 RIGHT UPPER QUADRANT PAIN 01/01/2018 ZAHRA ORNELAS MD Ot Z79.891 INTERMEDIATE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 OPIATE ANALGE 01/01/2018 ZAHRA ORNELAS MD Ot Z79.899 OTHER INTERMEDIATE (CURRENT) DRUG THERAPY 01/01/2018 ZAHRA ORNELAS MD Ot Z90. 49 ACQUIRED ABSENCE OF OTHER SPECIFIED PART 01/01/2018 ZAHRA ORNELAS MD Ot Z90.710 ACQUIRED ABSENCE OF BOTH CERVIX AND UTER 01/01/2018 KHAI JOAQUIN APRN Ot E66.01 MORBID (SEVERE) OBESITY DUE TO EXCESS CA 01/01/2018 KHAI JOAQUIN APRN Ot F32 .9 MAJOR DEPRESSIVE DISORDER, SINGLE EPISOD 01/01/2018 KHAI JOAQUIN APRN Ot F41 .9 ANXIETY DISORDER, UNSPECIFIED 01/01/2018 KHAI JOAQUIN APRN Ot F43.10 POST-TRAUMATIC STRESS DISORDER, UNSPECIF 01/01/2018 KHAI JOAQUIN APRN Ot F90 .9 ATTENTION-DEFICIT HYPERACTIVITY DISORDER 01/01/2018 KHAI JOAQUIN APRN Ot G40.909 EPILEPSY, UNSP, NOT INTRACTABLE, WITHOUT 01/01/2018 KHAI JOAQUIN APRN Ot G47.30 SLEEP APNEA, UNSPECIFIED 01/01/2018 KHAI JOAQUIN APRN Ot J44 .9 CHRONIC OBSTRUCTIVE PULMONARY DISEASE, U 01/01/2018 KHAI JOAQUIN APRN Ot K21 .9 GASTRO-ESOPHAGEAL REFLUX DISEASE WITHOUT 01/01/2018 KHAI JOAQUIN APRN Ot M54 .5 LOW BACK PAIN 01/01/2018 KHAI JOAQUIN APRN Ot Z79.51 INTERMEDIATE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 INHALED STERO 01/01/2018 KHAI JOAQUIN APRN Ot Z79.52 PULLMAN CLERK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 SYSTEMIC STER 01/01/2018 KHAI JOAQUIN APRN Ot Z87.01 PERSONAL HISTORY OF PNEUMONIA (RECURRENT 01/01/2018 KHAI JOAQUIN APRN Ot Z88 .2 ALLERGY STATUS TO SULFONAMIDES STATUS 01/01/2018 KHAI JOAQUIN APRN Ot Z88 .8 ALLERGY STATUS TO OTH DRUG/MEDS/BIOL SUB 01/01/2018 KHAI JOAQUIN APRN Ot Z90.710 ACQUIRED ABSENCE OF BOTH CERVIX AND UTER 01/05/2018 KHAI JOAQUIN APRN Ot E66.01 MORBID (SEVERE) OBESITY DUE TO EXCESS CA 01/05/2018 KHAI JOAQUIN APRN Ot F32 .9 MAJOR DEPRESSIVE DISORDER, SINGLE EPISOD 01/05/2018 KHAI JOAQUIN APRN Ot F41 .9 ANXIETY DISORDER, UNSPECIFIED 01/05/2018 KHAI JOAQUIN APRN Ot F43.10 POST-TRAUMATIC STRESS DISORDER, UNSPECIF 01/05/2018 KHAI JOAQUIN APRN Ot F90 .9 ATTENTION-DEFICIT HYPERACTIVITY DISORDER 01/05/2018 KHAI JOAQUIN APRN Ot G40.909 EPILEPSY, UNSP, NOT INTRACTABLE, WITHOUT 01/05/2018 KHAI JOAQUIN APRN Ot G47.30 SLEEP APNEA, UNSPECIFIED 01/05/2018 KHAI JOAQUIN APRN Ot J44 .9 CHRONIC OBSTRUCTIVE PULMONARY DISEASE, U 01/05/2018 KHAI JOAQUIN APRN Ot K21 .9 GASTRO-ESOPHAGEAL REFLUX DISEASE WITHOUT 01/05/2018 KHAI JOAQUIN APRN Ot M54 .5 LOW BACK PAIN 01/05/2018 KHAI JOAQUIN APRN Ot Z79.51 INTERMEDIATE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 INHALED STERO 01/05/2018 KHAI JOAQUIN APRN Ot Z79.52 INTERMEDIATE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 SYSTEMIC STER 01/05/2018 KHAI JOAQUIN APRN Ot Z87.01 PERSONAL HISTORY OF PNEUMONIA (RECURRENT 01/05/2018 KHAI JOAQUIN APRN Ot Z88 .2 ALLERGY STATUS TO SULFONAMIDES STATUS 01/05/2018 KHAI JOAQUIN APRN Ot Z88 .8 ALLERGY STATUS TO OTH DRUG/MEDS/BIOL SUB 01/05/2018 KHAI JOAQUIN APRN Ot Z90.710 ACQUIRED ABSENCE OF BOTH CERVIX AND UTER 02/28/2018 ROBERT AMAYA MD Ot E66. 01 MORBID (SEVERE) OBESITY DUE TO EXCESS CA 02/28/2018 MONIQUE BORGES, ROBERT Lew Ot F32. 9 MAJOR DEPRESSIVE DISORDER, SINGLE EPISOD 02/28/2018 MONIQUE BORGES, ROBERT Lew Ot F41. 9 ANXIETY DISORDER, UNSPECIFIED 02/28/2018 MONIQUE BORGES, ROBERT Lew Ot F43. 10 POST-TRAUMATIC STRESS DISORDER, UNSPECIF 02/28/2018 MONIQUE BORGES, ROBERT Lew Ot F90. 9 ATTENTION-DEFICIT HYPERACTIVITY DISORDER 02/28/2018 MONIQUE BORGES, ROBERT Lew Ot G40.909 EPILEPSY, UNSP, NOT INTRACTABLE, WITHOUT 02/28/2018 MONIQUE BORGES, ROBERT Lew Ot G47. 30 SLEEP APNEA, UNSPECIFIED 02/28/2018 MONIQUE BORGES, ROBERT Lew Ot J44. 9 CHRONIC OBSTRUCTIVE PULMONARY DISEASE, U 02/28/2018 MONIQUE BORGES, ROBERT Lew Ot K21. 9 GASTRO-ESOPHAGEAL REFLUX DISEASE WITHOUT 02/28/2018 MONIQUE BORGES, ROBERT Lew Ot M25.572 PAIN IN LEFT ANKLE AND JOINTS OF LEFT FO 02/28/2018 MONIQUE BORGES, ROBERT Lew Ot Z68. 43 BODY MASS INDEX (BMI) 50-59.9 , ADULT 02/28/2018 ROBERT AMAYA MD Ot Z79. 52 INTERMEDIATE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 SYSTEMIC STER 02/28/2018 ROBERT AMAYA MD Ot Z88. 2 ALLERGY STATUS TO SULFONAMIDES STATUS 02/28/2018 ROBERT AMAYA MD Ot Z88. 8 ALLERGY STATUS TO OTH DRUG/MEDS/BIOL SUB 02/28/2018 ROBERT AMAYA MD S Ot Z90.710 ACQUIRED ABSENCE OF BOTH CERVIX AND UTER 03/02/2018 MONIQUE BORGES, ROBERT Lew Ot E66. 01 MORBID (SEVERE) OBESITY DUE TO EXCESS CA 03/02/2018 MONIQUE BORGES, ROBERT Lew Ot F32. 9 MAJOR DEPRESSIVE DISORDER, SINGLE EPISOD 03/02/2018 MONIQUE BORGES, ROBERT Lew Ot F41. 9 ANXIETY DISORDER, UNSPECIFIED 03/02/2018 MONIQUE BORGES, ROBERT Lew Ot F43. 10 POST-TRAUMATIC STRESS DISORDER, UNSPECIF 03/02/2018 MONIQUE BORGES, ROBERT Lew Ot F90. 9 ATTENTION-DEFICIT HYPERACTIVITY DISORDER 03/02/2018 MONIQUE BORGES, ROBERT Lew Ot G40.909 EPILEPSY, UNSP, NOT INTRACTABLE, WITHOUT 03/02/2018 MONIQUE BORGES, ROBERT Lew Ot G47. 30 SLEEP APNEA, UNSPECIFIED 03/02/2018 MONIQUE BORGES, ROBERT Lew Ot J44. 9 CHRONIC OBSTRUCTIVE PULMONARY DISEASE, U 03/02/2018 MONIQUE BORGES, ROBERT Lew Ot K21. 9 GASTRO-ESOPHAGEAL REFLUX DISEASE WITHOUT 03/02/2018 MONIQUE BORGES, ROBERT Lew Ot M25.572 PAIN IN LEFT ANKLE AND JOINTS OF LEFT FO 03/02/2018 MONIQUE BORGES, ROBERT Lew Ot Z68. 43 BODY MASS INDEX (BMI) 50-59.9 , ADULT 03/02/2018 MONIQUE BORGES, ROBERT Lew Ot Z79. 52 PULLMAN CLERK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 SYSTEMIC STER 03/02/2018 MONIQUE BORGES, ROBERT Lew Ot Z88. 2 ALLERGY STATUS TO SULFONAMIDES STATUS 03/02/2018 ROBERT AMAYA MD Ot Z88. 8 ALLERGY STATUS TO OTH DRUG/MEDS/BIOL SUB 03/02/2018 MONIQUE BORGES, ROBERT Lew Ot Z90.710 ACQUIRED ABSENCE OF BOTH CERVIX AND UTER 03/04/2018 WILFRED PINA APRN Ot K42.9 UMBILICAL HERNIA WITHOUT OBSTRUCTION OR 03/04/2018 WILFRED PINA APRN Ot K57.30 DVRTCLOS OF LG INT W/O PERFORATION OR AB 03/04/2018 WILFRED PINA APRN Ot K76.0 FATTY (CHANGE OF) LIVER, NOT ELSEWHERE C 03/04/2018 WILFRED PINA APRN Ot N13.0 HYDRONEPHROSIS WITH URETEROPELVIC JUNCTI 03/04/2018 YOVANIWILFRED R TRANSMISSION OPERATOR Ot N20.0 CALCULUS OF KIDNEY 03/04/2018 PINAWILFRED R TRANSMISSION OPERATOR Ot K42.9 UMBILICAL HERNIA WITHOUT OBSTRUCTION OR 03/04/2018 PINAWILFRED R TRANSMISSION OPERATOR Ot K57.30 DVRTCLOS OF LG INT W/O PERFORATION OR AB 03/04/2018 PINA, WILFRED R TRANSMISSION OPERATOR Ot K76.0 FATTY (CHANGE OF) LIVER, NOT ELSEWHERE C 03/04/2018 PINAWILFRED R TRANSMISSION OPERATOR Ot N13.0 HYDRONEPHROSIS WITH URETEROPELVIC JUNCTI 03/04/2018 PINAWILFRED R TRANSMISSION OPERATOR Ot N20.0 CALCULUS OF KIDNEY 03/09/2018 PINAWILFRED R TRANSMISSION OPERATOR Ot K42.9 UMBILICAL HERNIA WITHOUT OBSTRUCTION OR 03/09/2018 PINAWILFRED R TRANSMISSION OPERATOR Ot K57.30 DVRTCLOS OF LG INT W/O PERFORATION OR AB 03/09/2018 PINAWILFRED R TRANSMISSION OPERATOR Ot K76.0 FATTY (CHANGE OF) LIVER, NOT ELSEWHERE C 03/09/2018 PINAWILFRED R TRANSMISSION OPERATOR Ot N13.0 HYDRONEPHROSIS WITH URETEROPELVIC JUNCTI 03/09/2018 PINAWILFRED R TRANSMISSION OPERATOR Ot N20.0 CALCULUS OF KIDNEY 03/13/2018 AMIRA DOMINGUEZ MD Ot N20.2 CALCULUS OF KIDNEY WITH CALCULUS OF URET 03/13/2018 WILFRED PINA R TRANSMISSION OPERATOR Ot K42.9 UMBILICAL HERNIA WITHOUT OBSTRUCTION OR 03/13/2018 WILFRED PINA R TRANSMISSION OPERATOR Ot K57.30 DVRTCLOS OF LG INT W/O PERFORATION OR AB 03/13/2018 PINAWILFRED R TRANSMISSION OPERATOR Ot K76.0 FATTY (CHANGE OF) LIVER, NOT ELSEWHERE C 03/13/2018 WILFRED PINA R TRANSMISSION OPERATOR Ot N13.0 HYDRONEPHROSIS WITH URETEROPELVIC JUNCTI 03/13/2018 WILFRED PINA R TRANSMISSION OPERATOR Ot N20.0 CALCULUS OF KIDNEY 03/24/2018 AMIRA DOMINGUEZ MD Ot N20.2 CALCULUS OF KIDNEY WITH CALCULUS OF URET 04/05/2018 JOHNSON BORGES, ZAHRA Allen Ot E66. 01 MORBID (SEVERE) OBESITY DUE TO EXCESS CA 04/05/2018 ZAHRA ORNELAS MD Ot F32. 9 MAJOR DEPRESSIVE DISORDER, SINGLE EPISOD 04/05/2018 ZAHRA ORNELAS MD Ot F41. 9 ANXIETY DISORDER, UNSPECIFIED 04/05/2018 ZAHRA ORNELAS MD Ot F43. 10 POST-TRAUMATIC STRESS DISORDER, UNSPECIF 04/05/2018 ZAHRA ORNELAS MD Ot F90. 9 ATTENTION-DEFICIT HYPERACTIVITY DISORDER 04/05/2018 ZAHRA ORNELAS MD Ot G40.909 EPILEPSY, UNSP, NOT INTRACTABLE, WITHOUT 04/05/2018 ZAHRA ORNELAS MD Ot G47. 30 SLEEP APNEA, UNSPECIFIED 04/05/2018 ZAHRA ORNELAS MD Ot J44. 9 CHRONIC OBSTRUCTIVE PULMONARY DISEASE, U 04/05/2018 ZAHRA ORNELAS MD Ot K21. 9 GASTRO-ESOPHAGEAL REFLUX DISEASE WITHOUT 04/05/2018 ZAHRA ORNELAS MD Ot R42 DIZZINESS AND GIDDINESS 04/05/2018 ZAHRA ORNELAS MD Ot Z68. 43 BODY MASS INDEX (BMI) 50-59.9 , ADULT 04/05/2018 ZAHRA ORNELAS MD Ot Z79. 51 INTERMEDIATE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 INHALED STERO 04/05/2018 ZAHRA ORNELAS MD Ot Z79. 52 PULLMAN CLERK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 SYSTEMIC STER 04/05/2018 ZAHRA ORNELAS MD Ot Z87.891 PERSONAL HISTORY OF NICOTINE DEPENDENCE 04/05/2018 ZAHRA ORNELAS MD Ot Z88. 2 ALLERGY STATUS TO SULFONAMIDES STATUS 04/05/2018 ZAHRA ORNELAS MD Ot Z88. 8 ALLERGY STATUS TO OTH DRUG/MEDS/BIOL SUB 04/05/2018 ZAHRA ORNELAS MD Ot Z90.710 ACQUIRED ABSENCE OF BOTH CERVIX AND UTER 04/07/2018 ZAHRA ORNELAS MD Ot E66. 01 MORBID (SEVERE) OBESITY DUE TO EXCESS CA 04/07/2018 ZAHRA ORNELAS MD Ot F32. 9 MAJOR DEPRESSIVE DISORDER, SINGLE EPISOD 04/07/2018 ZAHRA ORNELAS MD Ot F41. 9 ANXIETY DISORDER, UNSPECIFIED 04/07/2018 ZAHRA ORNELAS MD Ot F43. 10 POST-TRAUMATIC STRESS DISORDER, UNSPECIF 04/07/2018 ZAHRA ORNELAS MD Ot F90. 9 ATTENTION-DEFICIT HYPERACTIVITY DISORDER 04/07/2018 ZAHRA ORNELAS MD Ot G40.909 EPILEPSY, UNSP, NOT INTRACTABLE, WITHOUT 04/07/2018 ZAHRA ORNELAS MD Ot G47. 30 SLEEP APNEA, UNSPECIFIED 04/07/2018 ZAHRA ORNELAS MD Ot J44. 9 CHRONIC OBSTRUCTIVE PULMONARY DISEASE, U 04/07/2018 ZAHRA ORNELAS MD Ot K21. 9 GASTRO-ESOPHAGEAL REFLUX DISEASE WITHOUT 04/07/2018 ZAHRA ORNELAS MD Ot R42 DIZZINESS AND GIDDINESS 04/07/2018 ZAHRA ORNELAS MD Ot Z68. 43 BODY MASS INDEX (BMI) 50-59.9 , ADULT 04/07/2018 ZAHRA ORNELAS MD Ot Z79. 51 INTERMEDIATE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 INHALED STERO 04/07/2018 ZAHRA ORNELAS MD Ot Z79. 52 INTERMEDIATE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 SYSTEMIC STER 04/07/2018 ZAHRA ORNELAS MD Ot Z87.891 PERSONAL HISTORY OF NICOTINE DEPENDENCE 04/07/2018 ZAHRA ORNELAS MD Ot Z88. 2 ALLERGY STATUS TO SULFONAMIDES STATUS 04/07/2018 ZAHRA ORNELAS MD Ot Z88. 8 ALLERGY STATUS TO OTH DRUG/MEDS/BIOL SUB 04/07/2018 ZAHRA ORNELAS MD Ot Z90.710 ACQUIRED ABSENCE OF BOTH CERVIX AND UTER 04/26/2018 Ot E66.01 MOR BID (SEVERE) OBESITY DUE TO EXCESS CA 04/26/2018 Ot F32.9 DANITA R DEPRESSIVE DISORDER, SINGLE EPISOD 04/26/2018 Ot F41.9 ANXI ETY DISORDER, UNSPECIFIED 04/26/2018 Ot F43.10 POS T-TRAUMATIC STRESS DISORDER, UNSPECIF 04/26/2018 Ot F90.9 ATTE NTION-DEFICIT HYPERACTIVITY DISORDER 04/26/2018 Ot G40.909 EP ILEPSY, UNSP, NOT INTRACTABLE, WITHOUT 04/26/2018 Ot G47.30 SLE EP APNEA, UNSPECIFIED 04/26/2018 Ot J44.9 DYNAMICS AX CONSULTANT SUJATA OBSTRUCTIVE PULMONARY DISEASE, U 04/26/2018 Ot K21.9 SHELIA RO-ESOPHAGEAL REFLUX DISEASE WITHOUT 04/26/2018 Ot M23.92 UNS PECIFIED INTERNAL DERANGEMENT OF LEFT 04/26/2018 Ot M25.562 PA IN IN LEFT KNEE 04/26/2018 Ot X50.0XXA O VEREXERTION FROM STRENUOUS MOVEMENT OR 04/26/2018 Ot Z68.43 BOD Y MASS INDEX (BMI) 50-59.9 , ADULT 04/26/2018 Ot Z79.51 TRINITY G TERM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 INHALED STERO 04/26/2018 Ot Z79.52 TRINITY G TERM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 SYSTEMIC STER 04/26/2018 Ot 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 9 CHRONIC OBSTRUCTIVE PULMONARY DISEASE, U 12/15/2018 ZAHRA ORNELAS MD Ot K59. 03 DRUG INDUCED CONSTIPATION 12/15/2018 ZAHRA ORNELAS MD Ot R10. 11 RIGHT UPPER QUADRANT PAIN 12/15/2018 ZAHRA ORNELAS MD Ot Z79.891 INTERMEDIATE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 OPIATE ANALGE 12/15/2018 ZAHRA ORNELAS MD Ot Z79.899 OTHER INTERMEDIATE (CURRENT) DRUG THERAPY 12/15/2018 ZAHRA ORNELAS MD Ot Z90. 49 ACQUIRED ABSENCE OF OTHER SPECIFIED PART 12/15/2018 ZAHRA ORNELAS MD Ot Z90.710 ACQUIRED ABSENCE OF BOTH CERVIX AND UTER 12/15/2018 WILFRED PINA APRN Ot K42.9 UMBILICAL HERNIA WITHOUT OBSTRUCTION OR 12/15/2018 WILFRED PINA APRN Ot K57.30 DVRTCLOS OF LG INT W/O PERFORATION OR AB 12/15/2018 WILFRED PINA APRN Ot K76.0 FATTY (CHANGE OF) LIVER, NOT ELSEWHERE C 12/15/2018 WILFRED PINA APRN Ot N13.0 HYDRONEPHROSIS WITH URETEROPELVIC JUNCTI 12/15/2018 WILFRED PINA APRN Ot N20.0 CALCULUS OF KIDNEY 12/15/2018 ALBERTO BORGES, AMIRA Mcwilliams Ot N20.2 CALCULUS OF KIDNEY WITH CALCULUS OF URET 12/17/2018 ZAHRA ORNELAS MD Ot F17.210 NICOTINE DEPENDENCE, CIGARETTES, UNCOMPL 12/17/2018 ZAHRA ORNELAS MD Ot J44. 9 CHRONIC OBSTRUCTIVE PULMONARY DISEASE, U 12/17/2018 ZAHRA ORNELAS MD Ot K59. 03 DRUG INDUCED CONSTIPATION 12/17/2018 ZAHRA ORNELAS MD Ot R10. 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 49 ACQUIRED ABSENCE OF OTHER SPECIFIED PART 12/17/2018 ZAHRA ORNELAS MD Ot Z90.710 ACQUIRED ABSENCE OF BOTH CERVIX AND UTER 12/17/2018 WILFRED PINA APRN Ot K42.9 UMBILICAL HERNIA WITHOUT OBSTRUCTION OR 12/17/2018 WILFRED PINA APRN Ot K57.30 DVRTCLOS OF LG INT W/O PERFORATION OR AB 12/17/2018 WILFRED PINA APRN Ot K76.0 FATTY (CHANGE OF) LIVER, NOT ELSEWHERE C 12/17/2018 WILFRED PINA APRN Ot N13.0 HYDRONEPHROSIS WITH URETEROPELVIC JUNCTI 12/17/2018 IWLFRED PINA APRN Ot N20.0 CALCULUS OF KIDNEY 12/17/2018 ALBERTO BORGES, AMIRA Mcwilliams Ot N20.2 CALCULUS OF KIDNEY WITH CALCULUS OF URET 01/05/2019 ARIANE MARQUEZ MD Ot R26.8 9 OTHER ABNORMALITIES OF GAIT AND MOBILITY 01/06/2019 ARIANE MARQUEZ MD Ot R26.8 9 OTHER ABNORMALITIES OF GAIT AND MOBILITY 01/06/2019 ARIANE MARQUEZ MD Ot R26.8 9 OTHER ABNORMALITIES OF GAIT AND MOBILITY 02/18/2019 GEOVANY BORGES, NEVIN Rivera Ot J32 .9 CHRONIC SINUSITIS, UNSPECIFIED 03/21/2019 ARIANE MARQUEZ MD Ot R26.8 9 OTHER ABNORMALITIES OF GAIT AND MOBILITY 05/02/2019 ISHAN PATEL DO Ot E66.01 MORBID (SEVERE) OBESITY DUE TO EXCESS CA 05/02/2019 ISHAN PATEL DO Ot F17.210 NICOTINE DEPENDENCE, CIGARETTES, UNCOMPL 05/02/2019 ISHAN PATEL DO Ot F32 .9 MAJOR DEPRESSIVE DISORDER, SINGLE EPISOD 05/02/2019 ISHAN PATEL DO Ot F41 .9 ANXIETY DISORDER, UNSPECIFIED 05/02/2019 ISHAN PATEL DO Ot F43.10 POST-TRAUMATIC STRESS DISORDER, UNSPECIF 05/02/2019 ISHAN PATEL DO Ot F90 .9 ATTENTION-DEFICIT HYPERACTIVITY DISORDER 05/02/2019 ISHAN PATEL DO Ot G40.909 EPILEPSY, UNSP, NOT INTRACTABLE, WITHOUT 05/02/2019 ISHAN PATEL DO Ot G47.30 SLEEP APNEA, UNSPECIFIED 05/02/2019 ISHAN PATEL DO Ot J44 .9 CHRONIC OBSTRUCTIVE PULMONARY DISEASE, U 05/02/2019 ISHAN PATEL DO Ot K21 .9 GASTRO-ESOPHAGEAL REFLUX DISEASE WITHOUT 05/02/2019 ISHAN PATEL DO Ot K52 .9 NONINFECTIVE GASTROENTERITIS AND COLITIS 05/02/2019 ISHAN PATEL DO Ot M79 .7 FIBROMYALGIA 05/02/2019 ISHAN PATEL DO Ot R10.84 GENERALIZED ABDOMINAL PAIN 05/02/2019 ISHAN PATEL DO Ot Z68.43 BODY MASS INDEX (BMI) 50-59.9, ADULT 05/02/2019 ISHAN PATEL DO Ot Z88 .2 ALLERGY STATUS TO SULFONAMIDES STATUS 05/02/2019 ISHAN PATEL DO Ot Z88 .8 ALLERGY STATUS TO OTH DRUG/MEDS/BIOL SUB 05/02/2019 ISHAN PATEL DO Ot Z90.710 ACQUIRED ABSENCE OF BOTH CERVIX AND UTER 05/02/2019 ZAHRA ORNELAS MD Ot F17.210 NICOTINE DEPENDENCE, CIGARETTES, UNCOMPL 05/02/2019 ZAHRA ORNELAS MD Ot J44. 9 CHRONIC OBSTRUCTIVE PULMONARY DISEASE, U 05/02/2019 ZAHRA ORNELAS MD Ot K59. 03 DRUG INDUCED CONSTIPATION 05/02/2019 ZAHRA ORNELAS MD Ot R10. 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 49 ACQUIRED ABSENCE OF OTHER SPECIFIED PART 05/02/2019 ZAHRA ORNELAS MD Ot Z90.710 ACQUIRED ABSENCE OF BOTH CERVIX AND UTER 05/02/2019 WILFRED PINA APRN Ot K42.9 UMBILICAL HERNIA WITHOUT OBSTRUCTION OR 05/02/2019 WILFRED PINA APRN Ot K57.30 DVRTCLOS OF LG INT W/O PERFORATION OR AB 05/02/2019 WILFRED PINA APRN Ot K76.0 FATTY (CHANGE OF) LIVER, NOT ELSEWHERE C 05/02/2019 WILFRED PINA APRN Ot N13.0 HYDRONEPHROSIS WITH URETEROPELVIC JUNCTI 05/02/2019 WILFRED PINA APRN Ot N20.0 CALCULUS OF KIDNEY 05/02/2019 ALBERTO BORGES, AMIRA Mcwilliams Ot N20.2 CALCULUS OF KIDNEY WITH CALCULUS OF URET 05/02/2019 GEOVANY BORGES, NEVIN Rivera Ot J32 .9 CHRONIC SINUSITIS, UNSPECIFIED 05/04/2019 ISHAN PATEL DO Ot E66.01 MORBID (SEVERE) OBESITY DUE TO EXCESS CA 05/04/2019 ISHAN PAETL DO Ot F17.210 NICOTINE DEPENDENCE, CIGARETTES, UNCOMPL 05/04/2019 ISHAN PATEL DO Ot F32 .9 MAJOR DEPRESSIVE DISORDER, SINGLE EPISOD 05/04/2019 ISHAN PATEL DO Ot F41 .9 ANXIETY DISORDER, UNSPECIFIED 05/04/2019 ISHAN PATEL DO, Ot F43.10 POST-TRAUMATIC STRESS DISORDER, UNSPECIF 05/04/2019 ISHAN PATEL DO Ot F90 .9 ATTENTION-DEFICIT HYPERACTIVITY DISORDER 05/04/2019 ISHAN PATEL DO, Ot G40.909 EPILEPSY, UNSP, NOT INTRACTABLE, WITHOUT 05/04/2019 ISHAN PATEL DO Ot G47.30 SLEEP APNEA, UNSPECIFIED 05/04/2019 ISHAN PATEL DO, Ot J44 .9 CHRONIC OBSTRUCTIVE PULMONARY DISEASE, U 05/04/2019 ISHAN PATEL DO Ot K21 .9 GASTRO-ESOPHAGEAL REFLUX DISEASE WITHOUT 05/04/2019 ISHAN PATEL DO Ot K52 .9 NONINFECTIVE GASTROENTERITIS AND COLITIS 05/04/2019 ISHAN PATEL DO Ot M79 .7 FIBROMYALGIA 05/04/2019 ISHAN PATEL DO, Ot R10.84 GENERALIZED ABDOMINAL PAIN 05/04/2019 ISHAN PATEL DO, Ot Z68.43 BODY MASS INDEX (BMI) 50-59.9, ADULT 05/04/2019 ISHAN PATEL DO, Ot Z88 .2 ALLERGY STATUS TO SULFONAMIDES STATUS 05/04/2019 ISHAN PATEL DO Ot Z88 .8 ALLERGY STATUS TO OTH DRUG/MEDS/BIOL SUB 05/04/2019 ISHAN PATEL DO, Ot Z90.710 ACQUIRED ABSENCE OF BOTH CERVIX AND UTER 05/11/2019 ISHAN PATEL DO, Ot E66.01 MORBID (SEVERE) OBESITY DUE TO EXCESS CA 05/11/2019 ISHAN PATEL DO Ot F17.210 NICOTINE DEPENDENCE, CIGARETTES, UNCOMPL 05/11/2019 ISHAN PATEL DO Ot F32 .9 MAJOR DEPRESSIVE DISORDER, SINGLE EPISOD 05/11/2019 ISHAN PATEL DO Ot F41 .9 ANXIETY DISORDER, UNSPECIFIED 05/11/2019 ISHAN PATEL DO, Ot F43.10 POST-TRAUMATIC STRESS DISORDER, UNSPECIF 05/11/2019 ISHAN PATEL DO, Ot F90 .9 ATTENTION-DEFICIT HYPERACTIVITY DISORDER 05/11/2019 ISHAN PATEL DO, Ot G40.909 EPILEPSY, UNSP, NOT INTRACTABLE, WITHOUT 05/11/2019 ISHAN PATEL DO Ot G47.30 SLEEP APNEA, UNSPECIFIED 05/11/2019 ISHAN PATEL DO, Ot J44 .9 CHRONIC OBSTRUCTIVE PULMONARY DISEASE, U 05/11/2019 ISHAN PATEL DO Ot K21 .9 GASTRO-ESOPHAGEAL REFLUX DISEASE WITHOUT 05/11/2019 ISHAN PATEL DO, Ot K52 .9 NONINFECTIVE GASTROENTERITIS AND COLITIS 05/11/2019 ISHAN PATEL DO, Ot M79 .7 FIBROMYALGIA 05/11/2019 ISHAN PATEL DO, Ot R10.84 GENERALIZED ABDOMINAL PAIN 05/11/2019 ISHAN PATEL DO, Ot Z68.43 BODY MASS INDEX (BMI) 50-59.9, ADULT 05/11/2019 ISHAN PATEL DO, Ot Z88 .2 ALLERGY STATUS TO SULFONAMIDES STATUS 05/11/2019 ISHAN PATEL DO Ot Z88 .8 ALLERGY STATUS TO OTH DRUG/MEDS/BIOL SUB 05/11/2019 ISHAN PATEL DO Ot Z90.710 ACQUIRED ABSENCE OF BOTH CERVIX AND UTER 05/12/2019 ISHAN PATEL DO Ot E66.01 MORBID (SEVERE) OBESITY DUE TO EXCESS CA 05/12/2019 ISHAN PATEL DO Ot F17.210 NICOTINE DEPENDENCE, CIGARETTES, UNCOMPL 05/12/2019 ISHAN PATEL DO Ot F32 .9 MAJOR DEPRESSIVE DISORDER, SINGLE EPISOD 05/12/2019 ISHAN PATEL DO Ot F41 .9 ANXIETY DISORDER, UNSPECIFIED 05/12/2019 ISHAN PATEL DO Ot F43.10 POST-TRAUMATIC STRESS DISORDER, UNSPECIF 05/12/2019 ISHAN PATEL DO Ot F90 .9 ATTENTION-DEFICIT HYPERACTIVITY DISORDER 05/12/2019 ISHAN PATEL DO Ot G40.909 EPILEPSY, UNSP, NOT INTRACTABLE, WITHOUT 05/12/2019 ISHAN PATEL DO Ot G47.30 SLEEP APNEA, UNSPECIFIED 05/12/2019 ISHAN PATEL DO Ot J44 .9 CHRONIC OBSTRUCTIVE PULMONARY DISEASE, U 05/12/2019 ISHAN PATEL DO Ot K21 .9 GASTRO-ESOPHAGEAL REFLUX DISEASE WITHOUT 05/12/2019 ISHAN PATEL DO Ot K52 .9 NONINFECTIVE GASTROENTERITIS AND COLITIS 05/12/2019 ISHAN PATEL DO Ot M79 .7 FIBROMYALGIA 05/12/2019 ISHAN PATEL DO Ot R10.84 GENERALIZED ABDOMINAL PAIN 05/12/2019 ISHAN PATEL DO Ot Z68.43 BODY MASS INDEX (BMI) 50-59.9, ADULT 05/12/2019 ISHAN PATEL DO Ot Z88 .2 ALLERGY STATUS TO SULFONAMIDES STATUS 05/12/2019 ISHAN PATEL DO Ot Z88 .8 ALLERGY STATUS TO OTH DRUG/MEDS/BIOL SUB 05/12/2019 ISHAN PATEL DO Ot Z90.710 ACQUIRED ABSENCE OF BOTH CERVIX AND UTER 05/17/2019 JOHNSON REESE MD Ot E66.01 MORBID (SEVERE) OBESITY DUE TO EXCESS CA 05/17/2019 JOHNSON REESE MD Ot F17.210 NICOTINE DEPENDENCE, CIGARETTES, UNCOMPL 05/17/2019 JOHNSON REESE MD Ot F32.9 MAJOR DEPRESSIVE DISORDER, SINGLE EPISOD 05/17/2019 JOHNSON REESE MD, Ot F43.10 POST-TRAUMATIC STRESS DISORDER, UNSPECIF 05/17/2019 JOHNSON REESE MD Ot F90.9 ATTENTION-DEFICIT HYPERACTIVITY DISORDER 05/17/2019 JOHNSON REESE MD Ot G40.909 EPILEPSY, UNSP, NOT INTRACTABLE, WITHOUT 05/17/2019 JOHNSON REESE MD Ot G47.30 SLEEP APNEA, UNSPECIFIED 05/17/2019 JOHNSON REESE MD, Ot J44.9 CHRONIC OBSTRUCTIVE PULMONARY DISEASE, U 05/17/2019 JOHNSON REESE MD, Ot K21.9 GASTRO-ESOPHAGEAL REFLUX DISEASE WITHOUT 05/17/2019 JOHNSON REESE MD Ot M79.7 FIBROMYALGIA 05/17/2019 JOHNSON REESE MD Ot N39.0 URINARY TRACT INFECTION, SITE NOT SPECIF 05/17/2019 JOHNSON REESE MD Ot R50.9 FEVER, UNSPECIFIED 05/17/2019 JOHNSON REESE MD Ot Z68.42 BODY MASS INDEX (BMI) 45.0-49.9, ADULT 05/17/2019 JOHNSON REESE MD Ot Z88.2 ALLERGY STATUS TO SULFONAMIDES STATUS 05/17/2019 JOHNSON REESE MD Ot Z88.8 ALLERGY STATUS TO OTH DRUG/MEDS/BIOL SUB 05/17/2019 JOHNSON REESE MD Ot Z90.710 ACQUIRED ABSENCE OF BOTH CERVIX AND UTER 06/07/2019 CADEN HURLEY MD Ot M54.16 RADICULOPATHY, LUMBAR REGION 07/27/2019 CADEN HURLEY MD Ot M54.16 RADICULOPATHY, LUMBAR REGION 08/02/2019 CADEN HURLEY MD Ot M54.16 RADICULOPATHY, LUMBAR REGION 09/19/2019 ZAHRA ORNELAS MD Ot F17.210 NICOTINE DEPENDENCE, CIGARETTES, UNCOMPL 09/19/2019 ZAHRA ORNELAS MD Ot J44. 9 CHRONIC OBSTRUCTIVE PULMONARY DISEASE, U 09/19/2019 ZAHRA ORNELAS MD Ot K59. 03 DRUG INDUCED CONSTIPATION 09/19/2019 ZAHRA ORNELAS MD Ot R10. 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 49 ACQUIRED ABSENCE OF OTHER SPECIFIED PART 09/19/2019 ZAHRA ORNELAS MD Ot Z90.710 ACQUIRED ABSENCE OF BOTH CERVIX AND UTER 09/19/2019 WILFRED PINA APRN Ot K42.9 UMBILICAL HERNIA WITHOUT OBSTRUCTION OR 09/19/2019 WILFRED PINA APRN Ot K57.30 DVRTCLOS OF LG INT W/O PERFORATION OR AB 09/19/2019 WILFRED PINA APRN Ot K76.0 FATTY (CHANGE OF) LIVER, NOT ELSEWHERE C 09/19/2019 WILFRED PINA APRN Ot N13.0 HYDRONEPHROSIS WITH URETEROPELVIC JUNCTI 09/19/2019 WILFRED PINA APRN Ot N20.0 CALCULUS OF KIDNEY 09/19/2019 ALBERTO BORGES, AMIRA Mcwilliams Ot N20.2 CALCULUS OF KIDNEY WITH CALCULUS OF URET 09/19/2019 GEOVANY BORGES, NEVIN Rivera Ot J32 .9 CHRONIC SINUSITIS, UNSPECIFIED Procedures There is no data. Results Test Result Range Complete blood count (CBC) with automate d white blood cell (WBC) differential - 12/22/16 15:35 Blood leukocytes automated count (number/volume) 13.6 10*3/uL 4.3-11.0 Blood erythrocytes automated count (number/volume) 4.33 10*6/uL 4.35-5.85 Venous blood hemoglobin measurement (mass/volume) 13.2 g/dL 11.5-16.0 Blood hematocrit (volume fraction) 40 % 35-52 Automated erythrocyte mean corpuscular volume 91 [ foz_us] 80-99 Automated erythrocyte mean corpuscular h emoglobin (mass per erythrocyte) 31 pg 25-34 Automated erythrocyte mean corpuscular h emoglobin concentration measurement (mass/volume) 33 g/dL 32-36 Automated erythrocyte distribution width ratio 12. 7 % 10.0- 14.5 Automated blood platelet count (count/volume) 232 10*3/uL [...] 10*3 1.0-4.0 Blood monocytes automated count (number/volume) 1. 1 10*3 0.0-1.0 Automated eosinophil count 0.1 10*3/uL 0 .0-0.3 Automated blood basophil count (count/volume) 0.0 10*3/uL 0.0-0.1 Comprehensive metabolic panel - 12/22/16 15:35 Serum or plasma sodium measurement (moles/volume) 141 mmol/L 135-145 Serum or plasma potassium measurement (moles/volume) 3.8 mmol/L 3.6-5.0 Serum or plasma chloride measurement (moles/volume) 112 mmol/L 98-107 Carbon dioxide 20 mmol/L 21-32 Serum or plasma anion gap determination (moles/volume) 9 mmol/L 5-14 Serum or plasma urea nitrogen measurement (mass/volume ) 20 mg/dL 7-18 Serum or plasma creatinine measurement (mass/volume) 0.85 mg/dL 0.60-1.30 Serum or plasma urea nitrogen/creatinine mass ratio 24 NRG Serum or plasma creatinine measurement w ith calculation of estimated glomerular filtration rate > NRG Serum or plasma glucose measurement (mass/volume) 103 mg/dL 70-105 Serum or plasma calcium measurement (mass/volume) 8.8 mg/dL 8.5-10.1 Serum or plasma total bilirubin measurement (mass/volu me) 0.2 mg/dL 0.1-1.0 Serum or plasma alkaline phosphatase magdalene surement (enzymatic activity/volume) 68 U/L 40-136 Serum or plasma aspartate aminotransfera se measurement (enzymatic activity/volume) 11 U/L 5-34 Serum or plasma alanine aminotransferase measurement (enzymatic activity/volume) 12 U/L 0-55 Serum or plasma protein measurement (mass/volume) 5.9 g/dL 6.4-8.2 Serum or plasma albumin measurement (mass/volume) 3.5 g/dL 3.2-4.5 Serum or plasma troponin i.cardiac measu rement (mass/volume) - 12/22/16 15:35 Serum or plasma troponin i.cardiac measurement (mass/v olume) < ng/mL <0.30 Serum or plasma amylase measurement (enz ymatic activity/volume) - 12/22/16 15:35 Serum or plasma amylase measurement (enzymatic activit y/volume) 82 U/L 25-125 THYROID STIMULATING HORMONE - 12/22/16 1 5:35 THYROID STIMULATING HORMONE 1.06 u[iU]/mL 0.35-4.94 Complete urinalysis with reflex to cultu re - 06/20/17 13:40 Urine color determination YELLOW NRG Urine clarity determination CLEAR NR G Urine pH measurement by test strip 7 5-9 Specific gravity of urine by test strip 1.010 1.016-1.022 Urine protein assay by test strip, semi-quantitative NEGATIVE NEGATIVE Urine glucose detection by automated test strip NE GATIVE NEGATIVE Erythrocytes detection in urine sediment by light micr oscopy 1+ NEGATIVE Urine ketones detection by automated test strip NE GATIVE NEGATIVE Urine nitrite detection by test strip NEGATIVE NEGATIVE Urine total bilirubin detection by test strip NEGA TIVE NEGATIVE Urine urobilinogen measurement by automated test strip (mass/volume) NORMAL NORMAL Urine leukocyte esterase detection by dipstick NEG ATIVE NEGATIVE Automated urine sediment erythrocyte cou nt by microscopy (number/high power field) [HPF] NRG Automated urine sediment leukocyte count by microscopy (number/high power field) NONE NRG Bacteria detection in urine sediment by light microsco py TRACE NRG Squamous epithelial cells detection in u rine sediment by light microscopy 5-10 NRG Crystals detection in urine sediment by light microsco py NONE NRG Casts detection in urine sediment by light microscopy NONE NRG Mucus detection in urine sediment by light microscopy NEGATIVE NRG Complete urinalysis with reflex to culture NO NRG CMP - 11/19/17 09:05 GLUCOSE 101 mg/dL 65-99 UREA NITROGEN (BUN) 16 mg/dL 7-25 CREATININE 0.85 mg/dL 0.50-1.10 eGFR NON-AFR. [facility] 81 mL/min/1.73m2 > OR = 60 eGFR 94 mL/min/1.73m2 > OR = 60 BUN/CREATININE RATIO NOT APPLICABLE (calc) 6-22 SODIUM 141 mmol/L 135-146 POTASSIUM 4.5 mmol/L 3.5-5.3 CHLORIDE 108 mmol/L 98-110 CARBON DIOXIDE 19 mmol/L 20-31 CALCIUM 9.0 mg/dL 8.6-10.2 PROTEIN, TOTAL 5.9 g/dL 6.1-8.1 ALBUMIN 3.7 g/dL 3.6-5.1 GLOBULIN 2.2 g/dL (calc) 1.9-3.7 ALBUMIN/GLOBULIN RATIO 1.7 (calc) 1.0-2. 5 BILIRUBIN, TOTAL 0.3 mg/dL 0.2-1.2 ALKALINE PHOSPHATASE 66 U/L 33-115 AST 13 U/L 10-35 ALT 12 U/L 6-29 CBC - 11/19/17 09:05 WHITE BLOOD CELL COUNT 8.5 Thousand/uL 3 .8-10.8 RED BLOOD CELL COUNT 4.84 Million/uL 3.8 0-5.10 HEMOGLOBIN 15.3 g/dL 11.7-15.5 HEMATOCRIT 45.5 % 35.0-45.0 MCV 94.0 fL 80.0-100.0 MCH 31.6 pg 27.0-33.0 MCHC 33.6 g/dL 32.0-36.0 RDW 12.8 % 11.0-15.0 PLATELET COUNT 225 Thousand/uL 140-400 MPV 11.7 fL 7.5-12.5 ABSOLUTE NEUTROPHILS 5083 cells/uL 1500- 7800 ABSOLUTE LYMPHOCYTES 2431 cells/uL 850-3 900 ABSOLUTE MONOCYTES 536 cells/uL 200-950 ABSOLUTE EOSINOPHILS 391 cells/uL 15-500 ABSOLUTE BASOPHILS 60 cells/uL 0-200 NEUTROPHILS 59.8 % NRG LYMPHOCYTES 28.6 % NRG MONOCYTES 6.3 % NRG EOSINOPHILS 4.6 % NRG BASOPHILS 0.7 % NRG THYROID ANALYZER - 11/19/17 09:05 TSH 2.93 mIU/L NRG PDM - PAIN MGMT (PROFILE 3 WITH CONFIRMA TION) - 02/04/18 09:00 Creatinine 90.2 mg/dL > or = 20.0 pH 7.95 4.5 - 9.0 Oxidant NEGATIVE [...] aOH alprazolam CONSISTENT NRG Alphahydroxymidazolam NEGATIVE ng/mL < 50 medMATCH aOH midazolam CONSISTENT NRG Alphahydroxytriazolam NEGATIVE ng/mL < 50 medMATCH aOH triazolam CONSISTENT NRG Aminoclonazepam NEGATIVE ng/mL <25 medMATCH Aminoclonazepam CONSISTENT NRG Hydroxyethylflurazepam NEGATIVE ng/mL <50 medMATCH OH,Et flurazepam CONSISTENT NR G Lorazepam NEGATIVE ng/mL <50 medMATCH Lorazepam CONSISTENT NRG Nordiazepam NEGATIVE ng/mL <50 medMATCH Nordiazepam CONSISTENT NRG Oxazepam NEGATIVE ng/mL <50 medMATCH Oxazepam CONSISTENT NRG Temazepam NEGATIVE ng/mL <50 medMATCH Temazepam CONSISTENT NRG Complete blood count (CBC) with automate d white blood cell (WBC) differential - 02/28/18 17:00 Blood leukocytes automated count (number/volume) 9.6 10*3/uL 4.3-11.0 Blood erythrocytes automated count (number/volume) 4.44 10*6/uL 4.35-5.85 Venous blood hemoglobin measurement (mass/volume) 14.5 g/dL 11.5-16.0 Blood hematocrit (volume fraction) 41 % 35-52 Automated erythrocyte mean corpuscular volume 91 [ foz_us] 80-99 Automated erythrocyte mean corpuscular h emoglobin (mass per erythrocyte) 33 pg 25-34 Automated erythrocyte mean corpuscular h emoglobin concentration measurement (mass/volume) 36 g/dL 32-36 Automated erythrocyte distribution width ratio 12. 6 % 10.0- 14.5 Automated blood platelet count (count/volume) 204 10*3/uL [...] 10*3 1.0-4.0 Blood monocytes automated count (number/volume) 0. 6 10*3 0.0-1.0 Automated eosinophil count 0.3 10*3/uL 0 .0-0.3 Automated blood basophil count (count/volume) 0.0 10*3/uL 0.0-0.1 Erythrocyte sedimentation rate by osvaldo gren method - 02/28/18 17:00 Erythrocyte sedimentation rate by westergren method 15 mm 0- 20 Comprehensive metabolic panel - 02/28/18 17:00 Serum or plasma sodium measurement (moles/volume) 142 mmol/L 135-145 Serum or plasma potassium measurement (moles/volume) 4.0 mmol/L 3.6-5.0 Serum or plasma chloride measurement (moles/volume) 114 mmol/L 98-107 Carbon dioxide 19 mmol/L 21-32 Serum or plasma anion gap determination (moles/volume) 9 mmol/L 5-14 Serum or plasma urea nitrogen measurement (mass/volume ) 15 mg/dL 7-18 Serum or plasma creatinine measurement (mass/volume) 0.82 mg/dL 0.60-1.30 Serum or plasma urea nitrogen/creatinine mass ratio 18 NRG Serum or plasma creatinine measurement w ith calculation of estimated glomerular filtration rate > NRG Serum or plasma glucose measurement (mass/volume) 97 mg/dL 70-105 Serum or plasma calcium measurement (mass/volume) 9.2 mg/dL 8.5-10.1 Serum or plasma total bilirubin measurement (mass/volu me) 0.2 mg/dL 0.1-1.0 Serum or plasma alkaline phosphatase magdalene surement (enzymatic activity/volume) 81 U/L 40-136 Serum or plasma aspartate aminotransfera se measurement (enzymatic activity/volume) 13 U/L 5-34 Serum or plasma alanine aminotransferase measurement (enzymatic activity/volume) 13 U/L 0-55 Serum or plasma protein measurement (mass/volume) 6.1 g/dL 6.4-8.2 Serum or plasma albumin measurement (mass/volume) 3.6 g/dL 3.2-4.5 Serum or plasma uric acid measurement (m ass/volume) - 02/28/18 17:00 Serum or plasma uric acid measurement (mass/volume) 5.5 mg/dL 2.6-7.2 LIPID PANEL - 05/20/18 08:24 CHOLESTEROL, TOTAL 168 mg/dL <200 HDL CHOLESTEROL 50 mg/dL >50 TRIGLYCERIDES 282 mg/dL <150 LDL-CHOLESTEROL 81 mg/dL (calc) NRG CHOL/HDLC RATIO 3.4 (calc) <5.0 NON HDL CHOLESTEROL 118 mg/dL (calc) <13 0 CULTURE, URINE - 11/18/18 15:33 CULTURE, URINE, ROUTINE SEE NOTE NRG Complete blood count (CBC) with automate d white blood cell (WBC) differential - 05/02/19 04:02 Blood leukocytes automated count (number/volume) 10.6 10*3/uL 4.3-11.0 Blood erythrocytes automated count (number/volume) 4.23 10*6/uL 4.35-5.85 Venous blood hemoglobin measurement (mass/volume) 13.0 g/dL 11.5-16.0 Blood hematocrit (volume fraction) 40 % 35-52 Automated erythrocyte mean corpuscular volume 94 [ foz_us] 80-99 Automated erythrocyte mean corpuscular h emoglobin (mass per erythrocyte) 31 pg 25-34 Automated erythrocyte mean corpuscular h emoglobin concentration measurement (mass/volume) 33 g/dL 32-36 Automated erythrocyte distribution width ratio 12. 9 % 10.0- 14.5 Automated blood platelet count (count/volume) 228 10*3/uL 130-400 Automated blood platelet mean volume measurement 10.9 [foz_us] 7.4-10.4 Automated blood neutrophils/100 leukocytes 52 % 42-75 Automated blood lymphocytes/100 leukocytes 39 % 12-44 Blood monocytes/100 leukocytes 8 % 0-12 Automated blood eosinophils/100 leukocytes 1 % 0-10 Automated blood basophils/100 leukocytes 0 % 0-10 Blood neutrophils automated count (number/volume) 5.5 10*3 1.8-7.8 Blood lymphocytes automated count (number/volume) 4.1 10*3 1.0-4.0 Blood monocytes automated count (number/volume) 0. 8 10*3 0.0-1.0 Automated eosinophil count 0.1 10*3/uL 0 .0-0.3 Automated blood basophil count (count/volume) 0.0 10*3/uL 0.0-0.1 Comprehensive metabolic panel - 05/02/19 04:02 Serum or plasma sodium measurement (moles/volume) 145 mmol/L 135-145 Serum or plasma potassium measurement (moles/volume) 3.9 mmol/L 3.6-5.0 Serum or plasma chloride measurement (moles/volume) 109 mmol/L 98-107 Carbon dioxide 22 mmol/L 21-32 Serum or plasma anion gap determination (moles/volume) 14 mmol/L 5-14 Serum or plasma urea nitrogen measurement (mass/volume ) 23 mg/dL 7-18 Serum or plasma creatinine measurement (mass/volume) 1.04 mg/dL 0.60-1.30 Serum or plasma urea nitrogen/creatinine mass ratio 22 NRG Serum or plasma creatinine measurement w ith calculation of estimated glomerular filtration rate 56 NRG Serum or plasma glucose measurement (mass/volume) 94 mg/dL 70-105 Serum or plasma calcium measurement (mass/volume) 9.3 mg/dL 8.5-10.1 Serum or plasma total bilirubin measurement (mass/volu me) < mg/dL 0.1-1.0 Serum or plasma alkaline phosphatase magdalene surement (enzymatic activity/volume) 91 U/L 40-136 Serum or plasma aspartate aminotransfera se measurement (enzymatic activity/volume) 15 U/L 5-34 Serum or plasma alanine aminotransferase measurement (enzymatic activity/volume) 15 U/L 0-55 Serum or plasma protein measurement (mass/volume) 6.4 g/dL 6.4-8.2 Serum or plasma albumin measurement (mass/volume) 3.8 g/dL 3.2-4.5 CALCIUM CORRECTED 9.5 mg/dL 8.5-10.1 Lipase - 05/02/19 04:02 Lipase 30 U/L 8-78 Blood lactic acid measurement (moles/vol ume) - 05/02/19 04:31 Blood lactic acid measurement (moles/volume) 0.77 mmol/L 0.50-2.00 Complete urinalysis with reflex to cultu re - 05/17/19 14:32 Urine color determination YELLOW NRG Urine clarity determination SLIGHTLY CLOUDY NRG Urine pH measurement by test strip 6 5-9 Specific gravity of urine by test strip 1.010 1.016-1.022 Urine protein assay by test strip, semi-quantitative 2+ NEGATIVE Urine glucose detection by automated test strip NE GATIVE NEGATIVE Erythrocytes detection in urine sediment by light micr oscopy 2+ NEGATIVE Urine ketones detection by automated test strip NE GATIVE NEGATIVE Urine nitrite detection by test strip POSITIVE NEGATIVE Urine total bilirubin detection by test strip NEGA TIVE NEGATIVE Urine urobilinogen measurement by automated test strip (mass/volume) NORMAL NORMAL Urine leukocyte esterase detection by dipstick 3+ NEGATIVE Automated urine sediment erythrocyte cou nt by microscopy (number/high power field) RARE NRG Automated urine sediment leukocyte count by microscopy (number/high power field) > [HPF] NRG Bacteria detection in urine sediment by light microsco py LARGE NRG Squamous epithelial cells detection in u rine sediment by light microscopy 2-5 NRG Crystals detection in urine sediment by light microsco py NONE NRG Casts detection in urine sediment by light microscopy NONE NRG Mucus detection in urine sediment by light microscopy NEGATIVE NRG Complete urinalysis with reflex to culture YES NRG Bacterial urine culture - 05/17/19 14:32 Bacterial urine culture [id number] NRG COLONY COUNT >100,000/ML NRG FTX;REPORTABLE SUSCEPTIBILITY REPORTED 05/19 09:15 NRG Dirithromycin susceptibility test by dis k diffusion - 05/17/19 14:32 Gentamicin susceptibility test by minimum inhibitory c oncentration <= NRG Trimethoprim/sulfamethoxazole susceptibi lity test by minimum inhibitoryconcentration > NRG Levofloxacin susceptibility test by minimum inhibitory concentration <= NRG Ampicillin susceptibility test by minimum inhibitory c oncentration > NRG Cefazolin susceptibility test by minimum inhibitory co ncentration 2 NRG Ceftriaxone susceptibility test by minimum inhibitory concentration <= NRG Ciprofloxacin susceptibility test by minimum inhibitor y concentration <= NRG Meropenem susceptibility test by minimum inhibitory co ncentration <= NRG Nitrofurantoin susceptibility test by mi nimum inhibitory concentration <= NRG Amoxicillin and clavulanate potassium susc DEXTER = NRG Complete blood count (CBC) with automate d white blood cell (WBC) differential - 05/17/19 14:59 Blood leukocytes automated count (number/volume) 11.5 10*3/uL 4.3-11.0 Blood erythrocytes automated count (number/volume) 4.04 10*6/uL 4.35-5.85 Venous blood hemoglobin measurement (mass/volume) 12.3 g/dL 11.5-16.0 Blood hematocrit (volume fraction) 37 % 35-52 Automated erythrocyte mean corpuscular volume 91 [ foz_us] 80-99 Automated erythrocyte mean corpuscular h emoglobin (mass per erythrocyte) 30 pg 25-34 Automated erythrocyte mean corpuscular h emoglobin concentration measurement (mass/volume) 33 g/dL 32-36 Automated erythrocyte distribution width ratio 12. 6 % 10.0- 14.5 Automated blood platelet count (count/volume) 205 10*3/uL 130-400 Automated blood platelet mean volume measurement 10.3 [foz_us] 7.4-10.4 Automated blood neutrophils/100 leukocytes 71 % 42-75 Automated blood lymphocytes/100 leukocytes 16 % 12-44 Blood monocytes/100 leukocytes 11 % 0-12 Automated blood eosinophils/100 leukocytes 2 % 0-10 Automated blood basophils/100 leukocytes 0 % 0-10 Blood neutrophils automated count (number/volume) 8.2 10*3 1.8-7.8 Blood lymphocytes automated count (number/volume) 1.9 10*3 1.0-4.0 Blood monocytes automated count (number/volume) 1. 3 10*3 0.0-1.0 Automated eosinophil count 0.2 10*3/uL 0 .0-0.3 Automated blood basophil count (count/volume) 0.0 10*3/uL 0.0-0.1 Blood lactic acid measurement (moles/vol ume) - 05/17/19 14:59 Blood lactic acid measurement (moles/volume) 1.02 mmol/L 0.50-2.00 Comprehensive metabolic panel - 05/17/19 14:59 Serum or plasma sodium measurement (moles/volume) 139 mmol/L 135-145 Serum or plasma potassium measurement (moles/volume) 3.6 mmol/L 3.6-5.0 Serum or plasma chloride measurement (moles/volume) 106 mmol/L 98-107 Carbon dioxide 24 mmol/L 21-32 Serum or plasma anion gap determination (moles/volume) 9 mmol/L 5-14 Serum or plasma urea nitrogen measurement (mass/volume ) 17 mg/dL 7-18 Serum or plasma creatinine measurement (mass/volume) 1.08 mg/dL 0.60-1.30 Serum or plasma urea nitrogen/creatinine mass ratio 16 NRG Serum or plasma creatinine measurement w ith calculation of estimated glomerular filtration rate 54 NRG Serum or plasma glucose measurement (mass/volume) 101 mg/dL 70-105 Serum or plasma calcium measurement (mass/volume) 9.0 mg/dL 8.5-10.1 Serum or plasma total bilirubin measurement (mass/volu me) 0.6 mg/dL 0.1-1.0 Serum or plasma alkaline phosphatase magdalene surement (enzymatic activity/volume) 134 U/L 40-136 Serum or plasma aspartate aminotransfera se measurement (enzymatic activity/volume) 27 U/L 5-34 Serum or plasma alanine aminotransferase measurement (enzymatic activity/volume) 33 U/L 0-55 Serum or plasma protein measurement (mass/volume) 6.5 g/dL 6.4-8.2 Serum or plasma albumin measurement (mass/volume) 3.5 g/dL 3.2-4.5 CALCIUM CORRECTED 9.4 mg/dL 8.5-10.1 PT panel in platelet poor plasma by coag ulation assay - 05/17/19 14:59 Prothrombin time (PT) in platelet poor plasma by coagu lation assay 14.8 s 12.2-14.7 INR in platelet poor plasma or blood by coagulation as say 1.1 0.8-1.4 Activated partial thromboplastin time (a PTT) in platelet poor plasma bycoagulation assay - 05/17/19 14:59 Activated partial thromboplastin time (a PTT) in platelet poor plasma bycoagulation assay 34 s 24-35 Serum or plasma C reactive protein measu rement (mass/volume) - 05/17/19 14:59 Serum or plasma C reactive protein measurement (mass/v olume) 22.95 mg/dL 0.00-0.50 Bacterial blood culture - 05/17/19 14:59 FREE TEXT EXTERNAL SEE COMMENTS NR QUANTITY OF GROWTH . [facility] Bacterial blood culture [id number] [facility] FREE TEXT ENTRY 2 SENSITIVITY REPORTED 05/19 ON [id number] [facility] Bacterial blood culture - 05/17/19 15:45 FREE TEXT EXTERNAL SUSCEPTIBILITY REPORTED 05/19 10: 35 NRG QUANTITY OF GROWTH Isolated NRG Bacterial blood culture [id number] [facility] - 05/17/19 15:4 5 Gentamicin susceptibility test by minimum inhibitory c oncentration <= NRG Trimethoprim/sulfamethoxazole susceptibi lity test by minimum inhibitoryconcentration > NRG Levofloxacin susceptibility test by minimum inhibitory concentration <= NRG Ampicillin susceptibility test by minimum inhibitory c oncentration > NRG Cefazolin susceptibility test by minimum inhibitory co ncentration 2 NRG Ceftriaxone susceptibility test by minimum inhibitory concentration <= NRG Piperacillin/tazobactam susceptibility t est by minimum inhibitory concentration <= NRG Ciprofloxacin susceptibility test by minimum inhibitor y concentration <= NRG Meropenem susceptibility test by minimum inhibitory co ncentration <= NRG Amoxicillin and clavulanate potassium susc DEXTER = NRG Imipenem susceptibility test by minimum inhibitory con centration <= NRG CULTURE, URINE - 06/15/19 16:25 CULTURE, URINE, ROUTINE SEE NOTE NRG CBC - 10/07/19 08:24 WHITE BLOOD CELL COUNT 9.6 Thousand/uL 3 .8-10.8 RED BLOOD CELL COUNT 4.74 Million/uL 3.8 0-5.10 HEMOGLOBIN 15.3 g/dL 11.7-15.5 HEMATOCRIT 44.3 % 35.0-45.0 MCV 93.5 fL 80.0-100.0 MCH 32.3 pg 27.0-33.0 MCHC 34.5 g/dL 32.0-36.0 RDW 13.4 % 11.0-15.0 PLATELET COUNT 215 Thousand/uL 140-400 MPV 10.7 fL 7.5-12.5 ABSOLUTE NEUTROPHILS 5549 cells/uL 1500- 7800 ABSOLUTE LYMPHOCYTES 2957 cells/uL 850-3 900 ABSOLUTE MONOCYTES 787 cells/uL 200-950 ABSOLUTE EOSINOPHILS 278 cells/uL 15-500 ABSOLUTE BASOPHILS 29 cells/uL 0-200 NEUTROPHILS 57.8 % NRG LYMPHOCYTES 30.8 % NRG MONOCYTES 8.2 % NRG EOSINOPHILS 2.9 % NRG BASOPHILS 0.3 % NRG CULTURE, URINE - 10/15/19 18:07 CULTURE, URINE, ROUTINE SEE NOTE NRG Encounters ACCT No. Visit Date/Time Discharge Status Pt. Type Provider Facility Loc./Unit Complaint [id number] 10/15/2019 17:15:00 10/15/2019 23:59:5 9 CLS Outpatient ANOOP BORGES, EDER [facility]BER [facility] [id number] 10/15/2019 17:15:00 Document Registration [id number] 10/07/2019 08:20:00 Document Registration [id number] 06/15/2019 16:10:00 Document Registration [id number] 11/17/2018 08:50:00 Document Registration [id number] 05/20/2018 09:00:00 Document Registration [id number] 02/04/2018 09:20:00 Document Registration [id number] 11/19/2017 09:00:00 Document Registration [id number] 11/20/2019 15:54:00 17:49:00 DIS Emergency JOHNSON REESE MD [facility] ER R ARM/LEG/SIDE PAIN, FELL OUT OF BED [id number] 09/19/2019 15:39:00 16:41:00 DIS Emergency KHAI JOAQUIN APRN [facility] ER R HAND PAIN [id number] 07/28/2019 00:12:00 23:59:59 CLS Preadmit CADEN HURLEY MD [facility] REHAB LUMBAR RADICULPATHY [id number] 05/31/2019 12:48:00 00:01:00 DIS Outpatient CADEN HURLEY MD [facility] REHAB LUMBAR RADICULPATHY [id number] 05/17/2019 14:22:00 16:55:00 DIS Emergency JOHNSON REESE MD [facility] ER BLADDER PRESSUR E/PAINFUL URINATION/CHILLS/HEADACHE [id number] 05/02/2019 03:44:00 05:19:00 DIS Emergency ISHAN PATEL DO [facility] ER FS NAUSEA; DIARRHEA [id number] 03/22/2019 00:12:00 23:59:59 CLS Preadmit ALMA BORGES, ARIANE Díaz [facility] REHAB GAIT DIFFICULTY;LIMP [id number] 01/25/2019 10:45:00 019 00:01:00 DIS Outpatient ALMA BORGES, ARIANE Gabriel [facility] REHAB GAIT DIFFICULTY;LIMP [id number] 02/16/2019 09:33:00 019 23:59:59 CLS Outpatient GEOVANY BORGES, NEVIN Rivera [facility] RAD CHRONIC SINUSITIS [id number] 04/05/2018 10:32:00 018 11:16:00 DIS Emergency JOHNSON BORGES, ZAHRA Allen [facility] ER BLOOK PRESSURE PROBLEMS , LEFT KNEE HURTING [id number] 03/12/2018 12:26:00 018 23:59:59 CLS Outpatient ALBERTO BORGES, AMIRA Mcwilliams [facility] RAD RT RENAL STONE [id number] 03/03/2018 14:11:00 018 23:59:59 CLS Outpatient WILFRED PINA TRANSMISSION OPERATOR [facility] RAD RIGHT FLANK LUIS N [id number] 02/28/2018 16:30:00 018 17:49:00 DIS Emergency MONIQUE BORGES, ROBERT Lew [facility] ER L ANKLE PAIN [id number] 01/01/2018 10:45:00 018 11:58:00 DIS Emergency KHAI JOAQUIN TRANSMISSION OPERATOR [facility] ER LOWER BACK PAIN,RT HIP PAIN,TAILBONE PAIN [id number] 06/18/2017 12:45:00 017 12:50:00 DIS Outpatient RAUL YOUNG LAYOUT DESIGNER-C [facility] REHAB S/P GUYONS RELEASE R WR IST [id number] 06/20/2017 13:40:00 14:41:00 DIS Emergency RUY SHANE MD [facility] ER BACK PAIN,FREQ URINATION [id number] 06/15/2017 02:28:00 03:34:00 DIS Emergency RUY SHANE MD [facility] ER SOA,LIGHTHEADED [id number] 06/10/2017 15:14:00 017 00:01:00 DIS Outpatient RAUL YOUNG LAYOUT DESIGNER-C [facility] REHAB S/P GUYONS RELEASE R WR IST [id number] 03/23/2017 09:49:00 017 10:37:00 DIS Emergency JOHNSON REESE MD [facility] ER BACK PAIN/POSS SINUS INFECTION [id number] 12/22/2016 15:10:00 017 23:59:59 CLS Emergency JOHNSON BORGES, ZAHRA Allen [facility] ER STOMACH PAIN [id number] 02/11/2016 17:46:00 016 19:12:00 DIS Emergency KHAI JOAQUIN TRANSMISSION OPERATOR [facility] ER EAR INFECTION/CONGESTIO N/COUGH [id number] 07/30/2015 21:33:00 015 00:30:00 DIS Emergency GEETA CASTELLON [facility] ER DIARRHEA/NAUSEATED [id number] 07/28/2014 14:09:00 014 23:59:59 CLS Outpatient DONNA BROWN TRANSMISSION OPERATOR [facility] QUICK [id number] 06/10/2013 22:01:00 013 01:10:00 DIS Emergency RUY SHANE MD [facility] ER RASH [id number] 05/01/2013 11:18:00 013 23:59:59 CLS Outpatient [id number] 04/26/2018 09:38:00 Document Registration
== END 2019-11-20 17:49 | disposition home or self-care (01) ==
LOC: EDUNIT# 15:53 → ER 15:54
DX: S40.012A Contusion of left shoulder, initial encounter (principal); S80.02XA Contusion of left knee, initial encounter; S70.02XA Contusion of left hip, initial encounter; J44.9 Chronic obstructive pulmonary disease, unspecified; E78.00 Pure hypercholesterolemia, unspecified; G40.909 Epilepsy, unspecified, not intractable, without status epilepticus; K21.9 Gastro-esophageal reflux disease without esophagitis; F41.9 Anxiety disorder, unspecified; F32.9 Major depressive disorder, single episode, unspecified; E66.01 Morbid (severe) obesity due to excess calories; F17.210 Nicotine dependence, cigarettes, uncomplicated; Z88.2 Allergy status to sulfonamides; Z88.8 Allergy status to other drugs, medicaments and biological substances; W06.XXXA Fall from bed, initial encounter
CPT/HCPCS: 73030; 73060; 73552

== ENCOUNTER → 2019-11-26 | Outpatient (CLI) | payer MEDICAID ==
--- NOTE | 2019-11-26 11:28 | Diagnostic Imaging Report ---
INDICATION: Right renal stone. COMPARISON: May 02, 2019. TECHNIQUE: Single radiograph of the abdomen dated November 26, 2019. FINDINGS: Surgical clips are present overlying the right upper quadrant of the abdomen. 1.2 cm calculus overlying the inferior pole of the right renal shadow is stable. Additional 4 mm calculus overlying the superior pole of the right renal shadow is stable. Phleboliths are present within the lower pelvis. No suspicious calcifications overlying the left renal shadow. Nonobstructive bowel gas pattern. Scattered osseous degenerative changes without acute osseous abnormality. IMPRESSION: Right-sided renal calculi are again identified, appearing similar to recent CT. Previously noted left-sided renal calculi are not as well seen. Phleboliths within the lower pelvis. Dictated by: Dictated on workstation # [id number]
== END ==
LOC: RAD 10:17
PROVIDERS: ATTEND Urology
DX: N20.0 Calculus of kidney (principal); I87.8 Other specified disorders of veins
CPT/HCPCS: 74018

== ENCOUNTER 2020-03-03 05:13 | Emergency (ER) | payer MEDICAID ==
[~2020-03-03] VITALS: Ht 165.1 cm; Wt 142.7 kg
[2020-03-03] MEDS ORDERED: KETOROLAC 30 MG/ML VIAL IVP STA (05:28)
[2020-03-03] MEDS ORDERED: NS IV 1000 ML 1,000 ML IV ONE (05:28)
[2020-03-03] MEDS ORDERED: fentaNYL INJECTION 100 MCG/2 ML AMP IVP STA (05:28)
--- NOTE | 2020-03-03 05:50 | ED GU-Female ---
General Chief Complaint: Back Problems Stated Complaint: SEVERE LEFT SIDE BACK PAIN Nursing Triage Note: pt reports back pain that started yesterday. pt was diagnosed with kidney stone 1 month ago. pain 9/10, unable to describe the pain. pt stats she has had some problems with urination. Taken tramadol and tylenol with minimal relief. Nursing Sepsis Screen: No Definite Risk Source: patient Exam Limitations: no limitations (JOHNSON REESE MD) History of Present Illness Date Seen by Provider: Mar 03, 2020 Time Seen by Provider: 05:25 Initial Comments Here with report of left flank and back pain. Onset yesterday and not better with Tylenol and Tylenol. Has history of kidney stones and thinks that's what is going on today. Denies nausea, vomiting, but does have intermittent diarrhea. Denies fever or chills. Denies upper respiratory symptoms or contact with COVID patients. Has had some dysuria. Timing/Duration: yesterday, getting worse Severity/Quality: moderate, aching Location: left flank Radiation: back Activities at Onset: none Modifying Factors: Improves With Other (no exacerbating or relieving factors) Associated Symptoms: dysuria; No fever/chills; lower back pain; No nausea/vomiting (JOHNSON REESE MD) Allergies and Home Medications Allergies Coded Allergies: Sulfa (Sulfonamide Antibiotics) (Unverified Allergy, Unknown, RASH, 03/03/20) esomeprazole mag (Unverified Adverse Reaction, Intermediate, 03/03/20) Diarrhea Home Medications Albuterol Sulfate 2.5 Mg/3 Ml Nebu, 2.5 MG INH Q6H PRN, (Reported) Amoxicillin/Potassium Clav 1 Each Tablet, 1 EACH PO BID Prescribed by: JOHNSON REESE on 03/23/17 1020 Amphet Asp/Amphet/D-Amphet 30 Mg Tablet, 30 MG PO BID, (Reported) Atorvastatin Calcium 10 Mg Tablet, 10 MG PO HS, (Reported) Black Cohosh Root Extract 80 Mg Capsule, 80 MG PO DAILY, (Reported) Cephalexin 500 Mg Tablet, 500 MG PO BID Prescribed by: JOHNSON REESE on 05/17/19 1645 Cetirizine Hcl 10 Mg Capsule, 10 MG PO DAILY, (Reported) Cyclobenzaprine HCl 10 Mg Tablet, 10 MG PO TID PRN for SPASMS Prescribed by: RUY EVANS on 06/20/17 1428 Cyclobenzaprine HCl 5 Mg Tablet, 5 MG PO TID PRN for PAIN-MODERATE Prescribed by: KHAI JOAQUIN on 01/01/18 1102 Cyclobenzaprine Hcl 10 Mg Tablet, 10 MG PO TID PRN, (Reported) Diazepam 10 Mg Tablet, 10 MG PO Q8H PRN, (Reported) Escitalopram Oxalate 10 Mg Tablet, 10 MG PO DAILY, (Reported) Furosemide 40 Mg Tablet, 40 MG PO BID, (Reported) Hydrocodone Bit/Acetaminophen 1 Tab Tab, 1 EA PO Q4HR PRN, (Reported) Hydrocodone Bit/Acetaminophen 1 Each Tablet, 1-2 EACH PO Q4H PRN for PAIN Prescribed by: RUY EVANS on 06/20/17 1428 Ibuprofen 600 Mg Tab, 600 MG PO Q6H PRN, (Reported) Lamotrigine 100 Mg Tablet, 50 MG PO BID, (Reported) Levetiracetam 500 Mg Tab, 500 MG PO BID, (Reported) Loperamide HCl 2 Mg Capsule, 2 MG PO TID Prescribed by: ISHAN PATEL on 05/02/19 0514 Multivitamin 1 Each Tablet, 1 TAB PO DAILY, (Reported) Naproxen 500 Mg Tablet, 500 MG PO BID PRN for PAIN-MODERATE (5-7) Prescribed by: KHAI JOAQUIN on 09/19/19 1634 Nortriptyline Hcl 25 Mg Cap, 25 MG PO HS, (Reported) Ondansetron Hcl 4 Mg Tab, 4 MG PO Q8H PRN, (Reported) Polyethylene Glycol 3350 17 Gm Powd.pack, 17 GM PO BID PRN Prescribed by: ZAHRA ORNELAS on 12/22/16 1704 Potassium Chloride 10 Meq Tablet.sa, 20 MEQ PO BID, (Reported) Prednisone 20 Mg Tab, 40 MG PO DAILY Prescribed by: JOHNSON REESE on 03/23/17 1020 Tramadol HCl 50 Mg Tablet, 50 MG PO Q6H PRN for PAIN Prescribed by: JOHNSON REESE on 04/26/18 1056 Zolpidem Tartrate 10 Mg Tab, 10 MG PO HS, (Reported) Patient Home Medication List Home Medication List Reviewed: Yes (JOHNSON REESE MD) Review of Systems Review of Systems Constitutional: see HPI; No chills, No fever EENTM: no symptoms reported Respiratory: no symptoms reported Cardiovascular: no symptoms reported Gastrointestinal: see HPI Genitourinary: see HPI Musculoskeletal: back pain; No muscle weakness Skin: no symptoms reported (JOHNSON REESE MD) All Other Systemes Reviewed Negative Unless Noted: Yes (JOHNSON REESE MD) Past Kglsamr-Lshkal-Ucltpf Hx Past Med/Social Hx: Reviewed Nursing Past Med/Soc Hx (JOHNSON REESE MD) Patient Social History Alcohol Use: Denies Use Recreational Drug Use: No Smoking Status: Current Everyday Smoker Type Used: Cigarettes Former Smoker, Quit: Feb 27, 2018 2nd Hand Smoke Exposure: No Recent Foreign Travel: No Contact w/Someone Who Travel: No Recent Infectious Disease Expo: No Recent Hopitalizations: No (JOHNSON REESE MD) Immunizations Up To Date Tetanus Booster (TDap): Unknown Date of Pneumonia Vaccine: Dec 14, 2012 (JOHNSON REESE MD) Seasonal Allergies Seasonal Allergies: Yes (JOHNSON REESE MD) Past Medical History Surgeries: Yes (carpal tunnel sx) Gallbladder, Hysterectomy Respiratory: Yes Chronic Bronchitis, Sleep Apnea, COPD Cardiac: Yes High Cholesterol Neurological: Yes Headaches /Migraines, Seizure Disorder 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 Disorders: No [employer]ER History: Hysterectomy Sexually Transmitted Disease: No HIV/AIDS: No Genitourinary: No Gastrointestinal: Yes Gastroesophageal Reflux Musculoskeletal: Yes Arthritis, Fibromyalgia Endocrine: Yes (morbid obesity) HEENT: No Cancer: No Psychosocial: Yes ADD/ADHD, Anxiety, PTSD, Depression Integumentary: No Blood Disorders: No (JOHNSON REESE MD) Family Medical History Reviewed Nursing Family Hx (JOHNSON REESE MD) No Pertinent Family Hx (JOHNSON REESE MD) Physical Exam Vital Signs Vital Signs - First Documented 03/03/20 05:21 Temp 36.7 Pulse 98 Resp 12 B/P (MAP) 118/80 (93) Pulse Ox 99 (ZAHRA ORNELAS) Vital Signs Capillary Refill : Less Than 3 Seconds (JOHNSON REESE MD) Height, Weight, BMI Height: 5'6.00" Weight: 306lbs. 0oz. 138.681114si; 52.00 BMI Method:Stated General Appearance: WD/WN, no apparent distress, obese HEENT: PERRL/EOMI, pharynx normal Neck: full range of motion, supple Cardiovascular: regular rate, rhythm, no murmur Respiratory: lungs clear, normal breath sounds Gastrointestinal: non tender, soft Back: no vertebral tenderness; No CVA tenderness (R); CVA tenderness (L) Extremities: non-tender, normal inspection Neurologic/Psychiatric: alert, oriented x 3 Skin: normal color, warm/dry (JOHNSON REESE MD) Progress/Results/Core Measures Suspected Sepsis Recent Fever Within 48 Hours: No Infection Criteria Present: None New/Unexplained Altered Menta: No Sepsis Screen: No Definite Risk SIRS Temperature: Pulse: 98 Respiratory Rate: 12 Blood Pressure 118 /80 Mean: 93 (JOHNSON REESE MD) Results/Orders Lab Results Laboratory Tests Test 03/03/20 05:33 03/03/20 05:37 Range/Units Urine Color YELLOW Urine Clarity SL CLOUDY Urine pH 6.0 5-9 Urine Specific [place] >=1.030 1.016-1.022 Urine Protein NEGATIVE NEGATIVE Urine Glucose (UA) NEGATIVE NEGATIVE Urine Ketones NEGATIVE NEGATIVE Urine Nitrite NEGATIVE NEGATIVE Urine Bilirubin NEGATIVE NEGATIVE Urine Urobilinogen 0.2 < = 1.0 MG/DL Urine Leukocyte Esterase TRACE H NEGATIVE Urine RBC (Auto) NEGATIVE NEGATIVE Urine RBC NONE /HPF Urine WBC NONE /HPF Urine Squamous Epithelial Cells NONE /HPF Urine Crystals PRESENT H /LPF Urine Calcium Oxalate Crystals FEW H /LPF Urine Amorphous Sediment FEW PITER URATES H /LPF Urine Bacteria TRACE /HPF Urine Casts NONE /LPF Urine Mucus NEGATIVE /LPF Urine Culture Indicated YES White Blood Count 8.9 4.3-11.0 10^3/uL Red Blood Count 4.53 4.35-5.85 10^6/uL Hemoglobin 14.3 11.5-16.0 G/DL Hematocrit 43 35-52 % Mean Corpuscular Volume 94 80-99 FL Mean Corpuscular Hemoglobin 32 25-34 PG Mean Corpuscular Hemoglobin Concent 34 32-36 G/DL Red Cell Distribution Width 12.7 10.0-14.5 % Platelet Count 223 130-400 10^3/uL Mean Platelet Volume 10.7 H 7.4-10.4 FL Neutrophils (%) (Auto) 40 L 42-75 % Lymphocytes (%) (Auto) 47 H 12-44 % Monocytes (%) (Auto) 10 0-12 % Eosinophils (%) (Auto) 3 0-10 % Basophils (%) (Auto) 0 0-10 % Neutrophils # (Auto) 3.6 1.8-7.8 X 10^3 Lymphocytes # (Auto) 4.2 H 1.0-4.0 X 10^3 Monocytes # (Auto) 0.9 0.0-1.0 X 10^3 Eosinophils # (Auto) 0.3 0.0-0.3 10^3/uL Basophils # (Auto) 0.0 0.0-0.1 10^3/uL Sodium Level 141 135-145 MMOL/L Potassium Level 3.5 L 3.6-5.0 MMOL/L Chloride Level 109 H 98-107 MMOL/L Carbon Dioxide Level 22 21-32 MMOL/L Anion Gap 10 5-14 MMOL/L Blood Urea Nitrogen 18 7-18 MG/DL Creatinine 0.95 0.60-1.30 MG/DL Estimat Glomerular Filtration Rate > 60 BUN/Creatinine Ratio 19 Glucose Level 113 H 70-105 MG/DL Calcium Level 9.3 8.5-10.1 MG/DL Corrected Calcium 9.3 8.5-10.1 MG/DL Total Bilirubin 0.2 0.1-1.0 MG/DL Aspartate Amino Transf (AST/SGOT) 20 5-34 U/L Alanine Aminotransferase (ALT/SGPT) 28 0-55 U/L Alkaline Phosphatase 101 40-136 U/L C-Reactive Protein High Sensitivity 1.51 H 0.00-0.50 MG/DL Total Protein 6.8 6.4-8.2 GM/DL Albumin 4.0 3.2-4.5 GM/DL (ZAHRA ORNELAS) My Orders Orders - ZAHRA ORNELAS Ct Abdomen/Pelvis W Wo (03/03/20 06:25) Iohexol Injection (Omnipaque 350 Mg/Ml 1 (03/03/20 06:45) Received Contrast (Hold Metformin- Contr (03/03/20 06:45) Ns (Ivpb) (Sodium Chloride 0.9% Ivpb Bag (03/03/20 06:45) (ZAHRA ORNELAS) Medications Given in ED Current Medications Medications Dose Ordered Sig/Daysi Route Start Time Stop Time Status Last Admin Dose Admin Iohexol 100 ml ONCE ONCE IV 03/03/20 06:45 03/03/20 06:53 DC 03/03/20 07:00 100 ML Sodium Chloride 100 ml ONCE ONCE IV 03/03/20 06:45 03/03/20 06:53 DC 03/03/20 07:00 80 ML Sodium Chloride 1,000 ml @ 0 mls/hr Q0M ONCE IV 03/03/20 05:28 03/03/20 05:33 DC 03/03/20 05:37 999 MLS/HR (ZAHRA ORNELAS) Vital Signs/I&O 03/03/20 05:21 Temp 36.7 Pulse 98 Resp 12 B/P (MAP) 118/80 (93) Pulse Ox 99 (ZAHRA ORNELAS) Vital Signs/I&O Capillary Refill : Less Than 3 Seconds (JOHNSON REESE MD) Blood Pressure Mean: 93 Progress Note : Progress Note Seen and evaluated. IV, labs, UA, normal saline 1 L bolus, Toradol 30 mg IV and fentanyl 50 g IV ordered. Anticipate CT abdomen pelvis. Monitor patient. (JOHNSON REESE MD) Progress Note : Time: 07:25 Progress Note Assumed care of the patient at shift change. She is comfortable. Her CT is unremarkable. Suspect she is having musculoskeletal pain. We'll encourage her to follow-up with primary care and use NSAIDs. (ZAHRA ORNELAS) Diagnostic Imaging Diagonstic Imaging: CT Plain Films/CT/US/NM/MRI: abdomen, pelvis Comments NAME: LANETTE CARO Priscilla [facility] REC#: [id number] PT STATUS: REG ER : 1970 PHYSICIAN: ZAHRA ORNELAS MD ADMIT DATE: 03/03/20/ER Draft Date of Exam:03/03/20 CT ABDOMEN/PELVIS W WO PROCEDURE: CT abdomen and pelvis with and without contrast. TECHNIQUE: Precontrast acquisitions were acquired through the abdomen and pelvis. Multiple contiguous axial images were obtained through the abdomen and pelvis after the administration of intravenous contrast. Auto Exposure Controls were utilized during the CT exam to meet ALARA standards for radiation dose reduction. DATE: March 03, 2020. COMPARISON: KUB November 26, 2019. CT abdomen and pelvis May 02, 2019. INDICATION: 50-year-old female, abdominal pain. FINDINGS: The visualized portions of the lung bases are clear. The heart is not enlarged. There is no identified pericardial effusion. There is diffuse fatty infiltration of the liver. The outer liver contours are not nodular. There is no identified liver lesion. The main, right, and left portal veins are patent. The patient is status post cholecystectomy. There is no biliary ductal dilation. The main pancreatic duct is not abnormally dilated. Unremarkable appearance of the pancreatic parenchyma. The spleen is normal in size. There is an accessory splenule on axial image 32. The adrenal glands are unremarkable. There is a nonobstructing right renal stone on axial image 51 which measures 10 mm in size. There are smaller additional right and left nonobstructing renal stones. There is moderate severe atrophy of both kidneys. The urinary collecting systems are not distended. There is no identified ureteral stone. The urinary bladder is underdistended and grossly unremarkable in appearance. Uterus is not seen and may be surgically absent. The intestinal tract is not distended. There is no evidence to suggest acute appendicitis. There is a fat-containing anterior abdominal wall hernia on axial image 65. There is no free intraperitoneal air. There is no drainable fluid collection. There is no free pelvic fluid. There is a circumaortic left renal vein. There is no identified abnormally enlarged lymph node in the abdomen or pelvis which meets CT size criteria for adenopathy. There are degenerative findings of the spine. There is no identified acute bony abnormality. IMPRESSION: CT ABDOMEN AND PELVIS. 1. Diffuse fatty infiltration of the liver 2. Nonobstructing renal stones bilaterally. No ureteral stone or hydronephrosis. 3. Moderate atrophy of both kidneys. 4. No identified acute abnormality in the abdomen or pelvis. Dictated on workstation # [id number] Dict: 03/03/20 0712 Trans: 03/03/20 0719 [facility] [id number] Interpreted by: MARIANNE JENKINS MD Electronically signed by: Reviewed: Reviewed by Me (ZAHRA ORNELAS) Departure Impression Primary Impression: Acute left flank pain Disposition: 01 HOME, SELF-CARE Condition: Stable Departure-Patient Inst. Decision time for Depature: 07:26 (ZAHRA ORNELAS) Referrals: EDER ESQUEDA MD (PCP/Family) Primary Care Physician Patient Instructions: Flank Pain (DC) Add. Discharge Instructions: Call your primary care doctor and follow-up as necessary if not seeing improvement over the next week. Ibuprofen 800 mg every 8 hours as necessary for pain. Tylenol 1000 mg every 8 hours as necessary for pain. Heating pads and topical creams such as icy hot or Biofreeze. All discharge instructions reviewed with patient and/or family. Voiced understanding. JOHNSON REESE MD Mar 03, 2020 05:50 ZAHRA ORNELAS Mar 03, 2020 07:27
[2020-03-03 05:51] LABS: BILIRUBIN,URINE NEGATIVE (NEGATIVE); CLARITY,URINE SL CLOUDY; COLOR,URINE YELLOW; GLUCOSE, URINE (UA) NEGATIVE (NEGATIVE); KETONES,URINE NEGATIVE (NEGATIVE); LEUKOCYTE ESTERASE ,URINE TRACE (NEGATIVE); NITRITE,URINE NEGATIVE (NEGATIVE); PROTEIN,URINE NEGATIVE (NEGATIVE)
[2020-03-03 06:02] LABS: BASOPHILS % (AUTO) 0 % (0-10); EOSINOPHILS # (AUTO) 0.3 10^3/uL (0.0-0.3); EOSINOPHILS % (AUTO) 3 % (0-10); HEMATOCRIT 43 % (35-52); HEMOGLOBIN 14.3 G/DL (11.5-16.0); LYMPHOCYTES # (AUTO) 4.2 X 10^3 (1.0-4.0); LYMPHOCYTES % (AUTO) 47 % (12-44); MEAN CORPUSCULAR HEMOGLOBIN 32 PG (25-34); MEAN CORPUSCULAR HGB CONC 34 G/DL (32-36); MEAN CORPUSCULAR VOLUME 94 FL (80-99); MEAN PLATELET VOLUME 10.7 FL (7.4-10.4); MONOCYTES # (AUTO) 0.9 X 10^3 (0.0-1.0); MONOCYTES % (AUTO) 10 % (0-12); NEUTROPHILS # (AUTO) 3.6 X 10^3 (1.8-7.8); NEUTROPHILS % (AUTO) 40 % (42-75); PLATELET COUNT 223 10^3/uL (130-400); RED CELL DISTRIBUTION WIDTH 12.7 % (10.0-14.5); WHITE BLOOD COUNT 8.9 10^3/uL (4.3-11.0)
[2020-03-03 06:16] LABS: CHLORIDE 109 MMOL/L (98-107); POTASSIUM 3.5 MMOL/L (3.6-5.0); SODIUM 141 MMOL/L (135-145)
[2020-03-03 06:17] LABS: CALCIUM 9.3 MG/DL (8.5-10.1)
[2020-03-03 06:19] LABS: GLUCOSE 113 MG/DL (70-105); TOTAL PROTEIN 6.8 GM/DL (6.4-8.2)
[2020-03-03 06:20] LABS: BILIRUBIN,TOTAL 0.2 MG/DL (0.1-1.0); CARBON DIOXIDE 22 MMOL/L (21-32)
[2020-03-03 06:22] LABS: ALKALINE PHOSPHATASE 101 U/L (40-136); CREATININE SERUM 0.95 MG/DL (0.60-1.30)
[2020-03-03 06:23] LABS: AMORPHOUS SEDIMENT,UR FEW AMOR URATES /LPF; BACTERIA,URINE TRACE /HPF; CALCIUM OXALATE CRYSTALS,UR FEW /LPF
[2020-03-03 06:23] LABS: GFR ESTIMATED > 60
[2020-03-03 06:24] LABS: BUN/CREATININE RATIO 19
[2020-03-03 06:25] LABS: ALANINE AMINOTRANSFERASE 28 U/L (0-55)
[2020-03-03] MEDS ORDERED: HOLD METFORMIN - RECEIVED CONTRAST 20 ML VIAL IV SCH (06:45)
[2020-03-03] MEDS ORDERED: IOHEXOL 350 MG/ML 100 ML (OMNIPAQUE 350) VIAL IV ONE (06:45)
[2020-03-03] MEDS ORDERED: NS 100 ML (IVPB) BAG IV ONE (06:45)
--- NOTE | 2020-03-03 07:20 | Diagnostic Imaging Report ---
PROCEDURE: CT abdomen and pelvis with and without contrast. TECHNIQUE: Precontrast acquisitions were acquired through the abdomen and pelvis. Multiple contiguous axial images were obtained through the abdomen and pelvis after the administration of intravenous contrast. Auto Exposure Controls were utilized during the CT exam to meet ALARA standards for radiation dose reduction. DATE: March 03, 2020. COMPARISON: [facility] November 26, 2019. CT abdomen and pelvis May 02, 2019. INDICATION: 50-year-old female, abdominal pain. FINDINGS: The visualized portions of the lung bases are clear. The heart is not enlarged. There is no identified pericardial effusion. There is diffuse fatty infiltration of the liver. The outer liver contours are not nodular. There is no identified liver lesion. The main, right, and left portal veins are patent. The patient is status post cholecystectomy. There is no biliary ductal dilation. The main pancreatic duct is not abnormally dilated. Unremarkable appearance of the pancreatic parenchyma. The spleen is normal in size. There is an accessory splenule on axial image 32. The adrenal glands are unremarkable. There is a nonobstructing right renal stone on axial image 51 which measures 10 mm in size. There are smaller additional right and left nonobstructing renal stones. There is moderate severe atrophy of both kidneys. The urinary collecting systems are not distended. There is no identified ureteral stone. The urinary bladder is underdistended and grossly unremarkable in appearance. Uterus is not seen and may be surgically absent. The intestinal tract is not distended. There is no evidence to suggest acute appendicitis. There is a fat-containing anterior abdominal wall hernia on axial image 65. There is no free intraperitoneal air. There is no drainable fluid collection. There is no free pelvic fluid. There is a circumaortic left renal vein. There is no identified abnormally enlarged lymph node in the abdomen or pelvis which meets CT size criteria for adenopathy. There are degenerative findings of the spine. There is no identified acute bony abnormality. IMPRESSION: CT ABDOMEN AND PELVIS. 1. Diffuse fatty infiltration of the liver 2. Nonobstructing renal stones bilaterally. No ureteral stone or hydronephrosis. 3. Moderate atrophy of both kidneys. 4. No identified acute abnormality in the abdomen or pelvis. Dictated by: Dictated on workstation # [id number]
[2020-03-03 07:38] VITALS: BP 98/73
== END 2020-03-03 07:38 | disposition home or self-care (01) ==
LOC: EDUNIT# 05:13 → ER 05:16
DX: R10.9 Unspecified abdominal pain (principal); J44.9 Chronic obstructive pulmonary disease, unspecified; E78.00 Pure hypercholesterolemia, unspecified; G43.909 Migraine, unspecified, not intractable, without status migrainosus; G40.909 Epilepsy, unspecified, not intractable, without status epilepticus; F90.9 Attention-deficit hyperactivity disorder, unspecified type; F41.9 Anxiety disorder, unspecified; F32.9 Major depressive disorder, single episode, unspecified; E66.01 Morbid (severe) obesity due to excess calories; F17.210 Nicotine dependence, cigarettes, uncomplicated; Z88.2 Allergy status to sulfonamides; Z88.8 Allergy status to other drugs, medicaments and biological substances; Z79.52 Long term (current) use of systemic steroids; Z68.43 Body mass index [BMI] 50.0-59.9, adult
CPT/HCPCS: 36415; 74178; 80053; 81000; 85025; 86141; 87088

== ENCOUNTER → 2020-05-02 | Outpatient (CLI) | payer MEDICAID ==
[2020-05-02 14:00] LABS: BASOPHILS % (AUTO) 0 % (0-10); EOSINOPHILS # (AUTO) 0.5 10^3/uL (0.0-0.3); EOSINOPHILS % (AUTO) 6 % (0-10); HEMATOCRIT 44 % (35-52); HEMOGLOBIN 14.8 G/DL (11.5-16.0); LYMPHOCYTES # (AUTO) 2.5 X 10^3 (1.0-4.0); LYMPHOCYTES % (AUTO) 28 % (12-44); MEAN CORPUSCULAR HEMOGLOBIN 31 PG (25-34); MEAN CORPUSCULAR HGB CONC 34 G/DL (32-36); MEAN CORPUSCULAR VOLUME 92 FL (80-99); MEAN PLATELET VOLUME 10.9 FL (7.4-10.4); MONOCYTES # (AUTO) 0.8 X 10^3 (0.0-1.0); MONOCYTES % (AUTO) 9 % (0-12); NEUTROPHILS # (AUTO) 5.2 X 10^3 (1.8-7.8); NEUTROPHILS % (AUTO) 57 % (42-75); PLATELET COUNT 221 10^3/uL (130-400); RED CELL DISTRIBUTION WIDTH 13.1 % (10.0-14.5); WHITE BLOOD COUNT 9.1 10^3/uL (4.3-11.0)
[2020-05-02 14:20] LABS: ALANINE AMINOTRANSFERASE 49 U/L (0-55); ALBUMIN 3.9 GM/DL (3.2-4.5); ALKALINE PHOSPHATASE 88 U/L (40-136); BILIRUBIN,TOTAL 0.4 MG/DL (0.1-1.0); BUN/CREATININE RATIO 18; CALCIUM 9.4 MG/DL (8.5-10.1); CARBON DIOXIDE 23 MMOL/L (21-32); CHLORIDE 110 MMOL/L (98-107); CREATININE SERUM 0.93 MG/DL (0.60-1.30); GFR ESTIMATED > 60; GLUCOSE 111 MG/DL (70-105); POTASSIUM 4.1 MMOL/L (3.6-5.0); SODIUM 141 MMOL/L (135-145); TOTAL PROTEIN 6.5 GM/DL (6.4-8.2)
== END ==
LOC: LAB 13:42
PROVIDERS: ATTEND Surgery
DX: L89.013 Pressure ulcer of right elbow, stage 3 (principal); E66.01 Morbid (severe) obesity due to excess calories; T65.222A Toxic effect of tobacco cigarettes, intentional self-harm, initial encounter; R68.89 Other general symptoms and signs; F17.218 Nicotine dependence, cigarettes, with other nicotine-induced disorders
CPT/HCPCS: 36415; 80053; 85025

== ENCOUNTER → 2020-05-02 | Outpatient (CLI) | payer MEDICAID | LOC: WOUNDCARE 12:08 | PROVIDERS: ATTEND Surgery | DX: L89.013 Pressure ulcer of right elbow, stage 3 (principal); E66.01 Morbid (severe) obesity due to excess calories; T65.222A Toxic effect of tobacco cigarettes, intentional self-harm, initial encounter; F17.218 Nicotine dependence, cigarettes, with other nicotine-induced disorders; R68.89 Other general symptoms and signs | CPT/HCPCS: 99214 ==

== ENCOUNTER → 2020-05-23 | Outpatient (CLI) | payer MEDICAID | LOC: WOUNDCARE 13:55 | PROVIDERS: ATTEND Surgery | DX: L89.013 Pressure ulcer of right elbow, stage 3 (principal); E66.01 Morbid (severe) obesity due to excess calories; T65.222A Toxic effect of tobacco cigarettes, intentional self-harm, initial encounter; F17.218 Nicotine dependence, cigarettes, with other nicotine-induced disorders; R68.89 Other general symptoms and signs; Z68.43 Body mass index [BMI] 50.0-59.9, adult | CPT/HCPCS: 99212 ==

== ENCOUNTER 2022-12-07 17:30 | Emergency (ER) | payer MEDICAID ==
[~2022-12-07] VITALS: Ht 162 cm; Wt 105.6 kg
[~2022-12-07 17:30] MED LIST changes: +CYCL10TA25 PO; -CYCL10TA9 PO
[2022-12-07 17:58] LABS: BASOPHILS % (AUTO) 0 % (0-10); EOSINOPHILS # (AUTO) 0.2 10^3/uL (0.0-0.3); EOSINOPHILS % (AUTO) 3 % (0-10); HEMATOCRIT 40 % (35-52); HEMOGLOBIN 14.3 g/dL (11.5-16.0); LYMPHOCYTES # (AUTO) 2.9 10^3/uL (1.0-4.0); LYMPHOCYTES % (AUTO) 54 % (12-44); MEAN CORPUSCULAR HEMOGLOBIN 33 pg (25-34); MEAN CORPUSCULAR HGB CONC 35 g/dL (32-36); MEAN CORPUSCULAR VOLUME 93 fL (80-99); MONOCYTES # (AUTO) 0.5 10^3/uL (0.0-1.0); MONOCYTES % (AUTO) 9 % (0-12); NEUTROPHILS # (AUTO) 1.8 10^3/uL (1.8-7.8); NEUTROPHILS % (AUTO) 34 % (42-75); PLATELET COUNT 149 10^3/uL (130-400); WHITE BLOOD COUNT 5.3 10^3/uL (4.3-11.0)
[2022-12-07] MEDS ORDERED: ONDANSETRON 4 MG/2 ML (SDV) Z0FRAN IVP ONE (18:00)
[2022-12-07] MEDS ORDERED: KETOROLAC 15 MG/ML VIAL IVP ONE (18:00)
--- NOTE | 2022-12-07 18:00 | ED General ---
General Chief Complaint: General Problems/Pain Stated Complaint: WEAKNESS Nursing Triage Note: Patient to ER via [facility] w c/o weakness and diarrhea. Ems reports right lower back pain and weakness started today. She has felt nauseous but no throwing up. Patient states she took tizanidine and tylenol taken for back pain today. Patient denies injury to back. Source of Information: Patient Exam Limitations: No Limitations History of Present Illness Date Seen by Provider: Dec 07, 2022 Time Seen by Provider: 17:45 Initial Comments 52-year-old female presents to the ED via EMS with complaints of dizziness and weakness starting today. Reports she has had diarrhea since yesterday, reports 2-3 episodes yesterday, and 2 loose stools today. She reports left mid abdominal pain. She states she has been drinking a lot of water, but has decreased urinary output. Denies any dysuria. States she feels dehydrated, feels like she has cottonmouth, but states her cottonmouth has gotten better since EMS started IV fluids. She is only received approximately 100 mls of IV fluid so far. She is also complaining of right lower back pain that radiates down her leg. Denies any numbness or tingling in her legs. Denies any bladder incontinence, but thinks she might have soiled herself a little bit due to diarrhea. She denies fevers, chest pain, shortness of air. She reports nausea, denies vomiting. A year ago she had a gastric sleeve placed. She states she ga s lost over 100 pounds. She is also had a hysterectomy and a cholecystectomy. Allergies and Home Medications Allergies Coded Allergies: Sulfa (Sulfonamide Antibiotics) (Unverified Allergy, Unknown, RASH, 03/03/20) esomeprazole mag (Unverified Adverse Reaction, Intermediate, 03/03/20) Diarrhea Patient Home Medication List Home Medication List Reviewed: Yes Albuterol Sulfate (Proventil Pre-Mix Nebs (Rt)) 2.5 Mg/3 Ml Nebu, 2.5 MG INH Q6H PRN, (Reported) Entered as Reported by: JENNIFFER GOMEZ on 06/10/13 2303 Amoxicillin/Potassium Clav (Augmentin 875-125 Tablet) 1 Each Tablet, 1 EACH PO BID Prescribed by: JOHNSON REESE on 03/23/17 1020 Amphet Asp/Amphet/D-Amphet (Adderall 30 Mg Tablet) 30 Mg Tablet, 30 MG PO BID, (Reported) Entered as Reported by: JENNIFFER GOMEZ on 06/10/132302 Atorvastatin Calcium (Lipitor 10 Mg) 10 Mg Tablet, 10 MG PO HS, (Reported) Entered as Reported by: JENNIFFER GOMEZ on 06/10/132302 Black Cohosh Root Extract (Black Cohosh Extract) 80 Mg Capsule, 80 MG PO DAILY, (Reported) Entered as Reported by: JENNIFFER GOMEZ on 06/10/132302 Cephalexin (Cephalexin) 500 Mg Tablet, 500 MG PO BID Prescribed by: JOHNSON REESE on 05/17/19 1645 Cephalexin (Cephalexin) 500 Mg Tablet, 500 MG PO BID Prescribed by: Carmencita Dumont on 12/07/222137 Cetirizine Hcl (Zyrtec) 10 Mg Capsule, 10 MG PO DAILY, (Reported) Entered as Reported by: JENNIFFER GOMEZ on 06/10/132302 Cyclobenzaprine HCl (Cyclobenzaprine HCl) 10 Mg Tablet, 10 MG PO TID PRN for SPASMS Prescribed by: RUY EVANS on 06/20/17 1428 Cyclobenzaprine HCl (Cyclobenzaprine HCl) 5 Mg Tablet, 5 MG PO TID PRN for PAIN- MODERATE Prescribed by: KHAI JOAQUIN on 01/01/18 1102 Cyclobenzaprine Hcl (Flexeril Tablet) 10 Mg Tablet, 10 MG PO TID PRN, (Reported) Entered as Reported by: JENNIFFER GOMEZ on 06/10/132302 Dexlansoprazole (Dexilant) 60 Mg Jamaal., 60 MG PO, (Reported) Entered as Reported by: GIDEON HARRIS on 06/15/17 0250 Diazepam (Valium 10 Mg Tab) 10 Mg Tablet, 10 MG PO Q8H PRN, (Reported) Entered as Reported by: JENNIFFER GOMEZ on 06/10/132302 Escitalopram Oxalate (Lexapro) 10 Mg Tablet, 10 MG PO DAILY, (Reported) Entered as Reported by: JENNIFFER GOMEZ on 06/10/132302 Furosemide (Furosemide) 40 Mg Tablet, 40 MG PO BID, (Reported) Entered as Reported by: LEX PERAZA on 08/06/09 1703 Hydrocodone Bit/Acetaminophen (Lortab 5 Mg) 1 Tab Tab, 1 EA PO Q4HR PRN, (Reported) Entered as Reported by: JENNIFFER GOMEZ on 06/10/132302 Hydrocodone Bit/Acetaminophen (Lortab 5 Mg Tablet) 1 Each Tablet, 1-2 EACH PO Q4H PRN for PAIN Prescribed by: RUY EVANS on 06/20/17 1428 Ibuprofen (Motrin) 600 Mg Tab, 600 MG PO Q6H PRN, (Reported) Entered as Reported by: JENNIFFER GOMEZ on 06/10/132302 Lamotrigine (Lamictal) 100 Mg Tablet, 50 MG PO BID, (Reported) Entered as Reported by: JENNIFFER GOMEZ on 06/10/132302 Levetiracetam (Keppra Tab) 500 Mg Tab, 500 MG PO BID, (Reported) Entered as Reported by: JENNIFFER GOMEZ on 06/10/132302 Loperamide HCl (Imodium A-D) 2 Mg Capsule, 2 MG PO TID Prescribed by: ISHAN PATEL on 05/02/19 0514 Multivitamin (Multi Vitamin Daily) 1 Each Tablet, 1 TAB PO DAILY, (Reported) Entered as Reported by: JENNIFFER GOMEZ on 06/10/132302 Naloxegol Oxalate (Movantik) 25 Mg Tablet, 25 MG PO, (Reported) Entered as Reported by: GIDEON HARRIS on 06/15/17 0250 Naproxen (Naprosyn) 500 Mg Tablet, 500 MG PO BID PRN for PAIN-MODERATE (5-7) Prescribed by: KHAI JOAQUIN on 09/19/19 1634 Nortriptyline Hcl (Pamelor) 25 Mg Cap, 25 MG PO HS, (Reported) Entered as Reported by: JENNIFFER GOMEZ on 06/10/132302 Nystatin (Nystatin) 100,000 Unit/Ml Oral.susp, 500,000 UNIT PO Q6H Prescribed by: Carmencita Dumont on 12/07/222137 Ondansetron Hcl (Zofran Oral Dissolve) 4 Mg Tab, 4 MG PO Q8H PRN, (Reported) Entered as Reported by: JENNIFFER GOMEZ on 06/10/132302 Polyethylene Glycol 3350 (Miralax) 17 Gm Powd.pack, 17 GM PO BID PRN Prescribed by: ZAHRA ORNELAS on 12/22/16 1704 Potassium Chloride (K-Tab) 10 Meq Tablet.sa, 20 MEQ PO BID, (Reported) Entered as Reported by: JENNIFFER GOMEZ on 06/10/132302 Prednisone (Prednisone) 20 Mg Tab, 40 MG PO DAILY Prescribed by: JOHNSON REESE on 03/23/17 1020 Tramadol HCl (Tramadol HCl) 50 Mg Tablet, 50 MG PO Q6H PRN for PAIN Prescribed by: JOHNSON REESE on 04/26/18 1056 Zolpidem Tartrate (Ambien 10 Mg) 10 Mg Tab, 10 MG PO HS, (Reported) Entered as Reported by: JENNIFFER GOMEZ on 06/10/132302 Review of Systems Review of Systems Constitutional: see HPI Past Npqnawv-Yepebm-Bgopbm Hx Patient Social History Tobacco Use?: Yes Tobacco type used: Cigarettes Smoking Status: Current Everyday Smoker Substance use?: No Alcohol Use?: No Immunizations Up To Date Tetanus Booster (TDap): Unknown First/Initial COVID19 Vaccinat: unknown COVID19 Vaccine [employer] 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: [employer] Seasonal Allergies Seasonal Allergies: Yes Past Medical History Surgeries: Yes (carpal tunnel sx) Abdominal (Gastric sleeve), Gallbladder, Hysterectomy Respiratory: Yes Chronic Bronchitis, Sleep Apnea, COPD Cardiac: Yes High Cholesterol Neurological: Yes Headaches /Migraines, Seizure Disorder 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 Sexually Transmitted Disease: No HIV/AIDS: No Genitourinary: No Gastrointestinal: Yes Gastroesophageal Reflux Musculoskeletal: Yes Arthritis, Fibromyalgia Endocrine: Yes (morbid obesity) HEENT: No Cancer: No Psychosocial: Yes ADD/ADHD, Anxiety, PTSD, Depression Integumentary: No Blood Disorders: No Family Medical History No Pertinent Family Hx Physical Exam Vital Signs Vital Signs - First Documented 12/07/22 12/07/22 17:33 21:27 Temp 36.4 Pulse 57 Resp 18 B/P (MAP) 128/93 Pulse Ox 97 O2 Delivery Room Air Capillary Refill : Less Than 3 Seconds Height, Weight, BMI Height: 5'6.00" Weight: 306lbs. 0oz. 138.619817xl; 40.00 BMI Method:Stated General Appearance: No Apparent Distress, WD/WN HEENT: Other (Thrush on tongue) Neck: Non Tender, Supple Respiratory: Lungs Clear, Normal Breath Sounds, No Accessory Muscle Use, No Respiratory Distress Cardiovascular: Regular Rate, Rhythm, No Edema, No Gallop, No JVD, No Murmur Gastrointestinal: Normal Bowel Sounds, Soft, Tenderness (Left upper, mid abdomen) Back: Normal Inspection, Vertebral Tenderness, Other (Right-sided muscle tenderness) Neurologic/Psychiatric: Alert, Normal Mood/Affect Skin: Normal Color, Warm/Dry Focused Exam Lactate Level 12/07/22 19:55: Lactic Acid Level 1.02 Lactic Acid Level Laboratory Tests Test 12/07/22 19:55 Lactic Acid Level 1.02 MMOL/L (0.50-2.00) Progress/Results/Core Measures Suspected Sepsis SIRS Temperature: Pulse: 57 Respiratory Rate: 18 Laboratory Tests 12/07/22 17:39: White Blood Count 5.3 Blood Pressure / Mean: 12/07/22 19:55: Lactic Acid Level 1.02 Laboratory Tests 12/07/22 17:39: Creatinine 0.87, Platelet Count 149, Total Bilirubin 0.5 Results/Orders Lab Results Laboratory Tests Test 12/07/22 17:39 12/07/22 18:12 12/07/22 19:55 Range/Units White Blood Count 5.3 4.3-11.0 10^3/uL Red Blood Count 4.34 3.80-5.11 10^6/uL Hemoglobin 14.3 11.5-16.0 g/dL Hematocrit 40 35-52 % Mean Corpuscular Volume 93 80-99 fL Mean Corpuscular Hemoglobin 33 25-34 pg Mean Corpuscular Hemoglobin Concent 35 32-36 g/dL Red Cell Distribution Width 11.7 10.0-14.5 % Platelet Count 149 130-400 10^3/uL Mean Platelet Volume 12.0 9.0-12.2 fL Immature Granulocyte % (Auto) 0 % Neutrophils (%) (Auto) 34 L 42-75 % Lymphocytes (%) (Auto) 54 H 12-44 % Monocytes (%) (Auto) 9 0-12 % Eosinophils (%) (Auto) 3 0-10 % Basophils (%) (Auto) 0 0-10 % Neutrophils # (Auto) 1.8 1.8-7.8 10^3/uL Lymphocytes # (Auto) 2.9 1.0-4.0 10^3/uL Monocytes # (Auto) 0.5 0.0-1.0 10^3/uL Eosinophils # (Auto) 0.2 0.0-0.3 10^3/uL Basophils # (Auto) 0.0 0.0-0.1 10^3/uL Immature Granulocyte # (Auto) 0.0 0.0-0.1 10^3/uL Sodium Level 142 135-145 MMOL/L Potassium Level 3.7 3.6-5.0 MMOL/L Chloride Level 112 H 98-107 MMOL/L Carbon Dioxide Level 19 L 21-32 MMOL/L Anion Gap 11 5-14 MMOL/L Blood Urea Nitrogen 20 H 7-18 MG/DL Creatinine 0.87 0.60-1.30 MG/DL Estimat Glomerular Filtration Rate 80 BUN/Creatinine Ratio 23 Glucose Level 102 70-105 MG/DL Calcium Level 9.0 8.5-10.1 MG/DL Corrected Calcium 9.2 8.5-10.1 MG/DL Magnesium Level 1.9 1.6-2.4 MG/DL Total Bilirubin 0.5 0.1-1.0 MG/DL Aspartate Amino Transf (AST/SGOT) 35 H 5-34 U/L Alanine Aminotransferase (ALT/SGPT) 29 0-55 U/L Alkaline Phosphatase 72 40-136 U/L Total Protein 6.2 L 6.4-8.2 GM/DL Albumin 3.8 3.2-4.5 GM/DL Lipase 28 8-78 U/L Urine Color ORANGE Urine Clarity CLOUDY Urine pH 5.5 5-9 Urine Specific [place] >=1.030 1.016-1.022 Urine Protein 1+ H NEGATIVE Urine Glucose (UA) NEGATIVE NEGATIVE Urine Ketones NEGATIVE NEGATIVE Urine Nitrite POSITIVE H NEGATIVE Urine Bilirubin 1+ H NEGATIVE Urine Urobilinogen 1.0 < = 1.0 MG/DL Urine Leukocyte Esterase NEGATIVE NEGATIVE Urine RBC (Auto) NEGATIVE NEGATIVE Urine RBC NONE /HPF Urine WBC >100 H /HPF Urine Squamous Epithelial Cells 10-25 H /HPF Urine Crystals NONE /LPF Urine Bacteria LARGE H /HPF Urine Casts NONE /LPF Urine Mucus SMALL H /LPF Urine Culture Indicated YES Lactic Acid Level 1.02 0.50-2.00 MMOL/L My Orders Orders - JULIACARMENCITA HILLS APRN Ua Culture If Indicated (12/07/22 17:39) Comprehensive Metabolic Panel (12/07/22 17:51) Lipase (12/07/22 17:51) Cbc With Automated Diff (12/07/22 17:51) Ketorolac Injection (Toradol Injection) (12/07/22 18:00) Ondansetron Injection (Zofran Injectio (12/07/22 18:00) Ct Abdomen/Pelvis W (12/07/22 17:54) Ct Lumbar Spine Wo (12/07/22 17:54) Ekg Tracing (12/07/22 18:15) Iohexol Injection (Omnipaque 350 Mg/Ml 1 (12/07/22 18:30) Received Contrast (Hold Metformin- Contr (12/07/22 18:30) Ns (Ivpb) (Sodium Chloride 0.9% Ivpb Bag (12/07/22 18:30) Urine Culture (12/07/22 18:12) Magnesium (12/07/22 19:16) Chest Pa/Lat (2 View) (12/07/22 19:17) Ceftriaxone 1 Gm Pre-Mix (Rocephin 1 Gm (12/07/22 19:45) Blood Culture (12/07/22 19:44) Lactic Acid Analyzer (12/07/22 19:44) Ns Iv 1000 Ml (Sodium Chloride 0.9%) (12/07/22 19:45) Medications Given in ED Vital Signs/I&O 12/07/22 12/07/22 17:33 21:27 Temp 36.4 36.5 Pulse 57 52 Resp 18 17 B/P (MAP) 128/93 Pulse Ox 97 96 O2 Delivery Room Air Room Air 12/08/22 00:00 Intake Total 50 ml Balance 50 ml Capillary Refill : Less Than 3 Seconds Progress Note : Time: 18:16 Progress Note Patient seen and evaluated, resting comfortably bed, no acute distress. Based on exam and symptoms, work-up initiated including CBC, CMP, lipase, UA, CT abdom en pelvis, lumbar CT, EKG. Patient receiving IV fluids from EMS. Toradol and Zofran ordered. 1916 CT abdomen pelvis reviewed. It shows no acute abnormality in the abdomen or pelvis. Reticulonodular opacities within the right lower lobe which could be seen with atypical pneumonia. Colonic diverticulosis without findings of diverticulitis. Nonobstructing right renal calculi without hydronephrosis. CT lumbar spine reviewed, no acute abnormality. Magnesium level and chest x-ray added. 1939 Labs reviewed. CBC grossly normal, WBC 5.3. CMP shows increased chloride 112, decreased CO2 19, increased BUN 20, creatinine 0.87, GFR 80. 1939 UA shows specific gravity > 1.030, 1+ protein, positive nitrates, 1+ bilirubin, >100 WBC, 10-25 squamous epithelial cells, large bacteria. Rocephin ordered for UTI. Magnesium normal. 1944 chest x-ray reviewed. No acute cardiopulmonary process. Lactic acid and blood cultures x2 ordered due to continued low heart rate and low blood pressure. Second liter of normal saline ordered. 2049 lactic acid normal. Results discussed with patient. Patient reevaluated, states she is feeling much better and would like to go home. Heart rate remains in the 50s. But blood pressure has improved. Will discharge with antibiotic for UTI as well as nystatin for oral thrush. Discharge instructions and return precautions provided. ECG Initial ECG Impression Date: Dec 07, 2022 Initial ECG Impression Time: 18:21 Initial ECG Rate: 45 Initial ECG Rhythm: S.Hola Initial ECG Intervals: Normal Initial ECG Impression: Sinus Bradycardia Initial ECG Comparisson: Changed Comment Lead III inverted. Diagnostic Imaging Diagonstic Imaging: CT Plain Films/CT/US/NM/MRI: abdomen Comments [facility] [place] NAME: LANETTE CARO [facility] REC#: [id number] PT STATUS: REG ER : 1970 PHYSICIAN: CARMENCITA DUMONT APRN ADMIT DATE: 12/07/22/ER Signed Date of Exam:12/07/22 CT ABDOMEN/PELVIS W EXAMINATION: CT abdomen and pelvis with intravenous contrast. TECHNIQUE: Multiple contiguous axial images were obtained through the abdomen and pelvis after the uneventful administration of intravenous contrast. All CT scans use one or more of the following dose optimizing techniques: automated exposure control, MA and/or KvP adjustment based on patient size and exam type or iterative reconstruction. HISTORY: Abdominal pain. COMPARISON: 03/03/2020. FINDINGS: Lung bases: There are reticulonodular opacities within the right lower lobe. Solid organs: The liver is normal without focal lesion. The gallbladder is surgically absent. There is no biliary ductal dilation. Pancreas is normal. Spleen is normal. Adrenal glands are normal. There are nonobstructing right renal calculi. No hydronephrosis. Bowel: Surgical changes of the stomach. There is no bowel obstruction. There are a few scattered colonic diverticula. There are no findings of acute appendicitis. Peritoneum: There is no intraperitoneal free fluid or free air. No suspicious lymphadenopathy. Vasculature: Normal without aneurysm. Musculoskeletal: No suspicious osseous lesion or compression fracture. There is a fat-containing periumbilical hernia. Pelvis: The uterus is surgically absent. No adnexal mass. The urinary bladder is normal. IMPRESSION: 1. No acute abnormality in the abdomen or pelvis. 2. Reticulonodular opacities within the right lower lobe which could be seen with atypical pneumonia. 3. Colonic diverticulosis without findings of diverticulitis. 4. Nonobstructing right renal calculi without hydronephrosis. Dictated by: Dictated on workstation # [id number] Dict: 12/07/221851 Trans: 12/07/221904 [facility] [id number] Interpreted by: MARIN FLORES DO Electronically signed by: MARIN FLORES DO 12/07/221904 Diagonstic Imaging: CT Plain Films/CT/US/NM/MRI: other (Lumbar spine) Comments [facility], [place] NAME: LANETTE CARO [facility] REC#: [id number] PT STATUS: REG ER : 1970 PHYSICIAN: CARMENCITA DUMONT APRN ADMIT DATE: 12/07/22/ER Signed Date of Exam:12/07/22 CT LUMBAR SPINE WO EXAMINATION: CT lumbar spine without contrast. TECHNIQUE: Multiple contiguous axial images were obtained through the lumbar spine without the use of intravenous contrast. Sagittal and coronal reformations were then performed. All CT scans use one or more of the following dose optimizing techniques: automated exposure control, MA and/or KvP adjustment based on patient size and exam type or iterative reconstruction. HISTORY: Low back pain and weakness. COMPARISON: None available. FINDINGS: The alignment of the lumbar spine is normal. Vertebral body heights are normal and no fracture is seen. There is mild facet hypertrophy. Disc heights are normal. There is no spinal canal stenosis. Limited views of the abdomen and pelvis show no soft tissue abnormality. The aorta is normal. IMPRESSION: No acute osseous abnormality of the lumbar spine. Dictated by: Dictated on workstation # [id number] Dict: 12/07/22 1849 Trans: 12/07/221904 [id number] Interpreted by: MARIN FLORES DO Electronically signed by: MARIN FLORES DO 12/07/221904 Diagonstic Imaging: Xray Plain Films/CT/US/NM/MRI: chest Comments [facility], [place] NAME: LANETTE CARO [facility] REC#: [id number] PT STATUS: REG ER : 1970 PHYSICIAN: CARMENCITA DUMONT APRN ADMIT DATE: 12/07/22/ER Signed Date of Exam:12/07/22 CHEST PA/LAT (2 VIEW) EXAMINATION: Chest 2 view. HISTORY: Weakness COMPARISON: 06/15/2017. FINDINGS: Heart size and pulmonary vasculature are normal. The lungs are clear without consolidation, pleural effusion or pneumothorax. The osseous structures are intact. IMPRESSION: No acute radiographic abnormality in the chest. Dictated by: Dictated on workstation # [id number] Dict: 12/07/221936 Trans: 12/07/222000 [facility] [id number] Interpreted by: MARIN FLORES DO Electronically signed by: MARIN FLORES DO 12/07/222000 Departure Impression Primary Impression: Urinary tract infection Additional Impression: Thrush Disposition: HOME, SELF-CARE Condition: Stable Departure-Patient Inst. Decision time for Depature: 20:54 Referrals: EDER ESQUEDA MD (PCP/Family) Primary Care Physician Patient Instructions: Urinary Tract Infection, Adult ED, Thrush Add. Discharge Instructions: Complete full course of antibiotic, even if you begin to feel better. Use nystatin, for your thrush. Swish in mouth for several minutes and swallow 4 times a day. Follow-up with primary care provider. Call on Friday to see if you get a sooner appointment. Return for fever, uncontrolled vomiting, or any other new, concerning, or worsening symptoms. All discharge instructions reviewed with patient and/or family. Voiced understanding. Scripts Cephalexin (Cephalexin) 500 Mg Tablet 500 MG PO BID for 7 Days, #14 TAB 0 Refills Prov: CARMENCITA DUMONT APRN 12/07/22 Nystatin (Nystatin) 100,000 Unit/Ml Oral.susp [id number] UNIT PO Q6H for 14 Days, #200 ML 0 Refills Swish for several minutes and swallow Prov: CARMECNITA DUMONT APRN 12/07/22 CARMENCITA DUMONT APRN Dec 07, 2022 18:00
[2022-12-07 18:02] LABS: ALBUMIN 3.8 GM/DL (3.2-4.5); POTASSIUM 3.7 MMOL/L (3.6-5.0)
[2022-12-07 18:05] LABS: TOTAL PROTEIN 6.2 GM/DL (6.4-8.2)
[2022-12-07 18:06] LABS: BILIRUBIN,TOTAL 0.5 MG/DL (0.1-1.0)
[2022-12-07 18:08] LABS: CREATININE SERUM 0.87 MG/DL (0.60-1.30)
[2022-12-07 18:19] LABS: CLARITY,URINE CLOUDY; COLOR,URINE ORANGE; GLUCOSE, URINE (UA) NEGATIVE (NEGATIVE); KETONES,URINE NEGATIVE (NEGATIVE); LEUKOCYTE ESTERASE ,URINE NEGATIVE (NEGATIVE); NITRITE,URINE POSITIVE (NEGATIVE); PH,URINE 5.5 (5-9); PROTEIN,URINE 1+ (NEGATIVE)
[2022-12-07 18:28] LABS: BACTERIA,URINE LARGE /HPF; BILIRUBIN,URINE 1+ (NEGATIVE); WBC,URINE >100 /HPF
[2022-12-07] MEDS ORDERED: HOLD METFORMIN - RECEIVED CONTRAST 20 ML VIAL IV SCH (18:30)
[2022-12-07] MEDS ORDERED: IOHEXOL 350 MG/ML 100 ML (OMNIPAQUE 350) VIAL IV ONE (18:30)
[2022-12-07] MEDS ORDERED: NS 100 ML (IVPB) BAG IV ONE (18:30)
--- NOTE | 2022-12-07 18:56 | Diagnostic Imaging Report ---
EXAMINATION: CT lumbar spine without contrast. TECHNIQUE: Multiple contiguous axial images were obtained through the lumbar spine without the use of intravenous contrast. Sagittal and coronal reformations were then performed. All CT scans use one or more of the following dose optimizing techniques: automated exposure control, MA and/or KvP adjustment based on patient size and exam type or iterative reconstruction. HISTORY: Low back pain and weakness. COMPARISON: None available. FINDINGS: The alignment of the lumbar spine is normal. Vertebral body heights are normal and no fracture is seen. There is mild facet hypertrophy. Disc heights are normal. There is no spinal canal stenosis. Limited views of the abdomen and pelvis show no soft tissue abnormality. The aorta is normal. IMPRESSION: No acute osseous abnormality of the lumbar spine. Dictated by: Dictated on workstation # [id number]
--- NOTE | 2022-12-07 19:00 | Diagnostic Imaging Report ---
EXAMINATION: CT abdomen and pelvis with intravenous contrast. TECHNIQUE: Multiple contiguous axial images were obtained through the abdomen and pelvis after the uneventful administration of intravenous contrast. All CT scans use one or more of the following dose optimizing techniques: automated exposure control, MA and/or KvP adjustment based on patient size and exam type or iterative reconstruction. HISTORY: Abdominal pain. COMPARISON: 03/03/2020. FINDINGS: Lung bases: There are reticulonodular opacities within the right lower lobe. Solid organs: The liver is normal without focal lesion. The gallbladder is surgically absent. There is no biliary ductal dilation. Pancreas is normal. Spleen is normal. Adrenal glands are normal. There are nonobstructing right renal calculi. No hydronephrosis. Bowel: Surgical changes of the stomach. There is no bowel obstruction. There are a few scattered colonic diverticula. There are no findings of acute appendicitis. Peritoneum: There is no intraperitoneal free fluid or free air. No suspicious lymphadenopathy. Vasculature: Normal without aneurysm. Musculoskeletal: No suspicious osseous lesion or compression fracture. There is a fat-containing periumbilical hernia. Pelvis: The uterus is surgically absent. No adnexal mass. The urinary bladder is normal. IMPRESSION: 1. No acute abnormality in the abdomen or pelvis. 2. Reticulonodular opacities within the right lower lobe which could be seen with atypical pneumonia. 3. Colonic diverticulosis without findings of diverticulitis. 4. Nonobstructing right renal calculi without hydronephrosis. Dictated by: Dictated on workstation # [id number]
--- NOTE | 2022-12-07 19:43 | Diagnostic Imaging Report ---
EXAMINATION: Chest 2 view. HISTORY: Weakness COMPARISON: 06/15/2017. FINDINGS: Heart size and pulmonary vasculature are normal. The lungs are clear without consolidation, pleural effusion or pneumothorax. The osseous structures are intact. IMPRESSION: No acute radiographic abnormality in the chest. Dictated by: Dictated on workstation # [id number]
[2022-12-07] MEDS ORDERED: NS IV 1000 ML 1,000 ML IV SCH (19:45)
[2022-12-07] MEDS ORDERED: cefTRIAXone 1 GM PRE-MIX 50 ML IV ONE (19:45)
[2022-12-07] MEDS ORDERED: CEPH500T PO ×2 (21:02→21:38)
[2022-12-07] MEDS ORDERED: NYST1000 PO ×2 (21:02→21:38)
[2022-12-07 21:27] VITALS: BP 128/93
== END 2022-12-07 21:27 | disposition home or self-care (01) ==
LOC: EDUNIT# 17:30 → ER 17:31
DX: N39.0 Urinary tract infection, site not specified (principal); B37.9 Candidiasis, unspecified; E66.01 Morbid (severe) obesity due to excess calories; F17.210 Nicotine dependence, cigarettes, uncomplicated; Z90.49 Acquired absence of other specified parts of digestive tract; Z90.710 Acquired absence of both cervix and uterus; Z98.84 Bariatric surgery status; Z68.41 Body mass index [BMI] 40.0-44.9, adult
CPT/HCPCS: 36415; 71046; 72131; 74177; 80053; 81000; 83605; 83690; 83735; 85025; 87040; 87077; 87088; 87186; 93005

== ENCOUNTER 2022-12-17 17:51 | Emergency (ER) | payer MEDICAID ==
[~2022-12-17] VITALS: Ht 162 cm; Wt 104.0 kg
[2022-12-17] MEDS ORDERED: ASPIRIN 81 MG CHEW (CHILDREN'S ASA) PO ONE (18:00)
[2022-12-17] MEDS ORDERED: NITROGLYCERIN 0.4 MG SL TABS BTL 25'S SL PRN (18:00)
[2022-12-17 18:06] LABS: BASOPHILS # (AUTO) 0.1 10^3/uL (0.0-0.1); BASOPHILS % (AUTO) 0 % (0-10); EOSINOPHILS # (AUTO) 0.3 10^3/uL (0.0-0.3); EOSINOPHILS % (AUTO) 2 % (0-10); HEMATOCRIT 38 % (35-52); HEMOGLOBIN 13.7 g/dL (11.5-16.0); LYMPHOCYTES # (AUTO) 2.2 10^3/uL (1.0-4.0); LYMPHOCYTES % (AUTO) 17 % (12-44); MEAN CORPUSCULAR HEMOGLOBIN 33 pg (25-34); MEAN CORPUSCULAR HGB CONC 36 g/dL (32-36); MEAN CORPUSCULAR VOLUME 93 fL (80-99); MEAN PLATELET VOLUME 11.4 fL (9.0-12.2); MONOCYTES # (AUTO) 0.8 10^3/uL (0.0-1.0); MONOCYTES % (AUTO) 7 % (0-12); NEUTROPHILS # (AUTO) 9.2 10^3/uL (1.8-7.8); NEUTROPHILS % (AUTO) 73 % (42-75); PLATELET COUNT 174 10^3/uL (130-400); WHITE BLOOD COUNT 12.6 10^3/uL (4.3-11.0)
--- NOTE | 2022-12-17 18:10 | ED Cardiac General ---
History of Present Illness General Chief Complaint: Respiratory Problems Stated Complaint: SOA Nursing Triage Note: PT ARRIVED PER EMS, PT HAVING SOA STARTED TODAY, STATES HAS HX COPD Source: patient, old records History of Present Illness Date Seen by Provider: Dec 17, 2022 Time Seen by Provider: 17:54 Initial Comments PT ARRIVES VIA EMS FROM HOME C/O CHEST PAIN/TIGHTNESS AND SHORTNESS OF BREATH FOR THE LAST 3-4 HOURS SYMPTOMS BEGAN WHEN SHE WAS SMOKING A CIGARETTE CHEST PAIN IS IN LEFT UPPER CHEST, AND RATES PAIN 3-4/10 NO RADIATION OF PAIN NOTHING WORSENS OR IMPROVES PAIN, BUT HAS NOT TAKEN ANYTHING FOR PAIN TODAY SHE HAS BEEN SWEATY ALL DAY, BUT STATES IT WAS HOT IN HOUSE + NAUSEA, NO VOMITING NO SWELLING IN LEGS/FEET OR PAIN IN CALVES STATES SHE GETS DIZZY IF SHE TAKES A DEEP BREATH NO SYNCOPE NO PALPITATIONS DENIES FEVER SHE HAS A NON-PRODUCTIVE COUGH, WORSE THAN NORMAL. SHE HAS NOT TAKEN ANYTHING FOR COUGH PT HAS COPD, CONTINUES TO SMOKE UP TO 1 PPD SHE HAS NOT USED HER INHALER TODAY OR ANY TIME RECENTLY. SHE DOES NOT HAVE A NEBULIZER SHE HAS NOT TAKEN ANYTHING FOR PAIN SHE DENIES HISTORY OF HEART PROBLEMS SHE HAS HAD COVID VACCINE X 4, AND FLU VACCINE PT WAS HERE 12/07/22 FOR UTI AND THRUSH AND WAS PRESCRIBED KEFLEX AND NYSTATIN, SHE STATES THOSE SYMPTOMS HAVE RESOLVED. PCP: DR. EDER ESQUEDA AT [facility] Allergies and Home Medications Allergies Coded Allergies: Sulfa (Sulfonamide Antibiotics) (Unverified Allergy, Unknown, RASH, 03/03/20) esomeprazole mag (Unverified Adverse Reaction, Intermediate, 03/03/20) Diarrhea Patient Home Medication List Albuterol Sulfate (Proventil Pre-Mix Nebs (Rt)) 2.5 Mg/3 Ml Nebu, 2.5 MG INH Q6H PRN, (Reported) Entered as Reported by: JENNIFFER GOMEZ on 06/10/132302 Amoxicillin/Potassium Clav (Augmentin 875-125 Tablet) 1 Each Tablet, 1 EACH PO BID Prescribed by: JOHNSON REESE on 03/23/17 1020 Amphet Asp/Amphet/D-Amphet (Adderall 30 Mg Tablet) 30 Mg Tablet, 30 MG PO BID, (Reported) Entered as Reported by: JENNIFFER GOMEZ on 06/10/132302 Atorvastatin Calcium (Lipitor 10 Mg) 10 Mg Tablet, 10 MG PO HS, (Reported) Entered as Reported by: JENNIFFER GOMEZ on 06/10/132302 Black Cohosh Root Extract (Black Cohosh Extract) 80 Mg Capsule, 80 MG PO DAILY, (Reported) Entered as Reported by: JENNIFFER GOMEZ on 06/10/132302 Cephalexin (Cephalexin) 500 Mg Tablet, 500 MG PO BID Prescribed by: JOHNSON REESE on 05/17/19 1645 Cephalexin (Cephalexin) 500 Mg Tablet, 500 MG PO BID Prescribed by: Carmencita Liu on 12/07/222137 Cetirizine Hcl (Zyrtec) 10 Mg Capsule, 10 MG PO DAILY, (Reported) Entered as Reported by: JENNIFFER GOMEZ on 06/10/132302 Cyclobenzaprine HCl (Cyclobenzaprine HCl) 10 Mg Tablet, 10 MG PO TID PRN for SPASMS Prescribed by: RUY EVANS on 06/20/17 1428 Cyclobenzaprine HCl (Cyclobenzaprine HCl) 5 Mg Tablet, 5 MG PO TID PRN for PAIN- MODERATE Prescribed by: KHAI JOAQUIN on 01/01/18 1102 Cyclobenzaprine Hcl (Flexeril Tablet) 10 Mg Tablet, 10 MG PO TID PRN, (Reported) Entered as Reported by: JENNIFFER GOMEZ on 06/10/132302 Dexlansoprazole (Dexilant) 60 Mg Jamaal., 60 MG PO, (Reported) Entered as Reported by: GIDEON HARRIS on 06/15/17 0250 Diazepam (Valium 10 Mg Tab) 10 Mg Tablet, 10 MG PO Q8H PRN, (Reported) Entered as Reported by: JENNIFFER GOMEZ on 06/10/132302 Escitalopram Oxalate (Lexapro) 10 Mg Tablet, 10 MG PO DAILY, (Reported) Entered as Reported by: JENNIFFER GOMEZ on 06/10/132302 Furosemide (Furosemide) 40 Mg Tablet, 40 MG PO BID, (Reported) Entered as Reported by: LEX PERAZA on 08/06/09 1703 Hydrocodone Bit/Acetaminophen (Lortab 5 Mg) 1 Tab Tab, 1 EA PO Q4HR PRN, (Reported) Entered as Reported by: JENNIFFER GOMEZ on 06/10/132302 Hydrocodone Bit/Acetaminophen (Lortab 5 Mg Tablet) 1 Each Tablet, 1-2 EACH PO Q4H PRN for PAIN Prescribed by: RUY EVANS on 06/20/17 1428 Ibuprofen (Motrin) 600 Mg Tab, 600 MG PO Q6H PRN, (Reported) Entered as Reported by: JENNIFFER GOMEZ on 06/10/132302 Lamotrigine (Lamictal) 100 Mg Tablet, 50 MG PO BID, (Reported) Entered as Reported by: JENNIFFER GOMEZ on 06/10/132302 Levetiracetam (Keppra Tab) 500 Mg Tab, 500 MG PO BID, (Reported) Entered as Reported by: JENNIFFER GOMEZ on 06/10/132302 Loperamide HCl (Imodium A-D) 2 Mg Capsule, 2 MG PO TID Prescribed by: ISHAN PATEL on 05/02/19 0514 Multivitamin (Multi Vitamin Daily) 1 Each Tablet, 1 TAB PO DAILY, (Reported) Entered as Reported by: JENNIFFER GOMEZ on 06/10/132302 Naloxegol Oxalate (Movantik) 25 Mg Tablet, 25 MG PO, (Reported) Entered as Reported by: GIDEON HARRIS on 06/15/17 0250 Naproxen (Naprosyn) 500 Mg Tablet, 500 MG PO BID PRN for PAIN-MODERATE (5-7) Prescribed by: KHAI JOAQUIN on 09/19/19 1634 Nortriptyline Hcl (Pamelor) 25 Mg Cap, 25 MG PO HS, (Reported) Entered as Reported by: JENNIFFER GOMEZ on 06/10/132302 Nystatin (Nystatin) 100,000 Unit/Ml Oral.susp, 500,000 UNIT PO Q6H Prescribed by: Carmencita Liu on 12/07/222137 Ondansetron Hcl (Zofran Oral Dissolve) 4 Mg Tab, 4 MG PO Q8H PRN, (Reported) Entered as Reported by: JENNIFFER GOMEZ on 06/10/132302 Polyethylene Glycol 3350 (Miralax) 17 Gm Powd.pack, 17 GM PO BID PRN Prescribed by: ZAHRA ORNELAS on 12/22/16 1704 Potassium Chloride (K-Tab) 10 Meq Tablet.sa, 20 MEQ PO BID, (Reported) Entered as Reported by: JENNIFFER GOMEZ on 06/10/13 230 Prednisone (Prednisone) 20 Mg Tab, 40 MG PO DAILY Prescribed by: JOHNSON REESE on 03/23/17 1020 Tramadol HCl (Tramadol HCl) 50 Mg Tablet, 50 MG PO Q6H PRN for PAIN Prescribed by: JOHNSON REESE on 04/26/18 1056 Zolpidem Tartrate (Ambien 10 Mg) 10 Mg Tab, 10 MG PO HS, (Reported) Entered as Reported by: JENNIFFER GOMEZ on 06/10/132302 Review of Systems Review of Systems Constitutional: see HPI, diaphoresis, dizziness EENTM: No Symptoms Reported Respiratory: See HPI, Cough Cardiovascular: See HPI, Chest Pain; Denies Edema; Lightheadedness; Denies Palpitations, Denies Syncope Gastrointestinal: See HPI; Denies Abdominal Pain; Nausea; Denies Vomiting Genitourinary: No Symptoms Reported Musculoskeletal: no symptoms reported Skin: no symptoms reported Psychiatric/Neurological: No Symptoms Reported Endocrine: No Symptoms Reported Hematologic/Lymphatic: No Symptoms Reported Past [id number] Hx Patient Social History Tobacco Use?: Yes Tobacco type used: Cigarettes Smoking Status: Current Everyday Smoker Substance use?: No Alcohol Use?: Yes Alcohol Frequency: Rarely Pt feels they are or have been: No Immunizations Up To Date Tetanus Booster (TDap): Unknown Influenza Vaccine Up-to-Date: No; Not Current First/Initial COVID19 Vaccinat: YES Second COVID19 Vaccination Natalio: YES Third COVID19 Vaccination Date: YES Seasonal Allergies Seasonal Allergies: Yes Past Medical History Surgery/Hospitalization HX: COPD Surgeries: Yes (carpal tunnel sx) Abdominal, Gallbladder, Hysterectomy, Orthopedic Respiratory: Yes Chronic Bronchitis, Sleep Apnea, COPD Cardiac: Yes High Cholesterol Neurological: Yes Headaches /Migraines, Seizure Disorder 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 Sexually Transmitted Disease: No HIV/AIDS: No Genitourinary: No Gastrointestinal: Yes Gastroesophageal Reflux Musculoskeletal: Yes Arthritis, Fibromyalgia Endocrine: Yes (morbid obesity) HEENT: No Cancer: No Psychosocial: Yes ADD/ADHD, Anxiety, PTSD, Depression Integumentary: No Blood Disorders: No Family Medical History No Pertinent Family Hx SOCIAL HISTORY: -SMOKES UP TO 1 PPD -ETOH--RARE USE -DRUGS--DENIES USE PAST SURGICAL HISTORY: -HYSTERECTOMY -CARPAL TUNNEL SURGERY -CHOLECYSTECTOMY Physical Exam Vital Signs Vital Signs - First Documented 12/17/22 17:55 Temp 36.7 Pulse 64 Resp 18 B/P (MAP) 122/87 (99) Pulse Ox 96 O2 Delivery Room Air Capillary Refill : Less Than 3 Seconds Height, Weight, BMI Height: 5'6.00" Weight: 306lbs. 0oz. 138.454882cv; 39.00 BMI Method:Stated General Appearance: No Apparent Distress, WD/WN, Obese, Other (MALODOROUS AND REEKS OF CIGARETTES. DOES NOT APPEAR ILL OR TO BE IN ANY DISCOMFORT OR DISTRESS. 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 trapper II-XII Norm as Tested Skin: Normal Color, Warm/Dry Progress/Results/Core Measures Results/Orders Lab Results Laboratory Tests Test 12/17/22 17:57 12/17/22 18:11 12/17/22 18:39 12/17/22 21:10 Range/Units White Blood Count 12.6 H 4.3-11.0 10^3/uL Red Blood Count 4.11 3.80-5.11 10^6/uL Hemoglobin 13.7 11.5-16.0 g/dL Hematocrit 38 35-52 % Mean Corpuscular Volume 93 80-99 fL Mean Corpuscular Hemoglobin 33 25-34 pg Mean Corpuscular Hemoglobin Concent 36 32-36 g/dL Red Cell Distribution Width 12.7 10.0-14.5 % Platelet Count 174 130-400 10^3/uL Mean Platelet Volume 11.4 9.0-12.2 fL Immature Granulocyte % (Auto) 0 % Neutrophils (%) (Auto) 73 42-75 % Lymphocytes (%) (Auto) 17 12-44 % Monocytes (%) (Auto) 7 0-12 % Eosinophils (%) (Auto) 2 0-10 % Basophils (%) (Auto) 0 0-10 % Neutrophils # (Auto) 9.2 H 1.8-7.8 10^3/uL Lymphocytes # (Auto) 2.2 1.0-4.0 10^3/uL Monocytes # (Auto) 0.8 0.0-1.0 10^3/uL Eosinophils # (Auto) 0.3 0.0-0.3 10^3/uL Basophils # (Auto) 0.1 0.0-0.1 10^3/uL Immature Granulocyte # (Auto) 0.0 0.0-0.1 10^3/uL Erythrocyte Sedimentation Rate 16 0-30 MM/HR Prothrombin Time 13.1 12.2-14.7 SEC INR Comment 1.0 0.8-1.4 Activated Partial Thromboplast Time 24 24-35 SEC D-Dimer 0.37 0.00-0.49 UG/ML Sodium Level 143 135-145 MMOL/L Potassium Level 3.6 3.6-5.0 MMOL/L Chloride Level 111 H 98-107 MMOL/L Carbon Dioxide Level 23 21-32 MMOL/L Anion Gap 9 5-14 MMOL/L Blood Urea Nitrogen 16 7-18 MG/DL Creatinine 0.72 0.60-1.30 MG/DL Estimat Glomerular Filtration Rate 100 BUN/Creatinine Ratio 22 Glucose Level 107 H 70-105 MG/DL Calcium Level 8.8 8.5-10.1 MG/DL Corrected Calcium 9.1 8.5-10.1 MG/DL Magnesium Level 2.2 1.6-2.4 MG/DL Total Bilirubin 0.5 0.1-1.0 MG/DL Aspartate Amino Transf (AST/SGOT) 15 5-34 U/L Alanine Aminotransferase (ALT/SGPT) 15 0-55 U/L Alkaline Phosphatase 71 40-136 U/L Total Creatine Kinase 53 29-168 U/L Creatine Kinase MB 0.8 <6.6 NG/ML Myoglobin 31.4 10.0-92.0 NG/ML Troponin I < 0.028 < 0.028 <0.028 NG/ML C-Reactive Protein High Sensitivity 1.06 H 0.00-0.50 MG/DL B-Type Natriuretic Peptide 98.0 <100.0 PG/ML Total Protein 5.5 L 6.4-8.2 GM/DL Albumin 3.6 3.2-4.5 GM/DL Amylase Level 40 25-125 U/L Lipase 23 8-78 U/L Influenza Type A (RT-PCR) Not Detected Not Detecte Influenza Type B (RT-PCR) Not Detected Not Detecte SARS-CoV-2 RNA (RT-PCR) Not Detected Not Detecte Urine Color YELLOW Urine Clarity CLEAR Urine pH 5.5 5-9 Urine Specific [place] >=1.030 1.016-1.022 Urine Protein NEGATIVE NEGATIVE Urine Glucose (UA) NEGATIVE NEGATIVE Urine Ketones NEGATIVE NEGATIVE Urine Nitrite NEGATIVE NEGATIVE Urine Bilirubin NEGATIVE NEGATIVE Urine Urobilinogen 0.2 < = 1.0 MG/DL Urine Leukocyte Esterase NEGATIVE NEGATIVE Urine RBC (Auto) NEGATIVE NEGATIVE Urine RBC NONE /HPF Urine WBC 0-2 /HPF Urine Squamous Epithelial Cells 25-50 H /HPF Urine Crystals NONE /LPF Urine Bacteria FEW H /HPF Urine Casts NONE /LPF Urine Mucus LARGE H /LPF Urine Culture Indicated NO My Orders Orders - IZZY CONTRERAS DO Ed Iv/Invasive Line Start (12/17/22 17:56) Ekg Tracing (12/17/22 17:56) O2 (12/17/22 17:56) Monitor-Rhythm Ecg Trace Only (12/17/22 17:56) Amylase (12/17/22 17:56) Bnp [place] (12/17/22 17:56) Cbc With Automated Diff (12/17/22 17:56) Comprehensive Metabolic Panel (12/17/22 17:56) Creatine Kinase (12/17/22 17:56) Creatine Kinase Mb (12/17/22 17:56) Hs C Reactive Protein (12/17/22 17:56) Fibrin Degradation Products (12/17/22 17:56) Lipase (12/17/22 17:56) Magnesium (12/17/22 17:56) Protime With Inr (12/17/22 17:56) Partial Thromboplastin Time (12/17/22 17:56) Ua Culture If Indicated (12/17/22 17:56) Erythrocyte Sedimentation Rate (12/17/22 17:56) Myoglobin Serum (12/17/22 17:56) Troponin I [place] (12/17/22 17:56) Chest 1 View, Ap/Pa Only (12/17/22 17:56) Covid 19 Inhouse Test (12/17/22 17:56) Nitroglycerin 0.4 Mg Btl 25's (Nitrostat (12/17/22 18:00) Aspirin Chewable Tablet (Baby Aspirin Ch (12/17/22 18:00) Influenza A And B By Pcr (12/17/22 17:56) Isolation Central Supply Req (12/17/22 17:56) Ct Cathi Chest/Noang Abd-Pelv W (12/17/22 19:04) Iohexol Injection (Omnipaque 350 Mg/Ml 1 (12/17/22 19:45) Received Contrast (Hold Metformin- Contr (12/17/22 19:45) Ns (Ivpb) (Sodium Chloride 0.9% Ivpb Bag (12/17/22 19:45) Ekg Tracing (12/17/22 20:50) Troponin I Zay (12/17/22 20:50) Medications Given in ED Current Medications Medications Dose Ordered Sig/Daysi Route Start Time Stop Time Status Last Admin Dose Admin Aspirin 324 mg ONCE ONCE PO 12/17/22 18:00 12/17/22 18:01 DC 12/17/22 18:15 324 MG Iohexol 100 ml ONCE ONCE IV 12/17/22 19:45 12/17/22 19:46 DC 12/17/22 19:34 77 ML Nitroglycerin 0.4 mg UD PRN SL 12/17/22 18:00 12/17/22 18:15 0.4 MG Sodium Chloride 100 ml ONCE ONCE IV 12/17/22 19:45 12/17/22 19:46 DC 12/17/22 19:34 80 ML Vital Signs/I&O 12/17/22 17:55 Temp 36.7 Pulse 64 Resp 18 B/P (MAP) 122/87 (99) Pulse Ox 96 O2 Delivery Room Air Blood Pressure Mean: 99 Progress Progress Note : Progress Note PPE WORN O2 SATS 96% ON ROOM AIR ON ARRIVAL GIVEN: -ASPIRIN -NTG SL X 1--PAIN IMPROVED, DOWN TO A "1". BP DOWN TO 107 SYSTOLIC. 1945--BP UP TO 120'S SYSTOLIC WITHOUT TREATMENT, AND PT IS SYMPTOM-FREE WILL DO 3 HOUR REPEAT TROPONIN AND EKG REPEAT TROPONIN IS NEGATIVE REPEAT EKG IS UNCHANGED PT HAD NO COMPLAINTS FOR REMAINDER OF ER STAY PT IS ANXIOUS TO GO HOME. DISCUSSED TEST RESULTS, ANTICIPATED COURSE, SYMPTOMATIC TREATMENT, NEED FOR FOLLOW UP AND RETURN PRECAUTIONS. Initial ECG Impression Date: Dec 17, 2022 Initial ECG Impression Time: 18:07 Initial ECG Rate: 60 Initial ECG Rhythm: Normal Sinus Initial ECG Intervals NV 154 QRS 95 QT/QTC 454/454 Initial ECG Impression: Normal Diagnostic Imaging Comments CXR--PER RADIOLOGIST REPORT AT 1828 COMPARISON: 12/07/2022. FINDINGS: There are no findings of alveolar pneumonia. There is no significant effusion or pneumothorax. Heart is stable. Central pulmonary vascularity appears appropriate. There is a stable granuloma in the left lung. IMPRESSION: Stable radiographic appearance of the chest. No findings of an acute cardiopulmonary process. Reviewed: Reviewed by Me Departure Impression Primary Impression: Chest pain Additional Impression: Chest wall pain Disposition: 01 HOME, SELF-CARE Condition: Improved Departure-Patient Inst. Decision time for Depature: 22:01 Referrals: EDER ESQUEDA MD (PCP/Family) Primary Care Physician Patient Instructions: Chest Pain (DC), Costochondritis (DC) Add. Discharge Instructions: HOME, REST CONTINUE YOUR REGULAR MEDICATIONS PRESCRIBED YOU MAY TAKE TYLENOL NEEDED FOR PAIN FOLLOW UP WITH YOUR DR THIS WEEK FOR FURTHER CARE--CALL IN THE MORNING TO SCHEDULE AN APPOINTMENT RETURN TO ER IF SYMPTOMS RETURN All discharge instructions reviewed with patient and/or family. Voiced understanding. IZZY CONTRERAS DO Dec 17, 2022 18:10
[2022-12-17 18:16] LABS: ALBUMIN 3.6 GM/DL (3.2-4.5); CHLORIDE 111 MMOL/L (98-107); POTASSIUM 3.6 MMOL/L (3.6-5.0); SODIUM 143 MMOL/L (135-145)
[2022-12-17 18:17] LABS: AMYLASE 40 U/L (25-125); CALCIUM 8.8 MG/DL (8.5-10.1)
[2022-12-17 18:19] LABS: GLUCOSE 107 MG/DL (70-105); TOTAL PROTEIN 5.5 GM/DL (6.4-8.2)
[2022-12-17 18:20] LABS: BILIRUBIN,TOTAL 0.5 MG/DL (0.1-1.0); CARBON DIOXIDE 23 MMOL/L (21-32); FIBRIN DEGRADATION PRODUCTS 0.37 UG/ML (0.00-0.49); PROTHROMBIN TIME PATIENT 13.1 SEC (12.2-14.7)
[2022-12-17 18:22] LABS: ALKALINE PHOSPHATASE 71 U/L (40-136); CREATININE SERUM 0.72 MG/DL (0.60-1.30); GFR ESTIMATED 100
[2022-12-17 18:23] LABS: BUN/CREATININE RATIO 22
[2022-12-17 18:25] LABS: ALANINE AMINOTRANSFERASE 15 U/L (0-55); MAGNESIUM 2.2 MG/DL (1.6-2.4)
[2022-12-17 18:26] LABS: CREATINE KINASE 53 U/L (29-168); LIPASE 23 U/L (8-78)
--- NOTE | 2022-12-17 18:26 | Diagnostic Imaging Report ---
INDICATION: Chest pain. COMPARISON: 12/07/2022. FINDINGS: There are no findings of alveolar pneumonia. There is no significant effusion or pneumothorax. Heart is stable. Central pulmonary vascularity appears appropriate. There is a stable granuloma in the left lung. IMPRESSION: Stable radiographic appearance of the chest. No findings of an acute cardiopulmonary process. Dictated by: Dictated on workstation # [id number]
[2022-12-17 18:28] LABS: ERYTHROCYTE SEDIMENTATION RATE 16 MM/HR (0-30)
[2022-12-17 18:33] LABS: CREATINE KINASE MB 0.8 NG/ML (<6.6)
[2022-12-17 18:44] LABS: BILIRUBIN,URINE NEGATIVE (NEGATIVE); CLARITY,URINE CLEAR; COLOR,URINE YELLOW; GLUCOSE, URINE (UA) NEGATIVE (NEGATIVE); KETONES,URINE NEGATIVE (NEGATIVE); LEUKOCYTE ESTERASE ,URINE NEGATIVE (NEGATIVE); NITRITE,URINE NEGATIVE (NEGATIVE); PH,URINE 5.5 (5-9); PROTEIN,URINE NEGATIVE (NEGATIVE)
[2022-12-17 19:10] LABS: BACTERIA,URINE FEW /HPF; SQUAMOUS EPITHELIAL CELL,UR 25-50 /HPF; WBC,URINE 0-2 /HPF
[2022-12-17] MEDS ORDERED: HOLD METFORMIN - RECEIVED CONTRAST 20 ML VIAL IV SCH (19:45)
[2022-12-17] MEDS ORDERED: IOHEXOL 350 MG/ML 100 ML (OMNIPAQUE 350) VIAL IV ONE (19:45)
[2022-12-17] MEDS ORDERED: NS 100 ML (IVPB) BAG IV ONE (19:45)
--- NOTE | 2022-12-17 19:53 | Diagnostic Imaging Report ---
EXAMINATION: CT angiography chest with and without, CT abdomen and pelvis with and without. TECHNIQUE: Noncontrast enhanced helical images were obtained through the chest, abdomen and pelvis. Contrast enhanced thin section helical images were obtained through the chest, abdomen and pelvis with intravenous contrast timed for the optimal opacification of the arterial structures per departmental CTA protocol. Post-processing, retro reconstructions and interpretation of angiographic images of the vessels was performed. 3D MIP reconstructions were performed and reviewed. All CT scans use one or more of the following dose optimizing techniques: automated exposure control, MA and/or KvP adjustment based on patient size and exam type or iterative reconstruction. HISTORY: Chest pain and epigastric pain. COMPARISON: 12/07/2022 FINDINGS: There is no pulmonary embolism. There is no edema or pneumonia. No pleural effusion. No pneumothorax. No suspicious nodules. There is no axillary or supraclavicular lymphadenopathy. There is no mediastinal lymphadenopathy. Heart size is normal. There are no coronary artery calcifications. No pericardial effusion. Aorta is normal in caliber. The liver is normal without focal lesion. There is no biliary ductal dilation. Gallbladder is absent. Pancreas is normal. Spleen is normal. Adrenal glands are normal. There are small cysts and stones in the kidneys, unchanged. There is no hydronephrosis. Urinary bladder is normal. Bowel is normal in caliber without obstruction or inflammation. There is a fat-containing ventral abdominal hernia. No free fluid or air. No abdominal or pelvic lymphadenopathy. Aorta is normal in caliber without aneurysm. There are no suspicious osseus lesions. IMPRESSION: 1. No pulmonary embolism. 2. No acute abnormality in the abdomen or pelvis. Dictated by: Dictated on workstation # [id number]
[2022-12-17 22:08] VITALS: BP 122/94
== END 2022-12-17 22:08 | disposition home or self-care (01) ==
LOC: EDUNIT# 17:51 → ER 17:52
DX: R07.89 Other chest pain (principal); R06.02 Shortness of breath; R05.9 Cough, unspecified; R11.0 Nausea; F17.210 Nicotine dependence, cigarettes, uncomplicated; E66.01 Morbid (severe) obesity due to excess calories; Z68.39 Body mass index [BMI] 39.0-39.9, adult; Z20.822 Contact with and (suspected) exposure to COVID-19
CPT/HCPCS: 36415; 71045; 71275; 74177; 80053; 81000; 82150; 82550; 82553; 83690; 83735; 83874; 83880; 84484; 85025; 85379; 85610; 85652; 85730; 86141; 87636; 93005; 93041

== ENCOUNTER 2023-03-04 17:32 | Emergency (ER) | payer MEDICAID ==
[~2023-03-04] VITALS: Ht 162 cm; Wt 102.9 kg
[2023-03-04 19:09] LABS: BILIRUBIN,URINE NEGATIVE (NEGATIVE); CLARITY,URINE CLEAR; COLOR,URINE YELLOW; GLUCOSE, URINE (UA) NEGATIVE (NEGATIVE); KETONES,URINE NEGATIVE (NEGATIVE); LEUKOCYTE ESTERASE ,URINE 1+ (NEGATIVE); NITRITE,URINE POSITIVE (NEGATIVE); PROTEIN,URINE NEGATIVE (NEGATIVE)
[2023-03-04 19:11] LABS: BASOPHILS # (AUTO) 0.1 10^3/uL (0.0-0.1); BASOPHILS % (AUTO) 1 % (0-10); EOSINOPHILS # (AUTO) 0.2 10^3/uL (0.0-0.3); EOSINOPHILS % (AUTO) 2 % (0-10); HEMATOCRIT 46 % (35-52); LYMPHOCYTES # (AUTO) 3.7 10^3/uL (1.0-4.0); LYMPHOCYTES % (AUTO) 35 % (12-44); MEAN CORPUSCULAR HEMOGLOBIN 33 pg (25-34); MEAN CORPUSCULAR HGB CONC 35 g/dL (32-36); MEAN CORPUSCULAR VOLUME 96 fL (80-99); MEAN PLATELET VOLUME 11.2 fL (9.0-12.2); MONOCYTES # (AUTO) 0.8 10^3/uL (0.0-1.0); MONOCYTES % (AUTO) 7 % (0-12); NEUTROPHILS % (AUTO) 56 % (42-75); PLATELET COUNT 232 10^3/uL (130-400); WHITE BLOOD COUNT 10.7 10^3/uL (4.3-11.0)
[2023-03-04 19:16] LABS: BACTERIA,URINE LARGE /HPF; RBC,URINE 0-2 /HPF; SQUAMOUS EPITHELIAL CELL,UR >50 /HPF
--- NOTE | 2023-03-04 19:16 | ED Abdominal Pain ---
General Chief Complaint: Abdominal/GI Problems Stated Complaint: RIB PAIN Nursing Triage Note: PT PRESENTS TO ED VIA EMS FROM HOME WITH COMPLAINTS RLQ PAIN X 2 DAYS. PT REPORTS PAIN PREVENTS HER FROM TAKING A DEEP BREATH OR LAYING DOWN. Source of Information: Patient Exam Limitations: No Limitations History of Present Illness Date Seen by Provider: Mar 04, 2023 Time Seen by Provider: 19:12 Initial Comments Patient Is a 53-year-old female who presents ED with right-sided lower rib pain below her right breast. Pain started 2 days ago. Described as sharp and cons tant. Pain does not radiate. Worse with movement or laying on the right side. Denies any specific injury. History of COPD. Denies any cough or shortness of breath or specific chest pain. No abdominal pain vomiting. Did have a few episodes of diarrhea. Denies history of coronary artery disease. Patient took tizanidine with some improvement of pain. History of cholecystectomy. Denies any urinary symptoms, fever, chills, body aches, headache or dizziness. Allergies and Home Medications Allergies Coded Allergies: Sulfa (Sulfonamide Antibiotics) (Unverified Allergy, Unknown, RASH, 03/03/20) esomeprazole mag (Unverified Adverse Reaction, Intermediate, 03/03/20) Diarrhea Patient Home Medication List Home Medication List Reviewed: Yes Albuterol Sulfate (Proventil Pre-Mix Nebs (Rt)) 2.5 Mg/3 Ml Nebu, 2.5 MG INH Q6H PRN, (Reported) Entered as Reported by: JENNIFFER GOMEZ on 06/10/132302 Amoxicillin/Potassium Clav (Augmentin 875-125 Tablet) 1 Each Tablet, 1 EACH PO BID Prescribed by: JOHNSON REESE on 03/23/17 1020 Amphet Asp/Amphet/D-Amphet (Adderall 30 Mg Tablet) 30 Mg Tablet, 30 MG PO BID, (Reported) Entered as Reported by: JENNIFFER GOMEZ on 06/10/132302 Atorvastatin Calcium (Lipitor 10 Mg) 10 Mg Tablet, 10 MG PO HS, (Reported) Entered as Reported by: JENNIFFER GOMEZ on 06/10/132302 Black Cohosh Root Extract (Black Cohosh Extract) 80 Mg Capsule, 80 MG PO DAILY, (Reported) Entered as Reported by: JENNIFFER GOMEZ on 06/10/132302 Cephalexin (Cephalexin) 500 Mg Tablet, 500 MG PO BID Prescribed by: JOHNSON REESE on 05/17/19 1645 Cephalexin (Cephalexin) 500 Mg Tablet, 500 MG PO BID Prescribed by: Carmencita Liu on 12/07/222137 Cephalexin (Cephalexin) 500 Mg Tablet, 500 MG PO BID Prescribed by: ALEJANDRA OSORIO on 03/04/231952 Cetirizine Hcl (Zyrtec) 10 Mg Capsule, 10 MG PO DAILY, (Reported) Entered as Reported by: JENNIFFER GOMEZ on 06/10/132302 Cyclobenzaprine HCl (Cyclobenzaprine HCl) 10 Mg Tablet, 10 MG PO TID PRN for SPASMS Prescribed by: RUY EVANS on 06/20/17 1428 Cyclobenzaprine HCl (Cyclobenzaprine HCl) 5 Mg Tablet, 5 MG PO TID PRN for PAIN-MODERATE Prescribed by: KHAI JOAQUIN on 01/01/18 110 Cyclobenzaprine Hcl (Flexeril Tablet) 10 Mg Tablet, 10 MG PO TID PRN, (Reported) Entered as Reported by: JENNIFFER GOMEZ on 06/10/132302 Dexlansoprazole (Dexilant) 60 Mg Jamaal., 60 MG PO, (Reported) Entered as Reported by: GIDEON HARRIS on 06/15/17 0250 Diazepam (Valium 10 Mg Tab) 10 Mg Tablet, 10 MG PO Q8H PRN, (Reported) Entered as Reported by: JENNIFFER GOMEZ on 06/10/132302 Escitalopram Oxalate (Lexapro) 10 Mg Tablet, 10 MG PO DAILY, (Reported) Entered as Reported by: JENNIFFER GOMEZ on 06/10/132302 Furosemide (Furosemide) 40 Mg Tablet, 40 MG PO BID, (Reported) Entered as Reported by: LEX PERAZA on 08/06/09 170 Hydrocodone Bit/Acetaminophen (Lortab 5 Mg) 1 Tab Tab, 1 EA PO Q4HR PRN, (Reported) Entered as Reported by: JENNIFFER GOMEZ on 06/10/132302 Hydrocodone Bit/Acetaminophen (Lortab 5 Mg Tablet) 1 Each Tablet, 1-2 EACH PO Q4H PRN for PAIN Prescribed by: RUY EVANS on 06/20/17 1428 Ibuprofen (Motrin) 600 Mg Tab, 600 MG PO Q6H PRN, (Reported) Entered as Reported by: JENNIFFER GOMEZ on 06/10/132302 Lamotrigine (Lamictal) 100 Mg Tablet, 50 MG PO BID, (Reported) Entered as Reported by: JENNIFFER GOMEZ on 06/10/132302 Levetiracetam (Keppra Tab) 500 Mg Tab, 500 MG PO BID, (Reported) Entered as Reported by: JENNIFFER GOMEZ on 06/10/132302 Loperamide HCl (Imodium A-D) 2 Mg Capsule, 2 MG PO TID Prescribed by: ISHAN PATEL on 05/02/19 0514 Multivitamin (Multi Vitamin Daily) 1 Each Tablet, 1 TAB PO DAILY, (Reported) Entered as Reported by: JENNIFFER GOMEZ on 06/10/132302 Naloxegol Oxalate (Movantik) 25 Mg Tablet, 25 MG PO, (Reported) Entered as Reported by: GIDEON HARRIS on 06/15/17 0250 Naproxen (Naprosyn) 500 Mg Tablet, 500 MG PO BID PRN for PAIN-MODERATE (5-7) Prescribed by: KHAI JOAQUIN on 09/19/19 1634 Naproxen (Naproxen) 500 Mg Tablet, 500 MG PO Q12H Prescribed by: ALEJANDRA OSORIO on 03/04/23 195 Nortriptyline Hcl (Pamelor) 25 Mg Cap, 25 MG PO HS, (Reported) Entered as Reported by: JENNIFFER GOMEZ on 06/10/132302 Nystatin (Nystatin) 100,000 Unit/Ml Oral.susp, 500,000 UNIT PO Q6H Prescribed by: Carmencita Liu on 12/07/222137 Ondansetron Hcl (Zofran Oral Dissolve) 4 Mg Tab, 4 MG PO Q8H PRN, (Reported) Entered as Reported by: JENNIFFER GOMEZ on 06/10/132302 Polyethylene Glycol 3350 (Miralax) 17 Gm Powd.pack, 17 GM PO BID PRN Prescribed by: ZAHRA ORNELAS on 12/22/16 1704 Potassium Chloride (K-Tab) 10 Meq Tablet.sa, 20 MEQ PO BID, (Reported) Entered as Reported by: JENNIFFER GOMEZ on 06/10/13 230 Prednisone (Prednisone) 20 Mg Tab, 40 MG PO DAILY Prescribed by: JOHNSON REESE on 03/23/17 1020 Tramadol HCl (Tramadol HCl) 50 Mg Tablet, 50 MG PO Q6H PRN for PAIN Prescribed by: JOHNSON REESE on 04/26/18 1056 Zolpidem Tartrate (Ambien 10 Mg) 10 Mg Tab, 10 MG PO HS, (Reported) Entered as Reported by: JENNIFFER GOMEZ on 06/10/13 230 Review of Systems Review of Systems Constitutional: No chills, No diaphoresis, No malaise, No weakness EENTM: No Double Vision, No Eye Pain Respiratory: Denies Cough, Denies Orthopnea Cardiovascular: Chest Pain; Denies Edema, Denies Irregular Heart Rate; Other (chest wall pain) Gastrointestinal: Denies Abdominal Pain; Diarrhea; Denies Nausea, Denies Vomiting Genitourinary: Denies Burning, Denies Discharge Musculoskeletal: No back pain, No joint pain Skin: No change in color, No change in hair/nails All Other Systems Reviewed Negative Unless Noted: Yes Past Rruqpsp-Pjukzb-Nuciwp Hx Patient Social History Tobacco Use?: Yes Smoking Status: Current Everyday Smoker Substance use?: No Alcohol Use?: No Pt feels they are or have been: No Immunizations Up To Date Tetanus Booster (TDap): Unknown First/Initial COVID19 Vaccinat: YES Second COVID19 Vaccination Natalio: YES Third COVID19 Vaccination Date: YES Seasonal Allergies Seasonal Allergies: Yes Past Medical History Surgery/Hospitalization HX: COPD, MIGRAINES, EPILEPSY Surgeries: Yes (carpal tunnel sx) Abdominal, Gallbladder, Hysterectomy, Orthopedic Respiratory: Yes Chronic Bronchitis, Sleep Apnea, COPD Cardiac: Yes High Cholesterol Neurological: Yes Headaches /Migraines, Seizure Disorder 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 Disorders: No [employer] History: Hysterectomy Sexually Transmitted Disease: No HIV/AIDS: No Genitourinary: No Gastrointestinal: Yes Gastroesophageal Reflux Musculoskeletal: Yes Arthritis, Fibromyalgia Endocrine: Yes (morbid obesity) HEENT: No Cancer: No Psychosocial: Yes ADD/ADHD, Anxiety, PTSD, Depression Integumentary: No Blood Disorders: No Family Medical History No Pertinent Family Hx SOCIAL HISTORY: -SMOKES UP TO 1 PPD -ETOH--RARE USE -DRUGS--DENIES USE PAST SURGICAL HISTORY: -HYSTERECTOMY -CARPAL TUNNEL SURGERY -CHOLECYSTECTOMY Physical Exam Vital Signs Vital Signs - First Documented 03/04/23 17:51 Temp 36.7 Pulse 76 Resp 18 B/P (MAP) 120/84 (96) Pulse Ox 94 Capillary Refill : Less Than 3 Seconds Height/Weight/BMI Height: 5'6.00" Weight: 306lbs. 0oz. 138.622909gt; 39.00 BMI Method:Stated General Appearance: WD/WN, no apparent distress HEENT: PERRL/EOMI, normal ENT inspection, TMs normal, pharynx normal Neck: non-tender, full range of motion, supple Respiratory: lungs clear, normal breath sounds, no respiratory distress, no accessory muscle use, other (Tenderness below right breast. No crepitus or step-off. 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 nml as tested, no motor/sensory deficits, alert, normal mood/affect, oriented x 3 Skin: normal color, warm/dry Progress/Results/Core Measures Results/Orders Lab Results Laboratory Tests Test 03/04/23 18:58 03/04/23 19:03 Range/Units Urine Color YELLOW Urine Clarity CLEAR Urine pH 6.0 5-9 Urine Specific [place] 1.025 H 1.016-1.022 Urine Protein NEGATIVE NEGATIVE Urine Glucose (UA) NEGATIVE NEGATIVE Urine Ketones NEGATIVE NEGATIVE Urine Nitrite POSITIVE H NEGATIVE Urine Bilirubin NEGATIVE NEGATIVE Urine Urobilinogen 0.2 < = 1.0 MG/DL Urine Leukocyte Esterase 1+ H NEGATIVE Urine RBC (Auto) NEGATIVE NEGATIVE Urine RBC 0-2 /HPF Urine WBC 5-10 H /HPF Urine Squamous Epithelial Cells >50 H /HPF Urine Crystals NONE /LPF Urine Bacteria LARGE H /HPF Urine Casts NONE /LPF Urine Mucus SMALL H /LPF Urine Culture Indicated YES White Blood Count 10.7 4.3-11.0 10^3/uL Red Blood Count 4.85 3.80-5.11 10^6/uL Hemoglobin 16.0 11.5-16.0 g/dL Hematocrit 46 35-52 % Mean Corpuscular Volume 96 80-99 fL Mean Corpuscular Hemoglobin 33 25-34 pg Mean Corpuscular Hemoglobin Concent 35 32-36 g/dL Red Cell Distribution Width 11.6 10.0-14.5 % Platelet Count 232 130-400 10^3/uL Mean Platelet Volume 11.2 9.0-12.2 fL Immature Granulocyte % (Auto) 0 % Neutrophils (%) (Auto) 56 42-75 % Lymphocytes (%) (Auto) 35 12-44 % Monocytes (%) (Auto) 7 0-12 % Eosinophils (%) (Auto) 2 0-10 % Basophils (%) (Auto) 1 0-10 % Neutrophils # (Auto) 6.0 1.8-7.8 10^3/uL Lymphocytes # (Auto) 3.7 1.0-4.0 10^3/uL Monocytes # (Auto) 0.8 0.0-1.0 10^3/uL Eosinophils # (Auto) 0.2 0.0-0.3 10^3/uL Basophils # (Auto) 0.1 0.0-0.1 10^3/uL Immature Granulocyte # (Auto) 0.0 0.0-0.1 10^3/uL Sodium Level 142 135-145 MMOL/L Potassium Level 3.7 3.6-5.0 MMOL/L Chloride Level 108 H 98-107 MMOL/L Carbon Dioxide Level 24 21-32 MMOL/L Anion Gap 10 5-14 MMOL/L Blood Urea Nitrogen 19 H 7-18 MG/DL Creatinine 0.93 0.60-1.30 MG/DL Estimat Glomerular Filtration Rate 73 BUN/Creatinine Ratio 20 Glucose Level 93 70-105 MG/DL Calcium Level 10.0 8.5-10.1 MG/DL Corrected Calcium 9.8 8.5-10.1 MG/DL Total Bilirubin 0.6 0.1-1.0 MG/DL Aspartate Amino Transf (AST/SGOT) 19 5-34 U/L Alanine Aminotransferase (ALT/SGPT) 21 0-55 U/L Alkaline Phosphatase 94 40-136 U/L Troponin I < 0.028 <0.028 NG/ML C-Reactive Protein High Sensitivity 0.37 0.00-0.50 MG/DL Total Protein 7.0 6.4-8.2 GM/DL Albumin 4.3 3.2-4.5 GM/DL Lipase 32 8-78 U/L My Orders Orders - BENITEZMIRLANDEJOSE LUIS A PA Troponin I Zay (03/04/23 19:11) Chest 1 View, Ap/Pa Only (03/04/23 19:11) Ekg Tracing (03/04/23 19:11) Lipase (03/04/23 19:11) Ketorolac Injection (Toradol Injection) (03/04/23 20:00) Medications Given in ED Current Medications Medications Dose Ordered Sig/Daysi Route Start Time Stop Time Status Last Admin Dose Admin Ketorolac Tromethamine 30 mg ONCE ONCE IVP 03/04/23 20:00 03/04/23 20:01 DC 03/04/23 20:09 30 MG Vital Signs/I&O 03/04/23 17:51 Temp 36.7 Pulse 76 Resp 18 B/P (MAP) 120/84 (96) Pulse Ox 94 Blood Pressure Mean: 96 Comment Sinus rhythm, 60 bpm, QRS duration 85 MS, QTc 412 MS Departure Communication (PCP) Patient presents ED with pain below her right breast. Tenderness to palpate. No known history of coronary artery disease. History of smoking. She did have some wheezing throughout. Due to location of pain cardiac work-up chest x-ray. EKG showed no evidence of ST elevation or depression, arrhythmia. Normal sinus rhythm. Normal troponin. CBC, CMP grossly unremarkable. No evidence of myocarditis or pericarditis. No recent upper respiratory infection. She did have some tenderness on palpation. Received Toradol with improvement of pain. Appears to be more chest wall pain. Recommend anti-inflammatories which will discharge with naproxen. Does not appear cardiac in nature. Pain with movement or when she lies down on the right side. History of cholecystectomy. No upper abdominal tenderness. No vomiting. Eating and drinking without pain or disc omfort rule out gastritis, GERD, peptic ulcer disease. Recommend follow-up your PCP 2 to 3 days for reevaluation. She did test positive for UTI. Will discharge with Keflex. Recheck with urinalysis in 5 days. Return precaution were discussed such as worsening pain Impression Primary Impression: Rib pain Disposition: HOME, SELF-CARE Condition: Stable Departure-Patient Inst. Decision time for Depature: 19:51 Referrals: [facility]/EDER MALDONADO MD (PCP/Family) Primary Care Physician Patient Instructions: Pleuritic Chest Pain ED Scripts Cephalexin (Cephalexin) 500 Mg Tablet 500 MG PO BID for 7 Days, #14 TAB Prov: JOSE LUIS BENITEZ 03/04/23 Naproxen (Naproxen) 500 Mg Tablet 500 MG PO Q12H for 10 Days, #20 TAB Prov: JOSE LUIS BENITEZ 03/04/23 JOSE LUIS BENITEZ Mar 04, 2023 19:15
--- NOTE | 2023-03-04 19:33 | Diagnostic Imaging Report ---
INDICATION: Right-sided chest pain. Time of Exam: 7:21 PM Correlation is made with prior chest from 12/17/2022. Heart size is normal. There is a calcified nodule left midlung consistent with a granuloma. No infiltrates are seen. There is no effusion or pneumothorax. IMPRESSION: No acute cardiopulmonary process is detected. Dictated by: Dictated on workstation # [id number]
[2023-03-04] MEDS ORDERED: NAPR-915 PO (19:52)
[2023-03-04] MEDS ORDERED: CEPH500T PO (19:53)
[2023-03-04 20:00] LABS: ALBUMIN 4.3 GM/DL (3.2-4.5); BILIRUBIN,TOTAL 0.6 MG/DL (0.1-1.0); CREATININE SERUM 0.93 MG/DL (0.60-1.30); POTASSIUM 3.7 MMOL/L (3.6-5.0)
[2023-03-04] MEDS ORDERED: KETOROLAC 30 MG/ML VIAL IVP ONE (20:00)
[2023-03-04 20:01] LABS: LIPASE 32 U/L (8-78)
[2023-03-04 20:28] VITALS: BP 126/87
== END 2023-03-04 20:28 | disposition home or self-care (01) ==
LOC: EDUNIT# 17:32 → ER 17:33
DX: R07.81 Pleurodynia (principal); R06.2 Wheezing; E66.01 Morbid (severe) obesity due to excess calories; Z68.39 Body mass index [BMI] 39.0-39.9, adult; F17.210 Nicotine dependence, cigarettes, uncomplicated; Z88.2 Allergy status to sulfonamides
CPT/HCPCS: 36415; 71045; 80053; 81000; 83690; 84484; 85025; 86141; 87077; 87088; 87186; 93005

== ENCOUNTER 2023-03-16 08:44 | Emergency (ER) | payer MEDICAID ==
[~2023-03-16] VITALS: Ht 162 cm; Wt 101.5 kg
[~2023-03-16 08:44] MED LIST changes: +NAPR-915 PO
[2023-03-16 09:11] LABS: BILIRUBIN,URINE NEGATIVE (NEGATIVE); CLARITY,URINE CLOUDY; COLOR,URINE YELLOW; GLUCOSE, URINE (UA) NEGATIVE (NEGATIVE); KETONES,URINE NEGATIVE (NEGATIVE); LEUKOCYTE ESTERASE ,URINE 2+ (NEGATIVE); NITRITE,URINE NEGATIVE (NEGATIVE); PROTEIN,URINE NEGATIVE (NEGATIVE)
[2023-03-16] MEDS ORDERED: fentaNYL INJ 100 MCG/2 ML AMP IVP STA (09:15)
[2023-03-16] MEDS ORDERED: NS IV 500 ML 500 ML IV ONE (09:15)
[2023-03-16] MEDS ORDERED: KETOROLAC 30 MG/ML VIAL IVP STA (09:15)
[2023-03-16] MEDS ORDERED: ORPHENADRINE 60 MG/2 ML (NORFLEX) AMP (ED ONLY) IV STA (09:15)
[2023-03-16 09:20] LABS: BACTERIA,URINE FEW /HPF
[2023-03-16 09:21] LABS: BASOPHILS % (AUTO) 1 % (0-10); EOSINOPHILS # (AUTO) 0.3 10^3/uL (0.0-0.3); EOSINOPHILS % (AUTO) 3 % (0-10); HEMATOCRIT 43 % (35-52); LYMPHOCYTES # (AUTO) 2.5 10^3/uL (1.0-4.0); LYMPHOCYTES % (AUTO) 33 % (12-44); MEAN CORPUSCULAR HEMOGLOBIN 33 pg (25-34); MEAN CORPUSCULAR HGB CONC 35 g/dL (32-36); MEAN CORPUSCULAR VOLUME 95 fL (80-99); MEAN PLATELET VOLUME 11.8 fL (9.0-12.2); MONOCYTES # (AUTO) 0.5 10^3/uL (0.0-1.0); MONOCYTES % (AUTO) 6 % (0-12); NEUTROPHILS # (AUTO) 4.3 10^3/uL (1.8-7.8); NEUTROPHILS % (AUTO) 56 % (42-75); PLATELET COUNT 166 10^3/uL (130-400); WHITE BLOOD COUNT 7.6 10^3/uL (4.3-11.0)
--- NOTE | 2023-03-16 09:23 | ED Back Pain ---
General Chief Complaint: Back Problems Stated Complaint: LOW BACK PAIN Nursing Triage Note: PT TO [facility] WITH CC OF LT FLANK PAIN SINCE YESTERDAY, ON ABX FOR A UTI, 1 PILL LEFT Source of Information: Patient Exam Limitations: No Limitations History of Present Illness Date Seen by Provider: Mar 16, 2023 Time Seen by Provider: 08:52 Initial Comments Here with report of left low back pain that started yesterday morning but much w orse today. She was using naproxen yesterday but has not taken anything this morning. Has known urinary tract infection from findings from visit here on 03/04/2023. This did have resistant agent and she was changed to nitrofurantoin. She is taking all of that except for 1 last dose due today. Denies nausea, vomiting, fever or chills. Denies any recent trauma. Pain from urinary tract infection was on the right but this pain is on the left just above the left hip posteriorly. Does hurt when she moves her leg or sits up. Denies falls or trauma. She called EMS for evaluation and was transported here. EMS reports the same as above and did note normal vital signs on their evaluation Timing/Duration: 24 Hours, Getting Worse Severity: Moderate Pain/Injury Location: Back Radiation: Buttocks Method of Injury: Unknown Modifying Factors: Worse With Movement Associated Symptoms: muscle spasms; No fever, No weakness, No numbness in legs/feet, No tingling in legs/feet; lower back pain; No loss of bladder control, No loss of bowel control Allergies and Home Medications Allergies Coded Allergies: Sulfa (Sulfonamide Antibiotics) (Unverified Allergy, Unknown, RASH, 03/03/20) esomeprazole mag (Unverified Adverse Reaction, Intermediate, 03/03/20) Diarrhea Patient Home Medication List Home Medication List Reviewed: Yes Albuterol Sulfate (Proventil Pre-Mix Nebs (Rt)) 2.5 Mg/3 Ml Nebu, 2.5 MG INH Q6H PRN, (Reported) Entered as Reported by: JENNIFFER GOMEZ on 06/10/13 2303 Amoxicillin/Potassium Clav (Augmentin 875-125 Tablet) 1 Each Tablet, 1 EACH PO BID Prescribed by: JOHNSON REESE on 03/23/17 1020 Amphet Asp/Amphet/D-Amphet (Adderall 30 Mg Tablet) 30 Mg Tablet, 30 MG PO BID, (Reported) Entered as Reported by: JENNIFFER GOMEZ on 06/10/132302 Atorvastatin Calcium (Lipitor 10 Mg) 10 Mg Tablet, 10 MG PO HS, (Reported) Entered as Reported by: JENNIFFER GOMEZ on 06/10/132302 Black Cohosh Root Extract (Black Cohosh Extract) 80 Mg Capsule, 80 MG PO DAILY, (Reported) Entered as Reported by: JENNIFFER GOMEZ on 06/10/132302 Cephalexin (Cephalexin) 500 Mg Tablet, 500 MG PO BID Prescribed by: JOHNSON REESE on 05/17/19 1645 Cephalexin (Cephalexin) 500 Mg Tablet, 500 MG PO BID Prescribed by: Carmencita Liu on 12/07/222137 Cephalexin (Cephalexin) 500 Mg Tablet, 500 MG PO BID Prescribed by: ALEJANDRA OSORIO on 03/04/231952 Cetirizine Hcl (Zyrtec) 10 Mg Capsule, 10 MG PO DAILY, (Reported) Entered as Reported by: JENNIFFER GOMEZ on 06/10/132302 Cyclobenzaprine HCl (Cyclobenzaprine HCl) 10 Mg Tablet, 10 MG PO TID PRN for SPASMS Prescribed by: RUY EVANS on 06/20/17 1428 Cyclobenzaprine HCl (Cyclobenzaprine HCl) 5 Mg Tablet, 5 MG PO TID PRN for PAIN- MODERATE Prescribed by: KHAI JOAQUIN on 01/01/18 1102 Cyclobenzaprine Hcl (Flexeril Tablet) 10 Mg Tablet, 10 MG PO TID PRN, (Reported) Entered as Reported by: JENNIFFER GOMEZ on 06/10/132302 Dexlansoprazole (Dexilant) 60 Mg Jamaal., 60 MG PO, (Reported) Entered as Reported by: GIDEON HARRIS on 06/15/17 0250 Diazepam (Valium 10 Mg Tab) 10 Mg Tablet, 10 MG PO Q8H PRN, (Reported) Entered as Reported by: JENNIFFER GOMEZ on 06/10/132302 Escitalopram Oxalate (Lexapro) 10 Mg Tablet, 10 MG PO DAILY, (Reported) Entered as Reported by: JENNIFFER GOMEZ on 06/10/132302 Furosemide (Furosemide) 40 Mg Tablet, 40 MG PO BID, (Reported) Entered as Reported by: LEX PERAZA on 08/06/09 1703 Hydrocodone Bit/Acetaminophen (Lortab 5 Mg) 1 Tab Tab, 1 EA PO Q4HR PRN, (Reported) Entered as Reported by: JENNIFFER GOMEZ on 06/10/132302 Hydrocodone Bit/Acetaminophen (Lortab 5 Mg Tablet) 1 Each Tablet, 1-2 EACH PO Q4H PRN for PAIN Prescribed by: RUY EVANS on 06/20/17 1428 Hydrocodone/Acetaminophen (Hydrocodone-Acetamin 5-325 mg) 5 Mg-325 Mg Tablet, 1 TAB PO Q6H PRN for PAIN-MODERATE (5-7) Prescribed by: JOHNSON REESE on 03/16/23 1144 Ibuprofen (Motrin) 600 Mg Tab, 600 MG PO Q6H PRN, (Reported) Entered as Reported by: JENNIFFER GOMEZ on 06/10/132302 Lamotrigine (Lamictal) 100 Mg Tablet, 50 MG PO BID, (Reported) Entered as Reported by: JENNIFFER GOMEZ on 06/10/132302 Levetiracetam (Keppra Tab) 500 Mg Tab, 500 MG PO BID, (Reported) Entered as Reported by: JENNIFFER GOMEZ on 06/10/132302 Loperamide HCl (Imodium A-D) 2 Mg Capsule, 2 MG PO TID Prescribed by: ISHAN PATEL on 05/02/19 0514 Multivitamin (Multi Vitamin Daily) 1 Each Tablet, 1 TAB PO DAILY, (Reported) Entered as Reported by: JENNIFFER GOMEZ on 06/10/132302 Naloxegol Oxalate (Movantik) 25 Mg Tablet, 25 MG PO, (Reported) Entered as Reported by: GIDEON HARRIS on 06/15/17 0250 Naproxen (Naprosyn) 500 Mg Tablet, 500 MG PO BID PRN for PAIN-MODERATE (5-7) Prescribed by: KHAI JOAQUIN on 09/19/19 1634 Naproxen (Naproxen) 500 Mg Tablet, 500 MG PO Q12H Prescribed by: ALEJANDRA OSORIO on 03/04/23 195 Nitrofurantoin Monohyd/M-Cryst (Macrobid 100 mg Capsule) 100 Mg Capsule, 1 TAB PO BID Prescribed by: RUY EVANS on 03/11/23 0653 Nortriptyline Hcl (Pamelor) 25 Mg Cap, 25 MG PO HS, (Reported) Entered as Reported by: JENNIFFER GOMEZ on 06/10/132302 Nystatin (Nystatin) 100,000 Unit/Ml Oral.susp, 500,000 UNIT PO Q6H Prescribed by: Carmencita Liu on 12/07/222137 Ondansetron Hcl (Zofran Oral Dissolve) 4 Mg Tab, 4 MG PO Q8H PRN, (Reported) Entered as Reported by: JENNIFFER GOMEZ on 06/10/132302 Polyethylene Glycol 3350 (Miralax) 17 Gm Powd.pack, 17 GM PO BID PRN Prescribed by: ZAHRA ORNELAS on 12/22/16 1704 Potassium Chloride (K-Tab) 10 Meq Tablet.sa, 20 MEQ PO BID, (Reported) Entered as Reported by: JENNIFFER GOMEZ on 06/10/132302 Prednisone (Prednisone) 20 Mg Tab, 40 MG PO DAILY Prescribed by: JOHNSON REESE on 03/23/17 1020 Tramadol HCl (Tramadol HCl) 50 Mg Tablet, 50 MG PO Q6H PRN for PAIN Prescribed by: JOHNSON REESE on 04/26/18 1056 Zolpidem Tartrate (Ambien 10 Mg) 10 Mg Tab, 10 MG PO HS, (Reported) Entered as Reported by: JENNIFFER GOMEZ on 06/10/132302 Review of Systems Constitutional: see HPI; No chills, No fever EENTM: No throat pain Respiratory: No cough, No short of breath Cardiovascular: No chest pain, No edema Gastrointestinal: No nausea, No vomiting Genitourinary: see HPI Musculoskeletal: back pain, muscle pain Skin: No change in color, No lesions Past Qiezkbj-Uawafc-Ztxaqi Hx Patient Social History Tobacco Use?: Yes Tobacco type used: Cigarettes Smoking Status: Current Someday Smoker Substance use?: No Alcohol Use?: No Immunizations Up To Date Tetanus Booster (TDap): Unknown First/Initial COVID19 Vaccinat: YES Second COVID19 Vaccination Natalio: YES Third COVID19 Vaccination Date: YES Seasonal Allergies Seasonal Allergies: Yes Past Medical History Surgery/Hospitalization HX: COPD, MIGRAINES, EPILEPSY, UTI'S, FIBROMYALGIA, OSTEOARTHRITIS Surgeries: Yes (carpal tunnel sx) Abdominal, Gallbladder, Hysterectomy, Orthopedic Respiratory: Yes Chronic Bronchitis, Sleep Apnea, COPD Cardiac: Yes High Cholesterol Neurological: Yes Headaches /Migraines, Seizure Disorder 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 Disorders: No [employer] History: Hysterectomy Sexually Transmitted Disease: No HIV/AIDS: No Genitourinary: No Gastrointestinal: Yes Gastroesophageal Reflux Musculoskeletal: Yes Arthritis, Fibromyalgia Endocrine: Yes (morbid obesity) HEENT: No Cancer: No Psychosocial: Yes ADD/ADHD, Anxiety, PTSD, Depression Integumentary: No Blood Disorders: No Family Medical History Reviewed Nursing Family Hx No Pertinent Family Hx SOCIAL HISTORY: -SMOKES UP TO 1 PPD -ETOH--RARE USE -DRUGS--DENIES USE PAST SURGICAL HISTORY: -HYSTERECTOMY -CARPAL TUNNEL SURGERY -CHOLECYSTECTOMY Physical Exam Vital Signs Vital Signs - First Documented 03/16/23 08:50 Temp 35.6 Pulse 70 Resp 20 B/P (MAP) 125/86 (99) Pulse Ox 97 O2 Delivery Room Air Capillary Refill : Less Than 3 Seconds Height, Weight, BMI Height: 5'6.00" Weight: 306lbs. 0oz. 138.283432cp; 38.00 BMI Method:Stated General Appearance: No Apparent Distress, WD/WN HEENT: PERRL/EOMI, Pharynx Normal Neck: Full Range of Motion, Normal Inspection, Non Tender, Supple Cardiovascular: Regular Rate, Rhythm, No Murmur Respiratory: Lungs Clear, Normal Breath Sounds Gastrointestinal: Non Tender, Soft Back: No CVA Tenderness, No Vertebral Tenderness, Muscle Spasm (Question left paraspinous spasms), Other (Tenderness to the left SI joint area and surrounding muscle tissue) Extremity: Normal Range of Motion, Non Tender Progress/Results/Core Measures Results/Orders Lab Results Laboratory Tests Test 03/16/23 08:56 03/16/23 09:02 Range/Units White Blood Count 7.6 4.3-11.0 10^3/uL Red Blood Count 4.56 3.80-5.11 10^6/uL Hemoglobin 15.0 11.5-16.0 g/dL Hematocrit 43 35-52 % Mean Corpuscular Volume 95 80-99 fL Mean Corpuscular Hemoglobin 33 25-34 pg Mean Corpuscular Hemoglobin Concent 35 32-36 g/dL Red Cell Distribution Width 11.7 10.0-14.5 % Platelet Count 166 130-400 10^3/uL Mean Platelet Volume 11.8 9.0-12.2 fL Immature Granulocyte % (Auto) 0 % Neutrophils (%) (Auto) 56 42-75 % Lymphocytes (%) (Auto) 33 12-44 % Monocytes (%) (Auto) 6 0-12 % Eosinophils (%) (Auto) 3 0-10 % Basophils (%) (Auto) 1 0-10 % Neutrophils # (Auto) 4.3 1.8-7.8 10^3/uL Lymphocytes # (Auto) 2.5 1.0-4.0 10^3/uL Monocytes # (Auto) 0.5 0.0-1.0 10^3/uL Eosinophils # (Auto) 0.3 0.0-0.3 10^3/uL Basophils # (Auto) 0.0 0.0-0.1 10^3/uL Immature Granulocyte # (Auto) 0.0 0.0-0.1 10^3/uL Sodium Level 143 135-145 MMOL/L Potassium Level 3.4 L 3.6-5.0 MMOL/L Chloride Level 111 H 98-107 MMOL/L Carbon Dioxide Level 22 21-32 MMOL/L Anion Gap 10 5-14 MMOL/L Blood Urea Nitrogen 15 7-18 MG/DL Creatinine 0.78 0.60-1.30 MG/DL Estimat Glomerular Filtration Rate 90 BUN/Creatinine Ratio 19 Glucose Level 98 70-105 MG/DL Calcium Level 9.2 8.5-10.1 MG/DL Corrected Calcium 9.2 8.5-10.1 MG/DL Total Bilirubin 0.6 0.1-1.0 MG/DL Aspartate Amino Transf (AST/SGOT) 22 5-34 U/L Alanine Aminotransferase (ALT/SGPT) 20 0-55 U/L Alkaline Phosphatase 101 40-136 U/L C-Reactive Protein High Sensitivity 0.14 0.00-0.50 MG/DL Total Protein 6.4 6.4-8.2 GM/DL Albumin 4.0 3.2-4.5 GM/DL Urine Color YELLOW Urine Clarity CLOUDY Urine pH 6.0 5-9 Urine Specific [place] 1.025 H 1.016-1.022 Urine Protein NEGATIVE NEGATIVE Urine Glucose (UA) NEGATIVE NEGATIVE Urine Ketones NEGATIVE NEGATIVE Urine Nitrite NEGATIVE NEGATIVE Urine Bilirubin NEGATIVE NEGATIVE Urine Urobilinogen 0.2 < = 1.0 MG/DL Urine Leukocyte Esterase 2+ H NEGATIVE Urine RBC (Auto) NEGATIVE NEGATIVE Urine RBC NONE /HPF Urine WBC 5-10 H /HPF Urine Squamous Epithelial Cells 10-25 H /HPF Urine Crystals NONE /LPF Urine Bacteria FEW H /HPF Urine Casts NONE /LPF Urine Mucus NEGATIVE /LPF Urine Culture Indicated YES My Orders Orders - JOHNSON REESE MD Ua Culture If Indicated (03/16/23 09:00) Cbc With Automated Diff (03/16/23 09:15) Comprehensive Metabolic Panel (03/16/23 09:15) Hs C Reactive Protein (03/16/23 09:15) Fentanyl Inj (Sublimaze Injection) (03/16/23 09:15) Ketorolac Injection (Toradol Injection) (03/16/23 09:15) Orphenadrine Inj (Ed Only) (Norflex Inje (03/16/23 09:15) Ed Iv/Invasive Line Start (03/16/23 09:15) Ns Iv 500 Ml (Sodium Chloride 0.9%) (03/16/23 09:15) Urine Culture (03/16/23 09:02) Ceftriaxone Iv/Im (Rocephin Iv/Im) (03/16/23 10:37) Medications Given in ED Current Medications Medications Dose Ordered Sig/Daysi Route Start Time Stop Time Status Last Admin Dose Admin Sodium Chloride 500 ml @ 0 mls/hr Q0M ONCE IV 03/16/23 09:15 03/16/23 09:17 DC 03/16/23 09:27 500 MLS/HR Vital Signs/I&O 03/16/23 03/16/23 03/16/23 08:50 09:27 09:27 Temp 35.6 35.6 35.6 Pulse 70 Resp 20 B/P (MAP) 125/86 (99) Pulse Ox 97 O2 Delivery Room Air Blood Pressure Mean: 99 Progress Progress Note : Progress Note Seen and evaluated. We will recheck UA given her urinary tract infection with resistance and new meds. We will check basic labs including CBC, CMP and CRP. Normal saline 500 mL bolus. Fentanyl 50 mcg IV, Norflex 60 mg IV and Toradol 30 mg IV for pain. Monitor patient. Differential diagnosis includes low back pain, UTI Urine does show concerns for urinary tract infection. She is completing her antibiotics. We will go ahead and give additional dose of Rocephin 1 g IV now and await culture. She is better after pain medicine. Labs reviewed and CBC is grossly normal, CMP is grossly normal and CRP is not significantly elevated. 1145 discharged home with return precautions. Patient verbalized understanding instructions and agreement with plan. Of note we were not able to give the Norflex as there is nationwide shortage and we are out of that at the hospital here. I will prescribe a few pain tablets for home and she will continue her Naprosyn and antibiotics. Patient very motivated to leave. Wanting to leave prior to discharge instructions. I did verbally give them to her though. Departure Impression Primary Impression: Low back pain Qualified Codes: M54.42 - Lumbago with sciatica, left side Disposition: HOME, SELF-CARE Condition: Improved Departure-Patient Inst. Decision time for Depature: 11:42 Referrals: [facility] [place] (PCP/Family) Primary Care Physician Patient Instructions: Low Back Pain (DC) Add. Discharge Instructions: All discharge instructions reviewed with patient and/or family. Voiced understanding. You may continue ibuprofen 600 mg every 8 hours as needed for pain or take the Naprosyn but do not take both as they both are the same class. You may take Tylenol/acetaminophen 1000 mg every 6-8 hours as needed for pain if you are not taking the prescribed pain medicine. Do not take both at the same time as they both have acetaminophen in them. Return for worse pain, fever, vomiting, weakness, breathing problems or other concerns as needed. Complete antibiotics for urinary tract infection. Scripts Hydrocodone/Acetaminophen (Hydrocodone-Acetamin 5-325 mg) 5 Mg-325 Mg Tablet 1 TAB PO Q6H PRN for PAIN-MODERATE (5-7) for 7 Days, #8 TAB 0 Refills Prov: JOHNSON REESE MD 03/16/23 JOHNSON REESE MD Mar 16, 2023 09:23
[2023-03-16 09:29] LABS: POTASSIUM 3.4 MMOL/L (3.6-5.0)
[2023-03-16 09:30] LABS: CALCIUM 9.2 MG/DL (8.5-10.1)
[2023-03-16 09:32] LABS: TOTAL PROTEIN 6.4 GM/DL (6.4-8.2)
[2023-03-16 09:33] LABS: BILIRUBIN,TOTAL 0.6 MG/DL (0.1-1.0)
[2023-03-16 09:35] LABS: CREATININE SERUM 0.78 MG/DL (0.60-1.30)
[2023-03-16] MEDS ORDERED: cefTRIAXone IV/IM 1,000 MG in NS (IVPB) 50 ML IV STA (10:37)
[2023-03-16 11:40] VITALS: BP 125/93
[2023-03-16] MEDS ORDERED: ACHD5005 PO (11:44)
== END 2023-03-16 11:40 | disposition home or self-care (01) ==
LOC: EDUNIT# 08:44 → ER 08:45
DX: M54.50 Low back pain, unspecified (principal); F17.210 Nicotine dependence, cigarettes, uncomplicated; E66.01 Morbid (severe) obesity due to excess calories; Z68.38 Body mass index [BMI] 38.0-38.9, adult; Z88.2 Allergy status to sulfonamides
CPT/HCPCS: 36415; 80053; 81000; 85025; 86141; 87088